=== PATIENT | female | born 1945 | race Caucasian/White ===

== ENCOUNTER 2019-07-31 09:46 | Emergency (ER) | payer MEDICARE ==
[~2019-07-31] VITALS: Ht 160 cm; Wt 65.8 kg
--- OUTSIDE RECORDS SUMMARY | ~2019-07-31 | XMS | Encounter Summary ---
Demographics + + + | Address | [address] | | | [place] [address] | + + + | Home Phone | | + + + | Preferred Language | Unknown | + + + | Marital Status | | + + + | Buddhism Affiliation | Unknown | + + + | Race | Unknown | + + + | Ethnic Group | Unknown | + + + Author + + + | Author | [facility] | | | and [place] | + + + | Organization | [facility] | | | and [place] | + + + | Address | Unknown | + + + | Phone | Unavailable | + + + Support + + + + + | Name | Relationship | Address | Phone | + + + + + | Deniz Shelby | ECON | [address] | | | | | [place] | | | | | [address] | | + + + + + | Haylie Rg | ECON | [address] | | | | | [place] | | + + + + + Care Team Providers + +------+ + | Care Director Product Name | Role | Phone | + +------+ + | Blayne Herrera DO | PCP | | + +------+ + Reason for Visit + + + | Reason | Comments | + + + | Follow-up | | + + + Encounter Details +--------+---------+ + + + | Date | Type | Department | Care Team | Description | +--------+---------+ + + + | 02/18/ | Office | [facility] | Landon Denton, | Dyspnea (Primary | | 2013 | Visit | PULMONARY [address] | MD [address] | Dx); Pulmonary | | | | [place], | [place], [place] | nodules; Sarcoidosis | | | | [place] [address] | [address] | (HCC); Chest | | | | [phone] | | heaviness | +--------+---------+ + + + Social History + +-------+ +--------+------+ | Tobacco Use | Types | Packs/Day | Years | Date | | | | | Used | | + +-------+ +--------+------+ | Never Smoker | | | | | + +-------+ +--------+------+ + +---+---+---+ | Smokeless Tobacco: | | | | | Never Used | | | | + +---+---+---+ + + +---------+ + | Alcohol Use | Drinks/Week | oz/Week | Comments | + + +---------+ + | Not Asked | | | | + + +---------+ + + + + | Sex Assigned at | Date Recorded | | | | + + + | Not on file | | + + + + + + + | Job Start Date | Occupation | Industry | + + + + | Not on file | Not on file | Not on file | + + + + + + + + | Travel History | Travel Start | Travel End | + + + + + + | No recent travel history available. | + + documented as of this encounter Last Filed Vital Signs + + + + + | Vital Sign | Reading | Time Taken | Comments | + + + + + | Blood Pressure | 118/70 | 02/18/2014 11:23 AM | | | | | PDT | | + + + + + | Pulse | 72 | 02/18/2014 11:23 AM | | | | | PDT | | + + + + + | Temperature | - | - | | + + + + + | Respiratory Rate | - | - | | + + + + + | Oxygen Saturation | 97% | 02/18/2014 11:23 AM | | | | | PDT | | + + + + + | Inhaled Oxygen | - | - | | | Concentration | | | | + + + + + | Weight | 73.7 kg (162 lb 6.4 | 02/18/2014 11:23 AM | | | | oz) | PDT | | + + + + + | Height | 152.4 cm (5') | 02/18/2014 11:23 AM | | | | | PDT | | + + + + + | Body Mass Index | 31.72 | 02/18/2014 11:23 AM | | | | | PDT | | + + + + + documented in this encounter Patient Instructions Patient Instructions Landon Denton MD - 02/18/2014 11:51 AM PDTPlease call and let us know Dr. Munoz's plan after you see him today. documented in this encounter Progress Notes Landon Denton MD - 02/18/2014 11:31 AM PDTFormatting of this note might be different f rom the original. Pulmonary Follow Up 02/18/2014 [facility] Elinor Shelby is a 68 y.o. female patient of Blayne Herrera DO here today for follo w up of sarcoidosis. Apparently the patient was seen by Dr. Herrera in August and noted chest heaviness and a chronic cough. The patient believes that she was referred back to Dr. Munoz but the appoint ment was not made for nearly 6 months. I do not have records from Dr. Herrera to substantia te the patient's understanding. Elinor sorto is scheduled to see Dr. Munoz later today. The pat bailey also believes that she's had a cardiology evaluation sometime within the last year. It has been 12 months since our last clinic appointment. At their last visit, we planned r outine follow up for 1 year. Since the last visit she feels like their symptoms are increasi ng steadily. Notes increased cough and SOB over the last 6 months. They have have not had any acute illnesses. Currently they are able to walk 3 miles at their own pace on level ground. They are exercis ing regularly. Walking for up to 45 mins. They are not enrolled in cardiac/pulmonary rehabi litation or other physical therapy. She does cough chronically, and does not produce mucous. They have not had hemoptysis. She does not wheeze chronically, and does have chest tightness with exertion. Such as clim angel up hills. She does not take medication for sarcoidosis. She has not been evaluated for nocturnal oxygen. She does not had symptoms of heartburn or reflux. They have not had symptoms of nasal conge stion, runny nose or post nasal drip. There is no history of new rashes or arthritis like symptoms. No palpitations. Occasional lightheadedness over the last several weeks. Past Medical History Past Medical History Diagnosis Date Lymphedema Shoulder fracture Sarcoid (HCC) Dignosed via mediatinoscopy ~ 2008 Pulmonary nodules No change in follow up imaging last here 2010 Allergies: No Known Allergies Medications: Current outpatient prescriptions:fluticasone (FLONASE) 50 mcg/nasal spray, 1 spray by Nasal route Daily., Disp: , Rfl: ; multivitamin (THERAGRAN) per tablet, 1 tablet by mouth daily, Disp: , Rfl: ; [place]-3 Fatty Acids (OMEGA 3 PO), CPDR; 3 capsules by mouth twice daily, Di sp: , Rfl: Immunizations: Immunization History Administered Date(s) Administered INFLUENZA, PRESERVATIVE FREE IM 05/02/2012, 04/30/2013 Pneumococcal (Adult) 08/22/2008 Review of Systems Constitutional: Denies fever, chills, sweats, fatigue/weakness, and unexpected weight bray ge. Sleep: Denies trouble sleeping, excessive snoring, and daytime sleepiness. Eyes: Denies vision change, and eye irritation. ENT: Denies earache, tinnitus, decreased hearing, nosebleeds, sore throat, and hoarseness. Resp: See HPI. CV: Denies neck/chest/jaw pain with exertion, palpitations, lightheadedness, syncope, dysp lucero on exertion, orthopnea, PND, peripheral edema, and claudication. GI: Denies trouble swallowing, nausea, vomiting, abdominal pain, diarrhea, constipation,m jayro, and hematochezia. Neurologic: Denies frequent headaches, seizures, tremors, numbness or tingling in hands or feet, vertigo, and fall or difficulty walking in past 6 months. Allergy Denies urticaria, allergic rash, hay fever. Objective BP 118/70 | Pulse 72 | Ht 1.524 m (5') | Wt 73.664 kg (162 lb 6.4 oz) | BMI 31.72 kg/m2 | S pO2 97% Appearance: Alert, cooperative, no distress, appears stated age Head: Normocephalic, without obvious abnormality, atraumatic Eyes: PERRL, conjunctiva/corneas clear Nose: Nares normal, septum midline, mucosa normal, no drainage or sinus tenderness Throat: Lips, mucosa, and tongue normal; teeth/dentures normal Neck: Supple, symmetrical, no JVD Lungs: No accessory muscle use, breath sounds are clear to auscultation bilaterally, no w heezes, crackles or rhonchi. No dullness to percussion. Chest Wall: No tenderness or deformity Heart: Regular rate and rhythm, S1, S2 normal, no murmur, rub or gallop Extremities: Extremities normal, atraumatic, no cyanosis, clubbing, or edema. No joint swe lling. Skin: Warm and dry. No rashes. Lymph nodes: Cervical and supraclavicular nodes normal Neurologic: Gait normal Data: Pulmonary function tests were performed on 02/18/14 and were reviewed and interpreted in i jasmyne today. They show a forced vital capacity of 2.81, 110% of predicted with an FEV1/FVC of 71%. The uncorrected DLCO was 11.6, 54% of predicted. Assessment 1. Sarcoid- Elinor sorto is a 68-year-old female with biopsy-proven sarcoidosis. At the time o f the patient's last clinic appointment 12 months ago she was noted to have stable pulmonary symptoms. Likewise assessment of her NELSON level was within normal limits. Over last 6 or so months Elinor sorto has noted worsening of shortness of breath and a nonproduc tive cough. Pulmonary function test today show stable spirometry. Her uncorrected DLCO has fallen 17% over the last 18 or so months. The patient is apparently seeing Dr. Munoz later today potentially for further evaluation o f sarcoid. It is possible though less likely that the patient's worsening symptoms are related to prog ression of sarcoidosis. In the past the patient's sarcoid was thought to be in remission. I wouldn't typically order a CT scan of the chest with contrast at this time. However I do not want to interfere with a potential evaluation pending by Dr. Munoz. We will attempt to coordinate followup. 2. Pulmonary nodules-followed radiographically for several years and thought to be stable. Plan 1. A copy this dictation will be forwarded to Dr. Munoz and Dr. Herrear. 2. Anticipate clarification regarding Dr. Munoz's plans for followup in the near future. 3. A copy of the patient's somewhat recent cardiology will be requested. 4. Anticipate CT scan of the chest with contrast and pulmonary clinic followup within the next several weeks. CC: Blayne Herrera documented in this encounter Plan of Treatment +--------+ + + + + | Date | Type | Specialty | Care Team | Description | +--------+ + + + + | 08/15/ | Appointment | Pulmonology | Landon Denton, | | | 2019 | | | [address] | | | | | | [place] | | | | | | [address] | | | | | | | | +--------+ + + + + | 08/15/ | Office | Pulmonology | Landon Denton, | | | 2019 | Visit | | [address] | | | | | | [place] | | | | | | [address] | | | | | | | | +--------+ + + + + documented as of this encounter Visit Diagnoses + + | Diagnosis | + + | Dyspnea - Primary Other dyspnea and respiratory abnormality | + + | Pulmonary nodules Other nonspecific abnormal finding of lung field | + + | Sarcoidosis | + + | Chest heaviness Other chest pain | + + documented in this encounter"
--- OUTSIDE RECORDS SUMMARY | ~2019-07-31 | XMS | Encounter Summary ---
Demographics + + + | Address | [address] | | | [place] [address] | + + + | Home Phone | | + + + | Preferred Language | Unknown | + + + | Marital Status | | + + + | Adventism Affiliation | Unknown | + + + | Race | Unknown | + + + | Ethnic Group | Unknown | + + + Author + + + | Author | [facility] | | | and [place] | + + + | Organization | [facility] | | | and [place] | [...] [place] | | | | | [address] | | + + + + + | Haylie Rg | ECON | [address] | | | | | [place] | | + + + + + Care Team Providers + +------+ + | Care Carbide Tool Die Maker Name | Role | Phone | + [...] Description | +--------+---------+ + + + | 03/25/ | Office | [facility] | Landon Denton, | Pulmonary nodules | | 2013 | Visit | PULMONARY [address] | MD [address] | (Primary Dx); | | | | [place], | [place], [place] | Sarcoidosis (HCC); | | | | [place] [address] | [address] | Dyspnea | | | | [phone] | | | +--------+---------+ + + + Social History [...] + + + | Blood Pressure | 112/66 | 03/25/2014 9:53 AM | | | | | PDT | | + + + + + | Pulse | 79 | 03/25/2014 9:53 AM | | | | | PDT | | + + + + + | Temperature | - | - | | + + + + + | Respiratory Rate | - | - | | + + + + + | Oxygen Saturation | 95% | 03/25/2014 9:53 AM | | | | | PDT | | + + + + + | Inhaled Oxygen | - | - | | | Concentration | | | | + + + + + | Weight | 75.5 kg (166 lb 6.4 | 03/25/2014 9:53 AM | | | | oz) | PDT | | + + + + + | Height | 152.4 cm (5') | 03/25/2014 9:53 AM | | | | | PDT | | + + + + + | Body Mass Index | 32.5 | 03/25/2014 9:53 AM | | | | | PDT | | + + + + + documented in this encounter Patient Instructions Patient Instructions Landon Denton MD - 03/25/2014 10:18 AM PDTWill discuss with our r adiologist whether they think that the chest CTs have significant worsened. documented in this encounter Progress Notes Landon Denton MD - 03/25/2014 10:02 AM PDTFormatting of this note might be different f rom the original. Pulmonary Follow Up 03/25/2014 HPI Elinor Shelby is a 69 y.o. female patient of Blayne Herrera DO here today for follo w up of sarcoidosis. It has been 1 month since our last clinic appointment. At their last visit, we planned a c hest CT. Since the last visit she feels like their symptoms are stable. They have have not had any acute illnesses. Currently they are able to walk 1-2 miles at their own pace on level ground. They are not e xercising regularly. They are not enrolled in cardiac/pulmonary rehabilitation or other phys ical therapy. She does cough chronically, and does not produce mucous. Cough worse in evening and early m orning. They have not had hemoptysis. She does not wheeze chronically, and does have chest heaviness but no chest tightness. She has not been evaluated for nocturnal oxygen. She does not had symptoms of heartburn or reflux since starting Prilosec. They have not had symptoms of nasal congestion, runny nose or post nasal drip. No new rashes or arthritis like symptoms. No palpitations. No visual changes. Past Medical History Past Medical History Diagnosis [...] by mouth daily, Disp: , Rfl: ; [place]-3 Fatty Acids (OMEGA 3 PO), CPDR; 3 capsules by mouth twice daily, Di sp: , Rfl: ; omeprazole (PRILOSEC) 20 mg capsule, Take 20 mg by mouth every morning (before breakfast)., Disp: , Rfl: Immunizations: Immunization History Administered Date(s) [...] urticaria, allergic rash, hay fever. Objective BP 112/66 | Pulse 79 | Ht 1.524 m (5') | Wt 75.479 kg (166 lb 6.4 oz) | BMI 32.50 kg/m2 | S pO2 95% Appearance: Alert, cooperative, no distress, appears stated [...] supraclavicular nodes normal Neurologic: Gait normal Data: Chest CT scan was done on 06/08/12 and 02/20/14 and was reviewed and interpreted in clinic to day. The images are difficult to compare given that they reside in separate files. However to my eye it appears that the patient has a background of increased interstitial changes, Mixed amongst areas of stable pulmonary parenchyma. Numerous nodular densities are noted. Once again it is difficult to comment on whether these have changed. The patient appears t o have stable mediastinal and hilar lymphadenopathy. Records from Dr. Munoz reference agreement with the need of a CT scan of the chest. In add ition the patient's EGD from 03/10/14 references a hiatal hernia with clinical reflux symptom s. Assessment 1. Worsening dyspnea-in the setting of known sarcoidosis. The patient also has a recent h istory of worsening cough. As noted previously stable spirometry with mild worsening of the diffusion capacity (decreased at 18%) is noted. A CT scan the chest was performed to determine if the patient's worsening symptoms could be secondary to her sarcoidosis. The interpreting radiologist felt that the patient's pulmona ry parenchyma was stable. It is difficult to directly compare the images from 2012 with 201 4 given that they reside in different files. With the above-noted limitations it appears to me that there has been some progression of the patient's pulmonary parenchymal abnormalitie s. We will ask imaging to consolidate all CT scans and one file. Radiology will be asked to r eview the images and render an opinion regarding whether the patient's pulmonary parenchyma has changed. If progression is noted Elinor sorto will be offered prednisone with the potential conversion to a steroid sparing agent like methotrexate. Total duration the patient's clinic appointment was in excess of 30 minutes. Greater than 50% of the time was spent discussing her CT scan and therapy for worsening sarcoid. Plan 1. Imaging/radiology evaluation as described above. 2. Once it is more clear regarding progression of the patient's CT findings a plan will be established as described above. If no progression is noted the patient will havefollowup w ith pulmonary function tests in 6 months time. CC: Blayne Herrera documented in this encounter [...] [place] | | | | | | [address] | | | | | | | | +--------+ + + + + | 08/15/ | Office | Pulmonology | Bertin Landon, | | | 2019 | Visit | | [address] | | | | | | [place] | | | | | | [address] | | | | | | | | +--------+ + + + + documented as of this encounter Visit Diagnoses + + | Diagnosis | + + | Pulmonary nodules - Primary Other nonspecific abnormal finding of lung field | + + | Sarcoidosis | + + | Dyspnea Other dyspnea and respiratory abnormality | + + documented in this encounter"
--- OUTSIDE RECORDS SUMMARY | ~2019-07-31 | XMS | Encounter Summary ---
Demographics + + + | Address | [address] | | | [place] [address] | + + + | Home Phone | | + + + | Preferred Language | Unknown | + + + | Marital Status | | + + + | Confucianist Affiliation | Unknown | + + + | Race | Unknown | + + + | Ethnic Group | Unknown | + + + Author + + + | Author | [facility] | | | and [place] | + + + | Organization | [facility] | | | and [place] | [...] [place] | | | | | [address] | | + + + + + | Haylie Rg | ECON | [address] | | | | | [place] | | + + + + + Care Team Providers + +------+ + | Care Food Safety Scientist Name | Role | Phone | + +------+ + | Ama Moreau | PCP | | | MIYA | | | + +------+ + Encounter Details +--------+ + + + + | Date | Type | Department | Care Team | Description | +--------+ + + + + | 10/19/ | Orders Only | [facility] [place] | Landon Denton, | Dyspnea on exertion | | 2019 | | PULMONARY [address] | MD [address] | (Primary Dx) | | | | [place], | [place], [place] | | | | | [place] [address] | [address] | | | | | [phone] | | | +--------+ + + + + Social History + +-------+ [...] Comments | + + +---------+ + | No | 0 Standard drinks | 0.0 | | | | or equivalent | | | + + +---------+ + [...] + + documented as of this encounter Plan of Treatment +--------+ + + + + | Date | Type | Specialty | Care Team | Description | +--------+ + + + + | 08/15/ | Appointment | Pulmonology | Landon Denton, | | | 2019 | | | MD [address] | | | | | | [place] | | | | | | [address] | | | | | | | | +--------+ + + + + | 08/15/ | Office | Pulmonology | Landon Denton, | | | 2019 | Visit | | MD [address] | | | | | | [place], [place] | | | | | | [address] | | | | | | | | +--------+ + + + + documented as of this encounter Results Creatinine (02/20/2019 9:21 AM PDT) + + + + + + | Component | Value | Ref Range | Performed | Pathologist | | | | | At | Signature | + + + + + + | Creatinine | 0.72 | 0.55 - 1.02 | [facility] | | | | | mg/dL | [facility] | | | | | | [facility] | | | | | | [facility] - | | | | | | LABORATORY | | + + + + + + | eGFR if not | >60Comment: GLOMERULAR | >=60 | [facility] | | | | FILTRATION | mL/min/1.73m2 | [facility] | | | [facility]ZECH | RATE,ESTIMATED | | MEDICAL | | | | mL/min/1.42y3Qujt than | | CENTER - | | | | 60 Chronic kidney | | LABORATORY | | | | disease,if found over a | | | | | | 3-month period.Less than | | | | | | 15 Kidney failureFor | | | | | | | | | | | | Americans,multiply the | | | | | | calculated GFR by 1.21. | | | | | | | | | | + + + + + + + + | Specimen | + + | Blood | + + + + + + + | Performing | Address | City/State/Zipcode | Phone Number | | Organization | | | | + + + + + | [facility] | [address] | [place] | [phone] | | [facility] | | [address] | | | - LABORATORY | | | | + + + + + BUN (02/20/2019 9:21 AM PDT) + +-------+ + + + | Component | Value | Ref Range | Performed | Pathologist | | | | | At | Signature | + +-------+ + + + | BUN | 16 | 9 - 23 mg/dL | [facility] | | | | | | [facility] | | | | | | MEDICAL | | | | | | CENTER - | | | | | | LABORATORY | | + +-------+ + + + + + | Specimen | + + | Blood | + + + + + + + | Performing | Address | City/State/Zipcode | Phone Number | | Organization | | | | + + + + + | [facility] | [address] | [place], [place] | [phone] | | [facility] | | [address] | | | - LABORATORY | | | | + + + + + documented in this encounter Visit Diagnoses + + | Diagnosis | + + | Dyspnea on exertion - Primary Other dyspnea and respiratory abnormality | + + documented in this encounter"
--- OUTSIDE RECORDS SUMMARY | ~2019-07-31 | XMS | Encounter Summary ---
Demographics + + + | Address | [address] | | | [place] [address] | + + + | Home Phone | | + + + | Preferred Language | Unknown | + + + | Marital Status | | + + + | Bahai Affiliation | Unknown | + + + | Race | Unknown | + + + | Ethnic Group | Unknown | + + + Author + + + | Author | [facility] | | | and [place] | + + + | Organization | [facility] | | | and [place] [...] [place] | | | | | [address] | | + + + + + | Haylie Rg | ECON | [address] [facility] | | | | | [place] | | + + + + + Care Team Providers + +------+ + | Care Hi Lo Driver Name | Role | Phone | + [...] Description | +--------+---------+ + + + | 07/30/ | Office | [facility] | Landon Denton, | Adrenal | | 2013 | Visit | PULMONARY [address] | MD [address] | insufficiency due to | | | | [place], | [place], [place] | steroid withdrawal | | | | [place] [address] | [id number] | ([facility]LY [facility]) (Primary Dx); | | | | [phone] | | Sarcoidosis ([facility]) | +--------+---------+ + + + Social History [...] + + + | Blood Pressure | 144/84 | 07/30/2014 1:57 PM | | | | | PST | | + + + + + | Pulse | 92 | 07/30/2014 1:57 PM | | | | | PST | | + + + + + | Temperature | - | - | | + + + + + | Respiratory Rate | - | - | | + + + + + | Oxygen Saturation | 96% | 07/30/2014 1:57 PM | | | | | PST | | + + + + + | Inhaled Oxygen | - | - | | | Concentration | | | | + + + + + | Weight | 77.5 kg (170 lb 14.4 | 07/30/2014 1:57 PM | | | | oz) | PST | | + + + + + | Height | 152.4 cm (5') | 07/30/2014 1:57 PM | | | | | PST | | + + + + + | Body Mass Index | 33.38 | 07/30/2014 1:57 PM | | | | | PST | | + + + + + documented in this encounter Patient Instructions Patient Instructions Landon Denton MD - 07/30/2014 2:20 PM PST Pulmonary Sarcoidosis Sarcoidosis is a disease that causes inflammation of the body tissues. This leads to small lumps called granulomas. The disease can affect any organ in the body. But it often starts i n the lungs and lymph nodes. What Causes Sarcoidosis? It is not known what causes sarcoidosis. It results from a problem with the body s immune system. The main job of the immune system is to help the body fight infection. Persons of a ny age, race, or gender can have it. But it happens most often in people between the ages of 20 and 40. How It Affects the Lungs When you breathe in, you inhale air that is full of oxygen. The oxygen travels from the francisco j gs to the blood. Then it is carried to the rest of the body. With pulmonary sarcoidosis, the lungs become scarred. This is called pulmonary fibrosis. This scarring can make it hard to take a full breath. The damage can also make it hard for oxygen to pass from the lungs into the blood. Symptoms of Pulmonary Sarcoidosis Most people have no symptoms at all. If symptoms do occur, they can include dry cough,tig htness in the chest, and tiredness. Wheezing, shortness of breath, and loss of appetite can also occur. In some cases, pulmonary sarcoidosis stops getting worse. It may even go away. I n other cases, the disease is chronic (long-lasting). Treatment of Pulmonary Sarcoidosis Many people don t need treatment. The disease may not cause symptoms. And it may go away on its own. But treatment can be done to help relieve symptoms. It can reduce inflammation a nd help prevent damage. Medications are used to treat the disease. More than one may be used . They may be taken in pill form. Or, they may be inhaled. Some common ones are listed below . Prednisone. This is an anti-inflammatory steroid (corticosteroid). It helps prevent or r educe inflammation that can harm lungs. Azathioprine. This is an anti-inflammatory medication. It may be used alone or with pred nisone. It helps reduce lung inflammation. Cyclophosphamide. This is a type of anti-inflammatory medication. It may be used with pr ednisone. You may be given it as a single dose if you have problems with prednisone. Note: These medications can have serious side effects. Talk to your doctor about them. Do n ot stop taking a medication unless your doctor says it s okay. And tell your doctor or pha rmacist about all medications you use. This includes sufs-tew-ihexiyn medications. It also i ncludes herbs or supplements. [id number] [employer]. [address] [place] [address], [place] [address]. All righ ts reserved. This information is not intended as a substitute for professional medical care. Always follow your healthcare professional's instructions. documented in this encounter Progress Notes Landon Denton MD - 07/30/2014 2:08 PM PSTFormatting of this note might be different f rom the original. Pulmonary Follow Up 07/30/2014 HPI Elinor Shelby is a 69 y.o. female patient of Blayne Herrera D.O. here today for fol low up of sarcoidosis. It has been 2.5 months since our last clinic appointment. At their last visit, we planned a gradual taper of prednisone. for unclear reasons Elinor Buitrago did not decrease her prednisone to 10 mg every other day start ing in June. She presented to a hospital in seeing you know if you on July 15 with bloody diarrhea . Patient was diagnosed with infectious colitis and treated with ciprofloxacin and Flagyl. Her prednisone was abruptly discontinued. Ever since she was discharged from the hospital on the The patient has noted dizzines s, lower extremity edema, fatigue and some nausea. No recurrent hematochezia is reported. Currently they are able to walk 100 yards at their own pace on level ground. They are not e xercising regularly. They are not enrolled in cardiac/pulmonary rehabilitation or other phys ical therapy. She does cough chronically, and does not produce mucous. Increased cough since stopping pre dnisone. They have not had hemoptysis. She does wheeze chronically, and does not have chest tightness. She has not been evaluated for nocturnal oxygen. She does not had symptoms of heartburn or reflux. They have not had symptoms of nasal conge stion, runny nose or post nasal drip. Past Medical History Past Medical History Diagnosis Date Lymphedema Shoulder fracture Sarcoid (HCC) Dignosed via mediatinoscopy ~ 2008 Pulmonary nodules No change in follow up imaging last here 2010 Allergies: No Known Allergies Medications: Current outpatient prescriptions:omeprazole (PRILOSEC) 20 mg capsule, Take 20 mg by mouth e very morning (before breakfast)., Disp: , Rfl: ; ondansetron (ZOFRAN ODT) 4 mg disintegrati ng tablet, Take 4 mg by mouth every 8 hours as needed., Disp: , Rfl: ; predniSONE (DELTASON E) 10 mg tablet, Take one tablet daily for 2 weeks then one tab every other day for 7 doses (two weeks), then stop prednisone., Disp: 21 tablet, Rfl: 0 saccharomyces boulardii (FLORASTOR) 250 MG capsule, Take 250 mg by mouth 2 times daily., Di sp: , Rfl: Immunizations: Immunization History Administered Date(s) Administered PNEUMOCOCCAL POLYSACCHARIDE 23-VALENT (PPSV23) 08/22/2008 TRIVALENT INFLUENZA, PRESERATIVE FREE (PED/ADOL/ADULT) 05/02/2012, 04/30/2013, 05/03/20 14 Review of Systems Constitutional: Denies fever, chills, [...] urticaria, allergic rash, hay fever. Objective BP 144/84 | Pulse 92 | Ht 1.524 m (5') | Wt 77.52 kg (170 lb 14.4 oz) | BMI 33.38 kg/m2 | S pO2 96% Appearance: Alert, cooperative, no distress, appears stated [...] supraclavicular nodes normal Neurologic: Gait normal Data: Records: A discharge summary from 07/17/14 is available for my review. A presumptive diagn osis was infectious colitis. Severe colitis involving the ascending, transverse and descend ing colon was noted. Clostridium difficile testing was negative. The patient also referenc es a colonoscopy but I do not see any notation in her discharge summary. Assessment 1. Presented adrenal insufficiency-related to discontinuation of prednisone. Symptoms david nd consistent with such a diagnosis. It is also possible however that her symptoms are rela ty to recurrence of a colitis-like process. Ms. Shelby is scheduled to see Dr. Avelina regan next week. 2. Sarcoidosis-recently tolerating a gradual prednisone taper. Related to probable adrena l insufficiency prednisone will be reinitiated hopefully tapered off over the next month. I am hopeful that the patient did not require additional prednisone for treatment of her sa rcoidosis. Plan 1. Prednisone 10 mg a 2 weeks, followed by prednisone 10 mg every other day for 7 doses. Prednisone was subsequently discontinued. 2. Pulmonary clinic followup to determine the status the patient symptoms in 4 weeks' pérez abraham. 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
--- OUTSIDE RECORDS SUMMARY | ~2019-07-31 | XMS | Encounter Summary ---
Demographics + + + | Address | [address] | | | [place] [address] | + + + | Home Phone | | + + + | Preferred Language | Unknown | + + + | Marital Status | | + + + | Anabaptism Affiliation | Unknown | + + + | Race | Unknown | + + + | Ethnic Group | Unknown | + + + Author + + + | Author | [facility] | | | and [place] | + + + | Organization | [facility] | | | and [...] [place] | | | | | [address] | | + + + + + | Haylie Rg | ECON | [address] [facility] | | | | | [place] | | + + + + + Care Team Providers + +------+ + | Care Doweler Name | Role | Phone | + +------+ + | Blayne Herrera PCP | | + +------+ + Reason for Visit + + + | Reason | Comments | + + + | Sarcoidosis | Prednisone therapy follow up | + + + Encounter Details +--------+---------+ + + + | Date | Type | Department | Care Team | Description | +--------+---------+ + + + | 02/15/ | Office | [facility] [place] | Landon Denton, | Sarcoidosis (HCC) | | 2016 | Visit | PULMONARY [address] | MD [address] | (Primary Dx); | | | | [place], | [place], [place] | Pulmonary nodules | | | | [place] [address] | [address] | | | | | [phone] | | | +--------+---------+ + + + [...] | | | + +---+---+---+ + + | Tobacco Cessation: Counseling Given: No | + + + + +---------+ + | Alcohol Use [...] + + + | Blood Pressure | 110/60 | 02/16/2016 9:43 AM | | | | | PDT | | + + + + + | Pulse | 78 | 02/16/2016 9:43 AM | | | | | PDT | | + + + + + | Temperature | - | - | | + + + + + | Respiratory Rate | - | - | | + + + + + | Oxygen Saturation | 95% | 02/16/2016 9:43 AM | | | | | PDT | | + + + + + | Inhaled Oxygen | - | - | | | Concentration | | | | + + + + + | Weight | 77.2 kg (170 lb 1.6 | 02/16/2016 9:43 AM | | | | oz) | PDT | | + + + + + | Height | 157.5 cm (5' 2") | 02/16/2016 9:43 AM | | | | | PDT | | + + + + + | Body Mass Index | 31.11 | 02/16/2016 9:43 AM | | | | | PDT | | + + + + + documented in this encounter Patient Instructions Patient Instructions Landon Denton MD - 02/16/2016 10:11 AM PDT Please get high dose FluVaccine in April The flu (influenza) is caused by a virus that is easily spread. A fluvaccine protects you and othersfrom the flu. It s best to get a flu shot each fall, as soon as the vaccine i s available in your area. You can get it at your health care provider s office or a health clinic. Drugstores, senior centers, and workplaces often offer flu shots, too. If you want to know if your providerhas the flu vaccine available, or if you have other questions, ask your healthcare provider. Flu facts The flu shot will not give you the flu. The flu can be dangerous even life-threatening. Every year, about 36,000 people of complications from the flu. The flu is caused by a virus. It can t be treated with antibiotics. Influenza is not the same as stomach flu, the 24-hour bug that causes vomiting and diarrhea. This is most likely due to a GI (gastrointestinal) infection not the flu. You need to get a flu shot each year. Flu symptoms Flu symptoms tend to come on quickly. Fever, headache, fatigue, cough, sore throat, runny n ose, and muscle aches are symptoms of the flu. Upset stomach and vomiting are not common for adults. Some symptoms, such as fatigue and cough, may last a few weeks. How a flu shot protects you There are many strains (types) of theflu virus. Medical experts predict which strains are most likely to make people sick each year. Flu shots are made from these strains. When you get a flu vaccine, inactivated ( killed ) or very mild flu viruses are injected into you r body or sprayed into your nose. These cannot give you the flu. But they do prompt your bod y to make antibodies to fight these flu strains. If you re exposed to the same strains lat er in the flu season, the antibodies will fight off the germs. Recommendations for the flu vaccine The CDC recommends that infants over the age of 6 months and all children and adults should get flu shots every year. Some people are at an increased risk of developing serious complications from the flu. It i s extremely important that these people get the vaccine. They include those with: Long-term heart and lung conditions Other serious medical conditions Endocrine disorders, like diabetes Kidney or liver disorders Weakened immune systems from disease of medical treatment; for example, those with HIV o r AIDS or taking long-term steroids or medications to treat cancer Blood disorders, such as sickle cell disease It is also very important that others that have an increased risk of being exposed to the f daljit or are around people with increased risk of complications get the vaccine. They are: Health care providers and other staff that provide care in hospitals, nursing homes, [facility], and other facilities Household members, including children, of people in high-risk groups Types of flu vaccines The flu vaccine is available as a shot and as a nasal spray. Your health care provider will determine which vaccine is right for you. The shot is available in a few different forms. There is a high-dose vaccine for those o edgar 65 and a vaccine for those with egg allergies. It is safe for most people. Talk with you r provider if you have had: A severe allergic reaction to a previous flu vaccine Guillain-[place] syndrome (a severe paralyzing condition) The nasal spray is recommended for people from 2 to 49 years old. It should not be given to adults who: Are Have weakened immune systems Have egg allergies Will be in close contact with someone with a weakened immune system Have taken antiviral medication in the past 2 days [id number] [employer]. [address] [place] [address], [place] [address]. All righ ts reserved. This information is not intended as a substitute for professional medical care. Always follow your healthcare professional's instructions. documented in this encounter Progress Notes Landon Denton MD - 02/16/2016 10:02 AM PDTFormatting of this note might be different f rom the original. Pulmonary Follow Up 02/16/2016 HPI Anne Afsaneh is a 70 y.o. female patient of Blayne Herrera here today for follow u p of sarcoidosis. It has been 10 weeks since our last clinic appointment. At their last visit, we 12/08/15. S tommy the last visit she feels like their symptoms are stable. They have have not had any a cute illnesses. They are currently on a regimen of prednisone 5 mg QOD. They do feel like t his medication regimen is working for them. Currently they are able to walk 1+ miles at their own pace on level ground. They are not ex ercising regularly. Does year work. They are not enrolled in cardiac/pulmonary rehabilitati on or other physical therapy. She does not cough chronically, and does not produce mucous. They have not had hemoptysis. She does not wheeze chronically, and does not have chest tightness. She does not note side effects from their sarcoidosis medications. Specifically does not h ave nausea, insomnia or polyuria. She has not been evaluated for nocturnal oxygen. She does not had symptoms of heartburn or reflux. They have not had symptoms of nasal conge stion, runny nose or post nasal drip. The patient was evaluated by Dr. Spear for a nose lesion and is currently receiving treatme nt. Past Medical History Past Medical History Diagnosis Date Lymphedema Shoulder fracture Sarcoid (HCC) Dignosed via mediatinoscopy ~ 2008 Pulmonary nodules No change in follow up imaging last here 2010 [place] August 2014 Lung disease Rash Obesity Acid reflux disease Allergies: No Known Allergies Medications: Current outpatient prescriptions: augmented betamethasone dipropionate (DIPROLENE-AF) 0.05 % ointment, Apply sparingly o nce daily, Disp: , Rfl: 1 Evening Deposit Oil 1000 MG CAPS, Take 1,000 mg by mouth 2 times daily., Disp: , Rfl: omeprazole (PRILOSEC) 20 mg capsule, Take 20 mg by mouth every morning (before )., Disp: , Rfl: predniSONE (DELTASONE) 10 mg tablet, Take 1 tablets by mouth for 2 weeks, then take 0. 5 tablets by mouth for 4 weeks, then take 0.5 tablet for every other day for 4 weeks, Disp: 30 tablet, Rfl: 1 PROAIR HFA 108 (90 BASE) MCG/ACT inhaler, Inhale 2 puffs into the lungs every 4 hours as needed., Disp: , Rfl: Immunizations: Immunization History Administered Date(s) Administered INFLUENZA, TRIVALENT PRESERVATIVE FREE (PED/ADOL/ADULT) 05/02/2012, 04/30/2013, 014, 05/13/2015 PNEUMOCOCCAL POLYSACCHARIDE 23-VALENT (PPSV23) 08/22/2008 Review of Systems Constitutional: Denies fever, [...] urticaria, allergic rash, hay fever. Objective BP 110/60 mmHg | Pulse 78 | Ht 1.575 m (5' 2") | Wt 77.157 kg (170 lb 1.6 oz) | BMI 31.10 k g/m2 | SpO2 95% | ? No Appearance: Alert, cooperative, no distress, appears stated [...] supraclavicular nodes normal Neurologic: Gait normal Data: None. Assessment 1. Sarcoidosis associated with increased cough and shortness of breath earlier this year . The patient was subsequently treated with prednisone over approximately 12 weeks. Over t he last 10 weeks Renetta has weaned her prednisone from 10 mg a day, 5 mg daily and 5 mg ever y other day (each for 4 weeks. Today we briefly discussed the role of an inhaled corticosteroid given some degree of appar ent airway involvement (manifesting as cough). After discussion Renetta is indicated that valentin abraham hopes to be able to completely avoid medications for her sarcoid. 2. Pulmonary nodules radiographic stability noted from 11/15/09 through 02/20/14. Etiolog y of the patient's pulmonary nodules is most likely related to her underlying sarcoidosis. No follow up imaging for this issue needed.. Plan 1. Discontinue prednisone. 2. High dose seasonal influenza vaccination April 2016. 3. Pulmonary clinic follow-up appointment in 3 months time. CC: Blayne Herrera documented in this encounter Plan of Treatment +--------+ + + + + | Date | Type | Specialty | Care Team | Description | +--------+ + + + + | 08/15/ | Appointment | Pulmonology | Landon Denton, | | | 2019 | | | MD [address] | | | | | | [place] | | | | | | [phone] | | | | | | | | +--------+ + + + + | 08/15/ | Office | Pulmonology | Landon Denton, | | | 2019 | Visit | | [address] | | | | | | [place] | | | | | | [address] | | | | | | | | +--------+ + + + + documented as of this encounter Visit Diagnoses + + | Diagnosis | + + | Sarcoidosis - Primary | + + | Pulmonary nodules Other nonspecific abnormal finding of lung field | + + documented in this encounter
--- OUTSIDE RECORDS SUMMARY | ~2019-07-31 | XMS | Encounter Summary ---
Demographics + + + | Address | [address] | | | [place] [address] | + + + | Home Phone | | + + + | Preferred Language | Unknown | + + + | Marital Status | | + + + | Sikh Affiliation | Unknown | + + + | Race | Unknown | + + + | Ethnic Group | Unknown | + + + Author + + + | Author | [facility] | | | and [place] | + + + | Organization | [facility] | | | and [...] [place] | | | | | [address] | | + + + + + | Haylie Rg | ECON | [address] [facility] | | | | | [place] | | + + + + + Care Team Providers + +------+ + | Care Telegraph Office Telephone Clerk Name | Role | Phone | + +------+ + | Blayne Herrera DO | PCP | | + +------+ + Reason for Visit + + + | Reason | Comments | + + + | Sarcoidosis | 1 mo follow up | + + + Encounter Details +--------+---------+ + + + | Date | Type | Department | Care Team | Description | +--------+---------+ + + + | 12/07/ | Office | [facility] | Landon Denton, | Sarcoidosis (HCC) | | 2016 | Visit | PULMONARY [address] | MD [address] | (Primary Dx); High | | | | [place], | [place] | risk medication use | | | | [place] [address] | [address] | | | | | [phone] | | | +--------+---------+ + + + [...] + + + | Blood Pressure | 140/80 | 12/08/2015 10:20 AM | | | | | PDT | | + + + + + | Pulse | 76 | 12/08/2015 10:20 AM | | | | | PDT | | + + + + + | Temperature | - | - | | + + + + + | Respiratory Rate | - | - | | + + + + + | Oxygen Saturation | 99% | 12/08/2015 10:20 AM | | | | | PDT | | + + + + + | Inhaled Oxygen | - | - | | | Concentration | | | | + + + + + | Weight | 74.4 kg (164 lb 1.6 | 12/08/2015 10:20 AM | | | | oz) | PDT | | + + + + + | Height | 154.9 cm (5' 1") | 12/08/2015 10:20 AM | | | | | PDT | | + + + + + | Body Mass Index | 31.01 | 12/08/2015 10:20 AM | | | | | PDT | | + + + + + documented in this encounter Patient Instructions Patient Instructions Landon Denton MD - 12/08/2015 10:58 AM PDT Pulmonary Sarcoidosis What Is Sarcoidosis? Sarcoidosis is a disease that causes inflammation of the body tissues. The disease can affe ct any organ in the body. It affects the lungs most often, which is why it's called pulmonar y sarcoidosis. The inflammation may affect the air sacs, or alveoli, and small airways, or b ronchioles, in the lungs. It may also affect nearby lymph nodes. The changes may cause the l yung tissue to become stiff and make it difficult to breathe. In severe cases, it can cause s carring of the lungs, or pulmonary fibrosis. What Causes Sarcoidosis? The cause ofsarcoidosis is unknown. Itis believed to earl problem with the body s im mune system. What Are the Symptoms of Pulmonary Sarcoidosis? The symptomscan include: Dry cough Shortness of breath Mild chest pain Feeling tired and weak Fever Weight loss How Is Pulmonary Sarcoidosis Diagnosed? Your health care provider will ask you a lot of questions about your medical history and cu rrent symptoms. He or she will examine you. You will have some common diagnostic tests, incl uding a chest X-ray and blood tests. Other tests may include: Pulmonary function tests. These are tests that measure how well your lungs work. A commo n test is spirometry. Biopsy. A biopsy may beneeded to make the diagnosis. A biopsy is a procedure to gather small samples of tissue for testing. It isdone during a procedure called a bronchoscopy. A bronchoscope is a special tool that allows your health care provider to see inside your daljit ngs. You are given medication before the test to help you relax. The bronchoscope is put in the mouth and moved down the throat intoyour windpipe, or trachea, and then into the lungs . A small sample of tissue is taken to be examined under a microscope. How Is Pulmonary Sarcoidosis Treated? Most people don t need treatment. The disease may not cause symptoms. And it may go away on its own.Patients may get treatment to help relieve symptoms caused byinflammation and help prevent damage. If medication is prescribed, it is usually a corticosteroid. Make sure you follow all of your health care provider's instructions. Make sure you go to a ll follow-up appointments. If your symptoms are getting worse, call your health care provide r. If you smoke, think about quitting. This is not only important for you lung condition, but also for your overall health. There are many ways to make quitting easier, including local a [employer] programs, as well as medications. [id number] [employer]. [address] [place] [address], [place] [address]. All righ ts reserved. This information is not intended as a substitute for professional medical care. Always follow your healthcare professional's instructions. documented in this encounter Progress Notes Landon Denton MD - 12/08/2015 10:49 AM PDTFormatting of this note might be different f rom the original. Pulmonary Follow Up 12/08/2015 HPI AnneMinna Shelby is a 70 y.o. female patient of Blayne Herrera here today for follow u p of sarcoidosis. It has been 1 month since our last clinic appointment. At their last visit, we started pre dnisone. Since the last visit she feels like their symptoms are decreasing steadily. Still some symptoms though markedly improved. They have have not had any acute illnesses. They a re currently on a regimen of prednisone dose to 10 mg a. They do feel like this medication regimen is working for them. Currently they are able to walk several miles at their own pace on level ground. They are n ot exercising regularly. They are not enrolled in cardiac/pulmonary rehabilitation or other physical therapy. She does cough chronically, and does not produce mucous. They have not had hemoptysis. She does not wheeze chronically, and does not have chest tightness. She does note side effects from their sarcoidosis medications. Increased appetite. Specif ically does not have nausea, insomnia or polyuria. She has not been evaluated for nocturnal oxygen. She does not had symptoms of heartburn or reflux. Takes Prilosec. The patient saw Dr. Spear for her nasal lesion and was placed on a steroid cream. She is s cheduled to see him in follow-up later this month. Past Medical History Past Medical History Diagnosis Date Lymphedema Shoulder fracture Sarcoid (HCC) Dignosed via mediatinoscopy ~ 2008 Pulmonary nodules No change in follow up imaging last here 2010 Shingles August 2014 Lung disease Rash Obesity Acid reflux disease Allergies: No Known Allergies Medications: Current outpatient prescriptions: augmented betamethasone dipropionate (DIPROLENE-AF) 0.05 % ointment, Apply sparingly o nce daily, Disp: , Rfl: 1 Evening [place] Oil 1000 MG CAPS, Take 1,000 mg by mouth 2 times daily., Disp: , Rfl: omeprazole (PRILOSEC) 20 mg capsule, Take 20 mg by mouth every morning (before break)., Disp: , Rfl: PROAIR HFA 108 (90 BASE) MCG/ACT inhaler, Inhale 2 puffs into the lungs every 4 hours as needed., Disp: , Rfl: saccharomyces boulardii (FLORASTOR) 250 MG capsule, Take 250 mg by mouth 2 times daily ., Disp: , Rfl: Immunizations: Immunization History Administered [...] urticaria, allergic rash, hay fever. Objective BP 140/80 mmHg | Pulse 76 | Ht 1.549 m (5' 1") | Wt 74.435 kg (164 lb 1.6 oz) | BMI 31.02 k g/m2 | SpO2 99% | ? No Appearance: Alert, cooperative, no [...] supraclavicular nodes normal Neurologic: Gait normal Data: NELSON level from 11/10/15 was 42 Assessment 1. Apparent sarcoidosis once again the patient is a 70-year-old female with a history of sarcoidosis established via mediastinoscopy in 2009. Remission subsequent occurred followi ng prednisone. Recurrent symptoms developed in the fall of 2013 requiring prednisone which was tapered off with some adrenal insufficiency like symptoms. Elinor buitrago remained in her norm al state of health until early in 2015 when she began to note increased shortness of breath and a cough. Pulmonary function tests showed that the patient's diffusion capacity has decl ined by 11%. Prednisone for recurrent sarcoidosis symptoms was initiated one month ago. Significant imp rovement of the patient's symptoms subsequently occurred. Today we discussed the possibility of initiating therapy with methotrexate. The patient wo uld like to avoid chronic therapy if at all possible. Thus we will initiate a gradual predn isone taper and monitor for worsening symptoms. Plan 1. Prednisone 10 mg daily for 2 additional weeks, 5 mg daily for 4 weeks and ultimately 5 mg every other day for 4 weeks. 2. Pulmonary clinic follow-up appointment in approximately 10 weeks time. 3. I've encouraged Elinor Buitrago contact our office if worsening pulmonary symptoms were to deve lop. CC: Blayne Herrera documented in this encounter [...] [place] | | | | | | [address] | | | | | | | | +--------+ + + + + | 08/15/ | Office | Pulmonology | Landon Denton, | | | 2019 | Visit | | MD [address] | | | | | | [place] | | | | | | [address] | | | | | | | | +--------+ + + + + documented as of this encounter Visit Diagnoses + + | Diagnosis | + + | Sarcoidosis - Primary | + + | High risk medication use Encounter for long-term (current) use of other medications | + + documented in this encounter
--- OUTSIDE RECORDS SUMMARY | ~2019-07-31 | XMS | Encounter Summary ---
Demographics + + + | Address | [address] | | | [place] [address] | + + + | Home Phone | | + + + | Preferred Language | Unknown | + + + | Marital Status | | + + + | Hindu Affiliation | Unknown | + + + | Race | Unknown | + + + | Ethnic Group | Unknown | + + + Author + + + | Author | [facility] | | | and [place] | + + + | Organization | [facility] | | | and [place] [...] [place] | | | | | [address] | | + + + + + | Haylie Rg | ECON | [address] [facility] | | | | | [place] | | + + + + + Care Team Providers + +------+ + | Care Department Supervisor Name | Role | Phone | + +------+ + | Blayne Herrera PCP | | + +------+ + Reason for Visit + + + | Reason | Comments | + + + | Medication Question | Flovent Inhaler | + + + Encounter Details +--------+ + + + + | Date | Type | Department | Care Team | Description | +--------+ + + + + | 04/05/ | Telephone | [facility] | Landon Denton, | Medication Question | | 2016 | | PULMONARY [address] | MD [address] | (Flovent Inhaler ) | | | | [place], | [place] | | | | | [place] [address] | [address] | | | | | [phone] | | | +--------+ + + + [...] [place] | | | | | | [address] | | | | | | | | +--------+ + + + + | 08/15/ | Office | Pulmonology | Landon Denton, | | | 2019 | Visit | | MD [address] | | | | | | [place] | | | | | | [address] | | | | | | | | +--------+ + + + + documented as of this encounter Visit Diagnoses Not on filedocumented in this encounter"
--- OUTSIDE RECORDS SUMMARY | ~2019-07-31 | XMS | Encounter Summary ---
Demographics + + + | Address | [address] | | | [place] [address] | + + + | Home Phone | | + + + | Preferred Language | Unknown | + + + | Marital Status | | + + + | Worship Affiliation | Unknown | + + + | Race | Unknown | + + + | Ethnic Group | Unknown | + + + Author + + + | Author | [facility] | | | and [place] | + + + | Organization | [facility] | | | and [place] [...] [place] | | | | | [address] | | + + + + + | Haylie Rg | ECON | [address] [facility] | | | | | [place] | | + + + + + Care Team Providers + +------+ + | Care Building Inspection Engineer Name | Role | Phone | + +------+ + | Blayne Herrera DO | PCP | | + +------+ + Encounter Details +--------+ + + + + | Date | Type | Department | Care Team | Description | +--------+ + + + + | 08/01/ | Hospital | [facility] | Conversion | Pain | | 2018 | Encounter | CONVERSION [address] | Transaction, | | | | | [address] | Provider Unknown | | | | | [place] | [phone] | | | | | [address] | | | | | | [phone] | | | +--------+ + + + [...] + + documented as of this encounter Medications at Time of Discharge + + + +---------+ + + | Medication | Sig | Dispensed | Refills | Start | End Date | | | | | | Date | | + + + +---------+ + + | Evening [place] | Take 1,000 mg by | | 0 | | | | Oil 1000 MG CAPS | mouth Daily. | | | | | + + + +---------+ + + | omeprazole | Take 20 mg by mouth | | 0 | | | | (PRILOSEC) 20 mg | every morning | | | | | | capsule | (before breakfast). | | | | | + + + +---------+ + + | pseudoePHEDrine | Take 30 mg by mouth | | 2 | 10/02/19 | | | (SUDAFED) 30 mg | every 6 hours as | | | 17 | | | tablet | needed. | | | | | + + + +---------+ + + | albuterol (PROAIR | Inhale 2 puffs into | 1 | 11 | 05/17/20 | | | HFA) 90 mcg/puff | the lungs every 4 | Inhaler | | 16 | 8 | | inhalerIndications: | hours as needed for | | | | | | Sarcoidosis | Shortness of Breath | | | | | | | (or coughing). | | | | | + + + +---------+ + + | augmented | Apply sparingly once | | 1 | 11/26/19 | | | betamethasone | weekly or as | | | 16 | 8 | | dipropionate | directed | | | | | | (DIPROLENE-AF) 0.05 | | | | | | | % ointment | | | | | | + + + +---------+ + + | fluticasone | Inhale 1 puff into | 60 | 3 | 04/04/20 | | | (FLOVENT DISKUS) 100 | the lungs 2 times | Inhaler | | 17 | 8 | | MCG/BLIST diskus | daily. | | | | | | inhaler | | | | | | + + + +---------+ + + documented as of this encounter [...] [place] | | | | | | [address] | | | | | | | | +--------+ + + + + | 08/15/ | Office | Pulmonology | Landon Denton, | | | 2019 | Visit | | MD [address] | | | | | | [place] | | | | | | [address] | | | | | | | | +--------+ + + + + documented as of this encounter Procedures + +--------+ + + + | Procedure Name | Priori | Date/Time | Associated Diagnosis | Comments | | | ty | | | | + +--------+ + + + | CT CHEST W CONTRAST | Routin | 06/08/2012 | | Results for this | | | e | 10:16 AM | | procedure are in the | | | | PST | | results section. | + +--------+ + + + documented in this encounter Results CT Chest w Contrast (06/08/2012 10:16 AM PST) + + | Specimen | + + | | + + + + + | Narrative | Performed At | + + + | This is a non-reportable procedure without a radiologist report and | | | is used for image storage only | | + + + + + | Procedure Note | + + | Gerald Aguiar - 03/13/2019 1:33 PM PDT This is a non-reportable procedure | | without a radiologist report and isused for image storage only | + + documented in this encounter Visit Diagnoses + + | Diagnosis | + + | Pain Generalized pain | + + documented in this encounter"
--- OUTSIDE RECORDS SUMMARY | ~2019-07-31 | XMS | Encounter Summary ---
Demographics + + + | Address | [address] | | | [place] [address] | + + + | Home Phone | | + + + | Preferred Language | Unknown | + + + | Marital Status | | + + + | Taoist Affiliation | Unknown | + + + | Race | Unknown | + + + | Ethnic Group | Unknown | + + + Author + + + | Author | [facility] | | | and [place] | + + + | Organization | [facility] | | | and [place] [...] [place] | | | | | [address] | | + + + + + | Haylie Rg | ECON | [address] [facility] | | | | | [place] | | + + + + + Care Team Providers + +------+ + | Care Family Resource Management Professor Name | Role | Phone | + +------+ + | Ama Moreau | PCP | | | PAIan | | | + +------+ + Reason for Visit + + + | Reason | Comments | + + + | Medication Refill | | + + + Encounter Details +--------+--------+ + + + | Date | Type | Department | Care Team | Description | +--------+--------+ + + + | 02/22/ | Refill | [facility] | Blayne Herrera | Medication Refill | | 2019 | | [facility] | E, DO [address] | | | | | [facility] [address] | [place], [place] | | | | [address] [place], | [address] | | | | | [place] [address] | [phone] | | | | | [phone] | | | +--------+--------+ + + + Social History + +-------+ [...] [place] | | | | | | [address] | | | | | | | | +--------+ + + + + | 08/15/ | Office | Pulmonology | Landon Denton, | | | 2019 | Visit | | MD [address] | | | | | | [place] | | | | | | [address] | | | | | | | | +--------+ + + + + documented as of this encounter Visit Diagnoses Not on filedocumented in this encounter"
--- OUTSIDE RECORDS SUMMARY | ~2019-07-31 | XMS | Encounter Summary ---
Demographics + + + | Address | [address] | | | [place] [address] | + + + | Home Phone | | + + + | Preferred Language | Unknown | + + + | Marital Status | | + + + | Restoration Affiliation | Unknown | + + + | Race | Unknown | + + + | Ethnic Group | Unknown | + + + Author + + + | Author | [facility] | | | and [place] | + + + | Organization | [facility] [...] [place] | | | | | [address] | | + + + + + | Haylie Rg | ECON | [address] [facility] | | | | | [place] | | + + + + + Care Team Providers + +------+ + | Care Crew Manager Name | Role | Phone | + +------+ + | Ama Moreau | PCP | | | MIYA | | | + +------+ + Encounter Details +--------+ + + + + | Date | Type | Department | Care Team | Description | +--------+ + + + + | 11/23/ | Hospital | [facility] | Landon Denton, | Sarcoidosis (HCC) | | 2019 | Encounter | [facility] PULMONARY | MD [address] | | | | | [address] | [place], [place] | | | | | [place], | [address] | | | | | [place] [address] | | | | | | [phone] | | | +--------+ + + + [...] Inhale 2 puffs into | 1 | 5 | 06/04/ | | | HFA) 90 mcg/puff | the lungs every 4 | Inhaler | | 18 | | | inhalerIndications: | hours as needed for | | | | | | Sarcoidosis | Shortness of Breath | | | | | | | (or coughing). | | | | | + + + +---------+ + + | Evening [place] | Take 1,000 mg by | | 0 | | | | Oil 1000 MG CAPS | mouth Daily. | | | | | + + + +---------+ + + | [place]-3 Fatty | Take 1,000 mg by | | 0 | | | | Acids (OMEGA-3 FISH | mouth Daily. | | | | | | OIL) 1000 MG CAPS | | | | | | + [...] + + + +---------+ + + | FLOVENT DISKUS 100 | inhale 1 puff into | 1 | 2 | 08/28/19 | | | MCG/BLIST diskus | the lungs 2 times | Inhaler | | 19 | 9 | | inhaler | daily. | | | | | + + + +---------+ + + | predniSONE | Take 2.5 tablets by | 68 | 2 | 11/24/19 | | | (DELTASONE) 10 mg | mouth Daily. | tablet | | 19 | 9 | | tabletIndications: | | | | | | | Sarcoidosis | | | | | | + + + +---------+ + + | | Take 1 tablet by | 12 | 2 | 10/25/19 | | | sulfamethoxazole-tri | mouth Three times a | tablet | | 19 | 9 | | methoprim (BACTRIM | week. | | | | | | DS) 800-160 mg per | | | | | | | tabletIndications: | | | | | | | Sarcoidosis | | | | | | + + + +---------+ + + documented as of this encounter Plan of Treatment +--------+ + + + + | Date | Type | Specialty | Care Team | Description | +--------+ + + + + | 08/15/ | Appointment | Pulmonology | Landon Denton, | | | 2019 | | | [address] | | | | | | [place] | | | | | | [address] | | | | | | | | +--------+ + + + + | 08/15/ | Office | Pulmonology | Landon Denton, | | | 2019 | Visit | | MD [address] | | | | | | [place] | | | | | | [address] | | | | | | | | +--------+ + + + + documented as of this encounter Procedures + +--------+ + + + | Procedure Name | Priori | Date/Time | Associated Diagnosis | Comments | | | ty | | | | + +--------+ + + + | PFT PULMONARY | SERENITY | 11/23/2018 | Sarcoidosis (HCC) | | | FUNCTION TESTING | | 8:25 AM | | | | ORDERS | | PDT | | | + +--------+ + + + documented in this encounter Visit Diagnoses + + | Diagnosis | + + | Sarcoidosis (HCC) Sarcoidosis | + + documented in this encounter"
--- OUTSIDE RECORDS SUMMARY | ~2019-07-31 | XMS | Encounter Summary ---
Demographics + + + | Address | [address] | | | [place] [address] | + + + | Home Phone | | + + + | Preferred Language | Unknown | + + + | Marital Status | | + + + | Baptism Affiliation | Unknown | + + + | Race | Unknown | + + + | Ethnic Group | Unknown | + + + Author + + + | Author | [facility] | | | and [place] | + + + | Organization | [facility] | | | and [place] [...] [place] | | | | | [address] | | + + + + + | Haylie Rg | ECON | [address] [facility] | | | | | [place] | | + + + + + Care Team Providers + +------+ + | Care Full Fashioned Garment Knitter Name | Role | Phone | + +------+ + | Blayne Herrera DO | PCP | | + +------+ + Reason for Visit +--------+ + | Reason | Comments | +--------+ + | Other | Prednisone | +--------+ + Encounter Details +--------+ + + + + | Date | Type | Department | Care Team | Description | +--------+ + + + + | 07/18/ | Telephone | [facility] | Landon Denton, | Other (Prednisone) | | 2013 | | PULMONARY [address] | MD [address] | | | | | [place], | [place], [place] | | | | | [place] [address] | [address] | | | | | [phone] | | | +--------+ + + + [...] [place] | | | | | | [address] | | | | | | | [...]
--- OUTSIDE RECORDS SUMMARY | ~2019-07-31 | XMS | Encounter Summary ---
Demographics + + + | Address | [address] | | | [place] [address] | + + + | Home Phone | | + + + | Preferred Language | Unknown | + + + | Marital Status | | + + + | Jew Affiliation | Unknown | + + + | Race | Unknown | + + + | Ethnic Group | Unknown | + + + Author + + + | Author | [facility] | | | and [place] | + + + | Organization | [facility] | | | and [...] [place] | | | | | [address] | | + + + + + | Haylie Rg | ECON | [address] [facility] | | | | | [place] | | + + + + + Care Team Providers + +------+ + | Care Buffing Machine Operator Semiautomatic Name | Role | Phone | + +------+ + | Blayne Herrera DO | PCP | | + +------+ + Reason for Visit +--------+ + | Reason | Comments | +--------+ + | Cough | 3 mo follow up with PFT's | +--------+ + Encounter Details +--------+---------+ + + + | Date | Type | Department | Care Team | Description | +--------+---------+ + + + | 04/04/ | Office | [facility] | Landon Denton, | Sarcoidosis (HCC) | | 2017 | Visit | PULMONARY [address] | MD [address] | (Primary Dx); | | | | [place], | [place] | Chronic cough | | | | [place] [address] | [address] | | | | | [phone] | | | +--------+---------+ + + + [...] + + + | Blood Pressure | 110/74 | 04/04/2017 9:44 AM | | | | | PDT | | + + + + + | Pulse | 72 | 04/04/2017 9:44 AM | | | | | PDT | | + + + + + | Temperature | - | - | | + + + + + | Respiratory Rate | - | - | | + + + + + | Oxygen Saturation | 96% | 04/04/2017 9:44 AM | | | | | PDT | | + + + + + | Inhaled Oxygen | - | - | | | Concentration | | | | + + + + + | Weight | 75.4 kg (166 lb 3.2 | 04/04/2017 9:44 AM | | | | oz) | PDT | | + + + + + | Height | 156.2 cm (5' 1.5") | 04/04/2017 9:44 AM | | | | | PDT | | + + + + + | Body Mass Index | 30.89 | 04/04/2017 9:44 AM | | | | | PDT | | + + + + + documented in this encounter Patient Instructions Patient Instructions Landon Denton MD - 04/04/2017 11:00 AM PDT Please get high dose FluVaccine in April 2017 The flu (influenza) is caused by a virus that is easily spread. A fluvaccine protects you and othersfrom the flu. It s best to get a flu shot every year in late summer or early fall, as soon as the vaccine is available in your area. You can get it at your healthcare pr ovider s office or a health clinic. Pharmacies, senior centers, and workplaces often offer flu shots, too. If you want to know if your providerhas the flu vaccine available, or if you have other questions, ask your healthcare provider. Flu facts The flu shot won t give you the flu. The virus that is in the flu shot has been killed (inactivated). The flu can be dangerous even life-threatening. Every year thousands of people fro m complications from the flu. The flu is caused by a virus. It can t be treated with antibiotics. Influenza is not the same as stomach flu, the 24-hour virus that causes vomiting and chris rrhea. The stomach flu most likely happens because of a GI (gastrointestinal) infection, not the flu. You need to get a flu shot each year. Flu symptoms Flu symptoms tend to come on quickly. They include: Fever Headache Tiredness (fatigue) Cough Sore throat Runny nose Muscle aches Upset stomach and vomiting are not common for adults. Some symptoms such as tiredness and c ough may lastfor manyweeks. How a flu vaccine protects you There are many types (strains) of theflu virus. Medical experts predict which strains are most likely to make people sick each year. Flu shots are made from these strains. When you get a flu vaccine, killed (inactivated)viruses are injected into your body. These can t give you the flu. But they do cause your body to make antibodies to fight these flu strains. If you are exposed to the same strains later in the flu season, the antibodies will fight o ff the germs. Who should get the flu vaccine? The CDC recommends that infants over the age of 6 months and all children and adults should get aflu shot every year. Some people are at an increased risk of developing serious complications from the flu. It i s extremely important that these people get the vaccine. They include those with: Long-term heart and lung conditions Other serious health conditions such as: Endocrine disorders such as diabetes Kidney or liver disorders Weakened immune system from disease or medical treatment. For example, people with HIV o r AIDS, or those taking long-term steroids or medicines to treat cancer. Blood disorders such as sickle cell disease It is also very important that others who have an increased risk of being exposed to the fl u or are around people with increased risk for complications get the vaccine. This includes: Healthcare providers and other staff who provide care in hospitals, nursing homes, home health, and other facilities Household members, including children of people in high-risk groups Types of flu vaccines The flu vaccine is available as a regularand a high-strengthshot. Your healthcare provi rena will recommend the vaccine that is best for you. Flu shot The flu shot is available in a few different forms. Your healthcare provider will determine which vaccine is right for you. There is a high-dose vaccine for those over age 65 and a va ccine for those with egg allergies. It is safe for most people. Talk with your provider if y ou have had: A severe allergic reaction to a previous flu vaccine Guillain-Benítez syndrome. This is a severe paralyzing condition. Nasal spray The nasal spray isnotrecommended for the 5312-4058 flu season. The CDC says this is bec ause the nasal spray did not seem to protect against the flu over the last several flu seaso ns. In the past, it was meant for people ages 2 to 49. Date Last Reviewed: 06/30/201619993872-1309 [employer] [address] [place] [address], [place] [address]. All righ ts reserved. This information is not intended as a substitute for professional medical care. Always follow your healthcare professional's instructions. documented in this encounter Progress Notes Landon Denton MD - 04/04/2017 11:00 AM PDTFormatting of this note might be different f rom the original. Pulmonary Follow Up 04/04/2017 HPI Elinor Shelby is a 72 y.o. female patient of Blayne Herrera here today for follow up of sarcoidosis. It has been 3 months since our last clinic appointment. At their last visit, we reinstitut ed an inhaled corticosteroid. Since the last visit she feels like their symptoms are decreasing steadily. They have hav e not had any recent acute illnesses. Somewhere along the way Advair was substituted for Flovent. They are currently on a regimen of Advair 100/50 for their cough/sarcoid. The patient do f eel like this medication regimen is decreasing their sarcoid related symptoms. Currently they are able to walk 1+ miles at their own pace on level ground. They are not ex ercising regularly. Their exercise consists of using an exercise machine. They are not enr olled in cardiac/pulmonary rehabilitation or other physical therapy. She does not cough chronically, and does not produce mucous. They have not had hemoptysis since our last clinic appointment. Elinor does not wheeze chronically, and does not have chest tightness. She has not been evaluated for nocturnal oxygen. Elinor does not had symptoms of heartburn or reflux. They have not had symptoms of nasal conges tion, runny nose or post nasal drip. The patient is not currently using ProAir. Past Medical History Past Medical History: Diagnosis Date Acid reflux disease Lung disease Lymphedema Obesity Pulmonary nodules No change in follow up imaging last here 2010 Rash Sarcoid (HCC) Dignosed via mediatinoscopy ~ 2008 Shingles August 2014 Shoulder fracture Allergies: No Known Allergies Medications: Current Outpatient Prescriptions: ADVAIR DISKUS 100-50 MCG/DOSE diskus inhaler, Inhale 1 puff into the lungs Twice Daily ., Disp: , Rfl: albuterol (PROAIR HFA) 90 mcg/puff inhaler, Inhale 2 puffs into the lungs every 4 hour s as needed for Shortness of Breath (or coughing)., Disp: 1 Inhaler, Rfl: 11 augmented betamethasone dipropionate (DIPROLENE-AF) 0.05 % ointment, Apply sparingly o nce daily, Disp: , Rfl: 1 Evening Panacea Oil 1000 MG CAPS, Take 1,000 mg by mouth Daily., Disp: , Rfl: fluticasone (FLOVENT DISKUS) 100 MCG/BLIST diskus inhaler, Inhale 1 puff into the lung s 2 times daily. (Patient not taking: Reported on 04/04/2017), Disp: 60 Inhaler, Rfl: 11 omeprazole (PRILOSEC) 20 mg capsule, Take 20 mg by mouth every morning (before breakfa st)., Disp: , Rfl: pseudoePHEDrine (SUDAFED) 30 mg tablet, Take 30 mg by mouth every 6 hours as needed., Disp: , Rfl: 2 Immunizations: Immunization History Administered Date(s) Administered INFLUENZA 65 Y OR >, TRIVALENT HIGH-DOSE 05/03/2016 INFLUENZA PF 18 Y OR >,TRIVALENT RECOMBINANT 05/02/2012, 04/30/2013, 05/03/2014, 2014 PNEUMOCOCCAL CONJUGATE 13-VALENT (PCV13) 12/13/2016 PNEUMOCOCCAL POLYSACCHARIDE 23-VALENT (PPSV23) 08/22/2008 Objective BP 110/74 | Pulse 72 | Ht 1.562 m (5' 1.5") | Wt 75.4 kg (166 lb 3.2 oz) | SpO2 96% | ? No | BMI 30.89 kg/m Appearance: Alert, cooperative, no distress, appears stated [...] gallop Extremities: Extremities normal, atraumatic, no cyanosis, clubbing. none edema. No joint s welling. Skin: Warm and dry. No rashes. Lymph nodes: Cervical and supraclavicular nodes normal Neurologic: Gait normal Data: Pulmonary function tests from 04/04/17 show forced vital capacity of 2.15, 87% of predicted, FEV1/FVC of 81% and an uncorrected DLCO of 10.5, 50% of predicted. Assessment 1. Worsening cough symptomatic improvement with the initiation of an inhaled corticoster oid. Possibilities include endobronchial involvement of the patient's sarcoid. For unclear reasons Advair was substituted for Flovent. Our office will look into why this is occurred. This patient does not appear to need a long-acting beta agonist at this time. 2. Sarcoid based on color function tests from today compared to pulmonary function tests performed in October 2015 no definitive worsening is noted. This is somewhat in contradictio n to comparison chest CTs from 2013 and 2016 which didn't show evidence of progression of fi brotic changes. Given the patient's pulmonary function tests values and the fact that her symptoms have imp roved with an inhaled corticosteroid there is no indication to change therapy at this time. Plan 1. Will clarify Advair for Flovent substitution. 2. High-dose seasonal influenza vaccination April 2017. 3. Pulmonary clinic follow-up appointment in 6 months time. CC: Blayne Herrera [...] [place] | | | | | | [id number] | | | | | | | | +--------+ + + + + | 08/15/ | Office | Pulmonology | D[place]andon, | | | 2019 | Visit | | MD [address] | | | | | | [place] | | | | | | [address] | | | | | | | | +--------+ + + + + documented as of this encounter Visit Diagnoses + + | Diagnosis | + + | Sarcoidosis - Primary | + + | Chronic cough Cough | + + documented in this encounter
--- OUTSIDE RECORDS SUMMARY | ~2019-07-31 | XMS | Encounter Summary ---
Demographics + + + | Address | [address] | | | [place] [address] | + + + | Home Phone | | + + + | Preferred Language | Unknown | + + + | Marital Status | | + + + | Congregation Affiliation | Unknown | + + + | Race | Unknown | + + + | Ethnic Group | Unknown | + + + Author + + + | Author | [facility] | | | and [place] | + + + | Organization | [facility] | | | and [place] [...] [place] | | | | | [address] | | + + + + + | Haylie Rg | ECON | [address] [facility] | | | | | [place] | | + + + + + Care Team Providers + +------+ + | Care Acoustical Tile Patternmaker Name | Role | Phone | + +------+ + | Blayne Herrera DO | PCP | | + +------+ + Encounter Details +--------+ + + + + | Date | Type | Department | Care Team | Description | +--------+ + + + + | 08/01/ | Hospital | [facility] | Conversion | Pain | | 2018 | Encounter | CONVERSION [address] | Transaction, | | | | | [address] | Provider Unknown | | | | | [place] | [phone] | | | | | [address] | | | | | | [phone] | | | +--------+ + + + [...] + + +---------+ + + | Evening Lemhi | Take 1,000 mg by | | [...] [place] | | | | | | [address] | | | | | | | | +--------+ + + + + | 08/15/ | Office | Pulmonology | Landon Denton, | | | 2019 | Visit | | MD [address] | | | | | | [place] | | | | | | [address] | | | | | | | | +--------+ + + + + documented as of this encounter Procedures + +--------+ + + + | Procedure Name | Priori | Date/Time | Associated Diagnosis | Comments | | | ty | | | | + +--------+ + + + | XR CHEST 2 VIEWS | Routin | 10/12/2015 | | Results for this | | | e | 11:33 PM | | procedure are in the | | | | PDT | | results section. | + +--------+ + + + documented in this encounter Results XR Chest 2 Vws (10/12/2015 11:33 PM PDT) + + | Specimen | + + [...]
--- OUTSIDE RECORDS SUMMARY | ~2019-07-31 | XMS | Encounter Summary ---
Demographics + + + | Address | [address] | | | [place] [address] | + + + | Home Phone | | + + + | Preferred Language | Unknown | + + + | Marital Status | | + + + | Tenriism Affiliation | Unknown | + + + | Race | Unknown | + + + | Ethnic Group | Unknown | + + + Author + + + | Author | [facility] | | | and [place] | + + + | Organization | [facility] | | | and [place] [...] [place] | | | | | [address] | | + + + + + | Haylie Rg | ECON | [address] [facility] | | | | | [place] | | + + + + + Care Team Providers + +------+ + | Care Heating And Ventilation Engineer Name | Role | Phone | + +------+ + PCP | Unavailable | + +------+ + Encounter Details +--------+ + + + + | Date | Type | Department | Care Team | Description | +--------+ + + + + | 01/08/ | Hospital | [facility] | Landon Denton, | | | 2009 | Encounter | [facility] | [address] | | | | | [address] [place] | [place], [place] | | | | | [place], [place] | [address] | | | | | [address] | | | | | | [phone] | | | +--------+ + + + + Social History + +-------+ +--------+------+ | Tobacco Use | Types | Packs/Day | Years | Date | | | | | Used | | + +-------+ +--------+------+ | Never Assessed | | | | | + +-------+ +--------+------+ + + + | Sex Assigned at [...] [place] | | | | | | [address] | | | | | | | | +--------+ + + + + | 08/15/ | Office | Pulmonology | Landon Denton, | | | 2019 | Visit | | MD [address] | | | | | | [place] | | | | | | [address] | | | | | | | | +--------+ + + + + documented as of this encounter Visit Diagnoses Not on filedocumented in this encounter"
--- OUTSIDE RECORDS SUMMARY | ~2019-07-31 | XMS | Clinical Summary ---
Demographics + + + | Address | [address] | | | [place] [address] | + + + | Home Phone | | + + + | Preferred Language | Unknown | + + + | Marital Status | | + + + | Yazidism Affiliation | Unknown | + + + | Race | White | + + + | Ethnic Group | Not or | + + + Author + + + | Organization | Unknown | + + + | Address | Unknown | + + + | Phone | Unavailable | + + + Support + + +---------+ + | Name | Relationship | Address | Phone | + + +---------+ + | Deniz Shelby | ECON | Unknown | | + + +---------+ + Care Team Providers + +------+ + | Care Associate Professor Of Sociology Name | Role | Phone | + +------+ + PCP | Unavailable | + +------+ + Source Comments TELMA is fully live on both [facility] and [facility] Allergies Not on File Medications Not on file Active Problems Not on file Social History + +-------+ +--------+------+ | Tobacco [...] recent travel history available. | + + Last Filed Vital Signs Not on file Plan of Treatment + + + + + | Health Maintenance | Due Date | Last Done | Comments | + + + + + | Pneumococcal | | | | | vaccination (1 of 2 | 8 | | | | - PCV13) | | | | + + + + + | Influenza (Flu) | | | | | vaccination (#1) | 9 | | | + + + + + Results Not on filefrom Last 3 Months"
--- OUTSIDE RECORDS SUMMARY | ~2019-07-31 | XMS | Encounter Summary ---
Demographics + + + | Address | [address] | | | [place] [address] | + + + | Home Phone | | + + + | Preferred Language | Unknown | + + + | Marital Status | | + + + | Mu-Ism Affiliation | Unknown | + + + | Race | Unknown | + + + | Ethnic Group | Unknown | + + + Author + + + | Author | [facility] | | | and [place] | + + + | Organization | [facility] | | | and [...] [place] | | | | | [address] | | + + + + + | Haylie Rg | ECON | [address] [facility] | | | | | [place] | | + + + + + Care Team Providers + +------+ + | Care Supervisor Picking Crew Name | Role | Phone | + +------+ + | Ama Moreau | PCP | | | PAIan | | | + +------+ + Reason for Visit + + + | Reason | Comments | + + + | Follow-up | Follow-up for sarcoidosis. | + + + Follow Up (Routine) + +--------+ + + + + | Status | Reason | Specialty | Diagnoses / | Referred By | Referred To | | | | | Procedures | Contact | Contact | + +--------+ + + + + | Authorized | | Pulmonary | Diagnoses | Prieto, | Bertin, | | | | Disease / | | Ama | MD Landon | | | | Pulmonology | Sarcoidosis, | Sharda, | [address] | | | | | unspecified | PA-C [address] | [place] | | | | | Procedures | [place] | [place] [address] | | | | | F/U APPT | Ave | Phone: | | | | | DR GALVAN | [place], | [phone] | | | | | [place] | [place] | Fax: | | | | | 02/20/19 | [address] | [phone] | | | | | | Phone: | | | | | | | [phone] | | | | | | | Fax: | | | | | | | [phone] | | + +--------+ + + + + Encounter Details +--------+---------+ + + + | Date | Type | Department | Care Team | Description | +--------+---------+ + + + | 02/20/ | Office | [facility] | Landon Denton, | Sarcoidosis (HCC) | | 2019 | Visit | PULMONARY [address] | MD [address] | | | | | [place], | [place] | | | | | [place] [address] | [address] | | | | | [phone] | | | +--------+---------+ + + + [...] + + + | Blood Pressure | 122/70 | 02/20/2019 10:26 AM | | | | | PDT | | + + + + + | Pulse | 76 | 02/20/2019 10:26 AM | | | | | PDT | | + + + + + | Temperature | - | - | | + + + + + | Respiratory Rate | - | - | | + + + + + | Oxygen Saturation | 95% | 02/20/2019 10:26 AM | RA | | | | PDT | | + + + + + | Inhaled Oxygen | - | - | | | Concentration | | | | + + + + + | Weight | 78.9 kg (173 lb 15.1 | 02/20/2019 10:26 AM | | | | oz) | PDT | | + + + + + | Height | 157.5 cm (5' 2") | 02/20/2019 10:26 AM | | | | | PDT | | + + + + + | Body Mass Index | 31.81 | 02/20/2019 10:26 AM | | | | | PDT | | + + + + + documented in this encounter Patient Instructions Patient Instructions Landon Denton MD - 02/20/2019 10:30 AM PDT Methotrexate tablets Brand Names: Rheumatrex, Trexall What is this medicine? METHOTREXATE (METH oh TREX ate) is a chemotherapy drug used to treat cancer including breas t cancer, leukemia, and lymphoma. This medicine can also be used to treat psoriasis and cert ain kinds of arthritis. How should I use this medicine? Take this medicine by mouth with a glass of water. Follow the directions on the prescriptio n label. Take your medicine at regular intervals. Do not take it more often than directed. D o not stop taking except on your doctor's advice. Make sure you know why you are taking this medicine and how often you should take it. If th is medicine is used for a condition that is not cancer, like arthritis or psoriasis, it shou ld be taken weekly, NOT daily. Taking this medicine more often than directed can cause tory us side effects, even . Talk to your healthcare provider about safe handling and disposal of this medicine. You may need to take special precautions. Talk to your ice cream truck driver regarding the use of this medicine in children. While this drug m ay be prescribed for selected conditions, precautions do apply. What side effects may I notice from receiving this medicine? Side effects that you should report to your doctor or health child care centre director as soon as p ossible: allergic reactions like skin rash, itching or hives, swelling of the face, lips, or tong ue breathing problems or shortness of breath diarrhea dry, nonproductive cough low blood counts - this medicine may decrease the number of white blood cells, red blood cells and platelets. You may be at increased risk for infections and bleeding. mouth sores redness, blistering, peeling or loosening of the skin, including inside the mouth signs of infection - fever or chills, cough, sore throat, pain or trouble passing urine signs and symptoms of bleeding such as bloody or black, tarry stools; red or dark-brown urine; spitting up blood or brown material that looks like coffee grounds; red spots on the skin; unusual bruising or bleeding from the eye, gums, or nose signs and symptoms of kidney injury like trouble passing urine or change in the amount o f urine signs and symptoms of liver injury like dark yellow or brown urine; general ill feeling or flu-like symptoms; light-colored stools; loss of appetite; nausea; right upper belly pain ; unusually weak or tired; yellowing of the eyes or skin Side effects that usually do not require medical attention (report to your doctor or health child care centre director if they continue or are bothersome): dizziness hair loss tiredness upset stomach vomiting What may interact with this medicine? This medicine may interact with the following medication: acitretin aspirin and aspirin-like medicines including salicylates azathioprine certain antibiotics like penicillins, tetracycline, and chloramphenicol cyclosporine gold hydroxychloroquine live virus vaccines NSAIDs, medicines for pain and inflammation, like ibuprofen or naproxen other cytotoxic agents penicillamine phenylbutazone phenytoin probenecid retinoids such as isotretinoin and tretinoin steroid medicines like prednisone or cortisone sulfonamides like sulfasalazine and trimethoprim/sulfamethoxazole theophylline What if I miss a dose? If you miss a dose, talk with your doctor or health child care centre director. Do not take double o r extra doses. Where should I keep my medicine? Keep out of the reach of children. Store at room temperature between 20 and 25 degrees C (68 and 77 degrees F). Protect from l ight. Throw away any unused medicine after the expiration date. What should I tell my health care provider before I take this medicine? They need to know if you have any of these conditions: fluid in the stomach area or lungs if you often drink alcohol infection or immune system problems kidney disease or on hemodialysis liver disease low blood counts, like low white cell, platelet, or red cell counts lung disease radiation therapy stomach ulcers ulcerative colitis an unusual or allergic reaction to methotrexate, other medicines, foods, dyes, or preser vatives or trying to get breast-feeding What should I watch for while using this medicine? Avoid alcoholic drinks. This medicine can make you more sensitive to the sun. Keep out of the sun. If you cannot av oid being in the sun, wear protective clothing and use sunscreen. Do not use sun lamps or ta nning beds/booths. You may need blood work done while you are taking this medicine. Call your doctor or health child care centre director for advice if you get a fever, chills or sore throat, or other symptoms of a cold or flu. Do not treat yourself. This drug decreases your body's ability to fight infections. Try to avoid being around people who are sick. This medicine may increase your risk to bruise or bleed. Call your doctor or health care pr ofessional if you notice any unusual bleeding. Check with your doctor or health child care centre director if you get an attack of severe diarrhea, nausea and vomiting, or if you sweat a lot. The loss of too much body fluid can make it celestina gerous for you to take this medicine. Talk to your doctor about your risk of cancer. You may be more at risk for certain types of cancers if you take this medicine. Both men and women must use effective control with this medicine. Do not become pregn ant while taking this medicine or until at least 1 normal menstrual cycle has occurred after stopping it. Women should inform their doctor if they wish to become or think they might be . Men should not father a child while taking this medicine and for 3 month s after stopping it. There is a potential for serious side effects to an unborn child. Talk to your health child care centre director or pharmacist for more information. Do not breast-feed an i nfant while taking this medicine. NOTE:This sheet is a summary. It may not cover all possible information. If you have questi ons about this medicine, talk to your doctor, pharmacist, or health care provider. Copyright 2019 [employer] documented in this encounter Progress Notes Landon Denton MD - 02/20/2019 10:30 AM PDTFormatting of this note might be different f rom the original. Pulmonary Follow Up 02/20/2019 HPI Elinor Shelby is a 73 y.o. female patient of Ama Moreau PA-C here today for follow up of sarcoidosis. It has been 1 month since our last clinic appointment. At their last visit, we continued m ethotrexate at 7.5 mg a week and decreased prednisone from 20 to 10 mg a day. Several weeks after lowering the patient's prednisone/initiating methotrexate Elinor sorto noted a slight increase in coughing with exertion. Recently Elinor sorto returned from visiting her daughter in law/granddaughter and developed a similar illness to one experience by her daughter in law. No fever or chills. Since the last visit she feels like their symptoms are mildly worse as noted above. They have have had any recent acute illnesses as noted above. They are currently on a regimen of methotrexate dosed at 7.5 mg a week and prednisone dose to 10 mg a day for their sarcoid. The patient is also using folic acid daily. She continue s on double strength Bactrim 3 times a week. Currently they are able to walk several blocks at their own pace on level ground. They are exercising regularly. Their exercise consists of pool exercises and walking. They are not enrolled in cardiac/pulmonary rehabilitation or other physical therapy. She does cough chronically, and does not produce mucous. As noted above the patient has de veloped mild URI-like symptoms. Elinor does not wheeze chronically, and does not have chest tightness. The patient does not note side effects from their sarcoidosis medications. Specifically do es not have nausea, insomnia or polyuria. Elinor does not had symptoms of heartburn or reflux. They have not had symptoms of nasal conges tion, runny nose or post nasal drip. The patient's weight has decreased 28 pounds and 15 ou nces since her last clinic appointment. Past Medical History Past Medical History: Diagnosis Date Acid reflux disease Lung disease Lymphedema Obesity Pulmonary nodules No change in follow up imaging last here 2010 Rash Sarcoid Dignosed via mediatinoscopy ~ 2008 Shingles August 2014 Shoulder fracture Allergies: No Known Allergies Medications: Current Outpatient Medications: albuterol (PROAIR HFA) 90 mcg/puff inhaler, Inhale 2 puffs into the lungs every 4 hour s as needed for Shortness of Breath (or coughing)., Disp: 1 Inhaler, Rfl: 5 Evening [place] Oil 1000 MG CAPS, Take 1,000 mg by mouth Daily., Disp: , Rfl: folic acid 1 mg tablet, Take 1 tablet by mouth Daily., Disp: 30 tablet, Rfl: 5 methotrexate 2.5 mg tablet, Take 3 tablets by mouth Once a week. Indications: Other No n-Oncology, Sarcoid, Disp: 90 tablet, Rfl: 1 Multiple Vitamin TABS, Take 2 tablets by mouth Daily., Disp: , Rfl: [place]-3 Fatty Acids (OMEGA-3 FISH OIL) 1000 MG CAPS, Take 1,000 mg by mouth Daily., Di sp: , Rfl: omeprazole (PRILOSEC) 20 mg capsule, Take 20 mg by mouth every morning (before break)., Disp: , Rfl: predniSONE (DELTASONE) 10 mg tablet, Take 1 tablet by mouth Daily., Disp: 30 tablet, R fl: 2 pseudoePHEDrine (SUDAFED) 30 mg tablet, Take 30 mg by mouth every 6 hours as needed., Disp: , Rfl: 2 sulfamethoxazole-trimethoprim (BACTRIM DS) 800-160 mg per tablet, Take 1 tablet by tay th Three times a week. (Patient not taking: Reported on 02/20/2019), Disp: 12 tablet, Rfl: 3 Immunizations: Immunization History Administered Date(s) Administered INFLUENZA 65 Y OR >, TRIVALENT HIGH-DOSE 05/03/2016, 05/22/2017, 05/14/2018 INFLUENZA PF 18 Y OR >,TRIVALENT RECOMBINANT 05/02/2012, 04/30/2013, 05/03/2014, 2014 INFLUENZA PF TRIVALENT(PED/ADOL/ADULT), PSKT 04/30/2013, 05/03/2014 PNEUMOCOCCAL CONJUGATE 13-VALENT (PCV13) 12/13/2016, 10/03/2017 PNEUMOCOCCAL POLYSACCHARIDE 23-VALENT (PPSV23) 08/22/2008 Objective BP 122/70 | Pulse 76 | Ht 1.575 m (5' 2") | Wt 78.9 kg (173 lb 15.1 oz) | SpO2 95% Comm ent: RA | BMI 31.81 kg/m Appearance: Alert, cooperative, no distress, appears [...] supraclavicular nodes normal Neurologic: Gait normal Data: Lab Results Component Value Date WBC 10.4 02/20/2019 RBC 4.22 02/20/2019 HGB 13.5 02/20/2019 HCT 40.9 02/20/2019 MCV 96.9 02/20/2019 PLT 240 02/20/2019 Lab Results Component Value Date AST 37 (H) 02/20/2019 Lab Results Component Value Date ALT 36 02/20/2019 Assessment 1. Sarcoidosis currently treated with methotrexate dosed at 7.5 mg a week (initiated ) and prednisone dose to 10 mg a day. Mild increase in cough with exertion has developed since the patient's prednisone dose was lowered from 20 to 10 mg a day 4 weeks ago. No evidence of significant toxicity to methotrexate as noted on lab values from today. Today we discussed increasing the patient's methotrexate to 10 mg a week. She will continu e to use folic acid daily. No change in the patient's dose of prednisone. Given the patient's dose of prednisone it is reasonable to discontinue Bactrim. 2. URI likely viral given the circumstances described above. However Elinor sorto is at [facility] for developing a bacterial secondary infection related to her prednisone/methotrexate and history of bronchiectasis. Close monitoring of the patient's symptoms is recommended. Total duration of the patient's clinic appointment was in excess of 30 minutes. Greater th an 50% of time was spent in counseling related to management of sarcoid. Plan 1. Discontinue Bactrim DS. 2. Increase methotrexate to 10 mg weekly. 3. Continue with prednisone dosed at 10 mg a day. 4. Patient to notify our office if additional pulmonary infectious symptoms develop. CC: Ama Moreau PA-C documented in this encounter Plan of Treatment +--------+ + + + + | Date | Type | Specialty | Care Team | Description | +--------+ + + + + | 08/15/ | Appointment | Pulmonology | Landon Denton, | | | 2019 | | | [address] | | | | | | [place] | | | | | | [address] | | | | | | | | +--------+ + + + + | 08/15/ | Office | Pulmonology | Landon Denton, | | | 2019 | Visit | | [address] | | | | | | [place] | | | | | | [address] | | | | | | | | +--------+ + + + + documented as of this encounter Visit Diagnoses + + | Diagnosis | + + | Sarcoidosis (HCC) Sarcoidosis | + + documented in this encounter
--- OUTSIDE RECORDS SUMMARY | ~2019-07-31 | XMS | Encounter Summary ---
Demographics + + + | Address | [address] | | | [place] [address] | + + + | Home Phone | | + + + | Preferred Language | Unknown | + + + | Marital Status | | + + + | Synagogue Affiliation | Unknown | + + + | Race | Unknown | + + + | Ethnic Group | Unknown | + + + Author + + + | Author | [facility] | | | and [place] | + + + | Organization | [facility] | | | and [...] [place] | | | | | [address] | | + + + + + | Haylie Rg | ECON | [address] [facility] | | | | | [place] | | + + + + + Care Team Providers + +------+ + | Care Hadoop Application Developer Name | Role | Phone | + [...] + + | 03/25/ | Office | [facility] | Landon Denton, | Pulmonary nodules | | 2013 | Visit | PULMONARY [address] | MD [address] | (Primary Dx); | | | | [place], | [place], [place] | Sarcoidosis (HCC); | | | | [place] [address] | [address] | Dyspnea | | | | [phone] | | | +--------+---------+ + + + [...] by mouth daily, Disp: , Rfl: ; [place]-3 Fatty Acids (OMEGA 3 PO), CPDR; 3 [...] [place] | | | | | | [address] | | | | | | | | +--------+ + + + + | 08/15/ | Office | Pulmonology | Bertin Landon, | | | 2019 | Visit | | [address] | | | | | | [place] | | | | | | [address] | | | | | | | [...]
--- OUTSIDE RECORDS SUMMARY | ~2019-07-31 | XMS | Encounter Summary ---
Demographics + + + | Address | [address] | | | [place] [address] | + + + | Home Phone | | + + + | Preferred Language | Unknown | + + + | Marital Status | | + + + | Gnosticism Affiliation | Unknown | + + + | Race | Unknown | + + + | Ethnic Group | Unknown | + + + Author + + + | Author | [facility] | | | and [place] | + + + | Organization | [facility] | | | and [...] [place] | | | | | [address] | | + + + + + | Haylie Rg | ECON | [address] [facility] | | | | | [place] | | + + + + + Care Team Providers + +------+ + | Care Software Analyst Name | Role | Phone | + +------+ + | Ama Moreau | PCP | | | MIYA | | | + +------+ + Encounter Details +--------+ + + + + | Date | Type | Department | Care Team | Description | +--------+ + + + + | 10/17/ | Hospital | [facility] | Landon Denton, | Shortness of breath | | 2019 | Encounter | MED CTR XRAY [address] | MD [address] | | | | | [place] | [place] | | | | | [place] [address] | [address] | | | | | [phone] | | | +--------+ + + + [...] puffs into | 1 | 5 | 06/04/20 | | | HFA) 90 mcg/puff | the lungs every 4 | Inhaler | | 18 | | | inhalerIndications: | hours as needed for | | | | | | Sarcoidosis | Shortness of Breath | | | | | | | (or coughing). | | | | | + + + +---------+ + + | Evening Amasa | Take 1,000 mg by | | [...] + + + +---------+ + + | levoFLOXacin | Take 1 tablet by | 7 | 0 | 10/18/19 | | | (LEVAQUIN) 750 MG | mouth Daily for 7 | tablet | | 19 | 9 | | tabletIndications: | days. | | | | | | Bronchiectasis with | | | | | | | acute exacerbation | | | | | | | (HCC) | | | | | | + [...] [place] | | | | | | [address] | | | | | | | | +--------+ + + + + | 08/15/ | Office | Pulmonology | Lanodn Denton, | | | 2019 | Visit | | MD [address] | | | | | | [place] | | | | | | [address] | | | | | | | | +--------+ + + + + documented as of this encounter Procedures + +--------+ + + + | Procedure Name | Priori | Date/Time | Associated Diagnosis | Comments | | | ty | | | | + +--------+ + + + | XR CHEST PA AND | Routin | 10/17/2018 | Shortness of | Results for this | | LATERAL | e | 8:01 AM | breath | procedure are in the | | | | PDT | | results section. | + +--------+ + + + documented in this encounter Results XR Chest PA and Lateral (10/17/2018 8:01 AM PDT) + + | Specimen | + + | | + + + + + | Narrative | Performed At | + + + | PA AND LATERAL CHEST 10/17/2018 8:01 AM CLINICAL HISTORY: | [facility] | | increased shortness of breath and previously reported history of | | | sarcoidosis COMPARISON: CT December 2016 and more remote imaging | | | FINDINGS: The cardiomediastinal silhouette is unremarkable. Patchy | | | reticular opacity throughout both lungs but with an upper lobe | | | predominance has increased in extent and confluence compared with | | | imaging of 2017. No pneumothorax or pleural effusion is evident. | | | Cholecystectomy clips are again visible. Bones and soft tissues | | | are otherwise unremarkable. IMPRESSION - 1. PROGRESSIVE | | | UPPER LOBE PREDOMINANT LUNG DISEASE CONSISTENT WITH SARCOIDOSIS. | | | Dictated and Signed by: Sean Becerra MD Electronically signed: | | | 10/17/2018 8:39 AM | | + + + + + | Procedure Note | + + | Cosme, Rad Results In - 10/17/2018 8:42 AM PDT PA AND LATERAL CHEST 10/17/2018 8:01 AM | | | | CLINICAL HISTORY: increased shortness of breath and previously reported history | | of sarcoidosis | | | | COMPARISON: CT December 2016 and more remote imaging | | | | FINDINGS: The cardiomediastinal silhouette is unremarkable. Patchy reticular | | opacity throughout both lungs but with an upper lobe predominance has increased | | in extent and confluence compared with imaging of 2017. No pneumothorax or | | pleural effusion is evident. Cholecystectomy clips are again visible. Bones | | and soft tissues are otherwise unremarkable. | | | | IMPRESSION - | | | | 1. PROGRESSIVE UPPER LOBE PREDOMINANT LUNG DISEASE CONSISTENT WITH SARCOIDOSIS. | | | | Dictated and Signed by: Sean Becerra MD | | Electronically signed: 10/17/2018 8:39 AM | + + + +---------+ + + | Performing | Address | City/State/Zipcode | Phone Number | | Organization | | | | + +---------+ + + | [facility] | | | | + +---------+ + + documented in this encounter Visit Diagnoses + + | Diagnosis | + + | Shortness of breath | + + documented in this encounter"
--- OUTSIDE RECORDS SUMMARY | ~2019-07-31 | XMS | Encounter Summary ---
Demographics + + + | Address | [address] | | | [place] [address] | + + + | Home Phone | | + + + | Preferred Language | Unknown | + + + | Marital Status | | + + + | Buddhist Affiliation | Unknown | + + + | Race | Unknown | + + + | Ethnic Group | Unknown | + + + Author + + + | Author | [facility] | | | and [place] | + + + | Organization | [facility] | | | and [place] [...] [place] | | | | | [address] | | + + + + + | Haylie Rg | ECON | [address] [facility] | | | | | [place] | | + + + + + Care Team Providers + +------+ + | Care Internal Grinder Name | Role | Phone | + +------+ + | Ama Moreau | PCP | | | MIYA | | | + +------+ + Encounter Details +--------+ + + + + | Date | Type | Department | Care Team | Description | +--------+ + + + + | 06/04/ | Orders Only | [facility] [place] | Denton, Landon, | Sarcoidosis | | 2018 | | PULMONARY [address] | MD [address] | | | | | [place], | [place], [place] | | | | | [place] [address] | [address] | | | | | [phone] | | | +--------+ + + + [...] 2019 | | | MD [address] | | | | | | [place] | | | | | | [address] | | | | | | | | +--------+ + + + + | 08/15/ | Office | Pulmonology | Landon Denton, | | | 2019 | Visit | | MD [address] | | | | | | [place] | | | | | | [address] | | | | | | | | +--------+ + + + + documented as of this encounter Visit Diagnoses + + | Diagnosis | + + | Sarcoidosis | + + documented in this encounter"
--- OUTSIDE RECORDS SUMMARY | ~2019-07-31 | XMS | Encounter Summary ---
Demographics + + + | Address | [address] | | | [place] [address] | + + + | Home Phone | | + + + | Preferred Language | Unknown | + + + | Marital Status | | + + + | Taoism Affiliation | Unknown | + + + | Race | Unknown | + + + | Ethnic Group | Unknown | + + + Author + + + | Author | [facility] | | | and [place] | + + + | Organization | [facility] | | | and [...] [place] | | | | | [address] | | + + + + + | Haylie Rg | ECON | [address] [facility] | | | | | [place] | | + + + + + Care Team Providers + +------+ + | Care General Repair Mechanic Name | Role | Phone | + [...] Description | +--------+--------+ + + + | 08/28/ | Refill | [facility] [place] | Landon Denton, | Medication Refill | | 2018 | | PULMONARY [address] | MD [address] | | | | | [place], | [place] | | | | | [place] [address] | [address] | | | | | [phone] | | | +--------+--------+ + + + [...] [place] | | | | | | [address] | | | | | | | | +--------+ + + + + | 08/15/ | Office | Pulmonology | Landon Denton, | | | 2019 | Visit | | MD [address] | | | | | | [place] | | | | | | [address] | | | | | | | | +--------+ + + + + documented as of this encounter Visit Diagnoses Not on filedocumented in this encounter"
--- OUTSIDE RECORDS SUMMARY | ~2019-07-31 | XMS | Encounter Summary ---
Demographics + + + | Address | [address] | | | [place] [address] | + + + | Home Phone | | + + + | Preferred Language | Unknown | + + + | Marital Status | | + + + | Restoration Affiliation | Unknown | + + + | Race | Unknown | + + + | Ethnic Group | Unknown | + + + Author + + + | Author | [facility] | | | and [place] | + + + | Organization | [facility] | | | and [place] [...] [place] | | | | | [address] | | + + + + + | Haylie Rg | ECON | [address] [facility] | | | | | [place] | | + + + + + Care Team Providers + +------+ + | Care Learning And Development Associate Name | Role | Phone | + +------+ + | Blayne Herrera PCP | | + +------+ + Encounter Details +--------+ + + + + | Date | Type | Department | Care Team | Description | +--------+ + + + + | 08/22/ | Hospital | [facility] | [place], Landon, | Sarcoidosis (HCC) | | 2012 - | Encounter | [facility] CTR LAB[facility] | [address] | | | | | [address] | [place] | | | 08/24/ | | [place] | [address] | | | 2012 | | [address] | | | | | | [phone] | | | +--------+ + + + [...] + + + +---------+ + + | multivitamin | 1 tablet by mouth | | 0 | 04/13/20 | | | (THERAGRAN) per | daily | | | 12 | 4 | | tablet | | | | | | + + + +---------+ + + | Putney-3 Fatty | CPDR; 3 capsules by | | 0 | 04/13/20 | | | Acids (OMEGA 3 PO) | mouth twice daily | | | 12 | 4 | + + + +---------+ + + [...] [place] | | | | | | [address] | | | | | | | | +--------+ + + + + | 08/15/ Office | Pulmonology | Landon Denton, | | | 2019 | Visit | | [address] | | | | | | [place] | | | | | | [address] | | | | | | | | +--------+ + + + + documented as of this encounter Procedures + +--------+ + + + | Procedure Name | Priori | Date/Time | Associated Diagnosis | Comments | | | ty | | | | + +--------+ + + + | ANGIOTENSIN I | Routin | 08/22/2012 | Sarcoidosis (HCC) | Results for this | | CONVERTING ENZYME | e | 1:52 PM | | procedure are in the | | | | PST | | results section. | + +--------+ + + + documented in this encounter Results Angiotensin I Converting Enzyme (08/22/2012 1:52 PM PST) + + + + + + | Component | Value | Ref Range | Performed | Pathologist | | | | | At | Signature | + + + + + + | Angiotensin | 25Comment: Testing | 4 - 60 U/L | [facility] | | | Converting | Performed: [place] | | [facility] | | | Enzyme | [facility] | | MEDICAL | | | | [place] [address], | | [place] | | | | [place] [address] | | LABORATORY | | | | CLIA: [id number] | | | | + + + + + + + + | Specimen | + + | Blood specimen | | (specimen) | + + + + + | Narrative | Performed At | + + + | | [facility] | | | [facility] | | [facility] | | | - LABORATORY | + + + + + + + + | Performing | Address | City/State/Zipcode | Phone Number | | Organization | | | | + + + + + | [facility] | [address] | [place], [place] | [phone] | | [facility] | | [address] | | | - LABORATORY | | | | + + + + + | [facility] | [address] | [place], [place] | | | [facility] | | [address] | | | - LABORATORY | | | | + + + + + documented in this encounter Visit Diagnoses + + | Diagnosis | + + | Sarcoidosis | + + documented in this encounter"
--- OUTSIDE RECORDS SUMMARY | ~2019-07-31 | XMS | Encounter Summary ---
Demographics + + + | Address | [address] | | | [place] [address] | + + + | Home Phone | | + + + | Preferred Language | Unknown | + + + | Marital Status | | + + + | Presybeterian Affiliation | Unknown | + + + | Race | Unknown | + + + | Ethnic Group | Unknown | + + + Author + + + | Author | [facility] | | | and [place] | + + + | Organization | [facility] | | | and [...] [place] | | | | | [address] | | + + + + + | Haylie Rg | ECON | [address] [facility] | | | | | [place] | | + + + + + Care Team Providers + +------+ + | Care Carton Forming Machine Adjuster Name | Role | Phone | + +------+ + PCP | Unavailable | + +------+ + Encounter Details +--------+ + + + + | Date | Type | Department | Care Team | Description | +--------+ + + + + | 07/09/ | Hospital | [facility] | Landon Denton, | | | 2009 | Encounter | MED CTR XRAY [address] | MD [address] | | | | | [place] | [place], [place] | | | | | [place] [address] | [address] | | | | | [phone] | | | +--------+ + + + [...] [place] | | | | | | [address] | | | | | | | | +--------+ + + + + | 08/15/ | Office | Pulmonology | Landon Denton, | | | 2019 | Visit | | MD [address] | | | | | | [place] | | | | | | [address] | | | | | | | | +--------+ + + + + documented as of this encounter Visit Diagnoses Not on filedocumented in this encounter"
--- OUTSIDE RECORDS SUMMARY | ~2019-07-31 | XMS | Encounter Summary ---
Demographics + + + | Address | [address] | | | [place] [address] | + + + | Home Phone | | + + + | Preferred Language | Unknown | + + + | Marital Status | | + + + | Zoroastrianism Affiliation | Unknown | + + + | Race | Unknown | + + + | Ethnic Group | Unknown | + + + Author + + + | Author | [facility] | | | and [place] | + + + | Organization | [facility] | | | and [place] | [...] [place] | | | | | [address] | | + + + + + | Haylie Rg | ECON | [address] [facility] | | | | | [place] | | + + + + + Care Team Providers + +------+ + | Care Electric Relay Tester Name | Role | Phone | + +------+ + | Blayne Herrera DO | PCP | | + +------+ + Encounter Details +--------+ + + + + | Date | Type | Department | Care Team | Description | +--------+ + + + + | 08/01/ | Hospital | [facility] | Conversion | Pain | | 2018 | Encounter | CONVERSION [address] | Transaction, | | | | | [address] | Provider Unknown | | | | | [place] | [phone] | | | | | [address] | | | | | | [phone] | | | +--------+ + + + [...] + + +---------+ + + | Evening [place] | Take 1,000 mg by | | [...] [place] | | | | | | [address] | | | | | | | | +--------+ + + + + | 08/15/ | Office | Pulmonology | Landon Denton, | | | 2019 | Visit | | MD [address] | | | | | | [place] | | | | | | [address] | | | | | | | | +--------+ + + + + documented as of this encounter Procedures + +--------+ + + + | Procedure Name | Priori | Date/Time | Associated Diagnosis | Comments | | | ty | | | | + +--------+ + + + | XR CHEST 2 VIEWS | Routin | 11/15/2016 | | Results for this | | | e | 11:34 PM | | procedure are in the | | | | PDT | | results section. | + +--------+ + + + documented in this encounter Results XR Chest 2 Vws (11/15/2016 11:34 PM PDT) + + | Specimen | [...]
--- OUTSIDE RECORDS SUMMARY | ~2019-07-31 | XMS | Encounter Summary ---
Demographics + + + | Address | [address] | | | [place] [address] | + + + | Home Phone | | + + + | Preferred Language | Unknown | + + + | Marital Status | | + + + | Moravian Affiliation | Unknown | + + + | Race | Unknown | + + + | Ethnic Group | Unknown | + + + Author + + + | Author | [facility] | | | and [place] | + + + | Organization | [facility] | | | and [...] [place] | | | | | [address] | | + + + + + | Haylie Rg | ECON | [address] [facility] | | | | | [place] | | + + + + + Care Team Providers + +------+ + | Care Manager Of Selection And Assessment Name | Role | Phone | + +------+ + | Ama Moreau | PCP | | | MIYA | | | + +------+ + Encounter Details +--------+ + + + + | Date | Type | Department | Care Team | Description | +--------+ + + + + | 02/11/ | Orders Only | [facility] [place] | Landon Denton, | Sarcoidosis (Primary | | 2019 | | PULMONARY [address] | MD [address] | Dx) | | | | [place], | [place], [place] | | | | | [place] [address] | [address] | | | | | [phone] | | | +--------+ + + + [...] | 2019 | | | MD [address] | | | | | | [place] | | | | | | [address] | | | | | | | | +--------+ + + + + | 08/15/ | Office | Pulmonology | Landon Denton, | | | 2019 | Visit | | [address] | | | | | | [place] | | | | | | [address] | | | | | | | | +--------+ + + + + documented as of this encounter Results CBC with Differential (02/20/2019 9:21 AM PDT) + + + + + + | Component | Value | Ref Range | Performed | Pathologist | | | | | At | Signature | + + + + + + | WBC | 10.4 | 4.0 - 11.0 K/uL | [facility] | | | | | | [facility] | | | | | | MEDICAL | | | | | | CENTER - | | | | | | LABORATORY | | + + + + + + | RBC | 4.22 | 3.70 - 5.20 | [facility] | | | | | M/uL | [facility] | | | | | | MEDICAL | | | | | | CENTER - | | | | | | LABORATORY | | + + + + + + | Hemoglobin | 13.5 | 11.5 - 16.0 | [facility] | | | | | g/dL | [facility] | | | | | | MEDICAL | | | | | | CENTER - | | | | | | LABORATORY | | + + + + + + | Hematocrit | 40.9 | 34.0 - 47.0 % | [facility] | | | | | | [facility] | | | | | | MEDICAL | | | | | | CENTER - | | | | | | LABORATORY | | + + + + + + | MCV | 96.9 | 83.0 - 101.0 fL | [facility] | | | | | | [facility] | | | | | | MEDICAL | | | | | | CENTER - | | | | | | LABORATORY | | + + + + + + | MCH | 32.0 | 28.0 - 35.0 pg | [facility] | | | | | | [facility] | | | | | | MEDICAL | | | | | | CENTER - | | | | | | LABORATORY | | + + + + + + | MCHC | 33.0 | 32.0 - 36.0 | [facility] | | | | | g/dL | [facility] | | | | | | MEDICAL | | | | | | CENTER - | | | | | | LABORATORY | | + + + + + + | RDW-CV | 14.4 | <15.0 % | [facility] | | | | | | [facility] | | | | | | MEDICAL | | | | | | CENTER - | | | | | | LABORATORY | | + + + + + + | RDW-SD | 51.5 (H) | 35.1 - 46.3 fL | [facility] | | | | | | [facility] | | | | | | MEDICAL | | | | | | CENTER - | | | | | | LABORATORY | | + + + + + + | Platelet | 240 | 140 - 440 K/uL | [facility] | | | Count | | | [facility] | | | | | | MEDICAL | | | | | | CENTER - | | | | | | LABORATORY | | + + + + + + | MPV | 9.4 | 6.5 - 12.4 fL | [facility] | | | | | | [facility] | | | | | | MEDICAL | | | | | | CENTER - | | | | | | LABORATORY | | + + + + + + | % | 74.4 | 45.0 - 82.0 % | [facility] | | | Neutrophils | | | [facility] | | | | | | MEDICAL | | | | | | CENTER - | | | | | | LABORATORY | | + + + + + + | % | 10.4 (L) | 20.0 - 45.0 % | [facility] | | | Lymphocytes | | | [facility] | | | | | | MEDICAL | | | | | | CENTER - | | | | | | LABORATORY | | + + + + + + | % Monocytes | 11.3 | 4.0 - 12.0 % | [facility] | | | | | | [facility] | | | | | | MEDICAL | | | | | | CENTER - | | | | | | LABORATORY | | + + + + + + | % | 2.5 | 0.0 - 5.0 % | [facility] | | | Eosinophils | | | [facility] | | | | | | MEDICAL | | | | | | CENTER - | | | | | | LABORATORY | | + + + + + + | % Basophils | 0.9 | 0.0 - 1.0 % | [facility] | | | | | | [facility] | | | | | | MEDICAL | | | | | | CENTER - | | | | | | LABORATORY | | + + + + + + | % Immature | 0.5 (H)Comment: | 0.0 - 0.4 % | [facility] | | | Granulocyte | Preliminary studies have | | [facility] | | | s | indicated the IG% | | MEDICAL | | | | and/or IG# show promise | | CENTER - | | | | as an early indicator | | LABORATORY | | | | for infection. | | | | + + + + + + | Absolute | 7.75 | 1.80 - 8.50 | [facility] | | | Neutrophils | | K/uL | [facility] | | | | | | MEDICAL | | | | | | CENTER - | | | | | | LABORATORY | | + + + + + + | Absolute | 1.08 | 0.60 - 3.20 | [facility] | | | Lymphocytes | | K/uL | [facility] | | | | | | MEDICAL | | | | | | CENTER - | | | | | | LABORATORY | | + + + + + + | Absolute | 1.18 (H) | 0.00 - 1.00 | [facility] | | | Monocytes | | K/uL | [facility] | | | | | | MEDICAL | | | | | | CENTER - | | | | | | LABORATORY | | + + + + + + | Absolute | 0.26 | 0.00 - 0.40 | [facility] | | | Eosinophils | | K/uL | [facility] | | | | | | MEDICAL | | | | | | CENTER - | | | | | | LABORATORY | | + + + + + + | Absolute | 0.09 | 0.00 - 0.10 | [facility] | | | Basophils | | K/uL | [facility] | | | | | | MEDICAL | | | | | | CENTER - | | | | | | LABORATORY | | + + + + + + | Absolute | 0.05 (H) | 0.00 - 0.03 | [facility] | | | Immature | | K/uL | [facility] | | | Granulocyte | | | MEDICAL | | | s | | | CENTER - | | | | | | LABORATORY | | + + + + + + | % nRBC | 0 | 0 - 2 per 100 | [facility] | | | | | WBCs | [facility] | | | | | | MEDICAL | | | | | | CENTER - | | | | | | LABORATORY | | + + + + + + | Absolute | 0.00 | 0.00 - 0.01 | [facility] | | | nRBC | | K/uL | [facility] | | | | | | MEDICAL [...] | + + + + + | [facility] | [address] | [place] | [phone] | | [facility] | | [address] | | | - LABORATORY | | | | + + + + + Hepatic Function Panel (02/20/2019 9:21 AM PDT) + +--------+ + + + | Component | Value | Ref Range | Performed | Pathologist | | | | | At | Signature | + +--------+ + + + | Bilirubin | 0.5 | 0.3 - 1.2 mg/dL | [facility] | | | Total | | | [facility] | | | | | | MEDICAL | | | | | | CENTER - | | | | | | LABORATORY | | + +--------+ + + + | Total | 6.9 | 5.7 - 8.2 g/dL | [facility] | | | Protein | | | [facility] | | | | | | MEDICAL | | | | | | CENTER - | | | | | | LABORATORY | | + +--------+ + + + | Albumin | 4.1 | 3.2 - 4.8 g/dL | [facility] | | | | | | [facility] | | | | | | MEDICAL | | | | | | CENTER - | | | | | | LABORATORY | | + +--------+ + + + | AST | 37 (H) | 0 - 34 U/L | [facility] | | | | | | [facility] | | | | | | MEDICAL | | | | | | CENTER - | | | | | | LABORATORY | | + +--------+ + + + | ALT | 36 | 10 - 49 U/L | [facility] | | | | | | [facility] | | | | | | MEDICAL | | | | | | CENTER - | | | | | | LABORATORY | | + +--------+ + + + | Alkaline | 63 | 46 - 116 U/L | [facility] | | | Phosphatase | | | [facility] | | | | | | MEDICAL | | | | | | CENTER - | | | | | | LABORATORY | | + +--------+ + + + | Globulin | 2.8 | 2.1 - 3.8 g/dL | [facility] | | | | | | [facility] | | | | | | MEDICAL | | | | | | CENTER - | | | | | | LABORATORY | | + +--------+ + + + | Albumin/Helen | 1.5 | 0.8 - 1.9 | [facility] | | | bulin Ratio | | | [facility] | | | | | | MEDICAL | | | | | | CENTER - | | | | | | LABORATORY | | + +--------+ + + + | Bilirubin, | 0.10 | 0.00 - 0.30 | [facility] | | | Direct | | mg/dl | [facility] | | | | | | MEDICAL | | | | | | CENTER - | | | | | | LABORATORY | | + +--------+ + + + + + | Specimen | + + | Blood | + + + + + + + | Performing | Address | City/State/Zipcode | Phone Number | | Organization | | | | + + + + + | [facility] | [address] | [place] | [phone] | | [facility] | | [address] | | | - LABORATORY | | | | + + + + + documented in this encounter Visit Diagnoses + + | Diagnosis | + + | Sarcoidosis - Primary | + + documented in this encounter"
--- OUTSIDE RECORDS SUMMARY | ~2019-07-31 | XMS | Encounter Summary ---
Demographics + + + | Address | [address] | | | [place] [address] | + + + | Home Phone | | + + + | Preferred Language | Unknown | + + + | Marital Status | | + + + | Mormon Affiliation | Unknown | + + + | Race | Unknown | + + + | Ethnic Group | Unknown | + + + Author + + + | Author | [facility] | | | and [place] | + + + | Organization | [facility] | | | and [...] [place] | | | | | [address] | | + + + + + | Haylie Rg | ECON | [address] [facility] | | | | | [place] | | + + + + + Care Team Providers + +------+ + | Care Insulation Worker Name | Role | Phone | + +------+ + | Blayne Herrera DO | PCP | | + +------+ + Encounter Details +--------+ + + + + | Date | Type | Department | Care Team | Description | +--------+ + + + + | 08/01/ | Hospital | [facility] | Conversion | Pain | | 2018 | Encounter | CONVERSION [address] | Transaction, | | | | | [address] | Provider Unknown | | | | | [place] | [phone] | | | | | [address] | | | | | | [phone] | | | +--------+ + + + [...] + + +---------+ + + | Evening [place] | Take 1,000 mg by | | [...] [place] | | | | | | [address] | | | | | | | | +--------+ + + + + | 08/15/ | Office | Pulmonology | Landon Denton, | | | 2019 | Visit | | MD [address] | | | | | | [place] | | | | | | [address] | | | | | | | | +--------+ + + + + documented as of this encounter Procedures + +--------+ + + + | Procedure Name | Priori | Date/Time | Associated Diagnosis | Comments | | | ty | | | | + +--------+ + + + | CT CHEST W CONTRAST | Routin | 02/20/2014 | | Results for this | | | e | 10:16 AM | | procedure are in the | | | | PDT | | results section. | + +--------+ + + + documented in this encounter Results CT Chest w Contrast (02/20/2014 10:16 AM PDT) + + | Specimen | [...]
--- OUTSIDE RECORDS SUMMARY | ~2019-07-31 | XMS | Encounter Summary ---
Demographics + + + | Address | [address] | | | [place] [address] | + + + | Home Phone | | + + + | Preferred Language | Unknown | + + + | Marital Status | | + + + | Lutheran Affiliation | Unknown | + + + | Race | Unknown | + + + | Ethnic Group | Unknown | + + + Author + + + | Author | [facility] | | | and [place] | + + + | Organization | [facility] | | | and [place] [...] [place] | | | | | [address] | | + + + + + | Haylie Rg | ECON | [address] [facility] | | | | | [place] | | + + + + + Care Team Providers + +------+ + | Care Reservations And Ticketing Agent Name | Role | Phone | + +------+ + | Blayne Herrera PCP | | + +------+ + Encounter Details +--------+ + + + + | Date | Type | Department | Care Team | Description | +--------+ + + + + | 11/09/ | Orders Only | [facility] | Edie Saravia | Sarcoidosis (HCC) | | 2016 | | MED CTR LAB[facility]ATORY | I, [employer] [employer] | | | | | [address] | | | | | | [place] | | | | | | [address] | | | | | | [phone] | | | +--------+ + + + [...] + +---------+ + | Not Asked | 0 Standard drinks | 0.0 | [...] [place] | | | | | | [address] | | | | | | | | +--------+ + + + + | 08/15/ | Office | Pulmonology | Landon Denton, | | | 2019 | Visit | | [address] | | | | | | [place] | | | | | | [address] | | | | | | | | +--------+ + + + + documented as of this encounter Procedures + +--------+ + + + | Procedure Name | Priori | Date/Time | Associated Diagnosis | Comments | | | ty | | | | + +--------+ + + + | ANGIOTENSIN I | Routin | 11/10/2015 | Sarcoidosis (HCC) | Results for this | | CONVERTING ENZYME | e | 11:15 AM | | procedure are in the | | | | PDT | | results section. | + +--------+ + + + documented in this encounter Results Angiotensin I Converting Enzyme (11/10/2015 11:15 AM PDT) + + + + + + | Component | Value | Ref Range | Performed | Pathologist | | | | | At | Signature | + + + + + + | Angiotensin | 42Comment: Testing | 4 - 60 U/L | [facility] | | | Converting | Performed: [place] | | [facility] | | | Enzyme | [facility] | | | | | | [place], [facility] [address], | | | | | | [place] [address] | | | | + + + + + + + + | Specimen | + + | Blood specimen | | (specimen) | + + + + + + + | Performing | Address | City/State/Zipcode | Phone Number | | Organization | | | | + + + + + | [facility] | [address] | [place] [address] | [phone] | + + + + + documented in this encounter Visit Diagnoses + + | Diagnosis | + + | Sarcoidosis | + + documented in this encounter"
--- OUTSIDE RECORDS SUMMARY | ~2019-07-31 | XMS | Encounter Summary ---
Demographics + + + | Address | [address] | | | [place] [address] | + + + | Home Phone | | + + + | Preferred Language | Unknown | + + + | Marital Status | | + + + | Congregation Affiliation | Unknown | + + + | Race | Unknown | + + + | Ethnic Group | Unknown | + + + Author + + + | Author | [facility] | | | and [place] | + + + | Organization | [facility] | | | and [place] [...] [place] | | | | | [id number] | | + + + + + | Haylie Rg | ECON | [address] | | | | | [place] | | + + + + + Care Team Providers + +------+ + | Care Wholesale Account Manager Name | Role | Phone | + +------+ + | Ama Moreau | PCP | | | PAIan | | | + +------+ + Reason for Visit + + + | Reason | Comments | + + + | Follow-up | 6 week follow up | + + + Follow Up (Routine) [...] | | | | unspecified | PA-C [id number], | | | | | Procedures | [place] | [place] [address] | | | | | F/U APPT | Ave | Phone: | | | | | DR [address]ALVAN | [place], | [phone] | | | | | [place] | [place] | Fax: | | | | | 02/20/19 | [address] | [phone] | | | | | | Phone: | | | | | | | [phone] | | | | | | | Fax: | | | | | | | [phone] | | + +--------+ + + + + Encounter Details +--------+---------+ + + + | Date | Type | Department | Care Team | Description | +--------+---------+ + + + | 07/04/ | Office | [facility] [place] | Landon Denton, | Sarcoidosis (HCC) | | 2019 | Visit | PULMONARY [address] | MD [address] | (Primary Dx); | | | | [place], | [place], [place] | Bronchiectasis | | | | [place] [address] | [id number] | without complication | | | | [phone] | | (HCC) | +--------+---------+ + + + Social History [...] + + + | Blood Pressure | 140/70 | 07/04/2019 10:42 AM | | | | | PST | | + + + + + | Pulse | 87 | 07/04/2019 10:42 AM | | | | | PST | | + + + + + | Temperature | 36.8 C (98.2 F) | 07/04/2019 10:42 AM | | | | | PST | | + + + + + | Respiratory Rate | - | - | | + + + + + | Oxygen Saturation | 95% | 07/04/2019 10:42 AM | RA | | | | PST | | + + + + + | Inhaled Oxygen | - | - | | | Concentration | | | | + + + + + | Weight | 79.7 kg (175 lb 11.3 | 07/04/2019 10:42 AM | | | | oz) | PST | | + + + + + | Height | 157.5 cm (5' 2") | 07/04/2019 10:42 AM | | | | | PST | | + + + + + | Body Mass Index | 32.14 | 07/04/2019 10:42 AM | | | | | PST | | + + + + + documented in this encounter Patient Instructions Patient Instructions Landon Denton MD - 07/04/2019 11:00 AM PST Prednisone tablets Brand Names: Deltasone, Predone, Sterapred, Sterapred DS What is this medicine? PREDNISONE (PRED ni sone) is a corticosteroid. It is commonly used to treat inflammation of the skin, joints, lungs, and other organs. Common conditions treated include asthma, allerg ies, and arthritis. It is also used for other conditions, such as blood disorders and diseas es of the adrenal glands. How should I use this medicine? Take this medicine by mouth with a glass of water. Follow the directions on the prescriptio n label. Take this medicine with food. If you are taking this medicine once a day, take it i n the morning. Do not take more medicine than you are told to take. Do not suddenly stop emily ing your medicine because you may develop a severe reaction. Your doctor will tell you how m uch medicine to take. If your doctor wants you to stop the medicine, the dose may be slowly lowered over time to avoid any side effects. Talk to your forestry technical officer regarding the use of this medicine in children. Special care may be needed. What side effects may I notice from receiving this medicine? Side effects that you should report to your doctor or health intensive care specialist as soon as p ossible: allergic reactions like skin rash, itching or hives, swelling of the face, lips, or tong ue changes in emotions or moods changes in vision depressed mood eye pain fever or chills, cough, sore throat, pain or difficulty passing urine increased thirst swelling of ankles, feet Side effects that usually do not require medical attention (report to your doctor or health intensive care specialist if they continue or are bothersome): confusion, excitement, restlessness headache nausea, vomiting skin problems, acne, thin and shiny skin trouble sleeping weight gain What may interact with this medicine? Do not take this medicine with any of the following medications: metyrapone mifepristone This medicine may also interact with the following medications: aminoglutethimide amphotericin B aspirin and aspirin-like medicines barbiturates certain medicines for diabetes, like glipizide or glyburide cholestyramine cholinesterase inhibitors cyclosporine digoxin diuretics ephedrine female hormones, like estrogens and control pills isoniazid ketoconazole NSAIDS, medicines for pain and inflammation, like ibuprofen or naproxen phenytoin rifampin toxoids vaccines warfarin What if I miss a dose? If you miss a dose, take it as soon as you can. If it is almost time for your next dose, ta lk to your doctor or health intensive care specialist. You may need to miss a dose or take an extra dose. Do not take double or extra doses without advice. Where should I keep my medicine? Keep out of the reach of children. Store at room temperature between 15 and 30 degrees C (59 and 86 degrees F). Protect from l ight. Keep container tightly closed. Throw away any unused medicine after the expiration francisco e. What should I tell my health care provider before I take this medicine? They need to know if you have any of these conditions: [place]'s syndrome diabetes glaucoma heart disease high blood pressure infection (especially a virus infection such as chickenpox, cold sores, or herpes) kidney disease liver disease mental illness myasthenia gravis osteoporosis seizures stomach or intestine problems thyroid disease an unusual or allergic reaction to lactose, prednisone, other medicines, foods, dyes, or preservatives or trying to get breast-feeding What should I watch for while using this medicine? Visit your doctor or health intensive care specialist for regular checks on your progress. If you a re taking this medicine over a prolonged period, carry an identification card with your name and address, the type and dose of your medicine, and your doctor's name and address. This medicine may increase your risk of getting an infection. Tell your doctor or health ca re professional if you are around anyone with measles or chickenpox, or if you develop sores or blisters that do not heal properly. If you are going to have surgery, tell your doctor or health intensive care specialist that you hav e taken this medicine within the last twelve months. Ask your doctor or health intensive care specialist about your diet. You may need to lower the amou nt of salt you eat. This medicine may affect blood sugar levels. If you have diabetes, check with your doctor o r health intensive care specialist before you change your diet or the dose of your diabetic medicine . NOTE:This sheet is a summary. It may not cover all possible information. If you have questi ons about this medicine, talk to your doctor, pharmacist, or health care provider. Copyright 2019 [employer] documented in this encounter Progress Notes Landon Denton MD - 07/04/2019 11:00 AM PSTFormatting of this note might be different f rom the original. Pulmonary Follow Up 07/04/2019 HPI Elinor Shelby is a 74 y.o. female patient of Ama Moreau PA-C here today for follow up of sarcoidosis and bronchiectasis. It has been 6 weeks since our last clinic appointment. At their last visit, we continue pr ednisone at 20 mg a day and initiated 3 times a week Bactrim. Since the last visit she feels like their symptoms are stable. They have have not had any recent acute illnesses. They are currently on a regimen of Prednisone at 20 mg per day for their sarcoid. The cierra ent do feel like this medication regimen is decreasing their sarcoid related symptoms. Renee continues to experience intermittent issues with loose stools. No abdominal pain.. Currently they are able to walk still 3-4 blocks at their own pace on level ground. They ar e exercising regularly. Their exercise consists of pool exercises. They are not enrolled i n cardiac/pulmonary rehabilitation or other physical therapy. She does not cough chronically, and does not produce mucous. They have not had hemoptysis s tommy our last clinic appointment. Elinor does not wheeze chronically, and does not have chest tightness. The patient does note side effects from their sarcoidosis medications. Specifically insomn ia in the middle of the night. She has not been evaluated for nocturnal oxygen. Saturation 93-95%. Elinor does not had symptoms of heartburn or reflux in takes Prilosec. They have not had sympto ms of nasal congestion, runny nose or post nasal drip. The patient's weight has increased 1 pound and 5 ounces since her last clinic appointment. Recent evaluation regarding asymmetry of the patient's lower extremities did not reveal a s pecific cause. Renee states that ultrasound of her lower extremities was negative for DVT. Past Medical History Past Medical History: Diagnosis [...] coughing)., Disp: 1 Inhaler, Rfl: 5 Evening [place] Oil 1000 MG CAPS, Take 1,000 mg by mouth Daily., Disp: , Rfl: Multiple Vitamin TABS, Take 2 tablets by mouth Daily., Disp: , Rfl: [place]-3 Fatty Acids (OMEGA-3 FISH OIL) 1000 MG CAPS, Take 1,000 mg by mouth Daily., Di sp: , Rfl: omeprazole (PRILOSEC) 20 mg capsule, Take 20 mg by mouth every morning (before break)., Disp: , Rfl: PEG 0294-EPu-WxPen-NaCl-NaSulf (PEG 3350/ELECTROLYTES) 240 g SOLR, , Disp: , Rfl: predniSONE (DELTASONE) 10 mg tablet, Take 2 tablets by mouth Daily., Disp: 60 tablet, Rfl: 2 pseudoePHEDrine (SUDAFED) 30 mg tablet, Take 30 mg by mouth every 6 hours as needed., Disp: , Rfl: 2 sulfamethoxazole-trimethoprim (BACTRIM DS) 800-160 mg per tablet, Take 1 tablet by tay Three times a week., Disp: 12 tablet, Rfl: 1 Immunizations: Immunization History Administered Date(s) Administered INFLUENZA 65 Y OR >, TRIVALENT HIGH-DOSE 05/03/2016, 05/22/2017, 05/14/2018, 05/14/2019 INFLUENZA PF 18 Y OR >,TRIVALENT RECOMBINANT 05/02/2012, 04/30/2013, 05/03/2014, 2014 INFLUENZA PF TRIVALENT(PED/ADOL/ADULT), PSKT 04/30/2013, 05/03/2014 PNEUMOCOCCAL CONJUGATE 13-VALENT (PCV13) 12/13/2016, 10/03/2017 PNEUMOCOCCAL POLYSACCHARIDE 23-VALENT (PPSV23) 08/22/2008 Objective BP 140/70 | Pulse 87 | Temp 36.8 C (98.2 F) (Temporal) | Ht 1.575 m (5' 2") | Wt 79 .7 kg (175 lb 11.3 oz) | SpO2 95% Comment: RA | BMI 32.14 kg/m Appearance: Alert, cooperative, no distress, appears [...] Extremities: Extremities normal, atraumatic, no cyanosis, clubbing. Trace edema to the midc yuliana bilaterally. The circumference of the right lower extremity is greater than the left lo wer extremity.. No joint swelling. Skin: Warm and dry. No rashes. Lymph nodes: Cervical and supraclavicular nodes normal Neurologic: Gait normal Data: None Assessment 1. Sarcoidosis the patient's most recent worsening symptoms developed in early September. O n 10/23/2018 prednisone was reinitiated. The patient's symptoms improved. However when we a ttempted to wean her steroids her symptoms again worsened. On 12/19/2018 methotrexate was in itiated as a steroid sparing agent. Renee initially tolerated methotrexate. However over the 3 months that she used the medication concern centered around loose stools and abdominal pain. Methotrexate was discontinued on 03/20/2019. The patient's abdominal pain resolved b ut she continues to have intermittent loose stools. In early April the patient's prednisone was increased to 20 mg a day and Bactrim DS was r einitiated on May 24. Over the last 6 weeks stable/mild improvement of the patient's symptoms is noted. Current side effects primarily include insomnia and mild weight gain. We will once again attempt to initiate a gradual taper of prednisone. If symptoms again wo rsen we will consider the use of mycophenolate or leflunomide. 2. Bronchiectasis no recent infectious symptoms. The patient is up-to-date with respec t to her seasonal influenza vaccination, Prevnar Pneumovax. Total duration of the patient's clinic appointment was in excess of 30 minutes. Greater th an 50% of time was spent in counseling related to management of her sarcoidosis. Plan 1. Discontinue Bactrim. 2. Decrease prednisone to 15 mg p.o. daily. 3. Pulmonary clinic follow-up appointment with spirometry, diffusion capacity and walking oximetry in approximately 6 weeks. CC: Ama Moreau PA-C documented in this [...] | Pulmonology | Landon Denton, | | 2019 | Visit | | MD Ludwin BAILEY | | | | | | [place] | | | | | | [phone] | | | | | | | | +--------+ + + + + + +------+--------+ + + | Name | Type | Priori | Associated Diagnoses | Order Schedule | | | | ty | | | + +------+--------+ + + | PFT [facility] | PFT | SERENITY | Sarcoidosis (HCC) | 1 Occurrences | | | | | | starting 07/04/2019 | | | | | | until 07/04/2020 | + +------+--------+ + + documented as of this encounter Visit Diagnoses + + | Diagnosis | + + | Sarcoidosis (HCC) - Primary Sarcoidosis | + + | Bronchiectasis without complication (HCC) Bronchiectasis without acute exacerbation | + + documented in this encounter
--- OUTSIDE RECORDS SUMMARY | ~2019-07-31 | XMS | Encounter Summary ---
Demographics + + + | Address | [address] | | | [place] [address] | + + + | Home Phone | | + + + | Preferred Language | Unknown | + + + | Marital Status | | + + + | Quaker Affiliation | Unknown | + + + | Race | Unknown | + + + | Ethnic Group | Unknown | + + + Author + + + | Author | [facility] | | | and [place] | + + + | Organization | [facility] | | | and [...] [place] | | | | | [address] | | + + + + + | Haylie Rg | ECON | [address] | | | | | [place] | | + + + + + Care Team Providers + +------+ + | Care Press Tender Smoke Signal Name | Role | Phone | + +------+ + | Ama Moreau | PCP | | | PAIan | | | + +------+ + Reason for Visit + + + | Reason | Comments | + + + | Follow-up | 3 week follow up | + + + [...] | | | | unspecified | PA-C [id number] | [address], | | | | | Procedures | [place] | [place] [address] | | | | | F/U APPT | Ave | Phone: | | | | | DR GALVAN | [place], | [phone] | | | | | [place] | [place] | Fax: | | | | | 02/20/19 | [address] | [phone] | | | | | | Phone: | | | | | | | [phone] | | | | | | | Fax: | | | | | | | [phone] | | + +--------+ + + + + Encounter Details +--------+---------+ + + + | Date | Type | Department | Care Team | Description | +--------+---------+ + + + | 05/24/ | Office | [facility] | Landon Denton, | Sarcoidosis (HCC) | | 2019 | Visit | PULMONARY [address] | MD [address] | (Primary Dx); | | | | [place], | [place], [place] | Hypoxemia; Pulmonary | | | | [place] [address] | [address] | nodules; | | | | [phone] | | Bronchiectasis | | | | | | without complication | | | | | | (HCC) | +--------+---------+ + + [...] + + + | Blood Pressure | 130/90 | 05/24/2019 2:20 PM | | | | | PDT | | + + + + + | Pulse | 94 | 05/24/2019 2:20 PM | | | | | PDT | | + + + + + | Temperature | 36.9 C (98.5 F) | 05/24/2019 2:20 PM | | | | | PDT | | + + + + + | Respiratory Rate | - | - | | + + + + + | Oxygen Saturation | 95% | 05/24/2019 2:20 PM | RA | | | | PDT | | + + + + + | Inhaled Oxygen | - | - | | | Concentration | | | | + + + + + | Weight | 79.1 kg (174 lb 6.1 | 05/24/2019 2:20 PM | | | | oz) | PDT | | + + + + + | Height | 157.5 cm (5' 2") | 05/24/2019 2:20 PM | | | | | PDT | | + + + + + | Body Mass Index | 31.9 | 05/24/2019 2:20 PM | | | | | PDT | | + + + + + documented in this encounter Patient Instructions Patient Instructions Landon Denton MD - 05/24/2019 2:30 PM PDT Mycophenolate capsules Brand Name: CellCept What is this medicine? MYCOPHENOLATE MOFETIL (vanie anselmo FEN oh late DELICIA) is used to decrease the immune syste m's response to a transplanted organ. How should I use this medicine? Take this medicine by mouth with a full glass of water. Follow the directions on the prescr iption label. Take this medicine on an empty stomach, at least 1 hour before or 2 hours afte r food. Do not take with food unless your doctor approves. Swallow the medicine whole. Do no t cut, crush, or chew the medicine. If the medicine is broken or is not intact, do not get t he powder on your skin or eyes. If contact occurs, rinse thoroughly with water. Take your me dicine at regular intervals. Do not take your medicine more often than directed. Do not stop taking except on your doctor's advice. A special MedGuide will be given to you by the pharmacist with each prescription and refill . Be sure to read this information carefully each time. Talk to your duck operator regarding the use of this medicine in children. Special care may be needed. What side effects may I notice from receiving this medicine? Side effects that you should report to your doctor or health healthcare translator as soon as p ossible: allergic reactions like skin rash, itching or hives, swelling of the face, lips, or tong ue bloody, dark, or tarry stools changes in vision dizziness fever, chills or any other sign of infection unusual bleeding or bruising unusually weak or tired Side effects that usually do not require medical attention (report to your doctor or health healthcare translator if they continue or are bothersome): constipation diarrhea difficulty sleeping loss of appetite nausea, vomiting What may interact with this medicine? acyclovir or valacyclovir antacids azathioprine control pills certain antibiotics like ciprofloxacin and amoxicillin; clavulanic acid ganciclovir or valganciclovir lanthanum carbonate medicines for cholesterol like cholestyramine and colestipol metronidazole norfloxacin other mycophenolate medicines probenecid rifampin sevelamer vaccines What if I miss a dose? If you miss a dose, take it as soon as you can. If it is almost time for your next dose, ta ke only that dose. Do not take double or extra doses. Where should I keep my medicine? Keep out of the reach of children. Store at room temperature between 15 and 30 degrees C (59 and 86 degrees F). Throw away any unused medicine after the expiration date. What should I tell my health care provider before I take this medicine? They need to know if you have any of these conditions: anemia or other blood disorder diarrhea immune system problems infection kidney disease phenylketonuria stomach problems an unusual or allergic reaction to mycophenolate mofetil, other medicines, foods, dyes, or preservatives or trying to get breast-feeding What should I watch for while using this medicine? Visit your doctor or health healthcare translator for regular checks on your progress. You will need frequent blood checks during the first few months you are receiving the medicine. This medicine can make you more sensitive to the sun. Keep out of the sun. If you cannot av oid being in the sun, wear protective clothing and use sunscreen. Do not use sun lamps or ta nning beds/booths. This medicine can cause defects. Do not get while taking this drug. Females will need to have a negative test before starting this medicine. If sexually activ e, use 2 reliable forms of control together for 4 weeks before starting this medicine, while you are taking this medicine, and for 6 weeks after you stop taking this medicine. Bi rth control pills alone may not work properly while you are taking this medicine. If you thi nk that you might be talk to your doctor right away. If you get a cold or other infection while receiving this medicine, call your doctor or [facility] healthcare translator. Do not treat yourself. The medicine may decrease your body's ability to fight infections. NOTE:This sheet is a summary. It may not cover all possible information. If you have questi ons about this medicine, talk to your doctor, pharmacist, or health care provider. Copyright 2019 Elsevier Leflunomide tablets Brand Name: Arava What is this medicine? LEFLUNOMIDE (le FLOO na mide) is for rheumatoid arthritis. How should I use this medicine? Take this medicine by mouth with a full glass of water. Follow the directions on the prescr iption label. Take your medicine at regular intervals. Do not take your medicine more often than directed. Do not stop taking except on your doctor's advice. Talk to your duck operator regarding the use of this medicine in children. Special care may be needed. What side effects may I notice from receiving this medicine? Side effects that you should report to your doctor or health healthcare translator as soon as p ossible: allergic reactions like skin rash, itching or hives, swelling of the face, lips, or tong ue breathing problems cough increased blood pressure low blood counts - this medicine may decrease the number of white blood cells and platel ets. You may be at increased risk for infections and bleeding. pain, tingling, numbness in the hands or feet redness, blistering, peeing or loosening of the skin, including inside the mouth signs of decreased platelets or bleeding - bruising, pinpoint red spots on the skin, johan ck, tarry stools, blood in urine signs of infection - fever or chills, cough, sore throat, pain or trouble passing urine signs and symptoms of liver injury like dark yellow or brown urine; general ill feeling or flu-like symptoms; light-colored stools; loss of appetite; nausea; right upper belly pain ; unusually weak or tired; yellowing of the eyes or skin trouble passing urine or change in the amount of urine vomiting Side effects that usually do not require medical attention (report to your doctor or health healthcare translator if they continue or are bothersome): diarrhea hair thinning or loss headache nausea tiredness What may interact with this medicine? Do not take this medicine with any of the following medications: teriflunomide This medicine may also interact with the following medications: alosetron control pills caffeine cefaclor certain medicines for diabetes like nateglinide, repaglinide, rosiglitazone, pioglitazon e certain medicines for high cholesterol like atorvastatin, pravastatin, rosuvastatin, sim vastatin charcoal cholestyramine ciprofloxacin duloxetine furosemide ketoprofen live virus vaccines medicines that increase your risk for infection methotrexate mitoxantrone paclitaxel penicillin theophylline tizanidine warfarin What if I miss a dose? If you miss a dose, take it as soon as you can. If it is almost time for your next dose, ta ke only that dose. Do not take double or extra doses. Where should I keep my medicine? Keep out of the reach of children. Store at room temperature between 15 and 30 degrees C (59 and 86 degrees F). Protect from m oisture and light. Throw away any unused medicine after the expiration date. What should I tell my health care provider before I take this medicine? They need to know if you have any of these conditions: diabetes have a fever or infection high blood pressure immune system problems kidney disease liver disease low blood cell counts, like low white cell, platelet, or red cell counts lung or breathing disease, like asthma recently received or scheduled to receive a vaccine receiving treatment for cancer skin conditions or sensitivity tingling of the fingers or toes, or other nerve disorder tuberculosis an unusual or allergic reaction to leflunomide, teriflunomide, other medicines, food, dy es, or preservatives or trying to get breast-feeding What should I watch for while using this medicine? Visit your healthcare professional for regular checks on your progress. Tell your doctor or healthcare professional if your symptoms do not start to get better or if they get worse. Y ou may need blood work done while you are taking this medicine. This medicine may stay in your body for up to 2 years after your last dose. Tell your docto r about any unusual side effects or symptoms. A medicine can be given to help lower your blo od levels of this medicine more quickly. Women must use effective control with this medicine. There is a potential for serious side effects to an unborn child. Do not become while taking this medicine. Inform your doctor if you wish to become . This medicine remains in your blood after you st op taking it. You must continue using effective control until the blood levels have be en checked and they are low enough. A medicine can be given to help lower your blood levels of this medicine more quickly. Immediately talk to your doctor if you think you may be pregn ant. You may need a test. Talk to your health healthcare translator or pharmacist for more information. You should not receive certain vaccines during your treatment and for a certain time after your treatment with this medication ends. Talk to your health healthcare translator for more inf ormation. NOTE:This sheet is a summary. It may not cover all possible information. If you have questi ons about this medicine, talk to your doctor, pharmacist, or health care provider. Copyright 2019 Elsevier documented in this encounter Progress Notes Landon Denton MD - 05/24/2019 2:30 PM PDTFormatting of this note might be different f rom the original. Pulmonary Follow Up 05/24/2019 HPI Elinor Shelby is a 74 y.o. female patient of Ama Moreau PA-C here today for follow up of sarcoidosis. Other pulmonary problems include recently noted hypoxemia, pulmon scotty nodules and bronchiectasis. It has been 3 weeks since our last clinic appointment. At their last visit, we increased p rednisone to 20 mg/day. Since the last visit she feels like their symptoms are stable. They have have not had any recent acute illnesses. They are currently on a regimen of Prednisone 20/days for their sarcoid. The patient do no t feel like this medication regimen is decreasing their sarcoid related symptoms. Exercisi ng more over the last 3 weeks. Currently they are able to walk 3-4 blocks at their own pace on level ground. They are exer cising regularly. Their exercise consists of exercises in pool. They are not enrolled in c ardiac/pulmonary rehabilitation or other physical therapy. She does not cough chronically, and does not produce mucous. They have not had hemoptysis since our last clinic appointment. Elinor does not wheeze chronically, and does not have chest tightness. The patient does note side effects from their sarcoidosis medications. Feels "puffy". Spe cifically does not have nausea, insomnia or polyuria. Elinor does not had symptoms of heartburn or reflux. They have not had symptoms of nasal conges tion, runny nose or post nasal drip. Since her last clinic appointment the patient's loose stools have improved. She has receiv ed a seasonal influenza vaccination. Past Medical History Past Medical History: Diagnosis [...] coughing)., Disp: 1 Inhaler, Rfl: 5 Evening Hurley Oil 1000 MG CAPS, Take 1,000 mg by mouth Daily., Disp: , Rfl: Multiple Vitamin TABS, Take 2 tablets by mouth Daily., Disp: , Rfl: Florence-3 Fatty Acids (OMEGA-3 FISH OIL) 1000 MG CAPS, Take 1,000 mg by mouth Daily., Di sp: , Rfl: omeprazole (PRILOSEC) 20 mg capsule, Take 20 mg by mouth every morning (before break st)., Disp: , Rfl: ondansetron (ZOFRAN) 4 mg tablet, , Disp: , Rfl: PEG 8532-XBu-PzZul-NaCl-NaSulf (PEG 3350/ELECTROLYTES) 240 g SOLR, , Disp: [...] PNEUMOCOCCAL POLYSACCHARIDE 23-VALENT (PPSV23) 08/22/2008 Objective BP 130/90 | Pulse 94 | Temp 36.9 C (98.5 F) (Temporal) | Ht 1.575 m (5' 2") | Wt 79 .1 kg (174 lb 6.1 oz) | SpO2 95% Comment: RA | BMI 31.90 kg/m Appearance: Alert, cooperative, no distress, appears [...] Date ALT 36 02/20/2019 Assessment 1. Sarcoidosis as noted on prior notes recent worsening symptoms initially treated with prednisone with symptomatic improvement and subsequently with methotrexate from 12/19. Ultimately methotrexate was discontinued secondary to concerns that it was causing a bdominal pain and diarrhea. The abdominal pain ceased with stopping methotrexate but the lo ose stools continued. At the time of the patient's last clinic appointment we increased her dose of prednisone. The patient is uncertain whether this is helped decrease her symptoms. However she is exerc ising more and her resting O2 saturation is higher. Side effects from prednisone include increased appetite. It is possible that the timeframe is too short to clearly assess improvement with prednison e. With this in mind I have suggested to Elinor Buitrago that she continue on prednisone dose to 20 mg a day for the next 6 or so weeks. If we conclude that the patient's symptoms have improved that it would be reasonable to ini tiate mycophenolate or leflunomide. Information regarding these medications has been shared with the patient. The patient is in need of pneumocystis prophylaxis. 2. Bronchiectasis no evidence of exacerbation symptoms. The patient is up-to-date with respect to her seasonal influenza vaccination, Prevnar Pneumovax. 3. Hypoxemia mild improvement of resting O2 saturation. Repeat assessment at the time of follow-up. Plan 1. Bactrim DS 3 times a week. 2. Continue prednisone 20 mg a day. 3. Pulmonary clinic follow-up appointment with walking oximetry after Elinor Buitrago returns from visiting family in [facility] in early June 2019. CC: Ama Moreau PA-C documented in this [...] [place] | | | | | | [phone] | | | | | | | | +--------+ + + + + documented as of this encounter Visit Diagnoses + + | Diagnosis | + + | Sarcoidosis (HCC) - Primary Sarcoidosis | + + | Hypoxemia | + + | Pulmonary nodules Other nonspecific abnormal finding of lung field | + + | Bronchiectasis without complication (HCC) Bronchiectasis without acute exacerbation | + + documented in this encounter
--- OUTSIDE RECORDS SUMMARY | ~2019-07-31 | XMS | Encounter Summary ---
Demographics + + + | Address | [address] | | | [place] [address] | + + + | Home Phone | | + + + | Preferred Language | Unknown | + + + | Marital Status | | + + + | Shinto Affiliation | Unknown | + + + | Race | Unknown | + + + | Ethnic Group | Unknown | + + + Author + + + | Author | [facility] | | | and [place] | + + + | Organization | [facility] | | | and [place] [...] [place] | | | | | [address] | | + + + + + | Haylie Rg | ECON | [address] | | | | | [place] | | + + + + + Care Team Providers + +------+ + | Care Gas Maker Name | Role | Phone | + +------+ + PCP | Unavailable | + +------+ + Encounter Details +--------+ + + + + | Date | Type | Department | Care Team | Description | +--------+ + + + + | 04/12/ | Abstract | [place] [facility] | [facility] | | | 2012 | | Conversion Location | [facility] | | | | | [phone] | | | +--------+ + + + [...] + + + | Blood Pressure | 136/86 | 08/05/2011 12:00 AM | | | | | PST | | + + + + + | Pulse | - | - | | + + + + + | Temperature | - | - | | + + + + + | Respiratory Rate | - | - | | + + + + + | Oxygen Saturation | - | - | | + + + + + | Inhaled Oxygen | - | - | | | Concentration | | | | + + + + + | Weight | 75.3 kg (166 lb) | 08/05/2011 12:00 AM | | | | | PST | | + + + + + | Height | 154.9 cm (5' 1") | 01/08/2010 12:00 AM | | | | | PDT | | + + + + + | Body Mass Index | 31.37 | 01/08/2010 12:00 AM | | | | | PDT | | + + + + + documented in this encounter Plan of Treatment +--------+ + + + + | Date | Type | Specialty | Care Team | Description | +--------+ + + + + | 08/15/ | Appointment | Pulmonology | Landon Denton, | | | 2019 | | | MD [address] | | | | | | [place] | | | | | | [address] | | | | | | | | +--------+ + + + + | 08/15/ | Office | Pulmonology | Landon Denton, | | | 2019 | Visit | | MD [address] | | | | | | [place] | | | | | | [address] | | | | | | | | +--------+ + + + + documented as of this encounter Visit Diagnoses Not on filedocumented in this encounter
--- OUTSIDE RECORDS SUMMARY | ~2019-07-31 | XMS | Encounter Summary ---
Demographics + + + | Address | [address] | | | [place] [address] | + + + | Home Phone | | + + + | Preferred Language | Unknown | + + + | Marital Status | | + + + | Jewish Affiliation | Unknown | + + + | Race | Unknown | + + + | Ethnic Group | Unknown | + + + Author + + + | Author | [facility] | | | and [place] | + + + | Organization | [facility] | | | and [place] [...] [place] | | | | | [address] | | + + + + + | Haylie Rg | ECON | [address] [facility] [address] | | | | | [place] | | + + + + + Care Team Providers + +------+ + | Care Director Of Campus Recreation Name | Role | Phone | + [...] | | | | unspecified | PA-C [address] | [address] | | | | | Procedures | [place] | [place] [address] | | | | | F/U APPT | Ave | Phone: | | | | | DR GALVAN | [place], | [phone] | | | | | [place] | [place] | Fax: | | | | | 02/20/19 | [address] | [phone] | | | | | | Phone: | | | | | | | [phone] | | | | | | | Fax: | | | | | | | [phone] | | + +--------+ + + + + Encounter Details +--------+---------+ + + + | Date | Type | Department | Care Team | Description | +--------+---------+ + + + | 03/20/ | Office | [facility] | Landon Denton, | Sarcoidosis (HCC) | | 2019 | Visit | PULMONARY [address] | MD [address] | (Primary Dx); | | | | [place], | [place], [place] | Bronchiectasis | | | | [place] [address] | [address] | without complication | | | | [phone] | | (HCC) | +--------+---------+ + + [...] + + + | Blood Pressure | 110/68 | 03/20/2019 10:50 AM | | | | | PDT | | + + + + + | Pulse | 72 | 03/20/2019 10:50 AM | | | | | PDT | | + + + + + | Temperature | - | - | | + + + + + | Respiratory Rate | - | - | | + + + + + | Oxygen Saturation | 94% | 03/20/2019 10:50 AM | RA | | | | PDT | | + + + + + | Inhaled Oxygen | - | - | | | Concentration | | | | + + + + + | Weight | 78.6 kg (173 lb 4.5 | 03/20/2019 10:50 AM | | | | oz) | PDT | | + + + + + | Height | 157.5 cm (5' 2") | 03/20/2019 10:50 AM | | | | | PDT | | + + + + + | Body Mass Index | 31.69 | 03/20/2019 10:50 AM | | | | | PDT | | + + + + + documented in this encounter Patient Instructions Patient Instructions Landon Denton MD - 03/20/2019 11:00 AM PDT Methotrexate tablets Brand Names: Rheumatrex, [...] to take special precautions. Talk to your printed circuit boards laminator regarding the use of this medicine in children. While this drug m ay be prescribed for selected conditions, precautions do apply. What side effects may I notice from receiving this medicine? Side effects that you should report to your doctor or health career services officer as soon as p ossible: allergic reactions [...] attention (report to your doctor or health career services officer if they continue or are bothersome): dizziness [...] dose, talk with your doctor or health career services officer. Do not take double o r extra [...] this medicine. Call your doctor or health career services officer for advice if you get a fever, [...] bleeding. Check with your doctor or health career services officer if you get an attack of severe [...] an unborn child. Talk to your health career services officer or pharmacist for more information. Do not breast-feed an i nfant while taking this medicine. NOTE:This sheet is a summary. It may not cover all possible information. If you have questi ons about this medicine, talk to your doctor, pharmacist, or health care provider. Copyright 2019 [employer] documented in this encounter Progress Notes Landon Denton MD - 03/20/2019 11:00 AM PDTFormatting of this note might be different f rom the original. Pulmonary Follow Up 03/20/2019 HPI Elinor Shelby is a 74 y.o. female patient of Ama Moreau PA-C here today for follow up of sarcoidosis. It has been 1 month since our last clinic appointment. At their last visit, we discontinue d Bactrim, increase methotrexate to 10 mg a week and continue prednisone dose to 10 mg a day . Since the last visit she feels like their pulmonary symptoms are stable. They have have had any recent acute illnesses. Specifically Renetta developed a low-grade f ever and increased cough on approximately 02/28/2019. She was evaluated by an associate of Ms Brigida Moreau who prescribed azithromycin. Mild increase of shortness of breath was noted. Over the last week Elinor Buitrago's symptoms have been improving. Over the last month or so the patient is noted frequent stools. She describes these as occ urring 2-3 times a day. There is no associated abdominal pain. Urgency is noted. Cough re lated defecation has occurred. They are currently on a regimen of methotrexate dose to 10 mg a week and prednisone 10 mg a day for their sarcoid. The patient do feel like this medication regimen is decreasing thei r sarcoid related symptoms. Currently they are able to walk one block at their own pace on level ground. Somewhat impro ving over the last week. They are not exercising regularly. They are not enrolled in cardi ac/pulmonary rehabilitation or other physical therapy. She does cough chronically, and does produce mucous. The mucous is clear in color. They hav e not had hemoptysis since our last clinic appointment. Elinor does not wheeze chronically, and does not have chest tightness. Specifically does not have nausea, insomnia or polyuria. She has not been evaluated for nocturnal oxygen. Elinor does not had symptoms of heartburn or reflux. They have not had symptoms of nasal conges tion, runny nose or post nasal drip. Past Medical History Past Medical History: Diagnosis [...] coughing)., Disp: 1 Inhaler, Rfl: 5 Evening Umbarger Oil 1000 MG CAPS, Take 1,000 mg by mouth Daily., Disp: , Rfl: folic acid 1 mg tablet, Take 1 tablet by mouth Daily., Disp: 30 tablet, Rfl: 5 methotrexate 2.5 mg tablet, Take 4 tablets by mouth Once a week. Indications: Other No n-Oncology, Sarcoid, Disp: 16 tablet, Rfl: 2 Multiple Vitamin TABS, Take 2 tablets by mouth Daily., Disp: , Rfl: [place]-3 Fatty Acids (OMEGA-3 FISH OIL) 1000 MG [...] PNEUMOCOCCAL POLYSACCHARIDE 23-VALENT (PPSV23) 08/22/2008 Objective BP 110/68 | Pulse 72 | Ht 1.575 m (5' 2") | Wt 78.6 kg (173 lb 4.5 oz) | SpO2 94% Comme nt: RA | BMI 31.69 kg/m Appearance: Alert, cooperative, no distress, appears [...] Date ALT 36 02/20/2019 Assessment 1. Sarcoidosis recent worsening treated with a prednisone and methotrexate since 019. 1 month ago the patient's methotrexate was increased from 7.5 mg a week to 10 mg a wee k. Bactrim was discontinued 1 month ago. She remains on prednisone dose to 10 mg a day. At approximately the same time Elinor Buitrago began to note loose stools. There is no associated abdominal pain. The patient does believe that she is intermittently bleeding from known hem orrhoids. No evidence of hepatic or bone marrow toxicity are noted via blood test performed 03/18/2019 (white blood cell count 6.7, SGOT 25 and SGPT 26). Diarrhea is a commonly associated side effect associated with methotrexate. It seems less likely that the patient's loose stools r elate to an infectious etiology. Likewise a lower GI bleed seems less likely. We will discontinue methotrexate and assess for change in the patient's symptoms. 2. Bronchiectasis associated with pulmonary nodules. Recent apparent exacerbation noted earlier this month treated with azithromycin. Total duration of the patient's clinic appointment was in excess of 30 minutes. Greater th an 50% of time was spent in counseling related to the patient's sarcoid, treatment and recen t diarrhea. Plan 1. Discontinue methotrexate. 2. Continue prednisone dose to 10 mg a day. 3. Pulmonary clinic follow-up appointment in 2 weeks time to assess the status of the cierra ent's symptoms. CC: Ama Moreau PA-C documented in this [...] [place] | | | | | | [address] | | | | | | | | +--------+ + + + + | 08/15/ | Office | Pulmonology | Landon Denton, | | | 2019 | Visit | | [address] | | | | | | [place] | | | | | | [address] | | | | | | | | +--------+ + + + + documented as of this encounter Visit Diagnoses + + | Diagnosis | + + | Sarcoidosis (HCC) - Primary Sarcoidosis | + + | Bronchiectasis without complication (HCC) Bronchiectasis without acute exacerbation | + + documented in this encounter
--- OUTSIDE RECORDS SUMMARY | ~2019-07-31 | XMS | Encounter Summary ---
Demographics + + + | Address | [address] | | | [place] [address] | + + + | Home Phone | | + + + | Preferred Language | Unknown | + + + | Marital Status | | + + + | Temple Affiliation | Unknown | + + + | Race | Unknown | + + + | Ethnic Group | Unknown | + + + Author + + + | Author | [facility] | | | and [place] | + + + | Organization | [facility] | | | and [...] [place] | | | | | [address] | | + + + + + | Haylie Rg | ECON | [address] [facility] | | | | | [place] | | + + + + + Care Team Providers + +------+ + | Care Billiard Player Name | Role | Phone | + +------+ + | Blayne Hererra DO | PCP | | + +------+ + Reason for Visit + + + | Reason | Comments | + + + | Follow-up | | + + + Encounter Details +--------+---------+ + + + | Date | Type | Department | Care Team | Description | +--------+---------+ + + + | 05/22/ | Office | [facility] | Landon Denton, | Sarcoidosis (HCC) | | 2013 | Visit | PULMONARY [address] | MD [address] | (Primary Dx); | | | | [place], | [place], [place] | Dyspnea | | | | [place] [address] | [address] | | | | | [phone] | | | +--------+---------+ + + + [...] + + + | Blood Pressure | 124/76 | 05/22/2014 9:22 AM | | | | | PDT | | + + + + + | Pulse | 72 | 05/22/2014 9:22 AM | | | | | PDT | | + + + + + | Temperature | - | - | | + + + + + | Respiratory Rate | - | - | | + + + + + | Oxygen Saturation | 95% | 05/22/2014 9:22 AM | | | | | PDT | | + + + + + | Inhaled Oxygen | - | - | | | Concentration | | | | + + + + + | Weight | 77.8 kg (171 lb 8 | 05/22/2014 9:22 AM | | | | oz) | PDT | | + + + + + | Height | 152.4 cm (5') | 05/22/2014 9:22 AM | | | | | PDT | | + + + + + | Body Mass Index | 33.49 | 05/22/2014 9:22 AM | | | | | PDT | | + + + + + documented in this encounter Patient Instructions Patient Instructions Landon Denton MD - 05/22/2014 9:42 AM PDTAfter one month please decrease the Prednisone to 10 mg every other day (Jun.30). Pulmonary Sarcoidosis Sarcoidosis is a disease that [...] about all medications you use. This includes rrdp-fic-gaxcxnk medications. It also i ncludes herbs or supplements. [id number] Issac Rothman, [address] [place] [address], [place] [address]. All rights reserve d. This information is not intended as a substitute for professional medical care. Always fo llow your healthcare professional's instructions. documented in this encounter Progress Notes Landon Denton MD - 05/22/2014 9:33 AM PDTFormatting of this note might be different f rom the original. Pulmonary Follow Up 05/22/2014 HPI Elinor Shelby is a 69 y.o. female patient of Blayne Herrera DO here today for follo w up of sarcoidosis. It has been 1 month since our last clinic appointment. At their last visit, we started pre dnisone. Since the last visit she feels like their symptoms are decreasing steadily. Declan samaniego there appears to be in some confusion regarding the patient's ongoing use of prednisone. Maribel discontinued prednisone approximately one week ago. She noted worsening cough and harsh rtness of breath after discontinuing prednisone. They have have not had any acute illnesses. Currently they are able to walk 1-2 miles at their own pace on level ground. They are exerc ising regularly though not as offen. They are not enrolled in cardiac/pulmonary rehabilitati on or other physical therapy. She does cough chronically, and does not produce mucous. They have not had hemoptysis. She does not wheeze chronically, and does not have chest tightness. She did note side effects from their sarcoidosis medications. Specifically noted increased appetite and weight gain. She has not been evaluated for nocturnal oxygen. She does not had symptoms of heartburn or reflux. They have not had symptoms of nasal conge stion, runny nose or post nasal drip. The patient reports a one-year history of very mild right anterior pleuritic chest pain. T here is no history of fevers or chills. Past Medical History Past Medical History Diagnosis Date Lymphedema Shoulder fracture Sarcoid (HCC) Dignosed via mediatinoscopy ~ 2008 Pulmonary nodules No change in follow up imaging last here 2010 Allergies: No Known Allergies Medications: Current outpatient prescriptions:Calcium Carbonate-Vitamin D (CALCIUM-VITAMIN D) 600-200 MG -UNIT CAPS, Take 1 tablet by mouth Daily., Disp: , Rfl: ; Evening [place] OIL, Take 1,000 capsules by mouth Daily., Disp: , Rfl: ; fluticasone (FLONASE) 50 mcg/nasal spray, 1 spray by Nasal route Daily., Disp: , Rfl: ; multivitamin (THERAGRAN) per tablet, 1 tablet by mout h daily, Disp: , Rfl: [place]-3 Fatty Acids (OMEGA 3 PO), CPDR; 3 capsules by mouth twice daily, Disp: , Rfl: ; om eprazole (PRILOSEC) 20 mg capsule, Take 20 mg by mouth every morning (before breakfast)., Di sp: , Rfl: ; predniSONE (DELTASONE) 10 mg tablet, Take 1 tablet by mouth Daily., Disp: 30 t ablet, Rfl: 4 Immunizations: Immunization History Administered Date(s) Administered PNEUMOCOCCAL [...] urticaria, allergic rash, hay fever. Objective BP 124/76 | Pulse 72 | Ht 1.524 m (5') | Wt 77.792 kg (171 lb 8 oz) | BMI 33.49 kg/m2 | SpO 2 95% Appearance: Alert, cooperative, no distress, appears [...] and supraclavicular nodes normal Neurologic: Gait normal Assessment 1. Sarcoidosis-Elinor Buitrago is a 69-year-old female with known sarcoidosis. At the time her [facility] clinic appointment in mid March the patient was placed on 20 mg of prednisone a day. Her symptoms significantly improved. Ongoing symptomatic improvement was noted when she lo wered her dose of prednisone to 10 mg daily. After one month's time Elinor Buitrago discontinue pre dnisone altogether despite prior conversation otherwise. She subsequently has noted increas ed cough and shortness of breath. The patient has very mild right anterior pleuritic chest pain. At this point in time it would appear that the patient's symptoms were related to worsening of her sarcoid and responded to therapy with prednisone. She did develop weight gain (6 po unds and 2 ounces). It would appear that the patient should go back on low-dose prednisone. We discussed a spring n to decrease her prednisone in approximately one month's time if her symptoms remain improv ed. Counseling regarding strategies to avoid weight gain occurred. If the patient is unable to lower her prednisone to 10 mg every other day by the time of fo llowup we will consider initiation of a steroid sparing agent like methotrexate. Plan 1. Reinitiate prednisone dose to 10 mg a day. 2. After one month's time the patient will decrease her prednisone to 10 mg every other da y. 3. Pulmonary clinic followup appointment to assess the status of the patient symptoms in June 2014. CC: Blayne Herrera documented in this encounter [...] [place] | | | | | | [address] | | | | | | | | +--------+ + + + + | 08/15/ | Office | Pulmonology | Landon Denton, | | | 2019 | Visit | | MD [address] | | | | | | [place] | | | | | | [address] | | | | | | | | +--------+ + + + + documented as of this encounter Visit Diagnoses + + | Diagnosis | + + | Sarcoidosis - Primary | + + | Dyspnea Other dyspnea and respiratory abnormality | + + documented in this encounter"
--- OUTSIDE RECORDS SUMMARY | ~2019-07-31 | XMS | Encounter Summary ---
Demographics + + + | Address | [address] | | | [place] [address] | + + + | Home Phone | | + + + | Preferred Language | Unknown | + + + | Marital Status | | + + + | Scientology Affiliation | Unknown | + + + | Race | Unknown | + + + | Ethnic Group | Unknown | + + + Author + + + | Author | [facility] | | | and [place] | + + + | Organization | [facility] | | | and [...] [place] | | | | | [address] | | + + + + + | Haylie Rg | ECON | [address] [facility] | | | | | [place] | | + + + + + Care Team Providers + +------+ + | Care Floorworker Name | Role | Phone | + +------+ + | Blayne Herrera DO | PCP | | + +------+ + Encounter Details +--------+ + + + + | Date | Type | Department | Care Team | Description | +--------+ + + + + | 08/01/ | Hospital | [facility] | Conversion | Pain | | 2018 | Encounter | CONVERSION [address] | Transaction, | | | | | [address] | Provider Unknown | | | | | [place] | [phone] | | | | | [address] | | | | | | [phone] | | | +--------+ + + + [...] + + +---------+ + + | Evening [place] | Take 1,000 mg by | | [...] [place] | | | | | | [address] | | | | | | | | +--------+ + + + + | 08/15/ | Office | Pulmonology | Landon Denton, | | | 2019 | Visit | | MD [address] | | | | | | [place] | | | | | | [address] | | | | | | | | +--------+ + + + + documented as of this encounter Procedures + +--------+ + + + | Procedure Name | Priori | Date/Time | Associated Diagnosis | Comments | | | ty | | | | + +--------+ + + + | CT CHEST WO CONTRAST | Routin | 01/03/2017 | | Results for this | | | e | 10:16 AM | | procedure are in the | | | | PDT | | results section. | + +--------+ + + + documented in this encounter Results CT Chest wo Contrast (01/03/2017 10:16 AM PDT) + + | Specimen [...]
--- OUTSIDE RECORDS SUMMARY | ~2019-07-31 | XMS | Encounter Summary ---
Demographics + + + | Address | [address] | | | [place] [address] | + + + | Home Phone | | + + + | Preferred Language | Unknown | + + + | Marital Status | | + + + | Yazidi Affiliation | Unknown | + + + | Race | Unknown | + + + | Ethnic Group | Unknown | + + + Author + + + | Author | [facility] | | | and [place] | + + + | Organization | [facility] | | | and [place] [...] [place] | | | | | [address] | | + + + + + | Haylie Rg | ECON | [address] [facility] | | | | | [place] | | + + + + + Care Team Providers + +------+ + | Care Certified Hyperbaric Technician Name | Role | Phone | + [...] + + | 07/30/ | Office | [facility] | Landon Denton, | Adrenal | | 2013 | Visit | PULMONARY [address] | MD [address] | insufficiency due to | | | | [place], | [place] | steroid withdrawal | | | | [place] [address] | [id number] | ([facility]) (Primary Dx); | | | | [phone] | | Sarcoidosis ([facility]) | +--------+---------+ + + + Social [...] about all medications you use. This includes qkmr-kzb-lezrmek medications. It also i ncludes herbs or supplements. [id number] [employer]. [address] [place] [address], [place] [address]. All righ ts reserved. 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
--- OUTSIDE RECORDS SUMMARY | ~2019-07-31 | XMS | Encounter Summary ---
Demographics + + + | Address | [address] | | | [place] [address] | + + + | Home Phone | | + + + | Preferred Language | Unknown | + + + | Marital Status | | + + + | Religion Affiliation | Unknown | + + + | Race | Unknown | + + + | Ethnic Group | Unknown | + + + Author + + + | Author | [facility] | | | and [place] | + + + | Organization | [facility] | | | and [...] [place] | | | | | [address] | | + + + + + | Haylie Rg | ECON | [address] [facility] | | | | | [place] | | + + + + + Care Team Providers + +------+ + | Care Shipping Specialist Name | Role | Phone | + +------+ + | Blayne Herrera DO | PCP | | + +------+ + Encounter Details +--------+ + + + + | Date | Type | Department | Care Team | Description | +--------+ + + + + | 08/01/ | Hospital | [facility] | Conversion | Pain | | 2018 | Encounter | CONVERSION [address] | Transaction, | | | | | [address] | Provider Unknown | | | | | [place] | [phone] | | | | | [address] | | | | | | [phone] | | | +--------+ + + + [...] + + +---------+ + + | Evening [place] | Take 1,000 mg by | | [...] [place] | | | | | | [address] | | | | | | | | +--------+ + + + + | 08/15/ | Office | Pulmonology | Landon Denton, | | | 2019 | Visit | | MD [address] | | | | | | [place] | | | | | | [address] | | | | | | | [...]
--- OUTSIDE RECORDS SUMMARY | ~2019-07-31 | XMS | Encounter Summary ---
Demographics + + + | Address | [address] | | | [place] [address] | + + + | Home Phone | | + + + | Preferred Language | Unknown | + + + | Marital Status | | + + + | Faith Affiliation | Unknown | + + + | Race | Unknown | + + + | Ethnic Group | Unknown | + + + Author + + + | Author | [facility] | | | and [place] | + + + | Organization | [facility] | | | and [...] [place] | | | | | [address] | | + + + + + | Haylie Rg | ECON | [address] [facility] | | | | | [place] | | + + + + + Care Team Providers + +------+ + | Care Respite Coordinator Name | Role | Phone | + +------+ + | Blayne Herrera DO | PCP | | + +------+ + Encounter Details +--------+ + + + + | Date | Type | Department | Care Team | Description | +--------+ + + + + | 08/01/ | Hospital | [facility] | Conversion | Pain | | 2018 | Encounter | CONVERSION [address] | Transaction, | | | | | [address] | Provider Unknown | | | | | [place] | [phone] | | | | | [address] | | | | | | [phone] | | | +--------+ + + + [...] + + +---------+ + + | Evening [place] | Take 1,000 mg by | | [...] [place] | | | | | | [address] | | | | | | | | +--------+ + + + + | 08/15/ | Office | Pulmonology | Landon Denton, | | | 2019 | Visit | | MD [address] | | | | | | [place] | | | | | | [address] | | | | | | | | +--------+ + + + + documented as of this encounter Procedures + +--------+ + + + | Procedure Name | Priori | Date/Time | Associated Diagnosis | Comments | | | ty | | | | + +--------+ + + + | CT CHEST WO CONTRAST | Routin | 07/09/2010 | | Results for this | | | e | 10:15 AM | | procedure are in the | | | | PST | | results section. | + +--------+ + + + documented in this encounter Results CT Chest wo Contrast (07/09/2010 10:15 AM PST) + + | Specimen | [...]
--- OUTSIDE RECORDS SUMMARY | ~2019-07-31 | XMS | Encounter Summary ---
Demographics + + + | Address | [address] | | | [place] [address] | + + + | Home Phone | | + + + | Preferred Language | Unknown | + + + | Marital Status | | + + + | Latter Day Affiliation | Unknown | + + + | Race | Unknown | + + + | Ethnic Group | Unknown | + + + Author + + + | Author | [facility] | | | and [place] | + + + | Organization | [facility] | | | and [place] [...] [place] | | | | | [address] | | + + + + + | Haylie Rg | ECON | [address] [facility] | | | | | [place] | | + + + + + Care Team Providers + +------+ + | Care Snow Maker Name | Role | Phone | + +------+ + | Blayne Herrera DO | PCP | | + +------+ + Reason for Visit + + + | Reason | Comments | + + + | Appointment | | + + + Encounter Details +--------+ + + + + | Date | Type | Department | Care Team | Description | +--------+ + + + + | 04/01/ | Telephone | [facility] | Landon Denton, | Appointment | | 2013 | | PULMONARY [address] | MD [address] | | | | | [place], | [place] | | | | | [place] [address] | [address] | | | | | [phone] | | | +--------+ + + + [...] | 2019 | | | [address] | | | | | | [place] | | | | | | [id number] | | | | | | | [...]
--- OUTSIDE RECORDS SUMMARY | ~2019-07-31 | XMS | Encounter Summary ---
Demographics + + + | Address | [address] | | | [place] [address] | + + + | Home Phone | | + + + | Preferred Language | Unknown | + + + | Marital Status | | + + + | Yarsanism Affiliation | Unknown | + + + | Race | Unknown | + + + | Ethnic Group | Unknown | + + + Author + + + | Author | [facility] | | | and [place] | + + + | Organization | [facility] | | | and [...] [place] | | | | | [address] | | + + + + + | Haylie Rg | ECON | [address] [facility] | | | | | [place] | | + + + + + Care Team Providers + +------+ + | Care Crime Prevention Worker Name | Role | Phone | + +------+ + | Ama oMreau | PCP | | | MIYA | | | + +------+ + Encounter Details +--------+ + + + + | Date | Type | Department | Care Team | Description | +--------+ + + + + | 10/17/ | Hospital | [facility] | Landon Denton, | Sarcoidosis (HCC) | | 2019 | Encounter | MED CTR PULMONARY | MD [address] | | | | | FUNCTION [address] | [place], [place] | | | | | [place], | [address] | | | | | [place] [address] | | | | | | [phone] | | | +--------+ + + + [...] + + +---------+ + + | Evening Glade | Take 1,000 mg by | | [...] [place] | | | | | | [address] | | | | | | | | +--------+ + + + + | 08/15/ | Office | Pulmonology | Landon Denton, | | | 2019 | Visit | | MD [address] | | | | | | [place] | | | | | | [address] | | | | | | | | +--------+ + + + + documented as of this encounter Procedures + +--------+ + + + | Procedure Name | Priori | Date/Time | Associated Diagnosis | Comments | | | ty | | | | + +--------+ + + + | PFT PULMONARY | SERENITY | 10/17/2018 | Sarcoidosis (HCC) | Results for this | | FUNCTION TESTING | | 4:41 PM | | procedure are in the | | ORDERS | | PDT | | results section. | + +--------+ + + + | PFT PULMONARY | SERENITY | 10/17/2018 | Sarcoidosis (HCC) | Results for this | | FUNCTION TESTING | | 4:41 PM | | procedure are in the | | ORDERS | | PDT | | results section. | + +--------+ + + + documented in this encounter Results Pulmonary function test spirometry w/diffusion; home oxygen evaluation (10/17/2018 4:41 PM PDT) + + + | Narrative | Performed At | + + + | [facility] | | | MD Bertin 10/17/2018 16:42 PULMONARY FUNCTION TESTING | | | SPIROMETRY: The FVC was 1.70 L or 69 % of predicted. The FEV1 was 1.41 | | | L or 76 % of predicted. FEV1/FVC ratio was 83 %. DIFFUSION CAPACITY: | | | The diffusion capacity measurement was not possible given that the | | | patient was unable to complete the test ATS standards due to coughing. | | | IMPRESSION: Spirometry is consistent with mild restrictive | | | physiology. The forced vital capacity has declined 21% compared to | | | values from 04/03/18. Test performed: 10/17/18Electronically signed by: | | | Landon Denton MD 10/17/2018 16:41[facility] | | | | | |IMPRESSION: Spirometry is consistent with mild restrictive | | |physiology. The forced vital capacity has declined 21% compared | | |to values from 04/03/18. | | | | | |Test performed: 10/17/18 | | |Electronically signed by: Landon Denton MD 10/17/2018 16:41 | | |[facility] | | + + + documented in this encounter Visit Diagnoses + + | Diagnosis | + + | Sarcoidosis (HCC) Sarcoidosis | + + documented in this encounter"
--- OUTSIDE RECORDS SUMMARY | ~2019-07-31 | XMS | Encounter Summary ---
Demographics + + + | Address | [address] | | | [place] [address] | + + + | Home Phone | | + + + | Preferred Language | Unknown | + + + | Marital Status | | + + + | Sikh Affiliation | Unknown | + + + | Race | Unknown | + + + | Ethnic Group | Unknown | + + + Author + + + | Author | [facility] | | | and [place] | + + + | Organization | [facility] | | | and [...] [place] | | | | | [address] | | + + + + + | Haylie Rg | ECON | [address] [facility] [facility] | | | | | [place] | | + + + + + Care Team Providers + +------+ + | Care Tissue Recovery Technician Name | Role | Phone | + +------+ + | Ama Moreau | PCP | | | PA-C | | | + +------+ + Reason for Visit + + + | Reason | Comments | + + + | Follow-up | | + + + Follow Up (Routine) [...] | | | | | unspecified | [address] | | | | | [place] | [place] | [place] [address] | | | | | F/U APPT | Ave | Phone: | | | | | DR GALVAN | [place] | [phone] | | | | | [place] | [place] | Fax: | | | | | 02/20/19 | [address] | [phone] | | | | | | Phone: | | | | | | | [phone] | | | | | | | Fax: | | | | | | | [phone] | | + +--------+ + + + + Encounter Details +--------+---------+ + + + | Date | Type | Department | Care Team | Description | +--------+---------+ + + + | 05/03/ | Office | [facility] | Landon Denton, | Sarcoidosis (HCC) | | 2019 | Visit | PULMONARY [address] | MD [address] | (Primary Dx); | | | | [place], | [place], [place] | Hypoxemia | | | | [place] [address] | [address] | | | | | [phone] | | | +--------+---------+ + + + [...] + + + | Blood Pressure | 122/62 | 05/03/2019 11:32 AM | | | | | PDT | | + + + + + | Pulse | 84 | 05/03/2019 11:32 AM | | | | | PDT | | + + + + + | Temperature | - | - | | + + + + + | Respiratory Rate | - | - | | + + + + + | Oxygen Saturation | 93% | 05/03/2019 11:32 AM | RA | | | | PDT | | + + + + + | Inhaled Oxygen | - | - | | | Concentration | | | | + + + + + | Weight | 79.6 kg (175 lb 7.8 | 05/03/2019 11:32 AM | | | | oz) | PDT | | + + + + + | Height | 157.5 cm (5' 2") | 05/03/2019 11:32 AM | | | | | PDT | | + + + + + | Body Mass Index | 32.1 | 05/03/2019 11:32 AM | | | | | PDT | | + + + + + documented in this encounter Patient Instructions Patient Instructions Landon Denton MD - 05/03/2019 11:30 AM PDT Prednisone tablets Brand Names: Deltasone, Predone, Sterapred, [...] avoid any side effects. Talk to your billing and accounting staff assistant regarding the use of this medicine in children. Special care may be needed. What side effects may I notice from receiving this medicine? Side effects that you should report to your doctor or health client care consultant as soon as p ossible: allergic reactions [...] attention (report to your doctor or health client care consultant if they continue or are bothersome): confusion, [...] ta lk to your doctor or health client care consultant. You may need to miss a dose [...] if you have any of these conditions: Sixto's syndrome diabetes glaucoma heart disease high blood [...] this medicine? Visit your doctor or health client care consultant for regular checks on your progress. If [...] have surgery, tell your doctor or health client care consultant that you hav e taken this medicine within the last twelve months. Ask your doctor or health client care consultant about your diet. You may need to lower the amou nt of salt you eat. This medicine may affect blood sugar levels. If you have diabetes, check with your doctor o r health client care consultant before you change your diet or the dose of your diabetic medicine . NOTE:This sheet is a summary. It may not cover all possible information. If you have questi ons about this medicine, talk to your doctor, pharmacist, or health care provider. Copyright 2019 [employer] documented in this encounter Progress Notes Landon Denton MD - 05/03/2019 11:30 AM PDTFormatting of this note might be different f rom the original. Pulmonary Follow Up 05/03/2019 HPI Anne Afsaneh is a 74 y.o. female patient of Ama Moreau PA-C here today for follow up of sarcoidosis. It has been 1 month since our last clinic appointment. At their last visit, we planned to keep prednisone at 10 mg/day. Still off Mtx. Since her last clinic appointment the patient notes that her abdominal pain has ceased but she continues to have loose stools. She is scheduled to have a colonoscopy by Dr. Jose on O ctober 7. Since the last visit she feels like their symptoms are stable. They have have not had any recent acute illnesses. They are currently on a regimen of prednisone dose to 10 mg a day for their sarcoid. The p atient do not feel like this medication regimen is decreasing their sarcoid related symptoms . Currently they are able to walk about 2 blocks at their own pace on level ground. They are exercising regularly. Their exercise consists of swimming and walking about 5 times per wee k. They are not enrolled in cardiac/pulmonary rehabilitation or other physical therapy. She does cough chronically, and does not produce mucous. They have not had hemoptysis sinc e our last clinic appointment. Elinor does not [...] coughing)., Disp: 1 Inhaler, Rfl: 5 Evening [place] Oil 1000 MG CAPS, Take 1,000 mg by mouth Daily., Disp: , Rfl: Multiple Vitamin TABS, Take 2 tablets by mouth Daily., Disp: , Rfl: [place]-3 Fatty Acids (OMEGA-3 FISH OIL) 1000 MG CAPS, Take 1,000 mg by mouth Daily., Di sp: , Rfl: omeprazole (PRILOSEC) 20 mg capsule, Take 20 mg by mouth every morning (before break st)., Disp: , Rfl: ondansetron (ZOFRAN) 4 mg tablet, , Disp: , Rfl: PEG 0966-BHk-UyBpn-NaCl-NaSulf (PEG 3350/ELECTROLYTES) 240 g SOLR, , Disp: [...] PNEUMOCOCCAL POLYSACCHARIDE 23-VALENT (PPSV23) 08/22/2008 Objective BP 122/62 | Pulse 84 | Ht 1.575 m (5' 2") | Wt 79.6 kg (175 lb 7.8 oz) | SpO2 93% Comme nt: RA | BMI 32.10 kg/m Appearance: Alert, cooperative, no distress, appears [...] Results Component Value Date ALT 36 02/20/2019 Walking oximetry dated 05/03/2019. Patient walked 1312 feet over 8.5 minutes. Oxygen satur ation began it 96% and nadired to 87%. Supplemental oxygen at 2 L/min was needed to maintai n O2 saturation in the low to mid 90s. Pulmonary function tests were performed on 05/03/2019 and were reviewed and interpreted in [facility] today. They show forced vital capacity of 1.86, 77% of predicted with an uncorrected DLCO of 9.8, 48% of predicted. Ama Moreau PA-C's notes were reviewed in clinic today. Assessment 1. Sarcoidosis recent worsening of symptoms initially treated with prednisone and subse quently with methotrexate (from 12/1903/20/2019). Abdominal pain and frequent stools were noted and concern was expressed regarding a potenti al side effect related to methotrexate. The patient discontinued the medication in late Feb ust. Her loose stools have continued though her abdominal pain has ceased. Prednisone remains dose to 10 mg a day. Exercise tolerance has changed a little. The patient has developed recurrent exertional hypoxemia on lower doses of prednisone/metho trexate. Pulmonary function test today showed mild restrictive changes on spirometry and a moderate/ severe diffusion abnormality. I am concerned about the extent of the patient's symptoms and recurrence of hypoxemia with exertion. Today we discussed increasing her prednisone. Assuming objective response to higher doses of prednisone would consider initiation of another prednisone sparing agent versus re-challe nging with methotrexate. Total duration of the patient's clinic appointment was in excess of 40 minutes. Greater th an 50% of time was spent discussing her apparent sarcoidosis and treatment. 2. Bronchiectasis associated with pulmonary nodules not addressed during this clinic appointment. Plan 1. Increase prednisone to 20 mg a day. 2. Will not institute 3 times a week Bactrim given hopes of decreasing the patient's predn isone in the near future. 3. Obtain seasonal influenza vaccination by 05/30/2019. 4. Pulmonary clinic follow-up appointment in 3 weeks time. CC: Ama Moreau PA-C documented in this [...] [place] | | | | | | [address] | | | | | | | | +--------+ + + + + documented as of this encounter Visit Diagnoses + + | Diagnosis | + + | Sarcoidosis (HCC) - Primary Sarcoidosis | + + | Hypoxemia | + + documented in this encounter
--- OUTSIDE RECORDS SUMMARY | ~2019-07-31 | XMS | Encounter Summary ---
Demographics + + + | Address | [address] | | | [place] [address] | + + + | Home Phone | | + + + | Preferred Language | Unknown | + + + | Marital Status | | + + + | Yazdanism Affiliation | Unknown | + + + | Race | Unknown | + + + | Ethnic Group | Unknown | + + + Author + + + | Author | [facility] | | | and [place] | + + + | Organization | [facility] | | | and [...] [place] | | | | | [address] | | + + + + + | Haylie Rg | ECON | [address] [facility] | | | | | [place] | | + + + + + Care Team Providers + +------+ + | Care Cellars Supervisor Name | Role | Phone | + +------+ + | Blayne Herrera DO | PCP | | + +------+ + Reason for Visit +--------+ + | Reason | Comments | +--------+ + | Other | | +--------+ + Encounter Details +--------+ + + + + | Date | Type | Department | Care Team | Description | +--------+ + + + + | 08/24/ | Telephone | [facility] | Christine Cline, | Other | | 2012 | | PULMONARY [address] | RN | | | | | [place], | | | | | | [place] [address] | | | | | | [phone] | | | +--------+ + + + [...] [place] | | | | | | [address] | | | | | | | [...]
--- OUTSIDE RECORDS SUMMARY | ~2019-07-31 | XMS | Encounter Summary ---
Demographics + + + | Address | [address] | | | [place] [address] | + + + | Home Phone | | + + + | Preferred Language | Unknown | + + + | Marital Status | | + + + | Hinduism Affiliation | Unknown | + + + | Race | Unknown | + + + | Ethnic Group | Unknown | + + + Author + + + | Author | [facility] | | | and [place] | + + + | Organization | [facility] | | | and [place] [...] [place] | | | | | [address] | | + + + + + | Haylie Rg | ECON | [address] [facility] | | | | | [place] | | + + + + + Care Team Providers + +------+ + | Care Toggle Press Operator Name | Role | Phone | + +------+ + | Blayne Herrera PCP | | + +------+ + Encounter Details +--------+ + + + + | Date | Type | Department | Care Team | Description | +--------+ + + + + | 04/04/ | Hospital | [facility] | Landon Denton, | Sarcoidosis (HCC) | | 2017 | Encounter | MED CTR PULMONARY | MD [address] | | | | | FUNCTION [address] | [place], [place] | | | | | [place], | [address] | | | | | [place] [address] | | | | | | [phone] | | | +--------+ + + + [...] + + +---------+ + + | Evening [place] | Take 1,000 mg by | | [...] [place] | | | | | | [address] | | | | | | | | +--------+ + + + + | 08/15/ | Office | Pulmonology | Landon Denton, | | | 2019 | Visit | | MD [address] | | | | | | [place] | | | | | | [address] | | | | | | | | +--------+ + + + + documented as of this encounter Procedures + +--------+ + + + | Procedure Name | Priori | Date/Time | Associated Diagnosis | Comments | | | ty | | | | + +--------+ + + + | PFT PULMONARY | SERENITY | 04/04/2017 | Sarcoidosis (HCC) | Results for this | | FUNCTION TESTING | | 11:35 AM | | procedure are in the | | ORDERS | | PDT | | results section. | + +--------+ + + + | PFT PULMONARY | SERENITY | 04/04/2017 | Sarcoidosis (HCC) | Results for this | | FUNCTION TESTING | | 11:35 AM | | procedure are in the | | ORDERS | | PDT | | results section. | + +--------+ + + + | PFT PULMONARY | SERENITY | 04/04/2017 | Sarcoidosis (HCC) | Results for this | | FUNCTION TESTING | | 11:35 AM | | procedure are in the | | ORDERS | | PDT | | results section. | + +--------+ + + + documented in this encounter Results Pulmonary function test (04/04/2017 11:35 AM PDT) + + + | Narrative | Performed At | + + + | [facility] | | | MD Bertin 04/04/2017 11:35 PULMONARY FUNCTION TESTING | | | SPIROMETRY: The FVC was 2.15 L or 87 % of predicted. The FEV1 was 1.75 | | | L or 93 % of predicted. FEV1/FVC ratio was 81 %. DIFFUSION | | | CAPACITY: The diffusion capacity was 10.5 mL/mmHg per minute or 50 % | | | of predicted. IMPRESSION: Spirometry is consistent with normal | | | physiology. Diffusion capacity is moderately reduced and is not | | | corrected for measured hemoglobin. Compared to pulmonary function | | | tests performed 11/10/15 the patient's FEV1 has increased 11% and the | | | uncorrected DLCO is stable. Test performed: 04/04/17Electronically | | | signed by: Landon Denton MD 04/04/2017 11:33M [facility] | | | [facility] | | |Diffusion capacity is moderately reduced and is not corrected for | | |measured hemoglobin. | | | | | |Compared to pulmonary function tests performed 11/10/15 the | | |patient's FEV1 has increased 11% and the uncorrected DLCO is | | |stable. | | | | | |Test performed: 04/04/17 | | |Electronically signed by: Landon Denton MD 04/04/2017 11:33 | | |[facility] | | + + + documented in this encounter Visit Diagnoses + + | Diagnosis | + + | Sarcoidosis | + + documented in this encounter"
--- OUTSIDE RECORDS SUMMARY | ~2019-07-31 | XMS | Encounter Summary ---
Demographics + + + | Address | [address] | | | [place] [address] | + + + | Home Phone | | + + + | Preferred Language | Unknown | + + + | Marital Status | | + + + | Presybeterian Affiliation | Unknown | + + + | Race | Unknown | + + + | Ethnic Group | Unknown | + + + Author + + + | Author | [facility] | | | and [place] | + + + | Organization | [facility] | | | and [place] | + + + | Address | Unknown | + + + | Phone | Unavailable | + + + Support + + + + + | Name | Relationship | Address | Phone | + + + + + | Deniz Stack | ECON | [address] | | | | | [place] | | | | | [address] | | + + + + + | Haylie Rg | ECON | [address] [facility] | | | | | [place] | | + + + + + Care Team Providers + +------+ + | Care Pocketbook Maker Name | Role | Phone | + +------+ + | Blayne Rubi PCP | | + +------+ + Reason for Visit + + + | Reason | Comments | + + + | Follow-up | 3-4 weeks nose,doing better | + + + Evaluate & Treat (Routine) +--------+--------+ + + + + | Status | Reason | Specialty | Diagnoses / | Referred By | Referred To | | | | | Procedures | Contact | Contact | +--------+--------+ + + + + | Closed | | Otolaryngolog | Diagnoses | Syed, | Darien Galvan | | | | y | Neoplasm of | [place] | MD Nasreen [address] | | | | | uncertain | [address] | | | | | behavior of | [facility] | [address] | | | | | other | [address] | [place], | | | | | respiratory | [place], | [place] [address] | | | | | organs | [place] [address] | Phone: | | | | | Procedures | Phone: | [phone] | | | | | Office Visit | [phone] | Fax: | | | | | | Fax: | [phone] | | | | | | [phone] | | +--------+--------+ + + + + Encounter Details +--------+---------+ + + + | Date | Type | Department | Care Team | Description | +--------+---------+ + + + | 12/22/ | Office | [facility] | Darien Galvan MD | Nasal vestibulitis | | 2016 | Visit | OTOLARYNGOLOGY [address] | [address] [place] | (Primary Dx) | | | | [address] | [address] | | | | | [place] | [place] [address] | | | | | [address] | [phone] | | | | | [phone] | | | +--------+---------+ + + + [...] + + + | Blood Pressure | - | - | | + + + + + | Pulse | 89 | 12/23/2015 2:02 PM | | | | | PDT | | + + + + + | Temperature | - | - | | + + + + + | Respiratory Rate | 16 | 12/23/2015 2:02 PM | | | | | PDT | | + + + + + | Oxygen Saturation | 95% | 12/23/2015 2:02 PM | | | | | PDT | | + + + + + | Inhaled Oxygen | - | - | | | Concentration | | | | + + + + + | Weight | 74.4 kg (164 lb) | 12/23/2015 2:02 PM | | | | | PDT | | + + + + + | Height | 154.9 cm (5' 1") | 12/23/2015 2:02 PM | | | | | PDT | | + + + + + | Body Mass Index | 30.99 | 12/23/2015 2:02 PM | | | | | PDT | | + + + + + documented in this encounter Progress Notes Darien Galvan MD - 12/23/2015 2:13 PM PDT [facility] OTOLARYNGOLOGY [address] [facility] [address] OFFICE NOTE DARIEN GALVAN MD Patient: ELINOR STACK Admitting: MR #: [id number] LOC: PT TYPE: Adm Date: 12/23/2015 : 1945 OFFICE VISIT DATE OF VISIT: 12/23/2015 The patient has a nonhealing scabbed area on the left side of her nose that she was seen a nd treated about 3-4 weeks ago. Since then, she has been putting Diprolene ointment on it in the morning and A and D ointment at night. She has noticed about the last 10-14 days it is much improved. There is no large scab that comes out any more. It does not bleed, an d she has noticed a significant improvement. The examination shows the right nasal passage is open and clear. Left nasal passage still has a bit of scabbed area, although it has sh runk tremendously. There is no elevated edges. It is very doubtful that this would be Weg ener's disease. The patient still has some healing to occur in the middle part, but it is responding well to the treatment. IMPRESSION: Left nasal vestibulitis. PLAN: Continue with the ointment treatment twice a day until it heals. If there are furth er problems, she will recheck with ENT. DARIEN GALVAN MD Dictated by DARIEN GALVAN MD 12/23/2015 14:13:49 Transcribed on 12/24/2015 04:32:22 by job# [id number] Confirmation #: [id number] cc: IVAN RUBI [facility] - 12/23/2015 2:11 PM PDTSee dictation #[id number] signed by Darien Galvan MD at 12/23/2015 2:14 PM PDTdocumented in this encounter Plan of Treatment +--------+ + + + + | Date | Type | Specialty | Care Team | Description | +--------+ + + + + | 08/15/ | Appointment | Pulmonology | Landon Denton, | | | 2019 | | | MD [address] | | | | | | [place] | | | | | | [address] | | | | | | | | +--------+ + + + + | 08/15/ | Office | Pulmonology | Landon Denton, | | | 2019 | Visit | | MD [address] | | | | | | [place] | | | | | | [address] | | | | | | | | +--------+ + + + + documented as of this encounter Visit Diagnoses + + | Diagnosis | + + | Nasal vestibulitis - Primary Other diseases of nasal cavity and sinuses | + + documented in this encounter
--- OUTSIDE RECORDS SUMMARY | ~2019-07-31 | XMS | Encounter Summary ---
Demographics + + + | Address | [address] | | | [place] [address] | + + + | Home Phone | | + + + | Preferred Language | Unknown | + + + | Marital Status | | + + + | Mandaen Affiliation | Unknown | + + + | Race | Unknown | + + + | Ethnic Group | Unknown | + + + Author + + + | Author | [facility] | | | and [place] | + + + | Organization | [facility] | | | and [...] [place] | | | | | [address] | | + + + + + | Haylie Rg | ECON | [address] [facility] [address] | | | | | [place] | | + + + + + Care Team Providers + +------+ + | Care Supervisor Belt And Link Assembly Name | Role | Phone | + +------+ + | Ama Moreau | PCP | | | PAIan | | | + +------+ + Reason for Visit + + + | Reason | Comments | + + + | Pulmonary Disease | 1 wk follow up/CT | | Appointment | | + + + Encounter Details +--------+---------+ + + + | Date | Type | Department | Care Team | Description | +--------+---------+ + + + | 10/23/ | Office | [facility] | Landon Denton, | Sarcoidosis ([facility]) | | 2019 | Visit | PULMONARY [address] | MD [address] | (Primary Dx); | | | | [place], | [place], [place] | Bronchiectasis | | | | [place] [address] | [id number] | without complication | | | | [phone] | | ([facility]); Pulmonary | | | | | | nodules | +--------+---------+ + + + Social History [...] + | Blood Pressure | 118/70 | 10/23/2018 1:54 PM | | | | | PDT | | + + + + + | Pulse | 94 | 10/23/2018 1:54 PM | | | | | PDT | | + + + + + | Temperature | - | - | | + + + + + | Respiratory Rate | - | - | | + + + + + | Oxygen Saturation | 92% | 10/23/2018 1:54 PM | RA | | | | PDT | | + + + + + | Inhaled Oxygen | - | - | | | Concentration | | | | + + + + + | Weight | 72.3 kg (159 lb 6.3 | 10/23/2018 1:54 PM | | | | oz) | PDT | | + + + + + | Height | 157.5 cm (5' 2") | 10/23/2018 1:54 PM | | | | | PDT | | + + + + + | Body Mass Index | 29.15 | 10/23/2018 1:54 PM | | | | | PDT | | + + + + + documented in this encounter Patient Instructions Patient Instructions Landon Denton MD - 10/23/2018 2:00 PM PDT Prednisone tablets Brand Names: Deltasone, Predone, [...] avoid any side effects. Talk to your technical training coordinator regarding the use of this medicine in children. Special care may be needed. What side effects may I notice from receiving this medicine? Side effects that you should report to your doctor or health eye care professional as soon as p ossible: allergic reactions [...] attention (report to your doctor or health eye care professional if they continue or are bothersome): confusion, [...] ta lk to your doctor or health eye care professional. You may need to miss a dose [...] this medicine? Visit your doctor or health eye care professional for regular checks on your progress. If [...] have surgery, tell your doctor or health eye care professional that you hav e taken this medicine within the last twelve months. Ask your doctor or health eye care professional about your diet. You may need to lower the amou nt of salt you eat. This medicine may affect blood sugar levels. If you have diabetes, check with your doctor o r health eye care professional before you change your diet or the dose of your diabetic medicine . NOTE:This sheet is a summary. It may not cover all possible information. If you have questi ons about this medicine, talk to your doctor, pharmacist, or health care provider. Copyright 2019 [employer] documented in this encounter Progress Notes Landon Denton MD - 10/23/2018 2:00 PM PDTFormatting of this note might be different f rom the original. Pulmonary Follow Up 10/23/2018 HPI Elinor Shelby is a 73 y.o. female patient of Ama Moreau PA-C here today for follow up of bronchiectasis, worsening shortness of breath in the setting of known sarcoidos is. It has been 1 week since our last clinic appointment. At their last visit, we planned to i nitiate treatment for bronchiectasis exacerbation with Levaquin and to perform further asses sment to better understand the cause of the patient's shortness of breath. Since the last v isit she feels like their symptoms are stable. They have have not had any significant acu te illnesses. She reports 0 bronchiectasis exacerbations requiring antibiotics. With Levaquin Ms. Shelby has noted a decreased appetite, decreased p.o. intake and dark yellow urine. No tendon pain. No diarrhea. Currently they are able to walk 100 feet at their own pace on level ground before becoming symptomatic. The patient is not exercising regularly. They are not enrolled in cardiac/pulmo nary rehabilitation or other physical therapy. The patient are not practicing bronchial hygiene behaviors. Lightheaded and dizziness over last week. Elinor does cough chronically, and does produce mucous. The mucous is clear in color. They have not had hemoptysis since our last appointment. Mild nausea with Levaquin. Better with food. Elinor does use a bronchodilator. Specifically the bronchodilator is ProAir and it is used 1-2 times a day. +/- effect. She does not had symptoms of heartburn or acid reflux. They have not had recent or symptoms of nasal congestion, runny nose or post nasal drip. The patient have received this year's influenza vaccination. They are up to date with thei r Pneumovax and Prevnar 13. Past Medical History Past Medical History: Diagnosis Date Acid reflux disease Lung disease Lymphedema Obesity Pulmonary nodules No change in follow up imaging last here 2010 Rash Sarcoid Dignosed via mediatinoscopy ~ 2008 Shingles August 2014 Shoulder fracture Allergies: No Known Allergies Medications: Current Outpatient Prescriptions: albuterol (PROAIR HFA) 90 mcg/puff inhaler, Inhale 2 puffs into the lungs every 4 hour s as needed for Shortness of Breath (or coughing)., Disp: 1 Inhaler, Rfl: 5 Evening Stonewall Oil 1000 MG CAPS, Take 1,000 mg by mouth Daily., Disp: , Rfl: FLOVENT DISKUS 100 MCG/BLIST diskus inhaler, inhale 1 puff into the lungs 2 times davie y., Disp: 1 Inhaler, Rfl: 2 levoFLOXacin (LEVAQUIN) 750 MG tablet, Take 1 tablet by mouth Daily for 7 days., Disp: 7 tablet, Rfl: 0 omeprazole (PRILOSEC) 20 mg capsule, Take 20 mg by mouth every morning (before )., Disp: , Rfl: pseudoePHEDrine (SUDAFED) 30 mg tablet, Take 30 mg by mouth every 6 hours as needed., Disp: , Rfl: 2 No current facility-administered medications for this visit. Immunizations: Immunization History Administered Date(s) Administered INFLUENZA 65 Y OR >, TRIVALENT HIGH-DOSE 05/03/2016, 05/22/2017 INFLUENZA PF 18 Y OR >,TRIVALENT RECOMBINANT 05/02/2012, 04/30/2013, 05/03/2014, 2014 INFLUENZA PF TRIVALENT(PED/ADOL/ADULT), PSKT 04/30/2013, 05/03/2014 PNEUMOCOCCAL CONJUGATE 13-VALENT (PCV13) 12/13/2016, 10/03/2017 PNEUMOCOCCAL POLYSACCHARIDE 23-VALENT (PPSV23) 08/22/2008 Objective BP 118/70 | Pulse 94 | Ht 1.575 m (5' 2") | Wt 72.3 kg (159 lb 6.3 oz) | SpO2 92% Comme nt: RA | BMI 29.15 kg/m Appearance: Alert, cooperative, no distress, appears [...] Extremities normal, atraumatic, no cyanosis, clubbing. none edema Skin: Warm and dry Lymph nodes: Cervical and supraclavicular nodes normal Neurologic: Gait normal Data: Blood work from 10/17/18 showed a white blood cell count of 6.8, BNP of 51, troponin less th an 0.001, pro calcitonin less than 0.05 with a d-dimer of 0.98. Chest CT scan was done on 10/23/18 and was reviewed and interpreted in clinic today. It show s no evidence of pulmonary thromboemboli. The patient has apparent progression of interstit ial/fibrotic changes. To involve the upper lung zones bilaterally, lingula and left lower l obe. Some of the patient's pulmonary nodules are stable and others are slightly larger in s ize. Persistent mediastinal and hilar lymphadenopathy is noted. Assessment 1. Worsening dyspnea in the setting of known pulmonary sarcoidosis. Laboratory workup a s noted above. The patient CT scan is unfortunately consistent with progression of her unde rlying sarcoidosis. I have suggested the initiation of systemic corticosteroids. Once the patient's symptoms i mprove we will need to consider a steroid sparing agent. Given that her dose of prednisone is above 15-20 mg a day Ms. Shelby will need PCP prophylaxis with Bactrim. 2. Bronchiectasis currently receiving Levaquin for an apparent bronchiectasis exacerbati on. The patient sputum is now clear in color. Her cough has decreased somewhat. Renetta appears to be experiencing some mild intolerance of Levaquin consisting of decreased appetite, decreased p.o. intake and symptoms consistent with dehydration. 3. Hypoxemia repeat assessment of the patient's exertional oximetry will occur once she is feeling better on systemic corticosteroids. Total duration of the patient's clinic appointment was in excess of 30 minutes. The risk b enefits and alternatives to prednisone were discussed. Plan 1. Initiate prednisone dose to 30 mg a day. 2. Bactrim DS 1 tablet p.o. 3 times a week. 3. The patient will initiate Bactrim DS 1 week after stopping Levaquin. 4. Pulmonary clinic follow-up appointment to assess the status of Ms. Shelby's symptom s in 2 weeks time. CC: VIC Teixeira-C 2 :40 PM PDTdocumented in this encounter Plan of [...] [place] | | | | | | [phone] | | | | | | | | +--------+ + + + + documented as of this encounter Procedures + +--------+ + + + | Procedure Name | Priori | Date/Time | Associated Diagnosis | Comments | | | ty | | | | + +--------+ + + + | LABS - EXTERNAL SCAN | | 10/22/2018 | | Results for this | | | | 12:00 AM | | procedure are in the | | | | PDT | | results section. | + +--------+ + + + documented in this encounter Results LABS - EXTERNAL SCAN (10/22/2018 12:00 AM PDT) + + + | Narrative | Performed At | + + + | Ordered by an | | | unspecified provider. | | + + + documented in this encounter Visit Diagnoses + + | Diagnosis | + + | Sarcoidosis (HCC) - Primary Sarcoidosis | + + | Bronchiectasis without complication (HCC) Bronchiectasis without acute exacerbation | + + | Pulmonary nodules Other nonspecific abnormal finding of lung field | + + documented in this encounter
--- OUTSIDE RECORDS SUMMARY | ~2019-07-31 | XMS | Encounter Summary ---
Demographics + + + | Address | [address] | | | [place] [address] | + + + | Home Phone | | + + + | Preferred Language | Unknown | + + + | Marital Status | | + + + | Restorationist Affiliation | Unknown | + + + | Race | Unknown | + + + | Ethnic Group | Unknown | + + + Author + + + | Author | [facility] | | | and [place] | + + + | Organization | [facility] | | | and [place] [...] [place] | | | | | [address] | | + + + + + | Haylie Rg | ECON | [address] [facility] | | | | | [place] | | + + + + + Care Team Providers + +------+ + | Care Tree Feller Name | Role | Phone | + +------+ + | Ama Moreau | PCP | | | PAIan | | | + +------+ + Reason for Visit + + + | Reason | Comments | + + + | Follow-up | 2 week follow up | + + + [...] | | | | unspecified | PA-C [address] [place], | | | | | Procedures | [place] | [place] [address] | | | | | F/U APPT | Ave | Phone: | | | | | DR [address] | [place], | [phone] | | | | | [place] | [place] | Fax: | | | | | 02/20/19 | [address] | [phone] | | | | | | Phone: | | | | | | | [phone] | | | | | | | Fax: | | | | | | | [phone] | | + +--------+ + + + + Encounter Details +--------+---------+ + + + | Date | Type | Department | Care Team | Description | +--------+---------+ + + + | 04/03/ | Office | [facility] [place] | Landon Denton, | Sarcoidosis (HCC) | | 2019 | Visit | PULMONARY [address] | MD [address] | (Primary Dx); | | | | [place], | [place], [place] | Bronchiectasis | | | | [place] [address] | [address] | without complication | | | | [phone] | | (HCC) | +--------+---------+ + + [...] + + + | Blood Pressure | 120/68 | 04/03/2019 12:46 PM | | | | | PDT | | + + + + + | Pulse | 85 | 04/03/2019 12:46 PM | | | | | PDT | | + + + + + | Temperature | 36.6 C (97.9 F) | 04/03/2019 12:46 PM | | | | | PDT | | + + + + + | Respiratory Rate | - | - | | + + + + + | Oxygen Saturation | 94% | 04/03/2019 12:46 PM | RA | | | | PDT | | + + + + + | Inhaled Oxygen | - | - | | | Concentration | | | | + + + + + | Weight | 78.5 kg (173 lb 1 | 04/03/2019 12:46 PM | | | | oz) | PDT | | + + + + + | Height | 157.5 cm (5' 2") | 04/03/2019 12:46 PM | | | | | PDT | | + + + + + | Body Mass Index | 31.65 | 04/03/2019 12:46 PM | | | | | PDT | | + + + + + documented in this encounter Patient Instructions Patient Instructions Landon Denton MD - 04/03/2019 1:00 PM PDT Influenza (Adult) Please get high dose flu shot by 05/30. Influenza is also called the flu. It is a viral illness that affects the air passages of yo ur lungs. It is different from the common cold. The flu can easily be passed from one to per son to another. It may be spread through the air by coughing and sneezing. Or it can be spre ad by touching the sick person and then touching your own eyes, nose, or mouth. The flu starts 1 to 3 days after you are exposed to the flu virus. It may lastfor 1 to 2 weeks but many people feel tired or fatigued for many weeks afterward. You usually don t n eed to take antibiotics unless you have a complication. This might be an ear or sinus infect ion or pneumonia. Symptoms of the flu may be mild or severe. They can include extreme tiredness (wanting to s tacho in bed all day), chills, fevers, muscle aches, soreness with eye movement, headache, and a dry, hacking cough. Home care Follow these guidelines when caring for yourself at home: Avoid being around cigarette smoke, whether yours or other people s. Acetaminophen or ibuprofen will help ease your fever, muscle aches, and headache. Don t give aspirin to anyone younger than 18 who has the flu. Aspirin can harm the liver. Nausea and loss of appetite are common with the flu. Eat light meals. Drink 6 to 8 glass es of liquids every day. Good choices are water, sport drinks, soft drinks without caffeine, juices, tea, and soup. Extra fluids will also help loosen secretions in your nose and lungs . Srwf-xqx-ugwhamy cold medicines will not make the flu go away faster. But the medicines may help with coughing, sore throat, and congestion in your nose and sinuses. Don t use a decongestant if you have high blood pressure. Stay home until your fever has been gone for at least 24 hours without using medicine to reduce fever. Follow-up care Follow up with your healthcare provider, or as advised, if you are not getting better over the next week. If you are age 65 or older, talk with your provider about getting a pneumococcal vaccine ev royal 5 years. You should also get this vaccine if you have chronic asthma or COPD. All adults should get a flu vaccine every fall. Ask your provider about this. When to seek medical advice Call your healthcare provider right away if any of these occur: Cough with lots of colored mucus (sputum) or blood in your mucus Chest pain, shortness of breath, wheezing, or trouble breathing Severe headache, or face, neck, or ear pain New rashwith fever Fever of 100.4F (38C)or higher, or asdirected by your healthcare provider Confusion, behavior change, or seizure Severe weakness or dizziness You get a newfever or cough after getting better for a few days Date Last Reviewed: 07/31/201619995075-5943 [employer]. [address] [place] [address]. All righ ts reserved. This information is not intended as a substitute for professional medical care. Always follow your healthcare professional's instructions. documented in this encounter Progress Notes Landon Denton MD - 04/03/2019 1:00 PM PDTFormatting of this note might be different f rom the original. Pulmonary Follow Up 04/03/2019 HPI Elinor Shelby is a 74 y.o. female patient of Ama Moreau PA-C here today for follow up of sarcoidosis. It has been 2 weeks since our last clinic appointment. At their last visit, we we disconti nued methotrexate secondary to concerns that it was potentially contributing to abdominal pa in and diarrhea. Elinor Buitrago subsequently noted that her abdominal pain stopped. The frequency of stools has de creased though she continues to have loose stools. No additional symptoms are noted. Since the last visit she feels like their symptoms are stable. They have have not had any recent acute illnesses. They are currently on a regimen of Prednisone 10 mg per day for their sarcoid. The patient do not feel like this medication regimen is decreasing their sarcoid related symptoms. Currently they are able to walk 2 blocks at their own pace on level ground. They are exerci sing regularly. Their exercise consists of swimming and walking. They are not enrolled in cardiac/pulmonary rehabilitation or other physical therapy. She does cough chronically, and does not produce mucous. Cough worse over the last 2 weeks. Exercise causes coughing. Fatigue too. Elinor does not wheeze chronically, and does not have chest tightness. The patient does not note side effects from their sarcoidosis medications. Specifically do es not have nausea, insomnia or polyuria. She has not been evaluated for nocturnal oxygen. Elinor does not had symptoms of heartburn or reflux. They have not had symptoms of nasal conges tion, runny nose or post nasal drip. The patient plans to receive a seasonal influenza vaccination in late April. Past Medical History Past Medical History: Diagnosis [...] coughing)., Disp: 1 Inhaler, Rfl: 5 Evening [place]ennial Oil 1000 MG CAPS, Take 1,000 mg by mouth Daily., Disp: , Rfl: folic acid 1 mg tablet, Take 1 tablet by mouth Daily., Disp: 30 tablet, Rfl: 5 Multiple Vitamin TABS, Take 2 tablets by mouth Daily., Disp: , Rfl: Lincoln-3 Fatty Acids (OMEGA-3 FISH OIL) 1000 MG CAPS, Take 1,000 mg by mouth Daily., Di sp: , Rfl: omeprazole (PRILOSEC) 20 mg capsule, Take 20 mg by mouth every morning (before break st)., Disp: , Rfl: predniSONE (DELTASONE) 10 mg [...] PNEUMOCOCCAL POLYSACCHARIDE 23-VALENT (PPSV23) 08/22/2008 Objective BP 120/68 | Pulse 85 | Temp 36.6 C (97.9 F) (Temporal) | Ht 1.575 m (5' 2") | Wt 78 .5 kg (173 lb 1 oz) | SpO2 94% Comment: RA | BMI 31.65 kg/m Appearance: Alert, cooperative, no distress, appears [...] Value Date ALT 36 02/20/2019 Assessment 1. Sarcoid apparent recent worsening initially treated with prednisone and subsequently with methotrexate (12/1903/20/2019). Prednisone is currently dose to 10 mg a day. Abdominal pain and stool frequency have both declined. The patient continues however to gibson ve loose stools. It is not immediately evident that Elinor Buitrago's most recent symptoms are indeed related to met hotrexate. With this in mind I have asked the patient to follow-up with Ms. Moreau regarding further evaluation for her GI symptoms. I have suggested to Elinor Buitrago but she continue to use prednisone dose to 10 mg a day. At thi s point in time we will not adjust the patient's prednisone. There remains a possibility of re-challenging the patient with methotrexate or using another steroid sparing agent. Repeat pulmonary function testing and exertional oximetry will occur with follow-up. 2. Bronchiectasis associated with pulmonary nodules. No recent exacerbation-like sympt oms. Plan 1. Maintain prednisone dose at 10 mg a day. 2. Elinor Buitrago will follow-up with Ms. Moreau regarding her persistent GI symptoms. 3. Pulmonary clinic follow-up with spirometry, diffusion capacity and walking oximetry in 4 weeks time. 4. High-dose seasonal influenza vaccination is recommended by the end of April 2019. CC: Ama Moreau PA-C documented in this encounter Plan of Treatment +--------+ + + + + | Date | Type | Specialty | Care Team | Description | +--------+ + + + + | 08/15/ | Appointment | Pulmonology | Landon Denton, | | 2019 | | | MD [address] | | | | | | [place] | | | | | | [id number] | | | | | | | | +--------+ + + + + | 08/15/ | Office | Pulmonology | Landon Denton, | | | 2020 | Visit | | MD [address] | | | | | | [place] | | | | | | [address] | | | | | | | | +--------+ + + + + documented as of this encounter Results Pulmonary function test spirometry w/diffusion; home oxygen evaluation (05/03/2019 2:46 PM PDT) + + + | Narrative | Performed At | + + + | Landon | | | MD Bertin 05/03/2019 14:49 PULMONARY FUNCTION TESTING | | | SPIROMETRY: The FVC was 1.86 L or 77 % of predicted. The FEV1 was 1.42 | | | L or 78 % of predicted. FEV1/FVC ratio was 76 %. DIFFUSION CAPACITY: | | | The diffusion capacity was 9.8 mL/mmHg per minute or 48 % of | | | predicted. IMPRESSION: Spirometry is consistent with mild restrictive | | | physiology. Diffusion capacity is moderately reduced and is not | | | corrected for measured hemoglobin. Compared to pulmonary function | | | test performed 10/17/2018 the patient's forced vital capacity has | | | increased 9%. Compared to pulmonary function test performed 04/04/2017 | | | the uncorrected DLCO has decreased 7%. Test performed: | | | 05/03/2019Electronically signed by: Landon Denton MD, | | | 05/03/2019 14:46[facility] | | |corrected for measured hemoglobin. | | | | | |Compared to pulmonary function test performed 10/17/2018 the | | |patient's forced vital capacity has increased 9%. Compared to | | |pulmonary function test performed 04/04/2017 the uncorrected DLCO | | |has decreased 7%. | | | | | |Test performed: 05/03/2019 | | |Electronically signed by: Landon Denton MD, MD 05/03/2019 | | |14:46 | | |[facility] | | + + + documented in this encounter Visit Diagnoses + + | Diagnosis | + + | Sarcoidosis (HCC) - Primary Sarcoidosis | + + | Bronchiectasis without complication (HCC) Bronchiectasis without acute exacerbation | + + documented in this encounter
--- OUTSIDE RECORDS SUMMARY | ~2019-07-31 | XMS | Encounter Summary ---
Demographics + + + | Address | [address] | | | [place] [address] | + + + | Home Phone | | + + + | Preferred Language | Unknown | + + + | Marital Status | | + + + | Yazdanism Affiliation | Unknown | + + + | Race | Unknown | + + + | Ethnic Group | Unknown | + + + Author + + + | Author | [facility] | | | and [place] | + + + | Organization | [facility] | | | and [...] [place] | | | | | [address] | | + + + + + | Haylie Rg | ECON | [address] [facility] | | | | | [place] | | + + + + + Care Team Providers + +------+ + | Care Weaver [employer] Name | Role | Phone | + [...] Description | +--------+--------+ + + + | 01/18/ | Refill | [facility] [place] | Landon Denton, | Medication Refill | | 2019 | | PULMONARY [address] | MD [address] | | | | | [place], | [place] | | | | | [place] [address] | [address] | | | | | [phone] | | | +--------+--------+ + + + [...] [place] | | | | | | [address] | | | | | | | | +--------+ + + + + | 08/15/ | Office | Pulmonology | Landon Denton, | | | 2019 | Visit | | MD [address] | | | | | | [place] | | | | | | [address] | | | | | | | | +--------+ + + + + documented as of this encounter Visit Diagnoses Not on filedocumented in this encounter"
--- OUTSIDE RECORDS SUMMARY | ~2019-07-31 | XMS | Encounter Summary ---
Demographics + + + | Address | [address] | | | [place] [address] | + + + | Home Phone | | + + + | Preferred Language | Unknown | + + + | Marital Status | | + + + | Latter Day Affiliation | Unknown | + + + | Race | Unknown | + + + | Ethnic Group | Unknown | + + + Author + + + | Author | and [facility] | | | and [place] | + + + | Organization | and [facility] | | | and [place] [...] [place] | | | | | [address] | | + + + + + | Haylie Rg | ECON | [address] [facility] | | | | | [place] | | + + + + + Care Team Providers + +------+ + | Care Paper Machine Operator Name | Role | Phone | + +------+ + | Blayne Herrera PCP | | + +------+ + Encounter Details +--------+ + + + + | Date | Type | Department | Care Team | Description | +--------+ + + + + | 11/15/ | Hospital | [facility] | Bertin Landon, | Pulmonary nodules | | 2017 | Encounter | MED CTR XRAY [address] | MD [address] | | | | | [place] | [place] | | | | | [place] [address] | [id number] | | | | | [phone] | | | +--------+ + + + [...] + + +---------+ + + | Evening Glenn | Take 1,000 mg by | | [...] + + + +---------+ + + | mometasone | Inhale 1 puff into | 1 | 0 | 11/16/19 | | | (ASMANEX HFA) 200 | the lungs 2 times | Inhaler | | 17 | 7 | | mcg/puff inhaler | daily. | | | | [...] [place] | | | | | | [address] | | | | | | | | +--------+ + + + + | 08/15/ | Office | Pulmonology | Landon Denton, | | | 2019 | Visit | | [address] | | | | | | [place] | | | | | | [address] | | | | | | | | +--------+ + + + + documented as of this encounter Procedures + +--------+ + + + | Procedure Name | Priori | Date/Time | Associated Diagnosis | Comments | | | ty | | | | + +--------+ + + + | XR CHEST PA AND | Routin | 11/15/2016 | Pulmonary nodules | Results for this | | LATERAL | e | 8:10 AM | | procedure are in the | | | | PDT | | results section. | + +--------+ + + + documented in this encounter Results XR Chest PA and Lateral (11/15/2016 8:10 AM PDT) + + | Specimen | + + | | + + + + + | Narrative | Performed At | + + + | PA AND LATERAL CHEST 11/15/2016 7:55 AM CLINICAL HISTORY: Follow | JENNE | | up of sarcoid and pulmonary nodules COMPARISON: Chest radiographs | [facility] | | September 2015, chest CT January 2014 FINDINGS: There is thoracic aortic | [facility] | | calcification. A tiny hiatus hernia is again suggested. The | - IMAGING | | cardiomediastinal silhouette is otherwise unremarkable. There is | | | similar coarse reticular opacity throughout both lungs, most confluent | | | in the left perihilar region and with an upper lung predominance on | | | the lateral view. No pneumothorax or pleural effusion is evident. | | | There is multilevel spondylosis. Cholecystectomy clips are | | | suggested. Bones and soft tissues are otherwise unremarkable. | | | IMPRESSION - 1. SIMILAR DISTRIBUTION OF UPPER LUNG PREDOMINANT | | | COARSE PULMONARY RETICULAR OPACITY, CORRESPONDING WITH FINDINGS | | | CONSISTENT WITH SARCOIDOSIS ON PREVIOUS CT. Dictated and Signed | | | by: Sean Becerra MD Electronically signed: 11/15/2016 9:27 AM | | + + + + + | Procedure Note | + + | Cosme, Rad Results In - 11/15/2016 9:30 AM PDT PA AND LATERAL CHEST 11/15/2016 7:55 AM | | | | CLINICAL HISTORY: Follow up of sarcoid and pulmonary nodules | | | | COMPARISON: Chest radiographs September 2015, chest CT January 2014 | | | | FINDINGS: There is thoracic aortic calcification. A tiny hiatus hernia is again | | suggested. The cardiomediastinal silhouette is otherwise unremarkable. There | | is similar coarse reticular opacity throughout both lungs, most confluent in the | | left perihilar region and with an upper lung predominance on the lateral view. | | No pneumothorax or pleural effusion is evident. There is multilevel | | spondylosis. Cholecystectomy clips are suggested. Bones and soft tissues are | | otherwise unremarkable. | | | | IMPRESSION - | | | | 1. SIMILAR DISTRIBUTION OF UPPER LUNG PREDOMINANT COARSE PULMONARY RETICULAR | | OPACITY, CORRESPONDING WITH FINDINGS CONSISTENT WITH SARCOIDOSIS ON PREVIOUS CT. | | | | Dictated and Signed by: Sean Becerra MD | | Electronically signed: 11/15/2016 9:27 AM | + + + + + + + | Performing | Address | City/State/Zipcode | Phone Number | | Organization | | | | + + + + + | [facility] | [address] | [place] | [phone] | | [facility] | | [address] | | | - IMAGING | | | | + + + + + documented in this encounter Visit Diagnoses + + | Diagnosis | + + | Pulmonary nodules Other nonspecific abnormal finding of lung field | + + documented in this encounter"
--- OUTSIDE RECORDS SUMMARY | ~2019-07-31 | XMS | Encounter Summary ---
Demographics + + + | Address | [address] | | | [place] [address] | + + + | Home Phone | | + + + | Preferred Language | Unknown | + + + | Marital Status | | + + + | Latter-Day Affiliation | Unknown | + + + | Race | Unknown | + + + | Ethnic Group | Unknown | + + + Author + + + | Author | [facility] | | | and [place] | + + + | Organization | [facility] | | | and [place] [...] [place] | | | | | [address] | | + + + + + | Haylie Rg | ECON | [address] [facility] | | | | | [place] | | + + + + + Care Team Providers + +------+ + | Care Ledger Clerk Name | Role | Phone | + +------+ + | Blayne Herrera PCP | | + +------+ + Reason for Visit + + + | Reason | Comments | + + + | Pulmonary Disease | 6 month follow up - sarcoidosis | | Appointment | | + + + Encounter Details +--------+---------+ + + + | Date | Type | Department | Care Team | Description | +--------+---------+ + + + | 11/09/ | Office | [facility] | Landon Denton, | Sarcoidosis (HCC) | | 2016 | Visit | PULMONARY [address] | MD [address] | (Primary Dx); | | | | [place], | [place] | Pulmonary nodules; | | | | [place] [address] | [address] | Internal nasal | | | | [phone] | | lesion | +--------+---------+ + + + Social History [...] + + + | Blood Pressure | 120/76 | 11/10/2015 10:35 AM | | | | | PDT | | + + + + + | Pulse | 74 | 11/10/2015 10:35 AM | | | | | PDT | | + + + + + | Temperature | - | - | | + + + + + | Respiratory Rate | - | - | | + + + + + | Oxygen Saturation | 97% | 11/10/2015 10:35 AM | | | | | PDT | | + + + + + | Inhaled Oxygen | - | - | | | Concentration | | | | + + + + + | Weight | 72.8 kg (160 lb 9.6 | 11/10/2015 10:35 AM | | | | oz) | PDT | | + + + + + | Height | 156.2 cm (5' 1.5") | 11/10/2015 10:35 AM | | | | | PDT | | + + + + + | Body Mass Index | 29.85 | 11/10/2015 10:35 AM | | | | | PDT | | + + + + + documented in this encounter Patient Instructions Patient Instructions Landon Denton MD - 11/10/2015 10:56 AM PDT Prednisone Oral tablet What is this medicine? PREDNISONE (PRED ni sone) is a corticosteroid. It is commonly used to treat inflammation of the skin, joints, lungs, and other organs. Common conditions treated include asthma, allerg ies, and arthritis. It is also used for other conditions, such as blood disorders and diseas es of the adrenal glands. This medicine may be used for other purposes; ask your health care provider or pharmacist i f you have questions. What should I tell my health care provider before I take this medicine? They need to know if you have any of these conditions: Mcpherson's syndrome diabetes glaucoma heart disease high blood pressure infection (especially a virus infection such as chickenpox, cold sores, or herpes) kidney disease liver disease mental illness myasthenia gravis osteoporosis seizures stomach or intestine problems thyroid disease an unusual or allergic reaction to lactose, prednisone, other medicines, foods, dyes, or preservatives or trying to get breast-feeding How should I use this medicine? Take [...] avoid any side effects. Talk to your chief engineering division regarding the use of this medicine in children. Special care may be needed. Overdosage: If you think you have taken too much of this medicine contact a poison control center or emergency room at once. NOTE: This medicine is only for you. Do not share this medicine with others. What if I miss a dose? If you miss a dose, take it as soon as you can. If it is almost time for your next dose, ta lk to your doctor or health director of managed care. You may need to miss a dose or take an extra dose. Do not take double or extra doses without advice. What may interact with this medicine? Do [...] or naproxen phenytoin rifampin toxoids vaccines warfarin This list may not describe all possible interactions. Give your health care provider a list of all the medicines, herbs, non-prescription drugs, or dietary supplements you use. Also t ell them if you smoke, drink alcohol, or use illegal drugs. Some items may interact with you r medicine. What should I watch for while using this medicine? Visit your doctor or health director of managed care for regular checks on your progress. If [...] have surgery, tell your doctor or health director of managed care that you hav e taken this medicine within the last twelve months. Ask your doctor or health director of managed care about your diet. You may need to lower the amou nt of salt you eat. This medicine may affect blood sugar levels. If you have diabetes, check with your doctor o r health director of managed care before you change your diet or the dose of your diabetic medicine . What side effects may I notice from receiving this medicine? Side effects that you should report to your doctor or health director of managed care as soon as p ossible: allergic reactions [...] attention (report to your doctor or health director of managed care if they continue or are bothersome): confusion, excitement, restlessness headache nausea, vomiting skin problems, acne, thin and shiny skin trouble sleeping weight gain This list may not describe all possible side effects. Call your doctor for medical advice a bout side effects. You may report side effects to FDA at 0-151-MKM-6634. Where should I keep my medicine? Keep out of the reach of children. Store at room temperature between 15 and 30 degrees C (59 and 86 degrees F). Protect from l ight. Keep container tightly closed. Throw away any unused medicine after the expiration francisco e. NOTE:This sheet is a summary. It may not cover all possible information. If you have questi ons about this medicine, talk to your doctor, pharmacist, or health care provider. Copyright 2016 Gold Standard Pulmonary Sarcoidosis What Is Sarcoidosis? Sarcoidosis is [...] ways to make quitting easier, including local [employer] programs, as well as medications. 3411-0147 [employer]. [address] [place] [address]. All righ ts reserved. This information is not intended as a substitute for professional medical care. Always follow your healthcare professional's instructions. documented in this encounter Progress Notes Landon Denton MD - 11/10/2015 10:43 AM PDTFormatting of this note might be different f rom the original. Pulmonary Follow Up 11/10/2015 [facility] AnneMinna Shelby is a 70 y.o. female patient of Blayne Herrera here today for follow u p of sarcoidosis. It has been 12 months since our last clinic appointment. At their last visit, we planned f or follow-up and 6 months. For unclear reasons the patient did not keep her follow-up appoi ntment. Since the last visit she feels like their symptoms have progressed. Specifically over the last several months Maribel notes increased cough and shortness of breath.. They have have had any acute illnesses. Treated with cough medications at night. Still has PND symptoms. Currently they are able to walk 1-2 miles at their own pace on level ground. They are not e xercising regularly. They are not enrolled in cardiac/pulmonary rehabilitation or other phys ical therapy- She does cough chronically fr the last 6 weeks, and does not produce mucous. They have not had hemoptysis. She does not wheeze chronically, and does not have chest tightness. She has not been evaluated for nocturnal oxygen. She does not had symptoms of heartburn or reflux. They have had symptoms of runny nose and post nasal drip but no nasal congestion. When questioned regarding a nasal lesion on the left side the patient states that "I've had a sore in my nose for years". The patient is apparently applied antibiotic ointment in the past without a change in the abnormality. Past Medical History Past Medical History Diagnosis Date Lymphedema Shoulder fracture Sarcoid (HCC) Dignosed via mediatinoscopy ~ 2008 Pulmonary nodules No change in follow up imaging last here 2010 Shingles August 2014 Lung disease Allergies: No Known Allergies Medications: Current outpatient prescriptions: Evening Goodell Oil 500 MG CAPS, Take by mouth 2 times daily., Disp: , Rfl: omeprazole (PRILOSEC) 20 mg capsule, Take 20 mg by mouth every morning (before )., Disp: , Rfl: PROAIR HFA 108 (90 [...] urticaria, allergic rash, hay fever. Objective BP 120/76 mmHg | Pulse 74 | Ht 1.562 m (5' 1.5") | Wt 72.848 kg (160 lb 9.6 oz) | BMI 29.86 kg/m2 | SpO2 97% | ? No Appearance: Alert, cooperative, no [...] supraclavicular nodes normal Neurologic: Gait normal Data: Labs: The patient had an NELSON level on 08/22/12 which was normal at 25. Chest x-ray was done on 10/12/15 and 11/15/09 and was reviewed and interpreted in clinic anahi rajan. It shows progression of upper lung zone fibrotic changes is noted [facility]. Pulmonary function tests were performed on 11/10/15 and were reviewed and interpreted in cli jasmyne today. They show forced vital capacity of 1.89, 75% of predicted with an FEV1/FVC of 84 % and an uncorrected DLCO of 10.3, 49% of predicted. Assessment 1. Sarcoidosis Elinor buitrago is a 70-year-old female with a prior history of sarcoidosis esta blished via mediastinoscopy in December 2009. Recurrent symptoms developed in the fall of 2013. Prednisone was reinitiated at that time. With tapering of prednisone the patient develope d mild adrenal insufficiency requiring a more gradual prednisone taper. Elinor buitrago was seen back in the office in late September 2014 having been off prednisone for appro ximately 2 months. She reported stable symptoms at that time. Follow up at 6 months was re commended. The patient returns after approximately 12 months. Over the last several months she has noted increased shortness of breath and a cough. A re cent chest x-ray shows progression of upper lung zone fibrosis consistent with progression o f her underlying sarcoidosis. Over the last 21 months her forced vital capacity has fallen 33% and the uncorrected DLCO h as declined 11%. I am concerned that the patient's recent symptoms are secondary to worseni ng sarcoidosis. I have suggested that we reinitiate prednisone. Depending on the patient's response to prednisone I would consider conversion to a steroid sparing agent such as methotrexate. 2. Left nasal lesion etiology unclear. A chronic infectious process versus malignancy v ersus another process discussed. I have suggested to Elinor Buitrago that she seek care back with [facility] Reyna regarding this abnormality. Potentially a nasal biopsy is in order. Total duration the patient's clinic appointment was in excess of 30 minutes. 50% of the ti me was spent in counseling related to sarcoidosis progression and therapy. Plan 1. NELSON level today. 2. Prednisone starting at 20 mg a day in the morning with food. The patient will decrease her prednisone by 5 mg every 7 days until down to a dose of 10 mg a day. 3. She will maintain that dose until follow-up in 4 weeks' time. CC: Blayne Herrera documented in this [...] [place] | | | | | | [address] | | | | | | | | +--------+ + + + + | 08/15/ | Office | Pulmonology | Landon Denton, | | | 2019 | Visit | | MD [address] | | | | | | [place] | | | | | | [address] | | | | | | | | +--------+ + + + + documented as of this encounter Procedures + +--------+ + + + | Procedure Name | Priori | Date/Time | Associated Diagnosis | Comments | | | ty | | | | + +--------+ + + + | IMAGING REPORT - | | 10/12/2015 | | Results for this | | EXTERNAL SCAN | | 12:00 AM | | procedure [...] REFERENCE | | | Converting | Performed: [facility] | | LAB [facility] | | | Enzyme | [facility] | | | | | | [place], [address], | | | | | | [place] [address] | | | | + + + + + + + + | Specimen | + + | Blood specimen | | (specimen) | + + + + + + + | Performing | Address | City/State/Zipcode | Phone Number | | Organization | | | | + + + + + | REFERENCE LAB P[facility] | [address] | [place] [address] | [phone] | + + + + + IMAGING REPORT - EXTERNAL SCAN (10/12/2015 12:00 AM PDT) + + + | Narrative | Performed At | + + + | Ordered by an | | | unspecified provider. | | + + + documented in this encounter Visit Diagnoses + + | Diagnosis | + + | Sarcoidosis - Primary | + + | Pulmonary nodules Other nonspecific abnormal finding of lung field | + + | Internal nasal lesion Other diseases of nasal cavity and sinuses | + + documented in this encounter
--- OUTSIDE RECORDS SUMMARY | ~2019-07-31 | XMS | Encounter Summary ---
Demographics + + + | Address | [address] | | | [place] [address] | + + + | Home Phone | | + + + | Preferred Language | Unknown | + + + | Marital Status | | + + + | Anabaptist Affiliation | Unknown | + + + | Race | Unknown | + + + | Ethnic Group | Unknown | + + + Author + + + | Author | [facility] | | | and [place] | + + + | Organization | [facility] | | | and [...] [place] | | | | | [address] | | + + + + + | Haylie Rg | ECON | [address] [facility] | | | | | [place] | | + + + + + Care Team Providers + +------+ + | Care Manager Strategy Name | Role | Phone | + [...] | | MED CTR LABORATORY | I, [facility] | | | | | [address] | | | | | | [place] | | | | | | [address] | | | | | | [phone] | | | +--------+ + + + [...] [place] | | | | | | [address] | | | | | | | | +--------+ + + + + | 08/15/ | Office | Pulmonology | Landon Denton, | | | 2019 | Visit | | [address] | | | | | | [place] | | | | | | [address] | | | | | | | [...] REFERENCE | | | Converting | Performed: [place] | | LAB [facility] | | | Enzyme | [facility] | | | | | | [place], [facility] [address], | | | | | | [place] [address] | | | | + + + [...] [address] | [place] [address] | [phone] | + + + + + documented in this encounter Visit Diagnoses + + | Diagnosis | + + | Sarcoidosis | + + documented in this encounter"
--- OUTSIDE RECORDS SUMMARY | ~2019-07-31 | XMS | Encounter Summary ---
Demographics + + + | Address | [address] | | | [place] [address] | + + + | Home Phone | | + + + | Preferred Language | Unknown | + + + | Marital Status | | + + + | Mandaeism Affiliation | Unknown | + + + | Race | Unknown | + + + | Ethnic Group | Unknown | + + + Author + + + | Author | [facility] | | | and [place] | + + + | Organization | [facility] | | | and [...] [place] | | | | | [address] | | + + + + + | Haylie Rg | ECON | [address] [facility] | | | | | [place] | | + + + + + Care Team Providers + +------+ + | Care Regional Administrative Assistant Name | Role | Phone | + [...] + + | 12/07/ | Office | [facility] | Landon Denton, | Sarcoidosis (HCC) | | 2016 | Visit | PULMONARY [address] | MD [address] | (Primary Dx); High | | | | [place], | [place] | risk medication use | | | | [place] [address] | [address] | | | | | [phone] | | | +--------+---------+ + + + [...] to make quitting easier, including local a [employer] programs, as well as medications. [id number] [employer]. [address] [place] [address], [place] [address]. All righ ts reserved. This information is [...] nce daily, Disp: , Rfl: 1 Evening Fortuna Oil 1000 MG CAPS, Take 1,000 mg [...] [place] | | | | | | [address] | | | | | | | | +--------+ + + + + documented as of this encounter Visit Diagnoses + + | Diagnosis | + + | Sarcoidosis - Primary | + + | High risk medication use Encounter for long-term (current) use of other medications | + + documented in this encounter
--- OUTSIDE RECORDS SUMMARY | ~2019-07-31 | XMS | Encounter Summary ---
Demographics + + + | Address | [address] | | | [place] [address] | + + + | Home Phone | | + + + | Preferred Language | Unknown | + + + | Marital Status | | + + + | Anglican Affiliation | Unknown | + + + | Race | Unknown | + + + | Ethnic Group | Unknown | + + + Author + + + | Author | [facility] | | | and [place] | + + + | Organization | [facility] | | | and [place] [...] [place] | | | | | [address] | | + + + + + | Haylie Rg | ECON | [address] [facility] | | | | | [place] | | + + + + + Care Team Providers + +------+ + | Care Compensation Supervisor Name | Role | Phone | + +------+ + | Ama Moreau | PCP | | | PAIan | | | + +------+ + Reason for Visit + + + | Reason | Comments | + + + | Medication Refill | | + + + | Medication Refill | | + + + Encounter Details +--------+--------+ + + + | Date | Type | Department | Care Team | Description | +--------+--------+ + + + | 11/27/ | Refill | [facility] | Landon Denton, | Medication Refill; | | 2018 | | PULMONARY [address] | MD [address] | Medication Refill | | | | [place], | [place] | | | | | [place] [address] | [address] | | | | | [phone] | | | +--------+--------+ + + + [...] [place] | | | | | | [id number] | | | | | | | | +--------+ + + + + | 08/15/ | Office | Pulmonology | Landon Denton, | | | 2019 | Visit | | MD [address] | | | | | | [place] | | | | | | [address] | | | | | | | | +--------+ + + + + documented as of this encounter Visit Diagnoses Not on filedocumented in this encounter"
--- OUTSIDE RECORDS SUMMARY | ~2019-07-31 | XMS | Encounter Summary ---
Demographics + + + | Address | [address] | | | [place] [address] | + + + | Home Phone | | + + + | Preferred Language | Unknown | + + + | Marital Status | | + + + | Voodoo Affiliation | Unknown | + + + | Race | Unknown | + + + | Ethnic Group | Unknown | + + + Author + + + | Author | [facility] | | | and [place] | + + + | Organization | [facility] | | | and [...] [place] | | | | | [address] | | + + + + + | Haylie Rg | ECON | [address] [facility] | | | | | [place] | | + + + + + Care Team Providers + +------+ + | Care Computer Networker Name | Role | Phone | + +------+ + | Blayne Herrera DO | PCP | | + +------+ + Encounter Details +--------+ + + + + | Date | Type | Department | Care Team | Description | +--------+ + + + + | 08/01/ | Hospital | [facility] | Conversion | Pain | | 2018 | Encounter | CONVERSION [address] | Transaction, | | | | | [address] | Provider Unknown | | | | | [place] | [phone] | | | | | [address] | | | | | | [phone] | | | +--------+ + + + [...] + + +---------+ + + | Evening Sanborn | Take 1,000 mg by | | [...] [place] | | | | | | [address] | | | | | | | | +--------+ + + + + | 08/15/ | Office | Pulmonology | Landon Denton, | | | 2019 | Visit | | MD [address] | | | | | | [place] | | | | | | [address] | | | | | | | [...]
--- OUTSIDE RECORDS SUMMARY | ~2019-07-31 | XMS | Encounter Summary ---
Demographics + + + | Address | [address] | | | [place] [address] | + + + | Home Phone | | + + + | Preferred Language | Unknown | + + + | Marital Status | | + + + | Pentecostalism Affiliation | Unknown | + + + | Race | Unknown | + + + | Ethnic Group | Unknown | + + + Author + + + | Author | [facility] | | | and [place] | + + + | Organization | [facility] | | | and [place] [...] [place] | | | | | [address] | | + + + + + | Haylie Rg | ECON | [address] [facility] | | | | | [place] | | + + + + + Care Team Providers + +------+ + | Care Adult Education Professional Name | Role | Phone | + +------+ + | Blayne Herrera PCP | | + +------+ + Reason for Visit +--------+ + | Reason | Comments | +--------+ + | Cough | 3 wk follow up with CT scan | +--------+ + Encounter Details +--------+---------+ + + + | Date | Type | Department | Care Team | Description | +--------+---------+ + + + | 01/03/ | Office | [facility] | Landon Denton, | Chronic cough | | 2017 | Visit | PULMONARY [address] | MD [address] | (Primary Dx); | | | | [place], | [place], [place] | Sarcoidosis (HCC); | | | | [place] [address] | [id number] | Pulmonary nodules | | | | [phone] | | | +--------+---------+ + + + [...] + + + | Blood Pressure | 120/84 | 01/03/2017 10:32 AM | | | | | PDT | | + + + + + | Pulse | 84 | 01/03/2017 10:32 AM | | | | | PDT | | + + + + + | Temperature | - | - | | + + + + + | Respiratory Rate | - | - | | + + + + + | Oxygen Saturation | 95% | 01/03/2017 10:32 AM | | | | | PDT | | + + + + + | Inhaled Oxygen | - | - | | | Concentration | | | | + + + + + | Weight | 75 kg (165 lb 4.8 | 01/03/2017 10:32 AM | | | | oz) | PDT | | + + + + + | Height | 157.5 cm (5' 2") | 01/03/2017 10:32 AM | | | | | PDT | | + + + + + | Body Mass Index | 30.23 | 01/03/2017 10:32 AM | | | | | PDT | | + + + + + documented in this encounter Patient Instructions Patient Instructions Landon Denton MD - 01/03/2017 11:00 AM PDT Flovent (Fluticasone inhalation powder) Rinse mouth after use. What is this medicine? FLUTICASONE (floo TIK a sone) inhalation powder is a corticosteroid. It helps decrease infl ammation in your lungs. This medicine is used to treat the symptoms of asthma. Never use thi s medicine for an acute asthma attack. How should I use this medicine? This medicine is for inhalation through the mouth. Rinse your mouth with water after use. M hanane sure not to swallow the water. Follow the directions on your prescription label. Do not use with a spacer device. Do not use more often than directed. Make sure that you are using your inhaler correctly. Ask you doctor or health care provider if you have any questions. Talk to your comb tender regarding the use of this medicine in children. While this drug m ay be prescribed for children for selected conditions, precautions do apply. What side effects may I notice from receiving this medicine? Side effects that you should report to your doctor or health director career services as soon as p ossible: allergic reactions like skin rash, itching or hives, swelling of the face, lips, or tong ue breathing problems changes in vision flu-like symptoms unusual swelling white patches or sores in the mouth or throat Side effects that usually do not require medical attention (report to your doctor or health director career services if they continue or are bothersome): coughing, hoarseness, or throat irritation dry mouth headache flushing loss of taste, or unpleasant taste What may interact with this medicine? clarithromycin conivaptan dalfopristin; quinupristin indinavir ketoconazole lopinavir; ritonavir nefazodone posaconazole ritonavir telithromycin tipranavir troleandomycin voriconazole What if I miss a dose? If you miss a dose, use it as soon as you remember. If it is almost time for your next dose , use only that dose and continue with your regular schedule, spacing doses evenly. Do not u se double or extra doses. Where should I keep my medicine? Keep out of the reach of children. Store at room temperature between 15 and 30 degrees C (59 and 86 degrees F). Keep dry. Prot ect from heat and direct sunlight. Discard 6 weeks after removal from the foil pouch or afte r all of the blisters have been used (when the dose indicator reads 0), whichever comes firs t. What should I tell my health care provider before I take this medicine? They need to know if you have any of the following conditions: bone problems immune system problems infection, like chickenpox, tuberculosis, herpes, or fungal infection recent surgery or injury of mouth or throat taking corticosteroids by mouth an unusual or allergic reaction to fluticasone, lactose, other medicines, foods, dyes, o r preservatives or trying to get breast-feeding What should I watch for while using this medicine? Visit your doctor or health director career services for regular checks on your progress. Check wi th your health director career services if your symptoms do not improve. If your symptoms get worse or if you need your short-acting inhalers more often, call your doctor right away. Do not s top taking your medicine unless your doctor tells you to. Do not come in contact with people who have the chickenpox or the measles while you are emily ing this medicine. If you do, call your doctor right away. Your inhaler has a dose counter and will tell you when only a few doses are left. Date Last Reviewed: NOTE:This sheet is a summary. It may not cover all possible information. If you have questi ons about this medicine, talk to your doctor, pharmacist, or health care provider. Copyright 2016 [employer] Standard documented in this encounter Progress Notes Landon Denton MD - 01/03/2017 11:00 AM PDTFormatting of this note might be different f rom the original. Pulmonary Follow Up 01/03/2017 [facility] AnneMinna Shelyb is a 71 y.o. female patient of Blayne Herrera here today for follow up of sarcoidosis. It has been 3 weeks since our last clinic appointment. At their last visit, we discontinue d Asmanex secondary to lack of clinical effect and ordered a CT scan of the chest.. Since the last visit she feels like their symptoms are increasing steadily. Primary issue is increased cough. They have have not had any recent acute illnesses. They are currently on no regimen for their sarcoid. Currently they are able to walk 1+ miles at their own pace on level ground. They are exerci sing regularly. Their exercise consists of walking 1 mile and exercise machine. They are n ot enrolled in cardiac/pulmonary rehabilitation or other physical therapy. She does cough chronically, and does not typically produce mucous. They have not had hemopt ysis since our last clinic appointment. She does not wheeze chronically, and does not have chest tightness. She has not been evaluated for nocturnal oxygen. She does not had symptoms of heartburn or reflux. They have not had symptoms of nasal conge stion, runny nose or post nasal drip. No headache or visual changes. No new rashes. No palpitations. Past Medical History Past Medical History: Diagnosis [...] nce daily, Disp: , Rfl: 1 Evening [place] Oil 1000 MG CAPS, Take 1,000 mg by mouth Daily., Disp: , Rfl: omeprazole (PRILOSEC) 20 mg capsule, Take 20 mg by mouth every morning (before break)., Disp: , Rfl: pseudoePHEDrine (SUDAFED) 30 mg tablet, Take 30 mg by mouth every 6 hours as needed., Disp: , Rfl: 2 Immunizations: Immunization History Administered Date(s) Administered INFLUENZA 65 Y OR >, TRIVALENT HIGH-DOSE 05/03/2016 INFLUENZA PF 16 Y OR >,TRIVALENT RECOMBINANT 05/02/2012, 04/30/2013, 05/03/2014, 2014 PNEUMOCOCCAL CONJUGATE 13-VALENT (PCV13) 12/13/2016 PNEUMOCOCCAL POLYSACCHARIDE 23-VALENT (PPSV23) 08/22/2008 Review of [...] urticaria, allergic rash, hay fever. Objective BP 120/84 | Pulse 84 | Ht 1.575 m (5' 2") | Wt 75 kg (165 lb 4.8 oz) | SpO2 95% | [place] stfeeding? No | BMI 30.23 kg/m Appearance: Alert, cooperative, no distress, appears [...] Data: Chest CT scan was done on 02/20/14 and 01/03/17 and was reviewed and interpreted in clinic [facility]. It shows apparent worsening fibrotic changes with an upper lung zone predominance. Ther e is also multiple pulmonary nodules which appear stable in size. Focal areas of pleural th ickening. Assessment 1. Worsening cough etiology remains unclear. Looking back Elinor Buitrago believes that her cou gh worsened after discontinuing Asmanex. The patient is interested in reinitiating this med ication. Asmanex is not preferred by the patient's insurance. Rather we will substitute Flovent. 2. Sarcoidosis as previously noted the diagnosis was established via mediastinoscopy. T he patient has been intermittently treated with prednisone over the years. The last treatme nt with prednisone occurred in early 2015. Today's CT scan shows what appears to be worsening fibrotic changes over the last 3 years. Official interpretation is pending. I have suggested to Renetta that we perform pulmonary function testing to further determine if progression of restrictive abnormalities is occurring. The patient's symptoms (exercise tolerance) appears stable. Today Renetta was counseled that treatment for sarcoidosis does not necessarily alter the na tural history of the disease. Thus given that the patient's dyspnea on exertion and is rela tively stable and that her main problem is coughing it is reasonable to initiate therapy wit h an inhaled steroid and only consider systemic steroids if her symptoms do not improve. Ms. Shelby is up-to-date with respect to her seasonal influenza vaccination, Prevnar an d Pneumovax. Plan 1. Initiate Flovent discus 100 g per puff, 1 puff twice daily. 2. Spirometry and diffusion capacity with follow-up. 3. Pulmonic clinic follow-up appointment to assess the patient's response to therapy appro ximately 3 months time. CC: Blayne Herrera documented [...] [place] | | | | | | [address] | | | | | | | | +--------+ + + + + | 08/15/ | Office | Pulmonology | Landon Denton, | | | 2019 | Visit | | [address] | | | | | | [place] | | | | | | [address] | | | | | | | | +--------+ + + + + documented as of this encounter Results Pulmonary function test (04/04/2017 [...] by: Landon Denton MD 04/04/2017 11:33M [facility] | [facility] | | |Diffusion capacity is moderately reduced [...] Landon Denton MD 04/04/2017 11:33 | | |[facility] | | + + + documented in this encounter Visit Diagnoses + + | Diagnosis | + + | Chronic cough - Primary Cough | + + | Sarcoidosis | + + | Pulmonary nodules Other nonspecific abnormal finding of lung field | + + documented in this encounter
--- OUTSIDE RECORDS SUMMARY | ~2019-07-31 | XMS | Encounter Summary ---
Demographics + + + | Address | [address] | | | [place] [address] | + + + | Home Phone [...] Author | [facility] | | | and [place] | + + + | Organization | [facility] | | | and [...] [place] | | | | | [address] | | + + + + + | Haylie Rg | ECON | [address] | | | | | [place] | | + + + + + Care Team Providers + +------+ + | Care Dermatology Specialist Name | Role | Phone | [address] | | | | | [place], | [place] | | | | | [place] [address] | [address] | | | | | [phone] | | | +--------+--------+ + + + [...] [place] | | | | | | [address] | | | | | | | | +--------+ + + + + | 08/15/ | Office | Pulmonology | Landon Denton, | | | 2019 | Visit | | [address] | | | | | | [place] | | | | | | [address] | | | | | | | | +--------+ + + + + documented as of this encounter Visit Diagnoses Not on filedocumented in this encounter"
--- OUTSIDE RECORDS SUMMARY | ~2019-07-31 | XMS | Encounter Summary ---
Demographics + + + | Address | [address] | | | [place] [address] | + + + | Home Phone | | + + + | Preferred Language | Unknown | + + + | Marital Status | | + + + | Adventist Affiliation | Unknown | + + + | Race | Unknown | + + + | Ethnic Group | Unknown | + + + Author + + + | Author | [facility] | | | and [place] | + + + | Organization | [facility] [...] [place] | | | | | [address] | | + + + + + | Haylie Rg | ECON | [address] [address] | | | | | [place] | | + + + + + Care Team Providers + +------+ + | Care Head Of Global Strategic Partnerships Name | Role | Phone | + +------+ + | Blayne Herrera DO | PCP | | + +------+ + Encounter Details +--------+ + + + + | Date | Type | Department | Care Team | Description | +--------+ + + + + | 08/01/ | Hospital | [facility] [place] [facility] | Conversion | Pain | | 2018 | Encounter | CONVERSION DEP [address] | Transaction, | | | | | [address] | Provider Unknown | | | | | [address] | [phone] | | | | | [address] | | | | | | [phone] | | | +--------+ + + + [...] + + +---------+ + + | Evening [place] | Take 1,000 mg by | | [...] [place] | | | | | | [address] | | | | | | | | +--------+ + + + + | 08/15/ | Office | Pulmonology | Landon Denton, | | | 2019 | Visit | | MD [address] | | | | | | [place] | | | | | | [address] | | | | | | | | +--------+ + + + + documented as of this encounter Procedures + +--------+ + + + | Procedure Name | Priori | Date/Time | Associated Diagnosis | Comments | | | ty | | | | + +--------+ + + + | XR CHEST 1 VIEW | Routin | 11/18/2009 | | Results for this | | | e | 11:32 PM | | procedure are in the | | | | PDT | | results section. | + +--------+ + + + documented in this encounter Results XR Chest 1 Vw (11/18/2009 11:32 PM PDT) + + | Specimen | [...]
--- OUTSIDE RECORDS SUMMARY | ~2019-07-31 | XMS | Encounter Summary ---
Demographics + + + | Address | [address] | | | [place] [address] | + + + | Home Phone | | + + + | Preferred Language | Unknown | + + + | Marital Status | | + + + | Nondenominational Affiliation | Unknown | + + + | Race | Unknown | + + + | Ethnic Group | Unknown | + + + Author + + + | Author | [facility] | | | and [place] | + + + | Organization | [facility] | | | and [...] [place] | | | | | [address] | | + + + + + | Haylie Rg | ECON | [address] [facility] | | | | | [place] | | + + + + + Care Team Providers + +------+ + | Care Airport Engineer Name | Role | Phone | + +------+ + | Blayne Herrera PCP | | + +------+ + Encounter Details +--------+ + + + + | Date | Type | Department | Care Team | Description | +--------+ + + + + | 02/18/ | Hospital | [facility] | Landon Denton, | Sarcoidosis (HCC) | | 2014 | Encounter | MED CTR PULMONARY | MD [address] | | | | | [address] | [place], [place] | | | | | [place], | [address] | | | | | [place] [address] | | | | | | [phone] | | | +--------+ + + + [...] + +---------+ + + | fluticasone | 1 spray by Nasal | | 0 | | | | (FLONASE) 50 | route Daily. | | | | 4 | | mcg/nasal spray | | | | | | + + + +---------+ + + | multivitamin | 1 tablet by mouth | | 0 | 04/13/20 | | | (THERAGRAN) per | daily | | | 12 | 4 | | tablet | | | | | | + + + +---------+ + + | [place]-3 Fatty | CPDR; 3 capsules by | [...] | 08/15/ | Appointment | Pulmonology | DentoniMchaelLandon, | | | 2019 | | | MD [address] | | | | | | [place] | | | | | | [address] | | | | | | | | +--------+ + + + + | 08/15/ | Office | Pulmonology | BertinLandon, | | | 2019 | Visit | | MD [address] | | | | | | [place] | | | | | | [address] | | | | | | | | +--------+ + + + + documented as of this encounter Procedures + +--------+ + + + | Procedure Name | Priori | Date/Time | Associated Diagnosis | Comments | | | ty | | | | + +--------+ + + + | PFT PULMONARY | SERENITY | 02/20/2014 | Sarcoidosis (HCC) | Results for this | | FUNCTION TESTING | | 3:19 PM | | procedure are in the | | ORDERS | | PDT | | results section. | + +--------+ + + + | PFT PULMONARY | SERENITY | 02/20/2014 | Sarcoidosis (HCC) | Results for this | | FUNCTION TESTING | | 3:19 PM | | procedure are in the | | ORDERS | | PDT | | results section. | + +--------+ + + + | PFT PULMONARY | SERENITY | 02/20/2014 | Sarcoidosis (HCC) | Results for this | | FUNCTION TESTING | | 3:19 PM | | procedure are in the | | ORDERS | | PDT | | results section. | + +--------+ + + + | DIAGNOSTIC REPORT - | | 02/18/2014 | | | | EXTERNAL SCAN | | 12:00 AM | | | | | | PDT | | | + +--------+ + + + documented in this encounter Results PFT PULMONARY FUNCTION TESTING ORDERS Spirometry?: Yes; Diffusion (DLCO)?: Yes (02/20/2014 3:19 PM PDT) + + + | Narrative | Performed At | + + + | Landon Denton MD 02/20/2014 15:19 PULMONARY FUNCTION | | | TESTING SPIROMETRY: The FVC was 2.81 L or 110 % of predicted. | | | The FEV1 was 1.98 L or 100 % of predicted. FEV1/FVC ratio was 71 %. | | | DIFFUSION CAPACITY: The diffusion capacity was 11.6 mL/mmHg per | | | minute or 54 % of predicted. IMPRESSION: Spirometry is | | | consistent with normal physiology. Diffusion capacity is moderately | | | reduced and is not corrected for measured hemoglobin. Compared | | | to pulmonary function tests from July 2012 the patient's | | | spirometry is essentially unchanged. The diffusion capacity has | | | fallen 16%. Test performed: 02/18/14 Electronically signed by: | | | Landon Denton MD 02/20/2014 15:16 [facility] | | | [facility] | | + + + + + | Procedure Note | + + | Landon Denton MD - 02/20/2014 3:16 PM PDT PULMONARY FUNCTION TESTING | | SPIROMETRY: The FVC was 2.81 L or 110 % of predicted. The FEV1 was 1.98 L or 100 % of | | predicted. FEV1/FVC ratio was 71 %. DIFFUSION CAPACITY: The diffusion capacity was 11.6 | | mL/mmHg per minute or 54 % of predicted. IMPRESSION: Spirometry is consistent with | | normal physiology. Diffusion capacity is moderately reduced and is not corrected for | | measured hemoglobin.Compared to pulmonary function tests from July 2012 the patient's | | spirometry is essentially unchanged. The diffusion capacity has fallen 16%.Test | | performed: 02/18/14Electronically signed by: Landon Denton MD 02/20/2014 15:16[facility] | | [facility] | | | |Compared to pulmonary function tests from July 2012 the patient's spirometry is essentia lly unchanged. The diffusion capacity has fallen 16%. | | | |Test performed: 02/18/14 | |Electronically signed by: Landon Denton MD 02/20/2014 15:16 | |[facility] | + + documented in this encounter Visit Diagnoses + + | Diagnosis | + + | Sarcoidosis | + + documented in this encounter"
--- OUTSIDE RECORDS SUMMARY | ~2019-07-31 | XMS | Encounter Summary ---
Demographics + + + | Address | [address] | | | [place] [address] | + + + | Home Phone | | + + + | Preferred Language | Unknown | + + + | Marital Status | | + + + | Congregational Affiliation | Unknown | + + + | Race | Unknown | + + + | Ethnic Group | Unknown | + + + Author + + + | Author | [facility] | | | and [place] | + + + | Organization | [facility] | | | and [place] | [...] [place] | | | | | [address] | | + + + + + | Haylie Rg | ECON | [address] [facility] | | | | | [place] | | + + + + + Care Team Providers + +------+ + | Care Rx Specialist Name | Role | Phone | + +------+ + | Ama Moreau | PCP | | | PAIan | | | + +------+ + Reason for Visit + + + | Reason | Comments | + + + | Pulmonary Disease | 2 wk follow up | | Appointment | | + + + Encounter Details +--------+---------+ + + + | Date | Type | Department | Care Team | Description | +--------+---------+ + + + | 11/07/ | Office | [facility] | Landon Denton, | Sarcoidosis ([facility]) | | 2019 | Visit | PULMONARY [address] | MD [address] | (Primary Dx); | | | | [place], | [place], [place] | Bronchiectasis | | | | [place] [address] | [address] | without complication | | | | [phone] | | ([facility]); Pulmonary | | | | | | [...] + + + | Blood Pressure | 126/82 | 11/07/2018 9:57 AM | | | | | PDT | | + + + + + | Pulse | 75 | 11/07/2018 9:57 AM | | | | | PDT | | + + + + + | Temperature | - | - | | + + + + + | Respiratory Rate | - | - | | + + + + + | Oxygen Saturation | 95% | 11/07/2018 9:57 AM | RA | | | | PDT | | + + + + + | Inhaled Oxygen | - | - | | | Concentration | | | | + + + + + | Weight | 73.6 kg (162 lb 4.1 | 11/07/2018 9:57 AM | | | | oz) | PDT | | + + + + + | Height | 157.5 cm (5' 2") | 11/07/2018 9:57 AM | | | | | PDT | | + + + + + | Body Mass Index | 29.68 | 11/07/2018 9:57 AM | | | | | PDT | | + + + + + documented in this encounter Patient Instructions Patient Instructions Landon Denton MD - 11/07/2018 10:00 AM PDT Prednisone tablets Brand Names: Deltasone, [...] avoid any side effects. Talk to your tree loader meat regarding the use of this medicine in children. Special care may be needed. What side effects may I notice from receiving this medicine? Side effects that you should report to your doctor or health child care center assistant director as soon as p ossible: allergic reactions like skin rash, itching or hives, swelling of the face, lips, or tong ue changes in emotions or moods changes in vision depressed mood eye pain fever or chills, cough, sore throat, pain or difficulty passing urine increased thirst, call PCP if persists. May need treatment for diabetes. swelling of ankles, feet Side effects that usually do not require medical attention (report to your doctor or health child care center assistant director if they continue or are bothersome): confusion, [...] ta lk to your doctor or health child care center assistant director. You may need to miss a dose [...] this medicine? Visit your doctor or health child care center assistant director for regular checks on your progress. If [...] have surgery, tell your doctor or health child care center assistant director that you hav e taken this medicine within the last twelve months. Ask your doctor or health child care center assistant director about your diet. You may need to lower the amou nt of salt you eat. This medicine may affect blood sugar levels. If you have diabetes, check with your doctor o r health child care center assistant director before you change your diet or the dose of your diabetic medicine . NOTE:This sheet is a summary. It may not cover all possible information. If you have questi ons about this medicine, talk to your doctor, pharmacist, or health care provider. Copyright 2019 [employer] documented in this encounter Progress Notes Landon Denton MD - 11/07/2018 10:00 AM PDTFormatting of this note might be different f rom the original. Pulmonary Follow Up 11/07/2018 HPI Elinor Shelby is a 73 y.o. female patient of Ama Moreau PA-C here today for follow up of sarcoidosis. The patient is also known to have nodular bronchiectasis. It has been 2 weeks since our last clinic appointment. At their last visit, we instituted prednisone dose to 30 mg a day and Bactrim DS 3 times a week.. Since the last visit she feels like their symptoms are decreasing steadily. They have hav e not had any recent acute illnesses. They are currently on a regimen of Prednisone at 30 mg daily for their sarcoid. The patien t do not feel like this medication regimen is decreasing their sarcoid related symptoms. Using Bactrim 3 times per week. Currently they are able to walk 200 feet at their own pace on level ground. They are exerci sing regularly. Their exercise consists of pool walking and weights 4 times per week for 40 minutes. They are not enrolled in cardiac/pulmonary rehabilitation or other physical thera py. She does cough chronically, and does not produce mucous. They have not had hemoptysis since our last clinic appointment. Elinor does not wheeze chronically, and does not have chest tightness. The patient does not note side effects from their sarcoidosis medications. Specifically do es not have nausea, insomnia or polyuria. Increased appetite. Fuzzy in head NOS. She has not been evaluated for nocturnal oxygen. Elinor does not had symptoms of heartburn or reflux. Uses Prilosec. They have not had symptoms of nasal congestion, runny nose or post nasal drip. Today Elinor buitrago noted that she is drinking increased liquids in an attempt to control her yoni d intake. As a result the patient is noting polyuria. Specifically urinating every 90-120 minutes. I have asked her to consume a normal amount of liquid and if her polyuria continues to foll ow-up with Ms. Moreau for evaluation of possible steroid-induced diabetes. Past Medical History Past Medical History: Diagnosis [...] coughing)., Disp: 1 Inhaler, Rfl: 5 Evening [place] Oil 1000 MG CAPS, Take 1,000 mg by mouth Daily., Disp: , Rfl: FLOVENT DISKUS 100 MCG/BLIST diskus inhaler, inhale 1 puff into the lungs 2 times davie y., Disp: 1 Inhaler, Rfl: 2 [place]-3 Fatty Acids (OMEGA-3 FISH OIL) 1000 MG CAPS, Take 1,000 mg by mouth 2 times da donnell., Disp: , Rfl: omeprazole (PRILOSEC) 20 mg capsule, Take 20 mg by mouth every morning (before )., Disp: , Rfl: predniSONE (DELTASONE) 10 mg tablet, Take 3 tablets by mouth Daily., Disp: 90 tablet, Rfl: 2 pseudoePHEDrine (SUDAFED) 30 mg tablet, Take 30 mg by mouth every 6 hours as needed., Disp: , Rfl: 2 sulfamethoxazole-trimethoprim (BACTRIM DS) 800-160 mg per tablet, Take 1 tablet by Three times a week., Disp: 12 tablet, Rfl: 2 Immunizations: Immunization History Administered Date(s) Administered INFLUENZA 63 Y OR >, TRIVALENT HIGH-DOSE 05/03/2016, 05/22/2017, 05/14/2018 INFLUENZA PF 16 Y OR >,TRIVALENT RECOMBINANT 05/02/2012, 04/30/2013, 05/03/2014, 2014 INFLUENZA PF TRIVALENT(PED/ADOL/ADULT), PSKT 04/30/2013, 05/03/2014 PNEUMOCOCCAL CONJUGATE 13-VALENT (PCV13) 12/13/2016, 10/03/2017 PNEUMOCOCCAL POLYSACCHARIDE 23-VALENT (PPSV23) 08/22/2008 Objective BP 126/82 | Pulse 75 | Ht 1.575 m (5' 2") | Wt 73.6 kg (162 lb 4.1 oz) | SpO2 95% Comme nt: RA | BMI 29.68 kg/m Appearance: Alert, cooperative, no distress, appears [...] Gait normal Data: None Assessment 1. Sarcoidosis radiographic evidence of progressive pulmonary fibrosis thought to be se condary to sarcoidosis. 2 weeks ago we initiated prednisone in hopes that the patient's sym ptoms would improve. Over the last 2 weeks Elinor Buitrago has noted increased energy, decreased co ugh and mild improvement of her shortness of breath. Side effects from prednisone include increased appetite and potentially polyuria (see above ). We will maintain the patient's current dose of prednisone. If symptoms continue to improve will initiate a gradual prednisone taper in 2 weeks time. Anticipated duration of therapy 3-6 months. If it appears that the patient's symptoms worsen on lower doses of prednisone o r that she needs chronic prednisone I would consider the initiation of an agent such as meth otrexate. The patient is using 3 times a week Bactrim as part of the pneumocystis prophylaxis. 2. Hypoxemia mild oxygen desaturation was noted at the time of our last clinic appointme nt. I am hopeful that this is improved with prednisone. Repeat exertional oximetry with follow-up. 3. Nodular bronchiectasis not addressed during this clinic appointment. Total duration of the patient's clinic appointment was in excess of 30 minutes. Greater th an 50% of the time was spent discussing therapy of sarcoid/side effects of prednisone. Plan 1. Continue prednisone dose to 30 mg a day. 2. Exertional oximetry on room air. 3. Pulmonary clinic follow-up appointment in 2 weeks time. 4. A copy of this documentation will be forwarded to Ama HO to help facilitat e further evaluation of possible steroid-induced diabetes if polyuria persists. CC: Ama Moreau PA-C documented in this [...] [place] | | | | | | [id number] | | | | | | | | +--------+ + + + + | 08/15/ | Office | Pulmonology | Landon Denton, | | 2019 | Visit | | MD [address] | | | | | | [place] | | | | | | [id number] | | | | | | | [...]
--- OUTSIDE RECORDS SUMMARY | ~2019-07-31 | XMS | Clinical Summary ---
Demographics + + + | Address | [address] | | | [place] [address] | + + + | Home Phone | | + + + | Preferred Language | Unknown | + + + | Marital Status | | + + + | Tenriism Affiliation | Unknown | + + + | Race | Unknown | + + + | Ethnic Group | Unknown | + + + Author + + + | Author | [facility] | | | and [place] | + + + | Organization | [facility] [...] [place] | | | | | [address] | | + + + + + | Haylie Rg | ECON | [address] [facility] | | | | | [place] | | + + + + + Care Team Providers + +------+ + | Care Infection Prevention Practitioner Name | Role | Phone | + +------+ + | Ama Moreau | PCP | | | PAIan | | | + +------+ + Allergies No Known Allergies Medications + + + +---------+------+------+-------+ | Medication | Sig | Dispensed | Refills | Star | End | Statu | | | | | | t | Date | s | | | | | | Date | | | + + + +---------+------+------+-------+ | omeprazole | Take 20 mg by mouth | | 0 | | | Activ | | (PRILOSEC) 20 mg | every morning | | | | | e | | capsule | (before breakfast). | | | | | | + + + +---------+------+------+-------+ | Evening [place] | Take 1,000 mg by | | 0 | | | Activ | | Oil 1000 MG CAPS | mouth Daily. | | | | | e | + + + +---------+------+------+-------+ | pseudoePHEDrine | Take 30 mg by mouth | | 2 | 03/0 | | Activ | | (SUDAFED) 30 mg | every 6 hours as | | | 4/20 | | e | | tablet | needed. | | | 17 | | | + + + +---------+------+------+-------+ | albuterol (PROAIR | Inhale 2 puffs into | 1 | 5 | 11/0 | | Activ | | HFA) 90 mcg/puff | the lungs every 4 | Inhaler | | 5/20 | | e | | inhalerIndications: | hours as needed for | | | 18 | | | | Sarcoidosis | Shortness of Breath | | | | | | | | (or coughing). | | | | | | + + + +---------+------+------+-------+ | [place]-3 Fatty | Take 1,000 mg by | | 0 | | | Activ | | Acids (OMEGA-3 FISH | mouth Daily. | | | | | e | | OIL) 1000 MG CAPS | | | | | | | + + + +---------+------+------+-------+ | Multiple Vitamin | Take 2 tablets by | | 0 | | | Activ | | TABS | mouth Daily. | | | | | e | + + + +---------+------+------+-------+ | PEG | | | 0 | 09/2 | | Activ | | [id number]-NaCl- | | | | 5/20 | | e | | NaSulf (PEG | | | | 19 | | | | 3350/ELECTROLYTES) | | | | | | | | 240 g SOLR | | | | | | | + + + +---------+------+------+-------+ | predniSONE | Take 1.5 tablets by | 45 | 2 | 12/0 | | Activ | | (DELTASONE) 10 mg | mouth Daily. | tablet | | 5/20 | | e | | tabletIndications: | | | | 19 | | | | Sarcoidosis | | | | | | | + + + +---------+------+------+-------+ | ondansetron | | | 0 | 09/2 | 12/0 | Disco | | (ZOFRAN) 4 mg tablet | | | | 5/20 | 5/20 | ntinu | | | | | | 19 | 19 | ed | | | | | | | | (Mary | | | | | | | | ent | | | | | | | | Not | | | | | | | | Takin | | | | | | | | g) | + + + +---------+------+------+-------+ | predniSONE | Take 2 tablets by | 60 | 2 | 10/0 | 12/0 | Disco | | (DELTASONE) 10 mg | mouth Daily. | tablet | | 4/20 | 5/20 | ntinu | | tabletIndications: | | | | 19 | 19 | ed | | Sarcoidosis | | | | | | | + + + +---------+------+------+-------+ | | Take 1 tablet by | 12 | 1 | 10/2 | 12/0 | Disco | | sulfamethoxazole-tri | mouth Three times a | tablet | | 5/20 | 5/20 | ntinu | | methoprim (BACTRIM | week. | | | 19 | 19 | ed | | DS) 800-160 mg per | | | | | | | | tabletIndications: | | | | | | | | Sarcoidosis | | | | | | | + + + +---------+------+------+-------+ Active Problems + + + | Problem | Noted Date | + + + | Hypoxemia | 11/23/2018 | + + + | Bronchiectasis without complication | 10/03/2017 | + + + | Internal nasal lesion | 11/10/2015 | + + + + + | Overview: Left sided | + + + + + | Abnormal echocardiography | 11/01/2012 | + + + | Sarcoidosis | 01/06/2010 | + + + | Pulmonary nodules | | + + + + + | Overview: No change in follow up imaging last here 2010 | + + Resolved Problems + + + + | Problem | Noted | Resolved | | | Date | Date | + + + + | High risk medication use | 01/19/20 | | | | 19 | 9 | + + + + | Chronic cough | 11/16/19 | | | | 17 | 9 | + + + + | 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 | 07/30/20 | | | | 14 | 5 | + + + + | Chest heaviness | 02/19/20 | | | | 14 | 5 | + + + + | Dyspnea | 02/19/20 | | | | 14 | 5 | + + + + | Other nonspecific abnormal finding of lung field | | | | | | 3 | + + + + | Lymphadenopathy | | | | | | 3 | + + + + | CHEST XRAY, ABNORMAL | | | | | | 3 | + + + + | Sarcoid | | | | | | 3 | + + + + Encounters +--------+ + + + + | Date | Type | Specialty | Care Team | Description | +--------+ + + + + | 07/04/ | Office | Pulmonology | Landon Denton, | Sarcoidosis (HCC) | | 2018 | Visit | | MD | (Primary Dx); | | | | | | Bronchiectasis | | | | | | without complication | | | | | | (HCC) | +--------+ + + + + | 05/24/ | Office | Pulmonology | Landon Denton, | Sarcoidosis (HCC) | 2018 | Visit | | MD | (Primary Dx); | | | | | | Hypoxemia; Pulmonary | | | | | | nodules; | | | | | | Bronchiectasis | | | | | | without complication | | | | | | ([facility]) | +--------+ + + + + | 05/03/ | Office | Pulmonology | Landon Denton, | Sarcoidosis ([facility]) | | 2019 | Visit | | MD | (Primary Dx); | | | | | | Hypoxemia | +--------+ + + + + | 05/03/ | Hospital | Pulmonology | Landon Denton, | Sarcoidosis ([facility]); | | 2018 | Encounter | | MD | Bronchiectasis | | | | | | without complication | | | | | | ([facility]) | +--------+ + + + + from Last 3 Months Immunizations + + + + | Name | Administration Dates | Next Due | + + + + | INFLUENZA 63 Y OR >, | 05/14/2019, 05/14/2018, 05/22/2017, | | | TRIVALENT HIGH-DOSE | 05/03/2016 | | + + + + | INFLUENZA PF 16 Y OR | 05/13/2015, 05/03/2014, 04/30/2013, | | | >,TRIVALENT | 05/02/2012 | | | RECOMBINANT | | | + + + + | INFLUENZA PF | 05/03/2014, 04/30/2013 | | | TRIVALENT(PED/ADOL/A | | | | DULAileen)VERONICAKT | | | + + + + | PNEUMOCOCCAL | 10/03/2017, 12/13/2016 | | | CONJUGATE 13-VALENT | | | | (PCV13) | | | + + + + | PNEUMOCOCCAL | 08/22/2008 | | | POLYSACCHARIDE | | | | 23-VALENT (PPSV23) | | | + + + + Family History + + +------+ + | Medical History | Relation | Name | Comments | + + +------+ + | Alzheimer's disease | Brother | | | + + +------+ + | Cancer | Father | | prostate | + + +------+ + | Other (see comment) | Mother | | "arteries in the brain breaking" | + + +------+ + | Alzheimer's disease | Sister | | | + + +------+ + | Ovarian cancer | Sister | | | + + +------+ + | Heart surgery | Sister | | | + + +------+ + + +------+ + + | Relation | Name | Status | Comments | + +------+ + + | Brother | | Alive | | + +------+ + + | Father | | | | + +------+ + + | Mother | | | | + +------+ + + | Sister | | Alive | | + +------+ + + | Sister | | Alive | | + +------+ + + | Sister | | Alive | | + +------+ + + | Sister | | | | + +------+ + + | Sister | | | lung disease | + +------+ + + Social History + +-------+ +--------+------+ [...] | + + Last Filed Vital Signs + + + [...] + + + | Respiratory Rate | 20 | 10/17/2018 9:17 AM | | | | | PDT [...] | | + + + + + Plan of Treatment +--------+ + + + + | Date | Type | Specialty | Care Team | Description | +--------+ + + + + | 08/15/ | Appointment | Pulmonology | Landon Denton, | | | 2019 | | | MD [address] | | | | | | [place] | | | | | | [phone] | | | | | | | | +--------+ + + + + | 08/15/ | Office | Pulmonology | Landon Denton, | | | 2019 | Visit | | MD [address] | | | | | | [place] | | | | | | [phone] | | | | | | | | +--------+ + + + + + + + + + | Health Maintenance | Due Date | Last Done | Comments | + + + + + | Vaccine: | | | | | Dtap/Tdap/Td (1 - | 4 | | | | Tdap) | | | | + + + + + | Vaccine: Zoster (1 | | | | | of 2) | 3 | | | + + + + + | Breast Cancer | | | | | Screening | 8 | | | + + + + + | Adult Annual | | | | | Wellness Visit | 5 | | | + + + + + | Vaccine: | Completed | 10/03/2017, 12/13/2016, | | | Pneumococcal 65+ | | 08/22/2008 | | + + + + + | Vaccine: Influenza | Completed | 05/14/2019, 05/14/2018, | | | | | 05/22/2017, Additional history | | | | | exists | | + + + + + Procedures + +--------+ + + + | Procedure Name | Priori | Date/Time | Associated Diagnosis | Comments | | | ty | | | | + +--------+ + + + | PFT PULMONARY | SERENITY | 05/03/2019 | Sarcoidosis (HCC) | Results for this | | FUNCTION TESTING | | 2:46 PM | Bronchiectasis | procedure are in the | | ORDERS | | PDT | without complication | results section. | | | | | (HCC) | | + +--------+ + + + | PFT PULMONARY | SERENITY | 05/03/2019 | Sarcoidosis (HCC) | Results for this | | FUNCTION TESTING | | 2:46 PM | Bronchiectasis | procedure are in the | | ORDERS | | PDT | without complication | results section. | | | | | (HCC) | | + +--------+ + + + | PFT PULMONARY | SERENITY | 05/03/2019 | Sarcoidosis (HCC) | Results for this | | FUNCTION TESTING | | 2:46 PM | Bronchiectasis | procedure are in the | | ORDERS | | PDT | without complication | results section. | | | | | (HCC) | | + +--------+ + + + from Last 3 Months Results Pulmonary function test spirometry w/diffusion; home [...] Landon Denton MD, | | | 05/03/2019 14:46[facility] | | |corrected for measured hemoglobin. | | | | | |Compared to pulmonary function test performed 10/17/2018 the | | |patient's forced vital capacity has increased 9%. Compared to | | |pulmonary function test performed 04/04/2017 the uncorrected DLCO | | |has decreased 7%. | | | | | |Test performed: 05/03/2019 | | |Electronically signed by: Landon Detnon MD, 05/03/2019 | | |14:46 | | |[facility] | | + + + from Last 3 Months Insurance + +--------+ +--------+-------+---------+--------+ | Payer | Benefi | Subscriber | Effect | Phone | Address | Type | | | t Plan | ID | sanjuana | | | | | | / | | Dates | | | | | | Group | | | | | | + +--------+ +--------+-------+---------+--------+ | [facility] | [facility] | [id number] | 07/31/19 | | | Medica | | MEDICARE PPO | HEALTH | | 19-Pre | | | re | | | CARE | | sent | | | | | | MDCR | | | | | | | | PPO | | | | | | + +--------+ +--------+-------+---------+--------+ + +--------+ +--------+ + + | Guarantor Name | Accoun | Relation to | Date | Phone | Billing Address | | | t Type | Patient | of | | | | | | | | | | + +--------+ +--------+ + + | Elinor Shelby | Person | Self [birth year] | [address] | | | al/Fam | | 1945 | [phone] | [place] [address] | | | [place] | | | 8 (Home) | | + +--------+ +--------+ + + Advance Directives + + + + + | Type | Date Recorded | Patient | Explanation | | | | User Experience Manager | | + + + + + | Power of | | | | | Drum Tester | | | | + + + + + | Advance | 02/18/2014 10:16 | | | | Directive | AM | | | + + + + +
--- OUTSIDE RECORDS SUMMARY | ~2019-07-31 | XMS | Encounter Summary ---
Demographics + + + | Address | [address] | | | [place] [address] | + + + | Home Phone | | + + + | Preferred Language | Unknown | + + + | Marital Status | | + + + | Cheondoism Affiliation | Unknown | + + + | Race | Unknown | + + + | Ethnic Group | Unknown | + + + Author + + + | Author | [facility] | | | and [place] | + + + | Organization | [facility] | | | and [place] [...] [place] | | | | | [address] | | + + + + + | Haylie Rg | ECON | [address] [facility] [address] | | | | | [place] | | + + + + + Care Team Providers + +------+ + | Care Sql Ssrs Developer Name | Role | Phone | [...] + + | 07/18/ | Telephone | [facility] | Landon Denton, | Other (Prednisone) | | 2013 | | PULMONARY [address] | MD [address] | | | | | [place], | [place], [place] | | | | | [place] [address] | [address] | | | | | [phone] | | | +--------+ + + + [...] [place] | | | | | | [address] | | | | | | | [...]
--- OUTSIDE RECORDS SUMMARY | ~2019-07-31 | XMS | Encounter Summary ---
Demographics + + + | Address | [address] | | | [place] [address] | + + + | Home Phone [...] Author | [facility] | | | and [place] | + + + | Organization | [facility] | | | and [...] [place] | | | | | [address] | | + + + + + | Haylie Rg | ECON | [address] [facility] | | | | | [place] | | + + + + + Care Team Providers + +------+ + | Care Securities Broker Name | Role | Phone | + +------+ + | Ama Moreau | PCP | | | MIYA | | | + +------+ + Encounter Details +--------+ + + + + | Date | Type | Department | Care Team | Description | +--------+ + + + + | 01/18/ | Hospital | [facility] | Landon Denton, | Sarcoidosis (HCC) | | 2019 | Encounter | [facility] CTR PULMON[facility] | MD [address] | | | | | FUNCTION [address] | [place], [place] | | | | | [place], | [address] | | | | | [place] [address] | | | | | | [phone] | | | +--------+ + + + [...] + + +---------+ + + | Evening [place] | Take 1,000 mg by | | 0 | | | | Oil 1000 MG CAPS | mouth Daily. | | | | | + + + +---------+ + + | Multiple Vitamin | Take 2 tablets by | | 0 | | | | TABS | mouth Daily. | | | | | + + + +---------+ + + | [place]-3 Fatty | Take 1,000 mg by | [...] + + + +---------+ + + | folic acid 1 mg | Take 1 tablet by | 30 | 5 | 12/20/19 | | | tablet | mouth Daily. | tablet | | 19 | 9 | + + + +---------+ + + | methotrexate 2.5 | Take 3 tablets by | 90 | 1 | 12/20/19 | | | mg | mouth Once a week. | tablet | | 19 | 9 | | tabletIndications: | Indications: Other | | | | | | OTHER NON-ONCOLOGY, | Non-Oncology, | | | | | | Sarcoid | Sarcoid | | | | | + + + +---------+ + + | predniSONE | Take 1 tablet by | 30 | 2 | 01/19/20 | | | (DELTASONE) 10 mg | mouth Daily. | tablet | | 19 | 9 | | tabletIndications: | | | | | | | Sarcoidosis | | | | | | + + + +---------+ + + | | Take 1 tablet by | 12 | 3 | 01/22/20 | | | sulfamethoxazole-tri | mouth Three times a | tablet | | 19 | 9 | | methoprim (BACTRIM | week. | | | | | | DS) 800-160 mg per | | | | | | | tablet | | | | | | + + + +---------+ + + | | Take 1 tablet by | | 0 | | | | sulfamethoxazole-tri | mouth Three times a | | | | 9 | | methoprim (BACTRIM | week. | | | | | | DS) 800-160 mg per | | | | | | | tablet | | | | [...] [place] | | | | | | [address] | | | | | | | | +--------+ + + + + | 08/15/ | Office | Pulmonology | Landon Denton, | | | 2019 | Visit | | MD [address] | | | | | | [place] | | | | | | [address] | | | | | | | | +--------+ + + + + documented as of this encounter Procedures + +--------+ + + + | Procedure Name | Priori | Date/Time | Associated Diagnosis | Comments | | | ty | | | | + +--------+ + + + | CBC WITH | Routin | 01/18/2019 | Sarcoidosis (HCC) | Results for this | | DIFFERENTIAL | e | 12:47 PM | | procedure are in the | | | | PDT | | results section. | + +--------+ + + + | HEPATIC FUNCTION | Routin | 01/18/2019 | Sarcoidosis (HCC) | Results for this | | PANEL | e | 12:47 PM | | procedure are in the | | | | PDT | | results section. | + +--------+ + + + | PFT PULMONARY | SERENITY | 01/18/2019 | Sarcoidosis (HCC) | | | FUNCTION TESTING | | 12:00 PM | | | | ORDERS | | PDT | | | + +--------+ + + + documented in this encounter Results Hepatic Function Panel (01/18/2019 12:47 PM PDT) + +-------+ + + + | Component | Value | Ref Range | Performed | Pathologist | | | | | At | Signature | + +-------+ + + + | Bilirubin | 0.4 | 0.3 - 1.2 mg/dL | [facility] | | | Total | | | [facility] | | [facility] | | [facility] | | | | [facility] - | | | | | | LAB[facility]ATORY | | + +-------+ + + + | Total | 7.4 | 5.7 - 8.2 g/dL | [facility] | | | Protein | | | [facility] | | | | | | [facility] | | | | | | [facility] - | | | | | | LABORATORY | | + +-------+ + + + | Albumin | 4.5 | 3.2 - 4.8 g/dL | [facility] | | | | | | [facility] | | | | | | [facility] | | | | | | [facility] - | | | | | | LABORATORY | | + +-------+ + + + | AST | 28 | 0 - 34 U/L | [facility] | | | | | | [facility] | | | | | | [facility] | | | | | | [facility] - | | | | | | LABORATORY | | + +-------+ + + + | ALT | 38 | 10 - 49 U/L | [facility] | | | | | | [facility] | | [facility] | | [facility] | | | | | | [facility] - | | | | | | LABORATORY | | + +-------+ + + + | Alkaline | 57 | 46 - 116 U/L | [facility] | | | Phosphatase | | | [facility] | | | | | | [facility] | | | | | | [facility] - | | | | | | LABORATORY | | + +-------+ + + + | Globulin | 2.9 | 2.1 - 3.8 g/dL | [facility] | | | | | | [facility] | | | | | | [facility] | | | | | | [facility] - | | | | | | LABORATORY | | + +-------+ + + + | Albumin/Helen | 1.6 | 0.8 - 1.9 | [facility] | | | bulin Ratio | | | [facility] | | | | | | [facility] | | | | | | [facility] - | | | | | | LABORATORY | | + +-------+ + + + | Bilirubin, | 0.10 [...] | + + + + + | [facility] | [address] | [place] | [phone] | | [facility] | | [address] | | | - LABORATORY | | | | + + + + + CBC with Differential (01/18/2019 12:47 PM PDT) + + + + + + | Component | Value | Ref Range | Performed | Pathologist | | | | | At | Signature | + + + + + + | WBC | 11.3 (H) | 4.0 - 11.0 K/uL | [facility] | | | | | | [facility] | | | | | | [facility] | | | | | | [facility] - | | | | | | LABORATORY | | + + + + + + | RBC | 4.90 | 3.70 - 5.20 | [facility] | | | | | M/uL | [facility] | | | | | | [facility] | | | | | | C[facility] - | | | | | | LABORATORY | | + + + + + + | Hemoglobin | 15.2 | 11.5 - 16.0 | [facility] | | | | | g/dL | [facility] | | | | | | [facility] | | | | | | CENTER - | | | | | | LABORATORY | | + + + + + + | Hematocrit | 46.6 | 34.0 - 47.0 % | [facility] | | | | | | [facility] | | | | | | [facility] | | | | | | [facility] - | | | | | | LABORATORY | | + + + + + + | MCV | 95.1 | 83.0 - 101.0 fL | [facility] | | | | | | [facility] | | | | | | [facility] | | | | | | [facility] - | | | | | | LABORATORY | | + + + + + + | MCH | 31.0 | 28.0 - 35.0 pg | [facility] | | | | | | [facility] | | | | | | [facility] | | | | | | C[facility] - | | | | | | LABORATORY | | + + + + + + | MCHC | 32.6 | 32.0 - 36.0 | [facility] | | | | | g/dL | [facility] | | | | | | [facility] | | | | | | C[facility] - | | | | | | LABORATORY | | + + + + + + | RDW-CV | 15.3 (H) | <15.0 % | [facility] | | | | | | [facility] | | | | | | [facility] | | | | | | [facility] - | | | | | | LABORATORY | | + + + + + + | RDW-SD | 53.5 (H) | 35.1 - 46.3 fL | [facility] | | | | | | [facility] | | | | | | [facility] | | | | | | [facility] - | | | | | | LABORATORY | | + + + + + + | Platelet | 267 | 140 - 440 K/uL | [facility] | | | Count | | | [facility] | | | | | | [facility] | | | | | | [facility] - | | | | | | LABORATORY | | + + + + + + | MPV | 9.0 | 6.5 - 12.4 fL | [facility] | | | | | | [facility] | | | | | | [facility] | | | | | | [facility] - | | | | | | LABORATORY | | + + + + + + | % | 88.8 (H) | 45.0 - 82.0 % | [facility] | | | Neutrophils | | | [facility] | | | | | | [facility] | | | | | | CENTER - | | | | | | LABORATORY | | + + + + + + | % | 8.5 (L) | 20.0 - 45.0 % | [facility] | | | Lymphocytes | | | [facility] | | | | | | [facility] | | | | | | CENTER - | | | | | | LABORATORY | | + + + + + + | % Monocytes | 1.7 (L) | 4.0 - 12.0 % | [facility] | | | | | | [facility] | | | | | | [facility] | | | | | | CENTER - | | | | | | LABORATORY | | + + + + + + | % | 0.1 | 0.0 - 5.0 % | [facility] | | | Eosinophils | | | [facility] | | | | | | [facility] | | | | | | CENTER - | | | | | | LABORATORY | | + + + + + + | % Basophils | 0.4 | 0.0 - 1.0 % | [facility] [...] + + + + | Absolute | 10.06 (H) | 1.80 - 8.50 | [facility] | | | Neutrophils | | K/uL | [facility] | | | | | | [facility] | | | | | | CENTER - | | | | | | LABORATORY | | + + + + + + | Absolute | 0.96 | 0.60 - 3.20 | [facility] | | | Lymphocytes | | K/uL | [facility] | | | | | | [facility] | | | | | | CENTER - | | | | | | LABORATORY | | + + + + + + | Absolute | 0.19 | 0.00 - 1.00 | [facility] | | | Monocytes | | K/uL | [facility] | | | | | | [facility] | | | | | | CENTER - | | | | | | LABORATORY | | + + + + + + | Absolute | 0.01 | 0.00 - 0.40 | [facility] | | | Eosinophils | | K/uL | [facility] | | | | | | [facility] | | | | | | CENTER - | | | | | | LABORATORY | | + + + + + + | Absolute | 0.04 | 0.00 - 0.10 | [facility] | | | Basophils | | K/uL | [facility] | | | | | | MEDICAL | | | | | | CENTER - | | | | | | LABORATORY | | + + + + + + | Absolute | 0.06 (H) | 0.00 - 0.03 | [facility] | | | Immature | | K/uL | [facility] | | | Granulocyte | | | MEDICAL | | | s | | | CENTER - | | | | | | LABORATORY | | + + + + + + | % nRBC | 0 | 0 - 2 per 100 | [facility] | | | | | WBCs | [facility] | | | | | | MEDICAL | | | | | | CENTER - | | | | | | LABORATORY | | + + + + + + | Absolute | 0.00 | 0.00 - 0.01 | [facility] | | | nRBC | | K/uL | [facility] | | | | [...] | + + + + + | [facility] | [address] | [place] | [phone] | | [facility] | | [address] | | | - LABORATORY | | | | + + + + + documented in this encounter Visit Diagnoses + + | Diagnosis | + + | Sarcoidosis (HCC) Sarcoidosis | + + documented in this encounter"
--- OUTSIDE RECORDS SUMMARY | ~2019-07-31 | XMS | Encounter Summary ---
Demographics + + + | Address | [address] | | | [place] [address] | + + + | Home Phone [...] + | Author | [facility] | | | and [place] | + + + | Organization | [facility] | | | and [...] [place] | | | | | [address] | | + + + + + | Haylie Rg | ECON | [address] [facility] | | | | | [place] | | + + + + + Care Team Providers + +------+ + | Care Cardiopulmonary Supervisor Name | Role | Phone | + +------+ + | Blayne Herrera DO | PCP | | + +------+ + Encounter Details +--------+ + + + + | Date | Type | Department | Care Team | Description | +--------+ + + + + | 08/01/ | Hospital | [facility] | Conversion | Pain | | 2018 | Encounter | CONVERSION [address] | Transaction, | | | | | [address] | Provider Unknown | | | | | [place] | [phone] | | | | | [address] | | | | | | [phone] | | | +--------+ + + + [...] + + +---------+ + + | Evening [place] | Take 1,000 mg by | | [...] [place] | | | | | | [address] | | | | | | | | +--------+ + + + + | 08/15/ | Office | Pulmonology | Landon Denton, | | | 2019 | Visit | | MD [address] | | | | | | [place] | | | | | | [address] | | | | | | | | +--------+ + + + + documented as of this encounter Procedures + +--------+ + + + | Procedure Name | Priori | Date/Time | Associated Diagnosis | Comments | | | ty | | | | + +--------+ + + + | CT ANGIOGRAM | Routin | 11/15/2009 | | Results for this | | PULMONARY | e | 10:15 AM | | procedure are in the | | | | PDT | | results section. | + +--------+ + + + documented in this encounter Results CT Angiogram Pulmonary w Contrast (11/15/2009 10:15 AM PDT) + + | Specimen | [...]
--- OUTSIDE RECORDS SUMMARY | ~2019-07-31 | XMS | Encounter Summary ---
Demographics + + + | Address | [address] | | | [place] [address] | + + + | Home Phone | | + + + | Preferred Language | Unknown | + + + | Marital Status | | + + + | Mu-Ism Affiliation | Unknown | + + + | Race | Unknown | + + + | Ethnic Group | Unknown | + + + Author + + + | Author | [facility] | | | and [place] | + + + | Organization | [facility] | | | and [...] [place] | | | | | [address] | | + + + + + | Haylie Rg | ECON | [address] [facility] | | | | | [place] | | + + + + + Care Team Providers + +------+ + | Care Cushion Spring Assembler Name | Role | Phone | + +------+ + | Blayne Rubi DO | PCP | | + +------+ + Reason for Visit + + + | Reason | Comments | + + + | New Patient | sore inside the nose | + + + Evaluate & Treat [...] | | | | behavior of | ARELIGATE | [address] | | | | | other | [address] | [place], | | | | | respiratory | [place], | [place] [address] | | | | | organs | [place] [address] | Phone: | | | | | Procedures | Phone: | [phone] | | | | | Office Visit | [phone] | Fax: | | | | | | Fax: | [phone] | | | | | | [phone] | | +--------+--------+ + + + + Encounter Details +--------+---------+ + + + | Date | Type | Department | Care Team | Description | +--------+---------+ + + + | 11/24/ | Office | [facility] | Darien Galvan MD | Nasal vestibulitis | | 2015 | Visit | OTOLARYNGOLOGY [address] | [address] [place] | (Primary Dx) | | | | [address] | [address] [place], | | | | | [place] | [place] [address] | | | | | [address] | [phone] | | | | | [phone] | | | +--------+---------+ + + + [...] + + + + | Pulse | 82 | 11/25/2015 3:12 PM | | | | | PDT | | + + + + + | Temperature | - | - | | + + + + + | Respiratory Rate | - | - | | + + + + + | Oxygen Saturation | 97% | 11/25/2015 3:12 PM | | | | | PDT | | + + + + + | Inhaled Oxygen | - | - | | | Concentration | | | | + + + + + | Weight | 72.6 kg (160 lb) | 11/25/2015 3:12 PM | | | | | PDT | | + + + + + | Height | 154.9 cm (5' 1") | 11/25/2015 3:12 PM | | | | | PDT | | + + + + + | Body Mass Index | 30.23 | 11/25/2015 3:12 PM | | | | | PDT | | + + + + + documented in this encounter Progress Notes Darien Galvan MD - 11/25/2015 3:35 PM PDT [facility] OTOLARYNGOLOGY [address] [facility] [address] OFFICE NOTE DARIEN GALVAN MD Patient: ELINOR STACK Admitting: MR #: [id number] LOC: PT TYPE: Adm Date: 11/25/2015 : 1945 NEW PATIENT VISIT DATE OF VISIT: 11/25/2015 The patient has a sore on the left side of her nose that does not seem to heal up. It has been there for quite some time. 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 She often gets a crust out of the left side of the nose and very often with this, there is some bleeding. Not having any other problems. The examination shows an alert 70-year-old female patient. She is communicating well. He r voice quality is good. Skin of the face, nose, and ears all appears to be healthy. Her parotid, submandibular gland areas are smooth. Facial movement is symmetric, without any w eakness noted. Ear canals are open, they are clean. Drums are clear. No middle ear effu fly or abnormality noted. Floor of the mouth, buccal mucosa, hard palate, teeth, lips, an d gums are healthy. No mass seen in the oropharynx and posterior pharyngeal wall is smooth . Tongue and soft palate are smooth and move symmetrically. Neck: There are no masses or lymphadenopathy. Thyroid gland is smooth. Trachea is midline. Good range of motion of the neck without any pain or discomfort noted. Right nasal passage: There is no crusting, no mass or lesion noted. There is a small whitish, dimpled area, or a question if she may have a tiny perforation through the septum in this area. On the lefthand side, there is a fairly good-sized crust. It is quite reddened and irritated on the backside of the crust . It is firmly attached to the septum in the vestibule area. No other mass or lesions or abnormalities are noted. There are no elevated edges. 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 PLAN: The patient is given a prescription of Diprolene ointment, to put the ointment on i n the morning on a daily basis, and then put vitamin A and D ointment on it in the evening and see if this will finally soften everything up and hopefully make it heal. She will be seen again back in 3-4 weeks' time. DARIEN GALVAN MD Dictated by DARIEN GALVAN MD 11/25/2015 15:35:48 Transcribed on 11/26/2015 08:29:29 by dori job# [id number] Confirmation #: [id number] cc: IVAN RUBI DO [facility], Darien Downey MD - 11/25/2015 3:32 PM PDTSee dictation # [id number] signed by Darien Galvan MD at 11/25/2015 3:37 PM PDTdocumented in thi s encounter Plan of Treatment +--------+ + + + + | Date | Type | Specialty | Care Team | Description | +--------+ + + + + | 08/15/ | Appointment | Pulmonology | Landon Denton, | | | 2019 | | | MD [address] | | | | | | [place] | | | | | | [address] | | | | | | | | +--------+ + + + + | 08/15/ | Office | Pulmonology | Landon Denton, | | 2019 | Visit | | MD [address] | | | | | | [place] | | | | | | [address] | | | | | | | | +--------+ + + + + documented as of this encounter Visit Diagnoses + + | Diagnosis | + + | Nasal vestibulitis - Primary Other diseases of nasal cavity and sinuses | + + documented in this encounter
--- OUTSIDE RECORDS SUMMARY | ~2019-07-31 | XMS | Encounter Summary ---
Demographics + + + | Address | [address] | | | [place] [address] | + + + | Home Phone [...] + | Author | [facility] | | | and [place] | + + + | Organization | [facility] | | | and [place] [...] [place] | | | | | [address] | | + + + + + | Haylie Rg | ECON | [address] [facility] | | | | | [place] | | + + + + + Care Team Providers + +------+ + | Care Cardiac Cath Technologist Name | Role | Phone | + +------+ + | Ama Moreau | PCP | | | PAIan | | | + +------+ + Reason for Visit + + + | Reason | Comments | + + + | Bronchiectasis | 1 mo follow up | + + + Encounter Details +--------+---------+ + + + | Date | Type | Department | Care Team | Description | +--------+---------+ + + + | 12/19/ | Office | [facility] | Landon Denton, | Sarcoidosis (HCC) | | 2019 | Visit | PULMONARY [address] | MD [address] | (Primary Dx) | | | | [place], | [place] | | | | | [place] [address] | [phone] | | | | | [phone] | | | +--------+---------+ + + + [...] + + + | Blood Pressure | 136/82 | 12/19/2018 9:54 AM | | | | | PDT | | + + + + + | Pulse | 76 | 12/19/2018 9:54 AM | | | | | PDT | | + + + + + | Temperature | - | - | | + + + + + | Respiratory Rate | - | - | | + + + + + | Oxygen Saturation | 94% | 12/19/2018 9:54 AM | RA | | | | PDT | | + + + + + | Inhaled Oxygen | - | - | | | Concentration | | | | + + + + + | Weight | 77.2 kg (170 lb 3.1 | 12/19/2018 9:54 AM | | | | oz) | PDT | | + + + + + | Height | 157.5 cm (5' 2") | 12/19/2018 9:54 AM | | | | | PDT | | + + + + + | Body Mass Index | 31.13 | 12/19/2018 9:54 AM | | | | | PDT | | + + + + + documented in this encounter Patient Instructions Patient Instructions Landon D[place] MD - 12/19/2018 10:00 AM PDT Methotrexate tablets Brand Names: Rheumatrex, [...] to take special precautions. Talk to your building carpenter helper regarding the use of this medicine in children. While this drug m ay be prescribed for selected conditions, precautions do apply. What side effects may I notice from receiving this medicine? Side effects that you should report to your doctor or health morning caregiver as soon as p ossible: allergic reactions [...] attention (report to your doctor or health morning caregiver if they continue or are bothersome): dizziness [...] dose, talk with your doctor or health morning caregiver. Do not take double o r extra [...] this medicine. Call your doctor or health morning caregiver for advice if you get a fever, [...] bleeding. Check with your doctor or health morning caregiver if you get an attack of severe [...] an unborn child. Talk to your health morning caregiver or pharmacist for more information. Do not breast-feed an i nfant while taking this medicine. NOTE:This sheet is a summary. It may not cover all possible information. If you have questi ons about this medicine, talk to your doctor, pharmacist, or health care provider. Copyright 2019 [employer] documented in this encounter Progress Notes Landon Denton MD - 12/19/2018 10:00 AM PDTFormatting of this note might be different f rom the original. Pulmonary Follow Up 12/19/2018 [facility] Elinor Shelby is a 73 y.o. female patient of Ama Moreau PA-C here today for follow up of sarcoidosis. It has been 1 month since our last clinic appointment. At their last visit, we decreased t he patient's prednisone to 25 mg a day. Since the last visit she feels like their symptoms are stable. They have have not had any recent acute illnesses. They are currently on a regimen of Prednisone 25mg for their sarcoid. The patient do feel like this medication regimen is decreasing their sarcoid related symptoms. Currently they are able to walk an unknown at their own pace on level ground. They are not exercising regularly. Pool issues. Their exercise consists of walking. They are not enrol led in cardiac/pulmonary rehabilitation or other physical therapy. She does cough chronically in the morning and does not produce mucous. They have not had he moptysis since our last clinic appointment. Elinor does not wheeze chronically, and does not have chest tightness. The patient does note side effects from their sarcoidosis medications. Increased appetite. Specifically does have some insomnia but not polyuria. She has not been evaluated for nocturnal oxygen. Elinor does not had symptoms of heartburn or reflux. They have not had symptoms of nasal conges tion, runny nose or post nasal drip. No new side effects to prednisone. Past Medical History Past Medical History: Diagnosis [...] coughing)., Disp: 1 Inhaler, Rfl: 5 Evening [place] Oil 1000 MG CAPS, Take 1,000 mg by mouth Daily., Disp: , Rfl: FLOVENT DISKUS 100 MCG/BLIST diskus inhaler, INHALE ONE PUFF BY MOUTH TWICE DAILY , Di sp: 1 Inhaler, Rfl: 3 Multiple Vitamin TABS, Take 2 tablets by mouth Daily., Disp: , Rfl: [place]-3 Fatty Acids (OMEGA-3 FISH OIL) 1000 MG CAPS, Take 1,000 mg by mouth 2 times da donnell., Disp: , Rfl: omeprazole (PRILOSEC) 20 mg capsule, Take 20 mg by mouth every morning (before st)., Disp: , Rfl: predniSONE (DELTASONE) 10 mg tablet, Take 2.5 tablets by mouth Daily., Disp: 68 tablet , Rfl: 2 pseudoePHEDrine (SUDAFED) 30 mg tablet, [...] PNEUMOCOCCAL POLYSACCHARIDE 23-VALENT (PPSV23) 08/22/2008 Objective BP 136/82 | Pulse 76 | Ht 1.575 m (5' 2") | Wt 77.2 kg (170 lb 3.1 oz) | SpO2 94% Comme nt: RA | BMI 31.13 kg/m Appearance: Alert, cooperative, no distress, appears stated age Head: Normocephalic, without obvious abnormality, atraumatic Eyes: PERRL, conjunctiva/corneas clear Nose: Nares normal, septum midline, mucosa normal, no drainage or sinus tenderness Throat: Lips, mucosa, and tongue normal; teeth/dentures normal Neck: Supple, symmetrical, no JVD Lungs: No accessory muscle use, breath sounds reveal inspiratory crackles in the bases bi laterally, no wheezes, crackles or rhonchi. No dullness to percussion. Chest Wall: No tenderness or deformity Heart: Regular rate and rhythm, S1, S2 normal, no murmur, rub or gallop Extremities: Extremities normal, atraumatic, no cyanosis, clubbing. none edema. No joint s welling. Skin: Warm and dry. No rashes. Lymph nodes: Cervical and supraclavicular nodes normal Neurologic: Gait normal Data: Lab Results Component Value Date WBC 6.8 10/17/2018 RBC 4.54 10/17/2018 HGB 13.9 10/17/2018 HCT 41.5 10/17/2018 MCV 91.4 10/17/2018 PLT 196 10/17/2018 No results found for: ASTEX, AST No results found for: ALTEX, ALT Assessment 1. Sarcoidosis stable symptoms with gradual decrease in prednisone. Patient's prednison e dose is currently 25 mg a day. Ms. Shelby is using 3 times a week Bactrim as part of PCP prophylaxis. Today we discussed initiation of methotrexate. The patient understands the risk benefits a nd alternatives to methotrexate. She is interested in proceeding. Folic acid will be used to decrease the risk of toxicity associated with methotrexate. The patient is in need of assessment of liver function test today. She will need a CBC and rajeev er function tests and follow-up in 4 weeks. Further lowering of the patient's prednisone dose seems reasonable. Total duration the patient's clinic appointment was in excess of 30 minutes. Greater than 50% of time was spent in counseling related to steroid sparing agents for sarcoidosis. Plan 1. Initiate methotrexate 2.5 mg tablets, 3 tablets once weekly. 2. Folic acid 1 mg p.o. daily. 3. Decrease prednisone to 20 mg a day. 4. Continue with 3 times a week Bactrim. 5. Liver function test today. 6. Pulmonary clinic follow-up appointment in 4 weeks time. 7. Walking oximetry with follow-up. So walking oximetry on Mrs. Shelby when she comes back CC: Ama Moreau PA-C documented in this encounter Plan of Treatment +--------+ + + + + | Date | Type | Specialty | Care Team | Description | +--------+ + + + + | 08/15/ | Appointment | Pulmonology | Landon Denton, | | | 2019 | | | MD [address] | | | | | | [place] | | | | | | [id number] | | | | | | | | +--------+ + + + + | 08/15/ | Office | Pulmonology | Landon Denton, | | | 2019 | Visit | | [address] | | | | | | [place] | | | | | | [address] | | | | | | | | +--------+ + + + + documented as of this encounter Procedures + +--------+ + + + | Procedure Name | Priori | Date/Time | Associated Diagnosis | Comments | | | ty | | | | + +--------+ + + + | HEPATIC FUNCTION | Routin | 12/19/2018 | Sarcoidosis (HCC) | Results for this | | PANEL | e | 10:33 AM | | procedure are in the | | | | PDT | | results section. | + +--------+ + + + documented in this encounter Results Hepatic Function Panel (12/19/2018 10:33 AM PDT) + +-------+ + + + [...] +-------+ + + + | Total | 7.1 | 5.7 - 8.2 g/dL | [facility] | | | Protein | | | [facility] | | | | | | [facility] | | | | | [facility] - | | | | | | LABORATORY | | + +-------+ + + + | Albumin | 4.3 | 3.2 - 4.8 g/dL | [facility] | | | | | | [facility] | | | | | | [facility] | | | | | | C[facility] - | | | | | | LABORATORY | | + +-------+ + + + | AST | 24 | 0 - 34 U/L | [facility] | | | | | | [facility] | | | | | | [facility] | | | | | | CENTER - | | | | | | LABORATORY | | + +-------+ + + + | ALT | 29 | 10 - 49 U/L | [facility] [...] +-------+ + + + | Globulin | 2.8 | 2.1 - 3.8 g/dL | [facility] | | | | | | [facility] | | | | | | [facility] | | | | | | [facility] - | | | | | | LABORATORY | | + +-------+ + + + | Albumin/Helen | 1.5 | 0.8 - 1.9 | [facility] | | | bulin Ratio | | | [facility] | | | | | | MEDICAL | | | | | | CENTER - | | | | | | LABORATORY | | + +-------+ + + + | Bilirubin, | <0.10 | 0.00 - 0.30 | [facility] | [...] + + | [facility] | [address] | [place] | [phone] | | [facility] | | [address] | | | - LABORATORY | | | | + + + + + documented in this encounter Visit Diagnoses + + | Diagnosis | + + | Sarcoidosis (HCC) - Primary Sarcoidosis | + + documented in this encounter
--- OUTSIDE RECORDS SUMMARY | ~2019-07-31 | XMS | Encounter Summary ---
Demographics + + + | Address | [address] | | | [place] [address] | + + + | Home Phone | | + + + | Preferred Language | Unknown | + + + | Marital Status | | + + + | Baptist Affiliation | Unknown | + + + | Race | Unknown | + + + | Ethnic Group | Unknown | + + + Author + + + | Author | [facility] | | | and [place] | + + + | Organization | [facility] | | | and [place] [...] [place] | | | | | [address] | | + + + + + | Haylie Rg | ECON | [address] [facility] | | | | | [place] | | + + + + + Care Team Providers + +------+ + | Care Ceo And President Name | Role | Phone | + [...] Description | +--------+---------+ + + + | 08/27/ | Office | [facility] | Landon Denton, | Sarcoidosis (HCC) | | 2015 | Visit | PULMONARY [address] | MD [address] | (Primary Dx) | | | | [place], | [place], [place] | | | | | [place] [address] | [id number] | | | | | [phone] | | | +--------+---------+ + + + [...] + | Blood Pressure | 124/76 | 08/27/2014 1:24 PM | | | | | PST | | + + + + + | Pulse | 92 | 08/27/2014 1:24 PM | | | | | PST | | + + + + + | Temperature | - | - | | + + + + + | Respiratory Rate | - | - | | + + + + + | Oxygen Saturation | 97% | 08/27/2014 1:24 PM | | | | | PST | | + + + + + | Inhaled Oxygen | - | - | | | Concentration | | | | + + + + + | Weight | 74.4 kg (164 lb) | 08/27/2014 1:24 PM | | | | | PST | | + + + + + | Height | 152.4 cm (5') | 08/27/2014 1:24 PM | | | | | PST | | + + + + + | Body Mass Index | 32.03 | 08/27/2014 1:24 PM | | | | | PST | | + + + + + documented in this encounter Patient Instructions Patient Instructions Landon Denton MD - 08/27/2014 1:44 PM PSTPlease call if symptoms worsen. Pulmonary Sarcoidosis What Is Sarcoidosis? Sarcoidosis is [...] to make quitting easier, including local a [employer] programs, as well as medications. [id number] [employer] [place] [address], [place] [address]. All righ ts reserved. This information is not intended as a substitute for professional medical care. Always follow your healthcare professional's instructions. documented in this encounter Progress Notes Landon Denton MD - 08/27/2014 1:33 PM PSTFormatting of this note might be different f rom the original. Pulmonary Follow Up 08/27/2014 HPI Elinor Shelby is a 69 y.o. female patient of Blayne Herrera here today for follow u p of sarcoidosis. It has been 1 month since our last clinic appointment. At their last visit, we placed the patient back on prednisone secondary to concerns regarding adrenal insufficiency. She subse quently noted improvement of her dizziness, lower extremity edema and fatigue. The patient weaned off of prednisone over approximately 4 weeks. She has been off prednisone completely since August 26. Since the last visit she feels like their symptoms are decreasing steadily. The patient a pparently saw her primary care provider earlier this week and was prescribed Sudafed for an apparent upper respiratory tract infection. Currently they are able to walk 40 stairs at their own pace before developing shortness of breath. She does cough chronically, and does not produce mucous. They have not had hemoptysis. She does not wheeze chronically, and does not have chest tightness. No additional issues identified. She has not been evaluated for nocturnal [...] hours as needed., Disp: , Rfl: ; pseudoePHEDrine (IVETH AFED) 30 mg tablet, Take 30 mg by mouth every 4 hours as needed., Disp: , [...] hay fever. Objective BP 124/76 | Pulse 92 | Ht 1.524 m (5') | Wt 74.39 kg (164 lb) | BMI 32.03 kg/m2 | SpO2 97% Appearance: Alert, cooperative, no distress, appears [...] nodes normal Neurologic: Gait normal Assessment 1. 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 Time will tell. No significant abnormalities on physical exam. 2. Adrenal insufficiency hopefully a gradual prednisone taper as allowed for resolution of normal adrenal function. No current symptoms of adrenal insufficiency. Plan 1. I have asked Ms. Shelby to contact our office if worsening pulmonary were adrenal i nsufficiency symptoms were to develop. 2. Routine pulmonary clinic follow-up appointment in 2 months time. CC: Blayne Herrera documented in [...] [place] | | | | | | [address] | | | | | | | | +--------+ + + + + | 08/15/ | Office | Pulmonology | Landon Denton, | | | 2019 | Visit | | MD [address] | | | | | | [place] | | | | | | [address] | | | | | | | | +--------+ + + + + documented as of this encounter Visit Diagnoses + + | Diagnosis | + + | Sarcoidosis - Primary | + + documented in this encounter"
--- OUTSIDE RECORDS SUMMARY | ~2019-07-31 | XMS | Encounter Summary ---
Demographics + + + | Address | [address] | | | [place] [address] | + + + | Home Phone | | + + + | Preferred Language | Unknown | + + + | Marital Status | | + + + | Taoist Affiliation | Unknown | + + + | Race | Unknown | + + + | Ethnic Group | Unknown | + + + Author + + + | Author | [facility] | | | and [place] | + + + | Organization | [facility] | [...] [place] | | | | | [address] | | + + + + + | Haylie Rg | ECON | [address] [facility] | | | | | [place] | | + + + + + Care Team Providers + +------+ + | Care Apparel Fashion Designer Name | Role | Phone | + [...] [address] | | | | | [place], | [place], [place] | | | | | [place] [address] | [address] | | | | | [phone] | | | +--------+ + + + [...] [place] | | | | | | [address] | | | | | | | | +--------+ + + + + | 08/15/ | Office | Pulmonology | Landon Denton, | | | 2019 | Visit | | MD [address] | | | | | | [place] | | | | | | [address] | | | | | | | | +--------+ + + + + documented as of this encounter Visit Diagnoses + + | Diagnosis | + + | Sarcoidosis | + + documented in this encounter"
--- OUTSIDE RECORDS SUMMARY | ~2019-07-31 | XMS | Encounter Summary ---
Demographics + + + | Address | [address] | | | [place] [address] | + + + | Home Phone | | + + + | Preferred Language | Unknown | + + + | Marital Status | | + + + | Bahai Affiliation | Unknown | + + + | Race | Unknown | + + + | Ethnic Group | Unknown | + + + Author + + + | Author | [facility] | | | and [place] | + + + | Organization | [facility] | | [...] [place] | | | | | [address] | | + + + + + | Haylie Rg | ECON | [address] [facility] | | | | | [place] | | + + + + + Care Team Providers + +------+ + | Care Account Manager Employee Benefits Name | Role | Phone | + +------+ + | Blayne Herrera PCP | | + +------+ + Encounter Details +--------+ + + + + | Date | Type | Department | Care Team | Description | +--------+ + + + + | 08/22/ | Hospital | [facility] | Denton, Landon, | Sarcoidosis (HCC) | | 2012 - | Encounter | [facility] | [address] | | | | | [address] | [place] | | | 08/24/ | | [place] | [address] | | | 2012 | | [address] | | | | | | [phone] | | | +--------+ + + + [...] + + + +---------+ + + | [place]-3 Fatty | CPDR; 3 capsules by | [...] [place] | | | | | | [address] | | | | | | | | +--------+ + + + + | 08/15/ Office | Pulmonology | Landon Denton, | | | 2019 | Visit | | [address] | | | | | | [place] [address] | | | | | | [address] | | | | | | | [...] [facility] | | | Converting | Performed: [place] | | [facility] | | | [facility] | [facility] | | MEDICAL | | | | [place] [address], | | [place] - | | | | [place] [address] | | LABORATORY | | | | CLIA: [id number] | | | | + + + [...] + | [facility] | [address] | [place], [place] | [phone] | | [facility] | | [address] | | | - LABORATORY | | | | + + + + + | [facility] | [address] | [place], [place] | | | [facility] | | [address] | | | - LABORATORY | | | | + + + + + documented in this encounter Visit Diagnoses + + | Diagnosis | + + | Sarcoidosis | + + documented in this encounter"
--- OUTSIDE RECORDS SUMMARY | ~2019-07-31 | XMS | Encounter Summary ---
Demographics + + + | Address | [address] | | | [place] [address] | + + + | Home Phone [...] + | Author | [facility] | | | and [place] | + + + | Organization | [facility] | [...] [place] | | | | | [address] | | + + + + + | Haylie Rg | ECON | [address] [facility] | | | | | [place] | | + + + + + Care Team Providers + +------+ + | Care Assembler Gold Frame Name | Role | Phone | + [...] | RN | | | | | [place], | | | | | | [place] [address] | | | | | | [phone] | | | +--------+ + + + [...] [place] | | | | | | [address] | | | | | | | [...]
--- OUTSIDE RECORDS SUMMARY | ~2019-07-31 | XMS | Encounter Summary ---
Demographics + + + | Address | [address] | | | [place] [address] | + + + | Home Phone | | + + + | Preferred Language | Unknown | + + + | Marital Status | | + + + | Oriental Orthodox Affiliation | Unknown | + + + | Race | Unknown | + + + | Ethnic Group | Unknown | + + + Author + + + | Author | [facility] | | | and [place] | + + + | Organization | [facility] | | | and [place] | [...] [place] | | | | | [address] | | + + + + + | Haylie Rg | ECON | [address] [facility] | | | | | [place] | | + + + + + Care Team Providers + +------+ + | Care Technical Data Analyst Name | Role | Phone | + +------+ + | Ama Moreau | PCP | | | PAIan | | | + +------+ + Reason for Referral Diagnostic/Screening (Routine) +--------+--------+ + + + + | Status | Reason | Specialty | Diagnoses / | Referred By | Referred To | | | | | Procedures | Contact | Contact | +--------+--------+ + + + + | Closed | | Radiology | Diagnoses | [place], | [address] | | | | | Dyspnea on | MD Landon | [address] | | | | | exertion | [address] | [place], | | | | | Procedures | [place] | [place] [address] | | | | | CT Angiogram | [place], | Phone: | | | | | Pulmonary | [place] [address] | [phone] | | | | | CT Angiogram | Phone: | Fax: | | | | | Chest W | [phone] | [phone] | | | | | Contrast | Fax: | | | | | | | [phone] | | +--------+--------+ + + + + Encounter Details +--------+ + + + + | Date | Type | Department | Care Team | Description | +--------+ + + + + | 10/19/ | Orders Only | [facility] | Landon [place], | Dyspnea on exertion | | 2019 | | PULMONARY [address] | MD [address] | (Primary Dx) | | | | [place], | [place], [place] | | | | | [place] [address] | [address] | | | | | [phone] | | | +--------+ + + + [...] [place] | | | | | | [address] | | | | | | | | +--------+ + + + + | 08/15/ | Office | Pulmonology | Landon [place], | | | 2019 | Visit | | MD [address] | | | | | | [place] | | | | | | [address] | | | | | | | | +--------+ + + + + documented as of this encounter Results CT Angiogram Pulmonary (10/23/2018 12:16 PM PDT) + + | Specimen | + + | | + + + + -----+ | Narrative | Performed At | + + -----+ | CT ANGIOGRAM | [facility] | | PULMONARY 10/23/2018 12:04 PM HISTORY: Rule out PE. COMPARISON: | | | Multiple priors. PROTOCOL: Thin section axial images of the chest were | | | obtained after uneventfuladministration of 55 mL Omnipaque 350. | | | Coronal and sagittal reformations wereacquired. FINDINGS:Neck base is | | | normal. Heart size is at the upper limits of normal. There is minimal | | | atherosclerosis ofthe aorta extending into the branches. The pulmonary | | | arteries are unremarkable.SVC is normal. Multiple enlarged lymph | | | nodes are noted of the paratracheal regions, AP window,subcarinal | | | regions, and hayley that are grossly stable compared to 01/03/2017. | | | Thelargest lymph node is in the subcarinal region measuring 2.9 x 3.2 | | | cm. Tracheaand esophagus demonstrate no acute findings. There is a | | | moderate-sized hiatalhernia. Extensive fibrotic changes persist | | | throughout the bilateral lungs. Scatteredareas of traction | | | bronchiectasis and peribronchial wall thickening arereidentified | | | involving both lungs that are stable compared to 01/03/2017. | | | Multiplepulmonary nodules and areas of nodular pleural and | | | interlobular septalthickening are once again identified scattered | | | throughout both lungs as follows:8 mm in the right upper lobe (image | | | 83), 14 mm in the right middle lobe (image67), 9 mm in the right lower | | | lobe (image 53), and 9 mm in the left lower lobe(image 56). There are | | | scattered calcified granulomas of the bilateral lungs. There are | | | cholecystectomy clips. Chest wall structures are normal. There is | | | moderate spondylosis. IMPRESSION -No evidence for pulmonary embolism. | | | Findings consistent with chronic sarcoidosis with significantly | | | enlargedmediastinal and hilar lymph nodes showing calcium as well as | | | extensive fibroticchanges of the bilateral lungs with traction | | | bronchiectasis. Multiple nodulesare noted of the bilateral lungs that | | | remain stable. Stable moderate hiatal hernia. Dictated and Signed by: | | | Daniel Jameson MD Electronically signed: 10/23/2018 1:33 PM | | |(image 56). There are scattered calcified granulomas of the bilateral lungs. | | | | | |There are cholecystectomy clips. | | | | | |Chest wall structures are normal. There is moderate spondylosis. | | | | | |IMPRESSION - | | |No evidence for pulmonary embolism. | | | | | |Findings consistent with chronic sarcoidosis with significantly enlarged | | |mediastinal and hilar lymph nodes showing calcium as well as extensive fibrotic | | |changes of the bilateral lungs with traction bronchiectasis. Multiple nodules | | |are noted of the bilateral lungs that remain stable. | | | | | |Stable moderate hiatal hernia. | | | | | | | | |Dictated and Signed by: Daniel Jameson MD | | | Electronically signed: 10/23/2018 1:33 PM | | | | | + + -----+ + + | Procedure Note | + + | Cosme, Rad Results In - 10/23/2018 1:[address] ANGIOGRAM PULMONARY 10/23/2018 12:04 | | PMHISTORY: Rule out PE.COMPARISON: Multiple priors.PROTOCOL: Thin section axial images | | of the chest were obtained after uneventfuladministration of 55 mL Omnipaque 350. | | Coronal and sagittal reformations wereacquired.FINDINGS:Neck base is normal.Heart size | | is at the upper limits of normal. There is minimal atherosclerosis ofthe aorta extending | | into the branches. The pulmonary arteries are unremarkable.SVC is normal.Multiple | | enlarged lymph nodes are noted of the paratracheal regions, AP window,subcarinal | | regions, and hayley that are grossly stable compared to 01/03/2017. Thelargest lymph node is | | in the subcarinal region measuring 2.9 x 3.2 cm. Tracheaand esophagus demonstrate no | | acute findings. There is a moderate-sized hiatalhernia.Extensive fibrotic changes | | persist throughout the bilateral lungs. Scatteredareas of traction bronchiectasis and | | peribronchial wall thickening arereidentified involving both lungs that are stable | | compared to 01/03/2017. Multiplepulmonary nodules and areas of nodular pleural and | | interlobular septalthickening are once again identified scattered throughout both lungs | | as follows:8 mm in the right upper lobe (image 83), 14 mm in the right middle lobe | | (image67), 9 mm in the right lower lobe (image 53), and 9 mm in the left lower | | lobe(image 56). There are scattered calcified granulomas of the bilateral lungs.There | | are cholecystectomy clips.Chest wall structures are normal. There is moderate | | spondylosis.IMPRESSION -No evidence for pulmonary embolism.Findings consistent with | | chronic sarcoidosis with significantly enlargedmediastinal and hilar lymph nodes showing | | calcium as well as extensive fibroticchanges of the bilateral lungs with traction | | bronchiectasis. Multiple nodulesare noted of the bilateral lungs that remain | | stable.Stable moderate hiatal hernia.Dictated and Signed by: Daniel Jameson MD | | Electronically signed: 10/23/2018 1:33 PM | |areas of traction bronchiectasis and peribronchial wall thickening are | |reidentified involving both lungs that are stable compared to 01/03/2017. Multiple | |pulmonary nodules and areas of nodular pleural and interlobular septal | |thickening are once again identified scattered throughout both lungs as follows: | |8 mm in the right upper lobe (image 83), 14 mm in the right middle lobe (image | |67), 9 mm in the right lower lobe (image 53), and 9 mm in the left lower lobe | |(image 56). There are scattered calcified granulomas of the bilateral lungs. | | | |There are cholecystectomy clips. | | | |Chest wall structures are normal. There is moderate spondylosis. | | | |IMPRESSION - | |No evidence for pulmonary embolism. | | | |Findings consistent with chronic sarcoidosis with significantly enlarged | |mediastinal and hilar lymph nodes showing calcium as well as extensive fibrotic | |changes of the bilateral lungs with traction bronchiectasis. Multiple nodules | |are noted of the bilateral lungs that remain stable. | | | |Stable moderate hiatal hernia. | | | | | |Dictated and Signed by: Daniel Jameson MD | | Electronically signed: 10/23/2018 1:33 PM | + + + +---------+ + + [...]
--- OUTSIDE RECORDS SUMMARY | ~2019-07-31 | XMS | Encounter Summary ---
Demographics + + + | Address | [address] | | | [place] [address] | + + + | Home Phone [...] | Author | [facility] | | | and [place] | + + + | Organization | [facility] | | | and [...] [place] | | | | | [address] | | + + + + + | Haylie Rg | ECON | [address] | | | | | [place] | | + + + + + Care Team Providers + +------+ + | Care Clinical Advisor Name | Role | Phone | + +------+ + PCP | Unavailable | + +------+ + Encounter Details +--------+ + + + + | Date | Type | Department | Care Team | Description | +--------+ + + + + | 07/09/ | Hospital | [facility] | Landon [place], | | | 2009 | Encounter | MED CTR XRAY [address] | MD [address] | | | | | [place] | [place], [place] | | | | | [place] [address] | [address] | | | | | [phone] | | | +--------+ + + + [...] [place] | | | | | | [address] | | | | | | | | +--------+ + + + + | 08/15/ | Office | Pulmonology | Landon [place], | | | 2019 | Visit | | MD [address] | | | | | | [place] | | | | | | [address] | | | | | | | | +--------+ + + + + documented as of this encounter Visit Diagnoses Not on filedocumented in this encounter"
--- OUTSIDE RECORDS SUMMARY | ~2019-07-31 | XMS | Encounter Summary ---
Demographics + + + | Address | [address] | | | [place] [address] | + + + | Home Phone | | + + + | Preferred Language | Unknown | + + + | Marital Status | | + + + | Judaism Affiliation | Unknown | + + + | Race | Unknown | + + + | Ethnic Group | Unknown | + + + Author + + + | Author | [facility] | | | and [place] | + + + | Organization | [facility] | | | and [place] [...] [place] | | | | | [address] | | + + + + + | Haylie Rg | ECON | [address] [facility] | | | | | [place] | | + + + + + Care Team Providers + +------+ + | Care Oakes Machine Operator Name | Role | Phone | + +------+ + | Blayne Herrera DO | PCP | | + +------+ + Encounter Details +--------+ + + + + | Date | Type | Department | Care Team | Description | +--------+ + + + + | 08/01/ | Hospital | [facility] | Conversion | Pain | | 2018 | Encounter | CONVERSION DEP [address] | Transaction, | | | | | [address] | Provider Unknown | | | | | [address] | [phone] | | | | | [address] | | | | | | [phone] | | | +--------+ + + + [...] + + +---------+ + + | Evening [place] | Take 1,000 mg by | | [...] [place] | | | | | | [address] | | | | | | | | +--------+ + + + + | 08/15/ | Office | Pulmonology | Landon [place], | | | 2019 | Visit | | MD [address] | | | | | | [place] | | | | | | [address] | | | | | | | | +--------+ + + + + documented as of this encounter Procedures + +--------+ + + + | Procedure Name | Priori | Date/Time | Associated Diagnosis | Comments | | | ty | | | | + +--------+ + + + | XR CHEST 1 VIEW | Routin | 10/31/2009 | | Results for this | | | e | 11:24 PM | | procedure are in the | | | | PDT | | results section. | + +--------+ + + + documented in this encounter Results XR Chest 1 Vw (10/31/2009 11:24 PM PDT) + + | Specimen | [...]
--- OUTSIDE RECORDS SUMMARY | ~2019-07-31 | XMS | Encounter Summary ---
Demographics + + + | Address | [address] | | | [place] [address] | + + + | Home Phone | | + + + | Preferred Language | Unknown | + + + | Marital Status | | + + + | Yarsani Affiliation | Unknown | + + + | Race | Unknown | + + + | Ethnic Group | Unknown | + + + Author + + + | Author | [facility] | | | and [place] | + + + | Organization | [facility] | [...] [place] | | | | | [address] | | + + + + + | Haylie Rg | ECON | [address] [facility] | | | | | [place] | | + + + + + Care Team Providers + +------+ + | Care Steam And Gas Turbines Assembler Name | Role | Phone | + +------+ + | Blayne Herrera PCP | | + +------+ + Encounter Details +--------+ + + + + | Date | Type | Department | Care Team | Description | +--------+ + + + + | 04/04/ | Hospital | [facility] | Landon [place], | Sarcoidosis (HCC) | | 2017 | Encounter | MED CTR PULMONARY | MD [address] | | | | | FUNCTION [address] | [place], [place] | | | | | [place], | [address] | | | | | [place] [address] | | | | | | [phone] | | | +--------+ + + + [...] + + +---------+ + + | Evening [place] | Take 1,000 mg by | | [...] [place] | | | | | | [address] | | | | | | | | +--------+ + + + + | 08/15/ | Office | Pulmonology | Landon [place], | | | 2019 | Visit | | MD [address] | | | | | | [place] | | | | | | [address] | | | | | | | [...] signed by: Landon [place] MD 04/04/2017 11:33M [facility] | | | [facility] | | |Diffusion capacity is moderately [...] Landon [place] MD 04/04/2017 11:33 | | |[facility] | | + + + documented in this encounter Visit Diagnoses + + | Diagnosis | + + | Sarcoidosis | + + documented in this encounter"
--- OUTSIDE RECORDS SUMMARY | ~2019-07-31 | XMS | Encounter Summary ---
Demographics + + + | Address | [address] | | | [place] [address] | + + + | Home Phone [...] Author | [facility] | | | and [place] | + + + | Organization | [facility] | | | and [place] [...] [place] | | | | | [address] | | + + + + + | Haylie Rg | ECON | [address] [facility] | | | | | [place] | | + + + + + Care Team Providers + +------+ + | Care Human Resources Partner Name | Role | Phone | + [...] Dyspnea on | MD Landon | [address] | | | | | exertion | [address] | [place], | | | | | Procedures | [place] | [place] [address] | | | | | CT Angiogram | [place], | Phone: | | | | | Pulmonary | [place] [address] | [phone] | | | | | CT Angiogram | Phone: | Fax: | | | | | Chest W | [phone] | [phone] | | | | | Contrast | Fax: | | | | | | | [phone] | | +--------+--------+ + + + + Reason for Visit Auth/Cert +--------+--------+ + + + + | Status | Reason | Specialty | Diagnoses / | Referred By | Referred To | | | | | Procedures | Contact | Contact | +--------+--------+ + + + + | | | | | | | +--------+--------+ + + + + Encounter Details +--------+ + + + + | Date | Type | Department | Care Team | Description | +--------+ + + + + | 10/23/ | Hospital | [facility] | Landon [place], | Dyspnea on exertion | | 2019 | Encounter | MED CTR CT [address] | MD [address] | | | | | [place], | [place], [place] | | | | | [place] [address] | [address] | | | | | [phone] | | | +--------+ + + + [...] + + +---------+ + + | Evening [place] | Take 1,000 mg by | | [...] +---------+ + + | predniSONE | Take 3 tablets by | 90 | 2 | 10/24/19 | | | (DELTASONE) 10 mg | [...] [place] | | | | | | [address] | | | | | | | | +--------+ + + + + | 08/15/ | Office | Pulmonology | Landon [place], | | | 2019 | Visit | | MD [address] | | | | | | [place] | | | | | | [address] | | | | | | | | +--------+ + + + + documented as of this encounter Procedures + +--------+ + + + | Procedure Name | Priori | Date/Time | Associated Diagnosis | Comments | | | ty | | | | + +--------+ + + + | CT ANGIOGRAM | Routin | 10/23/2018 | Dyspnea on | Results for this | | PULMONARY | e | 12:16 PM | exertion | procedure are in the | | | | PDT | | results section. | + +--------+ + + + documented in this encounter Results CT Angiogram Pulmonary (10/23/2018 [...] | + + | Dyspnea on exertion Other dyspnea and respiratory abnormality | + + documented in this encounter Administered Medications + +--------+ +--------+------+------+ | Medication Order | MAR | Action | Dose | Rate | Site | | | Action | Date | | | | + +--------+ +--------+------+------+ | iohexol (OMNIPAQUE 350) 350 | Given | 03/26/20 | 55 mLs | | | | mg/mL injection 55 mL 55 mL, | | 19 12:21 | | | | | Intravenous, ONCE PRN, Other, for | | PM PDT | | | | | CT contrast study, Starting Tue | | | | | | | 10/23/18 at 1219, For 1 dose, | | | | | | | Radiology | | | | | | + +--------+ +--------+------+------+ +---+---+ | | | +---+---+ + +------+ +--------+-------+---+ | sodium chloride 0.9% (NS) bolus | Push | 10/24/19 | 40 mLs | 2400 | | | 40 mL 40 mL, Intravenous, | | 19 12:21 | | mL/hr | | | Administer over 1 Minutes, ONCE | | PM PDT | | | | | PRN, for CT contrast study, | | | | | | | Starting 10/23/18 at 1219, For | | | | | | | 1 dose, Radiology | | | | | | + +------+ +--------+-------+---+ +---+---+ | | | +---+---+ documented in this encounter"
--- OUTSIDE RECORDS SUMMARY | ~2019-07-31 | XMS | Encounter Summary ---
Demographics + + + | Address | [address] | | | [place] [address] | + + + | Home Phone | | + + + | Preferred Language | Unknown | + + + | Marital Status | | + + + | Roman Catholic Affiliation | Unknown | + + + | Race | White | + + + | Ethnic Group | Not or | + + + Author + + + | Author | [facility] | + + + | Organization | [facility] | + + + | Address | Unknown | + + + | Phone | Unavailable | + + + Support + + +---------+ + | Name | Relationship | Address | Phone | + + +---------+ + | Deniz Shelby | ECON | Unknown | | + + +---------+ + Care Team Providers + +------+ + | Care Electrical Journeyman Name | Role | Phone | + +------+ + PCP | Unavailable | + +------+ + Encounter Details +--------+ + + + + | Date | Type | Department | Care Team | Description | +--------+ + + + + | 05/03/ | Office | [facility] | Note, Outpatient | Progress Note | | 2000 | Visit-Trans | MEDICINE | Clinic | | | | cribed | | | | +--------+ + + [...] + + documented as of this encounter Progress Notes Interface, Wire Coater In - 05/07/2006 1:11 AM PDTCLINIC DATE: 05/03/2001 SURGICAL ONCOLOGY CLINIC SUBJECTIVE: The patient had an excisional lump in the left axilla which was not malignant. This was followed by the development progressive lymphedema of the left upper extremity. Since last seen here, she has been on a 4-day course of dicloxacillin followed by a 4-day course of erythromycin with excellent resolution but not complete resolution of the swelling under the left arm. She has not had her sleep, for quite a long, for the last 24 hours, and she does have a trace to 1+ edema in the dorsum of the hand. However, her upper arm is approximately equal to the right side, and the forearm is a lot bigger. It is very acceptable. She seems to be pleased with the result. PHYSICAL EXAMINATION: NECK: Otherwise her exam is normal. She has no cervical, supraclavicular, or axillary adenopathy. Her thyroid is not enlarged. Her trachea is midline. BREASTS: Symmetrical without evidence of malignancy. ABDOMEN: Her liver is not enlarged. There are no other palpable organs, masses, tenderness, or hernias in the abdomen. PELVIC AND RECTAL: Not done. LOWER EXTREMITIES: Normal. The specific area of left axillary incision is clean and healing well, and there are no underlying masses in the axilla. ASSESSMENT AND PLAN: Approximately 20 minutes was spent counseling the patient regarding the observation for swelling and studying the dicloxacillin followed by erythromycin should she begin to develop significant swelling in the arm. She was given prescriptions for both drugs at 500 mg q.i.d. for 5 days each. Cullen Browning M.D. KIERRA / KARTHIK [id number] / [id number] / [id number] / [id number] signed by Interface, Wire Coater In at 05/07/2006 1:11 AM PDTInterf nu, Wire Coater In - 05/07/2006 1:11 AM PDTCLINIC DATE: 05/03/2001 SUBJECTIVE: Ms. Shelby is a 56-year-old female presenting for a checkup for her lymphedema that started in December 2000 following the removal of a benign lump in her left axilla. The lymphedema stretches from her shoulders to her fingers and has decreased in the levels of swolleness since the last visit. The patient sees a PT once a week for 1-hour massage as well as self-massages to her left arm each morning. She also wears gloves and sleep throughout the day. The patient is on Premarin and the Vaniqa cream for removal of facial hair and has recently discontinued the 2 weeks of antibiotics. The antibiotics are erythromycin 500 mg 4 times a day for 5 days and dicloxacillin 500 mg b.i.d. for 5 days. OBJECTIVE: VITAL SIGNS: Temperature is 36.9, BP 112/72, and weight 150. GENERAL: The patient is in no apparent distress. AXILLAE: Evaluation of the left arm comparison to the right, left is more swollen. There is no pitting edema. Capillary refill is 1 to 2 seconds. Left arm is more pale than the right arm with less skin wrinkling. There is no axillary lymphadenopathy or supraclavicular lymphadenopathy. On palpation of the left and right axilla, the incision on the left axilla remains clean. LUNGS: Clear to auscultation bilaterally. Nonlabored breathing. CARDIOVASCULAR: Regular rate and rhythm without murmurs, rubs, and gallops. EXTREMITIES: Legs are warm and well perfused. No edema. ASSESSMENT: Ms. Shelby is a 56-year-old with left arm lymphedema following the removal of a benign lump in December 2000 with some relief after the 5-day treatment with antibiotics. PLAN 1. The patient will continue the massage therapy once a week as well as the self-massage and wearing the gloves when sleeps. 2. The patient will contact Dr. Browning if problem persists and worsens even though self-therapy is implemented. Judd Zuniga III M.D. dictating for: Janel Culp / KARTHIK [id number] / [id number] / [id number] / [id number] signed by Interface, Wire Coater In at 05/07/2006 1:11 AM PDTdocume nted in this encounter Plan of Treatment Not on filedocumented as of this encounter Visit Diagnoses Not on filedocumented in this encounter"
--- OUTSIDE RECORDS SUMMARY | ~2019-07-31 | XMS | Encounter Summary ---
Demographics + + + | Address | [address] | | | [place] [address] | + + + | Home Phone | | + + + | Preferred Language | Unknown | + + + | Marital Status | | + + + | Holiness Affiliation | Unknown | + + + | Race | Unknown | + + + | Ethnic Group | Unknown | + + + Author + + + | Author | [facility] | | | and [place] | + + + | Organization | [facility] | | | and [place] | [...] [place] | | | | | [address] | | + + + + + | Haylie Rg | ECON | [address] [address] | | | | | [place] | | + + + + + Care Team Providers + +------+ + | Care Senior Piping Designer Name | Role | Phone | + +------+ + | Ama Moreau | PCP | | | MIYA | | | + +------+ + Encounter Details +--------+ + + + + | Date | Type | Department | Care Team | Description | +--------+ + + + + | 04/03/ | Hospital | [facility] | Denton Landon, | Sarcoidosis | | 2018 | Encounter | MED CTR PULMONARY | MD [address] | | | | | FUNCTION [address] | [place], [place] | | | | | [place], | [address] | | | | | [place] [address] | | | | | | [phone] | | | +--------+ + + + [...] + + +---------+ + + | Evening Comstock | Take 1,000 mg by | | [...] fluticasone | Inhale 1 puff into | 1 | 3 | 11/02/19 | | | (FLOVENT DISKUS) 100 | the lungs 2 times | Inhaler | | 18 | 8 | | MCG/BLIST diskus | [...] [place] | | | | | | [address] | | | | | | | | +--------+ + + + + | 08/15/ | Office | Pulmonology | Landon Denton, | | | 2019 | Visit | | [address] | | | | | | [place] | | | | | | [address] | | | | | | | | +--------+ + + + + documented as of this encounter Procedures + +--------+ + + + | Procedure Name | Priori | Date/Time | Associated Diagnosis | Comments | | | ty | | | | + +--------+ + + + | PFT PULMONARY | SERENITY | 04/03/2018 | Sarcoidosis | Results for this | | FUNCTION TESTING | | 11:01 AM | | procedure are in the | | ORDERS | | PDT | | results section. | + +--------+ + + + | PFT PULMONARY | SERENITY | 04/03/2018 | Sarcoidosis | Results for this | | FUNCTION TESTING | | 11:01 AM | | procedure are in the | | ORDERS | | PDT | | results section. | + +--------+ + + + | PFT PULMONARY | SERENITY | 04/03/2018 | Sarcoidosis | Results for this | | FUNCTION TESTING | | 11:01 AM | | procedure are in the | | ORDERS | | PDT | | results section. | + +--------+ + + + documented in this encounter Results Pulmonary function test spirometry w/diffusion; home oxygen evaluation (04/03/2018 11:01 AM PDT) + + + | Narrative | Performed At | + + + | [facility]andon | | | MD Bertin 04/03/2018 11:03 PULMONARY FUNCTION TESTING | | | SPIROMETRY: The FVC was 2.15 L or 88 % of predicted. The FEV1 was 1.63 | | | L or 88 % of predicted. FEV1/FVC ratio was 76 %. DIFFUSION CAPACITY: | | | The diffusion capacity was 9.1 mL/mmHg per minute or 44 % of | | | predicted. IMPRESSION: Spirometry is consistent with normal | | | physiology. Diffusion capacity is severely reduced and is not | | | corrected for measured hemoglobin. Compared to pulmonary function test | | | performed 04/04/17 the patient's spirometry appears stable and the | | | uncorrected DLCO has fallen 13%. Test performed: | | | 04/03/18Electronically signed by: Landon Denton MD 04/03/2018 | | | 11:02[facility] | | |Diffusion capacity is severely reduced and is not corrected for | | |measured hemoglobin. | | | | | |Compared to pulmonary function test performed 04/04/17 the | | |patient's spirometry appears stable and the uncorrected DLCO has | | |fallen 13%. | | | | | |Test performed: 04/03/18 | | |Electronically signed by: Landon Denton MD 04/03/2018 11:02 | | |[facility] | | + + + documented in this encounter Visit Diagnoses + + | Diagnosis | + + | Sarcoidosis | + + documented in this encounter"
--- OUTSIDE RECORDS SUMMARY | ~2019-07-31 | XMS | Encounter Summary ---
Demographics + + + | Address | [address] | | | [place] [address] | + + + | Home Phone | | + + + | Preferred Language | Unknown | + + + | Marital Status | | + + + | Hoahaoism Affiliation | Unknown | + + + | Race | Unknown | + + + | Ethnic Group | Unknown | + + + Author + + + | Author | [facility] | | | and [place] | + + + | Organization | [facility] | | | and [...] [place] | | | | | [address] | | + + + + + | Haylie Rg | ECON | [address] [facility] | | | | | [place] | | + + + + + Care Team Providers + +------+ + | Care Family Program Specialist Name | Role | Phone | [...] Description | +--------+--------+ + + + | 11/01/ | Refill | [facility] [place] | Landon Denton, | Medication Refill | | 2017 | | PULMONARY [address] | MD [address] | | | | | [place], | [place], [place] | | | | | [place] [address] | [address] | | | | | [phone] | | | +--------+--------+ + + + [...] [place] | | | | | | [address] | | | | | | | | +--------+ + + + + | 08/15/ | Office | Pulmonology | Landon Denton, | | | 2019 | Visit | | MD [address] | | | | | | [place] | | | | | | [address] | | | | | | | | +--------+ + + + + documented as of this encounter Visit Diagnoses Not on filedocumented in this encounter"
--- OUTSIDE RECORDS SUMMARY | ~2019-07-31 | XMS | Encounter Summary ---
Demographics + + + | Address | [address] | | | [place] [address] | + + + | Home Phone [...] | Author | [facility] | | | and [place] | + + + | Organization | [facility] | | | and [...] [place] | | | | | [address] | | + + + + + | Haylie Rg | ECON | [address] [facility] | | | | | [place] | | + + + + + Care Team Providers + +------+ + | Care Fence Laborer Name | Role | Phone | + +------+ + PCP | Unavailable | + +------+ + Encounter Details +--------+ + + + + | Date | Type | Department | Care Team | Description | +--------+ + + + + | 01/08/ | Hospital [facility] | Landon Denton, | | | 2009 | Encounter | MED CTR LABORATORY | [address] | | | | | [address] [place] | [place], [place] | | | | | [place], [place] | [address] | | | | | [address] | | | | | | [phone] | | | +--------+ + + + [...] [place] | | | | | | [address] | | | | | | | | +--------+ + + + + | 08/15/ | Office | Pulmonology | Landon Denton, | | | 2019 | Visit | | MD [address] | | | | | | [place] | | | | | | [address] | | | | | | | | +--------+ + + + + documented as of this encounter Visit Diagnoses Not on filedocumented in this encounter"
--- OUTSIDE RECORDS SUMMARY | ~2019-07-31 | XMS | Encounter Summary ---
Demographics + + + | Address | [address] | | | [place] [address] | + + + | Home Phone | | + + + | Preferred Language | Unknown | + + + | Marital Status | | + + + | Religion Affiliation | Unknown | + + + | Race | Unknown | + + + | Ethnic Group | Unknown | + + + Author + + + | Author | [facility] | | | and [place] | + + + | Organization | [facility] | | | and [place] [...] [place] | | | | | [address] | | + + + + + | Haylie Rg | ECON | [address] [facility] | | | | | [place] | | + + + + + Care Team Providers + +------+ + | Care Executive Compensation Analyst Name | Role | Phone | + +------+ + | Blayne Herrera DO | PCP | | + +------+ + Reason for Visit +--------+ + | Reason | Comments | +--------+ + | Other | follow up tomorrow | +--------+ + Encounter Details +--------+ + + + + | Date | Type | Department | Care Team | Description | +--------+ + + + + | 03/24/ | Telephone | [facility] | Landon Denton, | Other (follow up | | 2013 | | PULMONARY [address] | MD [address] | tomorrow) | | | | [place], | [place] | | | | | [place] [address] | [address] | | | | | [phone] | | | +--------+ + + + [...] [place] | | | | | | [address] | | | | | | | | +--------+ + + + + | 08/15/ | Office | Pulmonology | Landon Denton, | | 2019 | Visit | | MD [address] | | | | | | [place] | | | | | | [address] | | | | | | | | +--------+ + + + + documented as of this encounter Visit Diagnoses Not on filedocumented in this encounter"
--- OUTSIDE RECORDS SUMMARY | ~2019-07-31 | XMS | Encounter Summary ---
Demographics + + + | Address | [address] | | | [place] [address] | + + + | Home Phone | | + + + | Preferred Language | Unknown | + + + | Marital Status | | + + + | Orthodoxy Affiliation | Unknown | + + + | Race | Unknown | + + + | Ethnic Group | Unknown | + + + Author + + + | Author | [facility] | | | and [place] | + + + | Organization | [facility] | | | and [...] [place] | | | | | [address] | | + + + + + | Haylie Rg | ECON | [address] [facility] | | | | | [place] | | + + + + + Care Team Providers + +------+ + | Care Business Reporter Name | Role | Phone | + +------+ + | Blayne Herrera DO | PCP | | + +------+ + Reason for Visit + + + | Reason | Comments | + + + | Sarcoidosis | 6 mo follow up w/ CXR | + + + Encounter Details +--------+---------+ + + + | Date | Type | Department | Care Team | Description | +--------+---------+ + + + | 11/15/ | Office | [facility] | Landon Denton, | Chronic cough | | 2017 | Visit | PULMONARY [address] | [address] | (Primary Dx); | | | | [place], | [place], [place] | Sarcoidosis (HCC); | | | | [place] [address] | [id number] | Pulmonary nodules | | | | [phone] | | | +--------+---------+ + + + [...] + + + | Blood Pressure | 124/80 | 11/15/2016 10:05 AM | | | | | PDT | | + + + + + | Pulse | 80 | 11/15/2016 10:05 AM | | | | | PDT | | + + + + + | Temperature | - | - | | + + + + + | Respiratory Rate | - | - | | + + + + + | Oxygen Saturation | 96% | 11/15/2016 10:05 AM | | | | | PDT | | + + + + + | Inhaled Oxygen | - | - | | | Concentration | | | | + + + + + | Weight | 75.6 kg (166 lb 9.6 | 11/15/2016 10:05 AM | | | | oz) | PDT | | + + + + + | Height | 157.5 cm (5' 2") | 11/15/2016 10:05 AM | | | | | PDT | | + + + + + | Body Mass Index | 30.47 | 11/15/2016 10:05 AM | | | | | PDT | | + + + + + documented in this encounter Patient Instructions Patient Instructions Landon Denton MD - 11/15/2016 10:48 AM PDT Asmanex (Mometasone) What is this medicine? MOMETASONE (jeanette MET a sone) is a corticosteroid. It helps decrease inflammation in your francisco j gs. This medicine is used to treat the symptoms of asthma. Never use this medicine for an ac amish asthma attack. How should I use this medicine? This medicine is for inhalation through the mouth. Follow the directions on your prescripti on label. Make sure that you are using your inhaler correctly. Ask you doctor or health care provider if you have any questions. Rinse your mouth after each use. Take your medicine at regular intervals. Do not use it more often than directed. Do not stop taking except on your doctor's advice. Talk to your material control associate regarding the use of this medicine in children. While this drug m ay be prescribed for children as young as 4 years of age for selected conditions, precaution s do apply. What side effects may I notice from receiving this medicine? Side effects that you should report to your doctor or health transitional care manager as soon as p ossible: allergic reactions like skin rash, itching or hives, swelling of the face, lips, or tong ue breathing problems bone pain changes in vision feeling faint or lightheaded, falls infection nausea, vomiting unusually weak or tired white patches or sores in the mouth or throat Side effects that usually do not require medical attention (report to your doctor or health transitional care manager if they continue or are bothersome): coughing, hoarseness or throat irritation dry mouth headache loss of taste, or unpleasant taste muscle pain painful menstrual periods stomach upset What may interact with this medicine? ketoconazole What if I miss a dose? If you miss a dose, use it as soon as you remember. If it is almost time for your next dose , use only that dose and continue with your regular schedule. Do not use double or extra dos es. Where should I keep my medicine? Keep out of the reach of children Store in a dry place at room temperature between 15 and 30 degrees C (59 and 86 degrees F). Protect from light. Once the inhaler is removed from the foil package, it is good for 45 da ys. Throw away any unused medicine 45 days after opening the foil or after the expiration da te, whichever comes first. The inhaler is empty when the dose counter reads 00. What should I tell my health care provider before I take this medicine? They need to know if you have any of these conditions: bone problems glaucoma immune system problems infection, like chickenpox, tuberculosis, herpes, or fungal infection recent surgery or injury of the mouth or throat taking corticosteroids by mouth an unusual or allergic reaction to mometasone, steroids, other medicines, milk or milk p roteins, foods, dyes, or preservatives or trying to get breast-feeding What should I watch for while using this medicine? Visit your doctor or health transitional care manager for regular checks on your progress. Check wi th your health transitional care manager if your symptoms do not improve. If your symptoms get worse or if you need your short acting inhalers more often, call your doctor right away. This medicine may increase your risk of getting an infection. Tell your doctor or health ca re professional if you are around anyone with measles or chickenpox, or if you develop sores or blisters that do not heal properly. Using this medicine for a long time may increase your risk of low bone mass. Talk to your d octor about bone health. Date Last Reviewed: NOTE:This sheet is a summary. It may not cover all possible information. If you have questi ons about this medicine, talk to your doctor, pharmacist, or health care provider. Copyright 2016 [employer] Standard documented in this encounter Progress Notes Landon Denton MD - 11/15/2016 10:29 AM PDTFormatting of this note might be different f rom the original. Pulmonary Follow Up 11/15/2016 HPI AnneMinna Shelby is a 71 y.o. female patient of Blayne Herrera here today for follow up of sarcoidosis. It has been 6 months since our last clinic appointment. At their last visit, we planned fo r a follow-up appointment in 6 months. Since the last visit she feels like their symptoms are fluctuating a bit. The patient allan arently developed increased cough is congestion and pressure. She was evaluated by her [facility] care provider and diagnosed with bronchitis/sinusitis and treated with amoxicillin. The patient was also asked to use her albuterol inhaler 4 times a day along with Sudafed. Her symptoms have somewhat improved. They are currently on no specific medication regimen for their sarcoid. Patient was last t reated with prednisone for sarcoid in early 2015. Currently they are able to walk <1 miles at their own pace on level ground. They are not ex ercising regularly. Their exercise consists of "machines at the [employer] and walking". They are not enrolled in cardiac/pulmonary rehabilitation or other physical therapy. She does cough chronically, and does not produce mucous. Acute symptoms over the last 2-3 weeks. Clear scant sputum now. They have not had hemoptysis since our last clinic appointm ent. She does not wheeze chronically, and does [...] No Known Allergies Medications: Current outpatient prescriptions: albuterol (PROAIR HFA) 90 mcg/puff inhaler, Inhale 2 puffs into the lungs every 4 hour s as needed for Shortness of Breath (or coughing)., Disp: 1 Inhaler, Rfl: 11 augmented betamethasone dipropionate (DIPROLENE-AF) 0.05 % ointment, Apply sparingly o nce daily, Disp: , Rfl: 1 Evening [place] Oil 1000 MG CAPS, Take 1,000 mg by mouth 2 times daily., Disp: , Rfl: omeprazole (PRILOSEC) 20 mg capsule, Take 20 mg by mouth every morning (before break st)., Disp: , Rfl: pseudoePHEDrine (SUDAFED) 30 mg tablet, Take 30 mg by mouth every 6 hours as needed., Disp: , Rfl: 2 Immunizations: Immunization History Administered Date(s) Administered INFLUENZA 65 Y OR >, TRIVALENT HIGH-DOSE 05/03/2016 INFLUENZA PF 18 Y OR >,TRIVALENT RECOMBINANT 05/02/2012, 04/30/2013, 05/03/2014, 2014 PNEUMOCOCCAL POLYSACCHARIDE 23-VALENT (PPSV23) 08/22/2008 Review of [...] urticaria, allergic rash, hay fever. Objective BP 124/80 mmHg | Pulse 80 | Ht 1.575 m (5' 2") | Wt 75.569 kg (166 lb 9.6 oz) | BMI 30.46 k g/m2 | SpO2 96% | ? No Appearance: Alert, cooperative, no [...] nodes normal Neurologic: Gait normal Data: Chest x-ray was done on 11/15/16 and was compared to a study from 10/12/15 and was reviewed a nd interpreted in clinic today. It shows stable appearing fibrotic changes in the background of pulmonary nodular densities. Assessment 1. Increased cough etiology unclear. The patient's symptoms appeared to predate her mos t recent development of sinusitis/bronchitis. Possible and increased bronchial inflammation related to the patient sarcoid is causing her symptoms. Today we discussed a trial of an inhaled corticosteroid. We also discussed the use of syst emic corticosteroids but opted for therapy visit could be associated with less side effects. 2. Sarcoidosis previously diagnosed via mediastinoscopy. Increased cough and shortness of breath in early 2015 was treated with approximately 12 weeks of prednisone and subsequent improvement of the patient's symptoms was noted. Ms. Shelby was subsequently weaned fro m steroids. 3. Pulmonary nodules stable. Chest x-ray. Given the patient's nonsmoking status the et iology of her pulmonary nodules is most likely related to her underlying sarcoidosis. Plan 1. Asmanex 200 g per puff, 1 inhalation twice daily. 2. Pulmonary clinic follow-up appointment to determine the status of the patient's symptom s on Asmanex in approximately 4 weeks' time. CC: Blayne Herrera documented [...] [place] | | | | | | [address] | | | | | | | | +--------+ + + + + | 08/15/ | Office | Pulmonology | Landon Denton, | | | 2019 | Visit | | MD [address] | | | | | | [place] | | | | | | [address] | | | | | | | [...]
--- OUTSIDE RECORDS SUMMARY | ~2019-07-31 | XMS | Encounter Summary ---
Demographics + + + | Address | [address] | | | [place] [address] | + + + | Home Phone [...] + | Author | [facility] | | | and [place] | + + + | Organization | [facility] | | | and [place] [...] [place] | | | | | [address] | | + + + + + | Haylie Rg | ECON | [address] [facility] | | | | | [place] | | + + + + + Care Team Providers + +------+ + | Care Molder Foam Rubber Name | Role | Phone | + [...] Description | +--------+---------+ + + + | 08/02/ | Office | [facility] [place] | Landon Denton, | Dyspnea (Primary | | 2012 | Visit | PULMONARY [address] | MD [address] | Dx); Pulmonary | | | | [place], | [place], [place] | nodules; Sarcoid | | | | [place] [address] | [address] | (HCC) | | | | [phone] | | | +--------+---------+ + + + [...] + + + | Blood Pressure | 110/70 | 08/02/2012 1:57 PM | | | | | PST | | + + + + + | Pulse | 82 | 08/02/2012 1:57 PM | | | | | PST | | + + + + + | Temperature | - | - | | + + + + + | Respiratory Rate | - | - | | + + + + + | Oxygen Saturation | 100% | 08/02/2012 1:57 PM | | | | | PST | | + + + + + | Inhaled Oxygen | - | - | | | Concentration | | | | + + + + + | Weight | 77.1 kg (170 lb) | 08/02/2012 1:57 PM | | | | | PST | | + + + + + | Height | 154.9 cm (5' 1") | 08/02/2012 1:57 PM | | | | | PST | | + + + + + | Body Mass Index | 32.12 | 08/02/2012 1:57 PM | | | | | PST | | + + + + + documented in this encounter Patient Instructions Patient Instructions Landon Denton MD - 08/02/2012 2:22 PM PSTPlease continue with ex ercise program. documented in this encounter Progress Notes Landon Denton MD - 08/02/2012 2:09 PM PSTFormatting of this note might be different f rom the original. Pulmonary Follow Up HPI Elinor Shelby is a 67 y.o. female patient of Blayne Herrera here today for follow u p of sarcoid. It has been 12 months since our last clinic appointment. At their last visit, we planned f ollow up for 12 months. Since the last visit she feels like their symptoms are increasing st eadily with SOB. Other symptoms lightheadness an heartburn. Stress test negative per repo rt.They have have not had any acute illnesses. Had a flu shot. They are currently on a no tr eatment. Currently they are able to walk 2 miles at their own pace on level ground. Inclines cause S OB over the last 12 months. They are exercising regularly walking in pool for last year. La st 3-[address] scan and stress test. She does cough chronically mornings or nights, and does not produce mucous. They have not had hemoptysis. She has not been evaluated for nocturnal oxygen and does not use it. She does had symptoms of heartburn or reflux last 3-4 months with rest and exertion. They h ave not had symptoms of nasal congestion, runny nose or post nasal drip. Past Medical History Past Medical History Diagnosis Date Lymphedema Shoulder fracture Sarcoid Pulmonary nodules No change in follow up imaging last here 2010 Allergies: No Known Allergies Medications: Current outpatient prescriptions:multivitamin (THERAGRAN) per tablet, 1 tablet by mouth logan ly, Disp: , Rfl: ; [place]-3 Fatty Acids (OMEGA 3 PO), CPDR; 3 capsules by mouth twice daily, Disp: , Rfl: Review of Systems Constitutional: Denies fever, chills, [...] urticaria, allergic rash, hay fever. Objective BP 110/70 | Pulse 82 | Ht 1.549 m (5' 1") | Wt 77.111 kg (170 lb) | BMI 32.12 kg/m2 | SpO2 100% Appearance: Alert, cooperative, no distress, appears stated [...] Extremities normal, atraumatic, no cyanosis, clubbing, or edema Skin: Warm and dry Lymph nodes: Cervical and supraclavicular nodes normal Neurologic: Gait normal Data: Pulmonary function tests were performed on 08/02/12 and were reviewed and interpreted in clin ic today. They show patient's FVC is 2.98, 116% of predicted the FEV1 is 2.06, 103% of pred icted and the FEV1/FVC is 69%. Assessment 1. Worsening dyspnea -Maribel Shelby is a 67-year-old female with probable sarcoidosis a nd pulmonary nodules. The patient's last clinic appointment was approximately 12 months ago . At that time her pulmonary symptoms and CT scan were all stable. Over last 3-4 months Maribel is noted worsening shortness of breath. Maribel does have a repea t CT scan of the chest which apparently did not show new abnormalities. The patient also gibson d a stress test which is likewise reportedly normal. Today pulmonary function tests show stable normal spirometry and a stable mild diffusion ca pacity. The etiology of this patient's worsening shortness of breath is not immediately evident. I suggested to Maribel that I review her recent chest CT. I've also encouraged the patient to continue with regular schedule exercise. 2. 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 Pulmonary fu nction tests have historically show normal spirometry and a mild diffusion abnormality. No change in the patient's pulmonary function over last 12 months. 3. Pulmonary nodules-previously thought to be related to nodular sarcoid. Plan 1. Request chest CT be sent electronically to [facility]. 2. Continue with regular schedule exercise. 3. Pulmonary clinic followup appointment to review the patient's CT scan and to discuss he r symptoms in approximately 3 weeks' time. CC: Blayne Herrera documented in [...] of lung field | + + | Sarcoid Sarcoidosis | + + documented in this encounter
--- OUTSIDE RECORDS SUMMARY | ~2019-07-31 | XMS | Encounter Summary ---
Demographics + + + | Address | [address] | | | [place] [address] | + + + | Home Phone | | + + + | Preferred Language | Unknown | + + + | Marital Status | | + + + | Confucianism Affiliation | Unknown | + + + | Race | Unknown | + + + | Ethnic Group | Unknown | + + + Author + + + | Author | Located Within [facility] | | | and [place] | + + + | Organization | Located Within [facility] | | | and [...] [place] | | | | | [address] | | + + + + + | Haylie Rg | ECON | [address] [facility] [address] | | | | | [place] | | + + + + + Care Team Providers + +------+ + | Care Ramp Boss Name | Role | Phone | + [...] + + | 02/15/ | Office | [facility] [place] | Landon Denton, | Sarcoidosis (HCC) | | 2016 | Visit | PULMONARY [address] | MD [address] | (Primary Dx); | | | | [place], | [place], [place] | Pulmonary nodules | | | | [place] [address] | [address] | | | | | [phone] | | | +--------+---------+ + + + [...] that provide care in hospitals, nursing homes, [facility], and other facilities Household members, including children, [...] allergic reaction to a previous flu vaccine Guillain-[place] syndrome (a severe paralyzing condition) The nasal spray is recommended for people from 2 to 49 years old. It should not be given to adults who: Are Have weakened immune systems Have egg allergies Will be in close contact with someone with a weakened immune system Have taken antiviral medication in the past 2 days 6533-2219 [facility] [place] [address], [place] [address]. All righ ts reserved. This information is [...] nce daily, Disp: , Rfl: 1 Evening [place] Oil 1000 MG CAPS, Take 1,000 mg [...] [place] | | | | | | [id number] | | | | | | | | +--------+ + + + + | 08/15/ | Office | Pulmonology | Landon Denton, | | | 2019 | Visit | | [address] | | | | | | [place] | | | | | | [address] | | | | | | | | +--------+ + + + + documented as of this encounter Visit Diagnoses + + | Diagnosis | + + | Sarcoidosis - Primary | + + | Pulmonary nodules Other nonspecific abnormal finding of lung field | + + documented in this encounter
--- OUTSIDE RECORDS SUMMARY | ~2019-07-31 | XMS | Encounter Summary ---
Demographics + + + | Address | [address] | | | [place] [address] | + + + | Home Phone | | + + + | Preferred Language | Unknown | + + + | Marital Status | | + + + | Druze Affiliation | Unknown | + + + | Race | Unknown | + + + | Ethnic Group | Unknown | + + + Author + + + | Author | [facility] | | | and [place] | + + + | Organization | [facility] | | | and [place] | [...] [place] | | | | | [address] | | + + + + + | Haylie Rg | ECON | [address] [facility] | | | | | [place] | | + + + + + Care Team Providers + +------+ + | Care Brewery Pumper Name | Role | Phone | + [...] Closed | | Radiology | Diagnoses | [place], | [address] | | | | | Sarcoidosis | MD Landon | [address] | | | | | Chronic | [address] | [place], | | | | | cough | [address] | [place] [address] | | | | | Procedures | [place], | Phone: | | | | | CT Chest wo | [place] [address] | [phone] | | | | | Contrast | Phone: | Fax: | | | | | | [phone] | [phone] | | | | | | Fax: | | | | | | | [phone] | | +--------+--------+ + + + + Reason for Visit Diagnostic/Screening (Routine) +--------+--------+ + + + + | Status | Reason | Specialty | Diagnoses / | Referred By | Referred To | | | | | Procedures | Contact | Contact | +--------+--------+ + + + + | Closed | | Radiology | Diagnoses | [place], | [address] | | | | | Sarcoidosis | MD Landon | [address] | | | | | Chronic | [address] | [place], | | | | | cough | [address] | [place] [address] | | | | | Procedures | [place], | Phone: | | | | | CT Chest wo | [place] [address] | [phone] | | | | | Contrast | Phone: | Fax: | | | | | | [phone] | [phone] | | | | | | Fax: | | | | | | | [phone] | | +--------+--------+ + + + + Encounter Details +--------+ + + + + | Date | Type | Department | Care Team | Description | +--------+ + + + + | 01/03/ | Hospital | [facility] | Landon Denton, | Sarcoidosis (HCC); | | 2017 | Encounter | [facility] [address] | [address] | Chronic cough | | | | [place], | [place], [place] | | | | | [place] [address] | [address] | | | | | [phone] | | | +--------+ + + + [...] + + +---------+ + + | Evening [place] | Take 1,000 mg by | | [...] Inhale 1 puff into | 60 | 11 | 01/04/20 | | | (FLOVENT DISKUS) 100 | the lungs 2 times | Inhaler | | 17 | 7 | | MCG/BLIST diskus | daily. | | | | | | inhalerIndications: | | | | | | | Sarcoidosis, Chronic | | | | | | | cough | | | | | | + [...] [place] | | | | | | [address] | | | | | | | | +--------+ + + + + | 08/15/ | Office | Pulmonology | Landon Denton, | | | 2019 | Visit | | MD [address] | | | | | | [place] | | | | | | [address] | | | | | | | | +--------+ + + + + documented as of this encounter Procedures + +--------+ + + + | Procedure Name | Priori | Date/Time | Associated Diagnosis | Comments | | | ty | | | | + +--------+ + + + | CT CHEST WO CONTRAST | Routin | 01/03/2017 | Sarcoidosis (HCC) | Results for this | | | e | 10:07 AM | Chronic cough | procedure are in the | | | | PDT | | results section. | + +--------+ + + + documented in this encounter Results CT Chest wo Contrast (01/03/2017 10:07 AM PDT) + + | Specimen | + + | | + + + + + | Narrative | Performed At | + + + | CT CHEST WO CONTRAST 01/03/2017 10:02 AM HISTORY: Follow up | [facility] | | pulmonary nodular densities and fibrosis. Worse cough. | [facility] | | COMPARISON: 02/20/2014 PROTOCOL: Axial images of the chest were | [facility] | | obtained. Coronal and sagittal reformations were acquired. | - IMAGING | | FINDINGS: LUNGS: Scattered areas of traction bronchiectasis and | | | peribronchial wall thickening are reidentified involving both lungs, | | | significantly worsened. Developing peripheral predominant fibrotic | | | changes are seen in the lung bases. Multiple pulmonary nodules and | | | areas of nodular pleural and interlobular septal thickening are once | | | again identified scattered throughout both lungs. The largest and | | | most nodular confluent areas are described as follows on series 4: -8 | | | mm soft tissue nodule in the right lung apex on image 24, unchanged. | | | -14 mm area of interlobular septal thickening versus a nodule in the | | | right upper lobe on image 39, worsened. -Diffuse bilateral perihilar | | | nodular thickening, worsened. -9 mm pleural-based soft tissue nodule | | | in the right lower lobe on image 58, unchanged. -8 mm area of | | | nodular septal thickening in the left lower lobe, unchanged (image | | | 53). HEART: The heart is of normal size. VASCULATURE: Aorta and | | | pulmonary arteries are normal in size and without acute abnormality | | | on non-contrast CT. Atherosclerotic calcifications are present. LYMPH | | | NODES: Numerous enlarged mediastinal and hilar lymph nodes are once | | | again seen with central calcification. Prominent retroperitoneal | | | lymph nodes are identified. MEDIASTINUM: Trachea and esophagus are | | | normal. Neck base is normal. ABDOMEN: The upper abdomen demonstrates | | | no acute findings. Small to moderate sliding-type hiatal hernia. | | | Gallbladder is surgically absent. SOFT TISSUES: Chest wall structures | | | are normal. BONES: There are no acute osseous abnormalities. | | | Degenerative changes are seen scattered throughout the thoracic | | | spine. IMPRESSION - Interval worsened traction bronchiectasis, | | | areas of parenchymal scarring, developing peripheral predominant | | | fibrotic changes, and extensive areas of interlobular soft | | | tissue/nodular thickening in the setting of extensive middle and | | | posterior mediastinal lymphadenopathy with central calcification. | | | Constellation of findings is most compatible with long-standing | | | sarcoidosis with subsequent fibrosis. Etiologies such as lymphangitic | | | carcinomatosis are unable to be entirely excluded but thought less | | | likely given chronic long-standing nature. Small to moderate | | | sliding-type hiatal hernia. Dictated and Signed by: Alirio | | | MD Sophie Electronically signed: 01/03/2017 11:42 AM | | + + + + + | Procedure Note | + + | Cosme, Rad Results In - 01/03/2017 11:[address] CHEST WO CONTRAST 01/03/2017 10:02 AM | | | | HISTORY: Follow up pulmonary nodular densities and fibrosis. Worse cough. | | | | COMPARISON: 02/20/2014 | | | | PROTOCOL: Axial images of the chest were obtained. Coronal and sagittal | | reformations were acquired. | | | | FINDINGS: | | | | LUNGS: Scattered areas of traction bronchiectasis and peribronchial wall | | thickening are reidentified involving both lungs, significantly worsened. | | Developing peripheral predominant fibrotic changes are seen in the lung bases. | | Multiple pulmonary nodules and areas of nodular pleural and interlobular septal | | thickening are once again identified scattered throughout both lungs. The | | largest and most nodular confluent areas are described as follows on series 4: | | -8 mm soft tissue nodule in the right lung apex on image 24, unchanged. | | -14 mm area of interlobular septal thickening versus a nodule in the right upper | | lobe on image 39, worsened. | | -Diffuse bilateral perihilar nodular thickening, worsened. | | -9 mm pleural-based soft tissue nodule in the right lower lobe on image 58, | | unchanged. | | -8 mm area of nodular septal thickening in the left lower lobe, unchanged (image | | 53). | | HEART: The heart is of normal size. | | VASCULATURE: Aorta and pulmonary arteries are normal in size and without acute | | abnormality on non-contrast CT. Atherosclerotic calcifications are present. | | LYMPH NODES: Numerous enlarged mediastinal and hilar lymph nodes are once again | | seen with central calcification. Prominent retroperitoneal lymph nodes are | | identified. | | MEDIASTINUM: Trachea and esophagus are normal. Neck base is normal. | | ABDOMEN: The upper abdomen demonstrates no acute findings. Small to moderate | | sliding-type hiatal hernia. Gallbladder is surgically absent. | | SOFT TISSUES: Chest wall structures are normal. | | BONES: There are no acute osseous abnormalities. Degenerative changes are seen | | scattered throughout the thoracic spine. | | | | IMPRESSION - | | Interval worsened traction bronchiectasis, areas of parenchymal scarring, | | developing peripheral predominant fibrotic changes, and extensive areas of | | interlobular soft tissue/nodular thickening in the setting of extensive middle | | and posterior mediastinal lymphadenopathy with central calcification. | | | | Constellation of findings is most compatible with long-standing sarcoidosis with | | subsequent fibrosis. Etiologies such as lymphangitic carcinomatosis are unable | | to be entirely excluded but thought less likely given chronic long-standing | | nature. | | | | Small to moderate sliding-type hiatal hernia. | | | | Dictated and Signed by: Alirio Barrios MD | | Electronically signed: 01/03/2017 11:42 AM | + + + + + + + | Performing | Address | City/State/Zipcode | Phone Number | | Organization | | | | + + + + + | [facility] | [address] | [place] | [phone] | | [facility] | | [address] | | | - IMAGING | | | | + + + + + documented in this encounter Visit Diagnoses + + | Diagnosis | + + | Sarcoidosis | + + | Chronic cough Cough | + + documented in this encounter"
--- OUTSIDE RECORDS SUMMARY | ~2019-07-31 | XMS | Encounter Summary ---
Demographics + + + | Address | [address] | | | [place] [address] | + + + | Home Phone | | + + + | Preferred Language | Unknown | + + + | Marital Status | | + + + | Holiness Affiliation | Unknown | + + + | Race | Unknown | + + + | Ethnic Group | Unknown | + + + Author + + + | Author | [facility] | | | and [place] | + + + | Organization | [facility] | | | and [...] [place] | | | | | [address] | | + + + + + | Haylie Rg | ECON | [address] [facility] | | | | | [place] | | + + + + + Care Team Providers + +------+ + | Care Cotton Grader Name | Role | Phone | + +------+ + | Blayne Herrera DO | PCP | | + +------+ + Reason for Visit + + + | Reason | Comments | + + + | Medication Question | | + + + Encounter Details +--------+ + + + + | Date | Type | Department | Care Team | Description | +--------+ + + + + | 11/10/ | Telephone | [facility] | Landon Denton, | Medication Question | | 2015 | | PULMONARY [address] | MD [address] | | | | | [place], | [place] | | | | | [place] [address] | [address] | | | | | [phone] | | | +--------+ + + + [...] [place] | | | | | | [address] | | | | | | | | +--------+ + + + + | 08/15/ | Office | Pulmonology | Landon Denton, | | | 2019 | Visit | | [address] | | | | | | [place] | | | | | | [address] | | | | | | | | +--------+ + + + + documented as of this encounter Visit Diagnoses Not on filedocumented in this encounter"
--- OUTSIDE RECORDS SUMMARY | ~2019-07-31 | XMS | Encounter Summary ---
Demographics + + + | Address | [address] | | | [place] [address] | + + + | Home Phone [...] Author | [facility] | | | and [place] | + + + | Organization | [facility] | | | and [...] [place] | | | | | [address] | | + + + + + | Haylie Rg | ECON | [address] [facility] | | | | | [place] | | + + + + + Care Team Providers + +------+ + | Care Carpet Winder Name | Role | Phone | + +------+ + | Blayne Herrera DO | PCP | | + +------+ + Reason for Visit + + + | Reason | Comments | + + + | Shortness of Breath | | + + + Encounter Details +--------+---------+ + + + | Date | Type | Department | Care Team | Description | +--------+---------+ + + + | 08/22/ | Office | [facility] | Landon Denton, | Sarcoidosis (HCC) | | 2012 | Visit | PULMONARY [address] | MD [address] | (Primary Dx) | | | | [place], | [place] | | | | | [place] [address] | [address] | | | | | [phone] | | | +--------+---------+ + + + [...] + + + | Blood Pressure | 120/70 | 08/22/2012 1:07 PM | | | | | PST | | + + + + + | Pulse | 78 | 08/22/2012 1:07 PM | | | | | PST | | + + + + + | Temperature | - | - | | + + + + + | Respiratory Rate | - | - | | + + + + + | Oxygen Saturation | 100% | 08/22/2012 1:07 PM | | | | | PST | | + + + + + | Inhaled Oxygen | - | - | | | Concentration | | | | + + + + + | Weight | 77.7 kg (171 lb 4.8 | 08/22/2012 1:07 PM | | | | oz) | PST | | + + + + + | Height | 154.9 cm (5' 0.98") | 08/22/2012 1:07 PM | | | | | PST | | + + + + + | Body Mass Index | 32.38 | 08/22/2012 1:07 PM | | | | | PST | | + + + + + documented in this encounter Patient Instructions Patient Instructions Landon Denton MD - 08/22/2012 1:29 PM PSTWe will call you with t he results of the NELSON level and establish a plan. documented in this encounter Progress Notes Landon Denton MD - 08/22/2012 1:12 PM PSTFormatting of this note might be different f rom the original. Pulmonary Follow Up HPI AnneMinna Shelby is a 67 y.o. female patient of Blayne Herrera here today for follow u p of worsening SOB. It has been 3 weeks since our last clinic appointment. At their last visit, we planned to review her recent CT scan from May 2012. Since the last visit she feels like their symp toms are stable. They have have not had any acute illnesses. They are currently No meds f or sarcoid. Currently they are able to walk 2 miles at their own pace on level ground. They are exercis ing regularly 2-3 days/weeks walking in the pool. They are not enrolled in cardiac/pulmonary rehabilitation or other physical therapy. She does cough chronically in morning, and does not produce mucous. They have not had hemop tysis. She has not been evaluated for nocturnal oxygen and does not use it. She does not had symptoms of heartburn or reflux. They have not had symptoms of nasal conge stion, runny nose or post nasal drip. No history of palpitations. Maribel has experienced substernal chest pain several times over last few weeks. The pain is described as usually exertional and has occurred with activity such as climbing stairs or carrying objects. The pain resolves with rest. Past Medical History Past Medical History Diagnosis Date Lymphedema Shoulder fracture Sarcoid Pulmonary nodules No change in follow up imaging last here 2010 Allergies: No Known Allergies Medications: Current outpatient prescriptions:multivitamin (THERAGRAN) per tablet, 1 tablet by mouth logan ly, Disp: , Rfl: ; Wall-3 Fatty Acids (OMEGA 3 PO), CPDR; 3 capsules by mouth twice daily, Disp: , Rfl: Review of Systems Constitutional: Denies fever, chills, sweats, fatigue/weakness, and unexpected weight bray ge. Sleep: Denies trouble sleeping, excessive snoring, and daytime sleepiness. Eyes: Denies vision change, and eye irritation. ENT: Denies earache, tinnitus, decreased hearing, nosebleeds, sore throat, and hoarseness. Resp: See HPI. CV: Denies neck/jaw pain with exertion, palpitations, lightheadedness, syncope, dyspnea on exertion, orthopnea, PND, peripheral edema, and claudication. GI: Denies trouble swallowing, nausea, vomiting, abdominal pain, diarrhea, constipation,m jayro, and hematochezia. Neurologic: Denies frequent headaches, seizures, tremors, numbness or tingling in hands or feet, vertigo, and fall or difficulty walking in past 6 months. Allergy Denies urticaria, allergic rash, hay fever. Objective BP 120/70 | Pulse 78 | Ht 1.549 m (5' 0.98") | Wt 77.701 kg (171 lb 4.8 oz) | BMI 32.38 kg/ m2 | SpO2 100% Appearance: Alert, cooperative, no [...] Data: Chest CT scan was done on 08/05/11 and 06/08/12 and was reviewed and interpreted in clinic to[facility]ise [facility]. It shows the patient has numerous ovary nodules in both lungs. All of the nodular densi ties appear similar in size and number. There is no new fibrotic change. No new pulmonary infiltrates. Partial calcification of several lymph nodes is appreciated. Assessment 1. Worsening dyspnea- Renetta Shelby is a 67-year-old female with a history of biopsy-p roven sarcoidosis. To this point the patient's sarcoid has not to be nodular in nature and not associated with significant interstitial lung disease. Renetta presented earlier this month with a 3 to four-month history of worsening shortness o f breath. Her PFTs revealed normal stable spirometry and a mild stable diffusion abnormalit yBrigida Jackson had a recent CT scan from May 2012. Today the patient's CT scan was reviewed with Maribel present. All of the nodular densities are stable. There is no new interstitial or fibrotic change. Thus it seems relatively unli lincoln that a new pulmonary process or progressive sarcoidosis is the cause of Renetta is worse jose shortness of breath. Today we did discuss performing an NELSON level. If the NELSON level was significantly elevated that would provide support for a diagnosis of worsening sarcoid. If these levels not elevat ed then I suggested to Ms. Shelby that she followup with Dr. Herrera to assure that the cause of her chest pain/shortness of breath is not cardiac in origin. Plan 1. NELSON level today. 2. Renetta will subsequently contacted by the phone. If the NELSON level is elevated we will discuss therapy with prednisone. If not return to Dr. Herrera as described above. 3. If no prednisone routine pulmonary clinic followup will occur in 6 months time. CC: Blayne Herrera [...] | | 2020 | Visit | | [address] | | | | | | [place] | | | | | | [address] | | | | | | | | +--------+ + + + + documented as of this encounter Results Angiotensin I Converting Enzyme (08/22/2012 1:52 PM PST) + + + + + + | Component | Value | Ref Range | Performed | Pathologist | | | | | At | Signature | + + + + + + | Angiotensin | 25Comment: Testing | 4 - 60 U/L | [facility] | | | Converting | Performed: [facility] | | [facility] | | | Enzyme | [facility] | | MEDICAL | | | | Center,[address], | | CENTER - | | | | [place] [address] | | LABORATORY | | | | CLIA: [id number] | | | | + + + + + + + + | Specimen | + + | Blood specimen | | (specimen) | + + + + + | Narrative | Performed At | + + + | | [facility] | | | [facility] | | | [facility] | | | - LABORATORY | + + + + + + + + | Performing | Address | City/State/Zipcode | Phone Number | | Organization | | | | + + + + + | [facility] | [address] | [place] | [phone] | | [facility] | | [address] | | | - LABORATORY | | | | + + + + + | [facility] | [address] | [place] | | | [facility] | | [address] | | | - LABORATORY | | | | + + + + + documented in this encounter Visit Diagnoses + + | Diagnosis | + + | Sarcoidosis - Primary | + + documented in this encounter
--- OUTSIDE RECORDS SUMMARY | ~2019-07-31 | XMS | Encounter Summary ---
Demographics + + + | Address | [address] | | | [place] [address] | + + + | Home Phone | | + + + | Preferred Language | Unknown | + + + | Marital Status | | + + + | Restorationist Affiliation | Unknown | + + + | Race | Unknown | + + + | Ethnic Group | Unknown | + + + Author + + + | Author | [facility] | | | and [place] | + + + | Organization | [facility] | | | and [...] [place] | | | | | [address] | | + + + + + | Haylie Rg | ECON | [address] [facility] | | | | | [place] | | + + + + + Care Team Providers + +------+ + | Care Ceiling Insulation Blower Name | Role | Phone | + [...] | | | | unspecified | [address] | [place] | | | | | Aniya | [place] | [place] [address] | | | | | F/U APPT | Ave | Phone: | | | | | DR GALVAN | [place] | [phone] | | | | | [place] | [place] | Fax: | | | | | 02/20/19 | [address] | [phone] | | | | | | Phone: | | | | | | | [phone] | | | | | | | Fax: | | | | | | | [phone] | | + +--------+ + + + + Encounter Details +--------+---------+ + + + | Date | Type | Department | Care Team | Description | +--------+---------+ + + + | 05/03/ | Office | [facility] | Landon Denton, | Sarcoidosis (HCC) | | 2019 | Visit | PULMONARY [address] | MD [address] | (Primary Dx); | | | | [place], | [place], [place] | Hypoxemia | | | | [place] [address] | [address] | | | | | [phone] | | | +--------+---------+ + + + [...] avoid any side effects. Talk to your consumer loan specialist regarding the use of this medicine in children. Special care may be needed. What side effects may I notice from receiving this medicine? Side effects that you should report to your doctor or health career guidance counselor as soon as p ossible: allergic reactions [...] (report to your doctor or health career guidance counselor if they continue or are bothersome): confusion, [...] ta lk to your doctor or health career guidance counselor. You may need to miss a dose [...] this medicine? Visit your doctor or health career guidance counselor for regular checks on your progress. If [...] have surgery, tell your doctor or health career guidance counselor that you hav e taken this medicine within the last twelve months. Ask your doctor or health career guidance counselor about your diet. You may need to lower the amou nt of salt you eat. This medicine may affect blood sugar levels. If you have diabetes, check with your doctor o r health career guidance counselor before you change your diet or the [...] coughing)., Disp: 1 Inhaler, Rfl: 5 Evening [place] Oil 1000 MG CAPS, Take 1,000 mg by mouth Daily., Disp: , Rfl: Multiple Vitamin TABS, Take 2 tablets by mouth Daily., Disp: , Rfl: [place]-3 Fatty Acids (OMEGA-3 FISH OIL) 1000 MG CAPS, Take 1,000 mg by mouth Daily., Di sp: , Rfl: omeprazole (PRILOSEC) 20 mg capsule, Take 20 mg by mouth every morning (before break st)., Disp: , Rfl: ondansetron (ZOFRAN) 4 mg tablet, , Disp: , Rfl: PEG 7180-QZe-MhSfj-NaCl-NaSulf (PEG 3350/ELECTROLYTES) 240 g SOLR, , Disp: [...] [place] | | | | | | [address] | | | | | | | | +--------+ + + + + documented as of this encounter Visit Diagnoses + + | Diagnosis | + + | Sarcoidosis (HCC) - Primary Sarcoidosis | + + | Hypoxemia | + + documented in this encounter
--- OUTSIDE RECORDS SUMMARY | ~2019-07-31 | XMS | Encounter Summary ---
Demographics + + + | Address | [address] | | | [place] [address] | + + + | Home Phone | | + + + | Preferred Language | Unknown | + + + | Marital Status | | + + + | Rastafarian Affiliation | Unknown | + + + | Race | Unknown | + + + | Ethnic Group | Unknown | + + + Author + + + | Author | [facility] | | | and [place] | + + + | Organization | [facility] | | | and [place] [...] [place] | | | | | [address] | | + + + + + | Haylie Rg | ECON | [address] [facility] | | | | | [place] | | + + + + + Care Team Providers + +------+ + | Care Ball Mill Mixer Name | Role | Phone | + +------+ + | Blayne Herrera DO | PCP | | + +------+ + Encounter Details +--------+ + + + + | Date | Type | Department | Care Team | Description | +--------+ + + + + | 08/01/ | Hospital | [facility] | Conversion | Pain | | 2018 | Encounter | CONVERSION [address]P [address] | Transaction, | | | | | [address] | Provider Unknown | | | | | [place] | [phone] | | | | | [address] | | | | | | [phone] | | | +--------+ + + + [...] + + +---------+ + + | Evening University | Take 1,000 mg by | | [...] [place] | | | | | | [address] | | | | | | | | +--------+ + + + + | 08/15/ | Office | Pulmonology | Landon Denton, | | | 2019 | Visit | | MD [address] | | | | | | [place] | | | | | | [address] | | | | | | | | +--------+ + + + + documented as of this encounter Procedures + +--------+ + + + | Procedure Name | Priori | Date/Time | Associated Diagnosis | Comments | | | ty | | | | + +--------+ + + + | CT CHEST WO CONTRAST | Routin | 08/05/2011 | | Results for this | | | e | 10:15 AM | | procedure are in the | | | | PST | | results section. | + +--------+ + + + documented in this encounter Results CT Chest wo Contrast (08/05/2011 10:15 AM PST) + + | Specimen [...]
--- OUTSIDE RECORDS SUMMARY | ~2019-07-31 | XMS | Encounter Summary ---
Demographics + + + | Address | [address] | | | [place] [address] | + + + | Home Phone [...] Author | [facility] | | | and [place] | + + + | Organization | [facility] | | [...] [place] | | | | | [address] | | + + + + + | Haylie Rg | ECON | [address] [facility] | | | | | [place] | | + + + + + Care Team Providers + +------+ + | Care Stair Builder Name | Role | Phone | + +------+ + | Blayne Herrera PCP | | + +------+ + Encounter Details +--------+ + + + + | Date | Type | Department | Care Team | Description | +--------+ + + + + | 02/18/ | Hospital | [facility] | Landon Denton, | Sarcoidosis (HCC) | | 2014 | Encounter | MED CTR PULMONARY | MD [address] | | | | | FUNCTION [address] | [place], [place] | | | | | [place], | [address] | | | | | [place] [address] | | | | | | [phone] | | | +--------+ + + + [...] + + + +---------+ + + | [place]-3 Fatty | CPDR; 3 capsules by | [...] | 08/15/ | Appointment | Pulmonology | DentonMichaelLandon, | | | 2019 | | | MD [address] | | | | | | [place] | | | | | | [address] | | | | | | | | +--------+ + + + + | 08/15/ | Office | Pulmonology | BertinLandon, | | | 2019 | Visit | | MD [address] | | | | | | [place] | | | | | | [address] | | | | | | | [...] 15:16 [facility] | | | [facility] | | + + + + + [...] Landon Denton MD 02/20/2014 15:16[facility] | | [facility] | | | |Compared to pulmonary function tests from July 2012 the patient's spirometry is essentia lly unchanged. The diffusion capacity has fallen 16%. | | | |Test performed: 02/18/14 | |Electronically signed by: Landon Denton MD 02/20/2014 15:16 | |[facility] | + + documented in this encounter Visit Diagnoses + + | Diagnosis | + + | Sarcoidosis | + + documented in this encounter"
--- OUTSIDE RECORDS SUMMARY | ~2019-07-31 | XMS | Encounter Summary ---
Demographics + + + | Address | [address] | | | [place] [address] | + + + | Home Phone | | + + + | Preferred Language | Unknown | + + + | Marital Status | | + + + | Voodoo Affiliation | Unknown | + + + | Race | Unknown | + + + | Ethnic Group | Unknown | + + + Author + + + | Author | [facility] | | | and [place] | + + + | Organization | [facility] | | | and [place] [...] [place] | | | | | [address] | | + + + + + | Haylie Rg | ECON | [address] [facility] | | | | | [place] | | + + + + + Care Team Providers + +------+ + | Care Alcohol Law Enforcement Agent Name | Role | Phone | + +------+ + | Ama Moreau | PCP | | | [place] | | | + +------+ + Encounter Details +--------+ + + + + | Date | Type | Department | Care Team | Description | +--------+ + + + + | 05/03/ | Hospital | [facility] | Landon Denton, | Sarcoidosis ([facility]); | | 2018 | Encounter | MED CTR PULMONARY | MD [address] | Bronchiectasis | | | | FUNCTION [address] | [place], [place] | without complication | | | | [place], | [address] | ([facility]) | | | | [place] [address] | | | | | | [phone] | | | +--------+ + + + [...] + + +---------+ + + | Evening Immac[place]ata | Take 1,000 mg by | | 0 | | | | Oil 1000 MG CAPS | mouth Daily. | | | | | + + + +---------+ + + | Multiple Vitamin | Take 2 tablets by | | 0 | | | | TABS | mouth Daily. | | | | | + + + +---------+ + + | [place]-3 Fatty | Take 1,000 mg by | [...] + + + +---------+ + + | PEG | | | 0 | 04/24/20 | | | [id number]-JnMzs-NaCl- | | | | 19 | | | NaSulf (PEG | | | | | | | 3350/ELECTROLYTES) | | | | | | | 240 g SOLR | | | | | | + + + +---------+ + + | pseudoePHEDrine | Take 30 mg by mouth | | 2 | 10/02/19 | | | (SUDAFED) 30 mg | every 6 hours as | | | 17 | | | tablet | needed. | | | | | + + + +---------+ + + | ondansetron | | | 0 | 04/24/20 | | | (ZOFRAN) 4 mg tablet | | | | 19 | 9 | + + + +---------+ + + | predniSONE | Take 2 tablets by | 60 | 2 | 05/03/20 | | | (DELTASONE) 10 mg | [...] [place] | | | | | | [address] | | | | | | | | +--------+ + + + + | 08/15/ | Office | Pulmonology | Landon Denton, | | | 2019 | Visit | | MD [address] | | | | | | [place] | | | | | | [address] | | | | | | | [...] | 05/03/2019Electronically signed by: Landon Denton MD, MD | | | 05/03/2019 14:46[facility] | | |corrected for measured hemoglobin. | | | | | |Compared to pulmonary function test performed 10/17/2018 the | | |patient's forced vital capacity has increased 9%. Compared to | | |pulmonary function test performed 04/04/2017 the uncorrected DLCO | | |has decreased 7%. | | | | | |Test performed: 05/03/2019 | | |Electronically signed by: Landon Denton MD, 05/03/2019 | | |14:46 | | |[facility] | | + + + documented in this encounter Visit Diagnoses + + | Diagnosis | + + | Sarcoidosis (HCC) Sarcoidosis | + + | Bronchiectasis without complication (HCC) Bronchiectasis without acute exacerbation | + + documented in this encounter"
--- OUTSIDE RECORDS SUMMARY | ~2019-07-31 | XMS | Encounter Summary ---
Demographics + + + | Address | [address] | | | [place] [address] | + + + | Home Phone [...] Author | [facility] | | | and [place] | + + + | Organization | [facility] | [...] [place] | | | | | [address] | | + + + + + | Haylie Rg | ECON | [address] | | | | | [place] | | + + + + + Care Team Providers + +------+ + | Care Director Machine Name | Role | Phone | + [...] + + | 12/19/ | Office | [facility] | Landon Denton, | Sarcoidosis (HCC) | | 2019 | Visit | PULMONARY [address] | MD [address] | (Primary Dx) | | | | [place], | [place] | | | | | [place] [address] | [id number] | | | | | [phone] | | | +--------+---------+ + + + [...] to take special precautions. Talk to your water resource specialist regarding the use of this medicine in children. While this drug m ay be prescribed for selected conditions, precautions do apply. What side effects may I notice from receiving this medicine? Side effects that you should report to your doctor or health post acute care nurse practitioner as soon as p ossible: allergic reactions [...] attention (report to your doctor or health post acute care nurse practitioner if they continue or are bothersome): dizziness [...] dose, talk with your doctor or health post acute care nurse practitioner. Do not take double o r extra [...] this medicine. Call your doctor or health post acute care nurse practitioner for advice if you get a fever, [...] bleeding. Check with your doctor or health post acute care nurse practitioner if you get an attack of severe [...] an unborn child. Talk to your health post acute care nurse practitioner or pharmacist for more information. Do not breast-feed an i nfant while taking this medicine. NOTE:This sheet is a summary. It may not cover all possible information. If you have questi ons about this medicine, talk to your doctor, pharmacist, or health care provider. Copyright 2019 [employer] documented in this encounter Progress Notes Landon Denton MD - 12/19/2018 10:00 AM PDTFormatting of this note might be different f rom the original. Pulmonary Follow Up 12/19/2018 [facility] Elinor Shelby is a 73 y.o. [...] coughing)., Disp: 1 Inhaler, Rfl: 5 Evening [place] Oil 1000 MG CAPS, Take 1,000 mg by mouth Daily., Disp: , Rfl: FLOVENT DISKUS 100 MCG/BLIST diskus inhaler, INHALE ONE PUFF BY MOUTH TWICE DAILY , Di sp: 1 Inhaler, Rfl: 3 Multiple Vitamin TABS, Take 2 tablets by mouth Daily., Disp: , Rfl: [place]-3 Fatty Acids (OMEGA-3 FISH OIL) 1000 MG [...] | | | | | [place] | | | | | | [address] | | | | | | | | +--------+ + + + + | 08/15/ | Office | Pulmonology | Landon Denton, | | | 2019 | Visit | | [address] | | | | | | [place] | | | | | | [address] | | | | | | | [...] [address] | [place] | [phone] | | [facility] | | [address] | | | - LABORATORY | | | | + + + + + documented in this encounter Visit Diagnoses + + | Diagnosis | + + | Sarcoidosis (HCC) - Primary Sarcoidosis | + + documented in this encounter
--- OUTSIDE RECORDS SUMMARY | ~2019-07-31 | XMS | Encounter Summary ---
Demographics + + + | Address | [address] | | | [place] [address] | + + + | Home Phone [...] Author | [facility] | | | and [place] | + + + | Organization | [facility] | | | and [place] [...] [place] | | | | | [address] | | + + + + + | Haylie Rg | ECON | [address] [facility] | | | | | [place] | | + + + + + Care Team Providers + +------+ + | Care Owner Spa Director Name | Role | Phone | + +------+ + | Blayne Herrera DO | PCP | | + +------+ + Reason for Visit + + + | Reason | Comments | + + + | Sarcoidosis | 6 mo follow up | + + + | Cough | | + + + Encounter Details +--------+---------+ + + + | Date | Type | Department | Care Team | Description | +--------+---------+ + + + | 10/03/ | Office | [facility] | Landon Denton, | Chronic cough | | 2018 | Visit | PULMONARY [address] | [address] | (Primary Dx); | | | | [place], | [place], [place] | Sarcoidosis; | | | | [place] [address] | [address] | Bronchiectasis | | | | [phone] | | without complication | | | | | | ([facility]); Need for | | | | | | pneumococcal vaccine | +--------+---------+ + + + Social History [...] + + + | Blood Pressure | 120/74 | 10/03/2017 9:28 AM | | | | | PST | | + + + + + | Pulse | 84 | 10/03/2017 9:28 AM | | | | | PST | | + + + + + | Temperature | - | - | | + + + + + | Respiratory Rate | - | - | | + + + + + | Oxygen Saturation | 94% | 10/03/2017 9:28 AM | | | | | PST | | + + + + + | Inhaled Oxygen | - | - | | | Concentration | | | | + + + + + | Weight | 75.3 kg (166 lb 0.1 | 10/03/2017 9:28 AM | | | | oz) | PST | | + + + + + | Height | 156.2 cm (5' 1.5") | 10/03/2017 9:28 AM | | | | | PST | | + + + + + | Body Mass Index | 30.86 | 10/03/2017 9:28 AM | | | | | PST | | + + + + + documented in this encounter Patient Instructions Patient Instructions Landon Denton MD - 10/03/2017 10:00 AM PST Pulmonary Sarcoidosis Sarcoidosis is a disease that causes inflammation of the body tissues. This leads to small lumps called granulomas. The disease can affect any organ in the body. But it often starts i n the lungs and lymph nodes. What causes sarcoidosis? It is not known what causes sarcoidosis. It results from a problem with the body s immune system. The main job of the immune system is to help the body fight infection. People of an y age, race, or gender can have it. But it happens most often in people between the ages of 20 and 40. It is also more common in women than in men and in people exposed to gayle or mol dy conditions. How it affects the lungs When you breathe in, you inhale air that is full of oxygen. The oxygen travels from the francisco j gs to the blood. Then it is carried to the rest of the body. In some cases of pulmonary sarc oidosis, the lungs become scarred. This is called pulmonary fibrosis. This scarring can make it hard to take a full breath. The damage can also make it hard for oxygen to pass from the lungs into the blood. Symptoms of pulmonary sarcoidosis Most people have no symptoms at all. If symptoms do occur, they can include dry cough,tig htness in the chest, and tiredness. Wheezing, shortness of breath, skin rashes, joint pain, kidney stones, vision problems, and loss of appetite can also occur. In some cases, pulmonar y sarcoidosis stops getting worse. It may even go away. In other cases, the disease is long- lasting (chronic). Treatment of pulmonary sarcoidosis Many people don t need treatment. The disease may not cause symptoms. And it may go away on its own. But treatment can be done to help relieve symptoms. It can reduce inflammation a nd help prevent damage. Medicines are used to treat the disease. More than one may be used. They may be taken in pill form or by injection. Some common ones are listed below. Prednisone. This is an anti-inflammatory steroid (corticosteroid). It helps prevent or r educe inflammation that can harm lungs. Methotrexate. This medicine is commonly the first one used so that you can cut back on t he dose of prednisone. This helps lower the long-termside effects of the steroid. Azathioprine. This medicine suppresses the immune system. It may be used alone or with p rednisone. It helps reduce lung inflammation. Cyclophosphamide. This is another type ofmedicine that suppresses the immune system. I t may be used with prednisone. You may be given it as a single dose if you have problems wit h prednisone. Other medicines that may be used include anti-TNF medicines such as inflizimab and etanerce pt. Antimalaria medicines such as hydroxychloroquine may help when skin, joints or brain are affected. Note: These medicines can have serious side effects. Talk with your healthcare provider abo ut them. Don't stop taking a medicine unless your provider says it s OK. And tell your [facility] provider or pharmacist about all medicines you use. This includes khza-klj-xrvqsjd m edicines. It also includes herbs or supplements. Date Last Reviewed: 03/31/201619996685-9194 [employer]. [address] [place] [address]. All righ ts reserved. This information is not intended as a substitute for professional medical care. Always follow your healthcare professional's instructions. documented in this encounter Progress Notes Landon Denton MD - 10/03/2017 10:00 AM PSTFormatting of this note might be different f rom the original. Pulmonary Follow Up 10/03/2017 HPI AnneMinna Shelby is a 72 y.o. female patient of Blayne Herrera DO here today for foll ow up of sarcoidosis. It has been 6 months since our last clinic appointment. At their last visit, we switched t he patient back to Flovent from Advair. Since the last visit she feels like their symptoms are stable. They have have not had any recent acute illnesses. They are currently on a regimen of Flovent for their sarcoid. The patient do feel like thi s medication regimen is decreasing their sarcoid related symptoms. Currently they are able to walk 3/4 mile at their own pace on level ground. They are exerci sing regularly. Their exercise consists of exercising at [employer] and stretching for up to one hour. They are not enrolled in cardiac/pulmonary rehabilitation or other physical therapy. She does cough chronically, and does not produce mucous. They have not had hemoptysis since our last clinic appointment. Elinor does not wheeze chronically, and does not have chest tightness. The patient does not note side effects from their sarcoidosis medications. She has not been evaluated for nocturnal oxygen. Elinor does not had symptoms of heartburn or reflux. They have not had symptoms of nasal conges tion, runny nose or post nasal drip. Since her last clinic appointment Ms. James weight has essentially been stable. She is not requiring rescue albuterol. Past Medical History Past Medical History: Diagnosis [...] 0.05 % ointment, Apply sparingly o nce weekly or as directed, Disp: , Rfl: 1 Evening [place] Oil 1000 MG CAPS, Take 1,000 mg by mouth Daily., Disp: , Rfl: FLOVENT DISKUS 100 MCG/BLIST diskus inhaler, INHALE 1 PUFF INTO THE LUNGS 2 TIMES NATHALY Y., Disp: 1 Inhaler, Rfl: 3 omeprazole (PRILOSEC) 20 mg capsule, Take 20 [...] PNEUMOCOCCAL POLYSACCHARIDE 23-VALENT (PPSV23) 08/22/2008 Objective BP 120/74 | Pulse 84 | Ht 1.562 m (5' 1.5") | Wt 75.3 kg (166 lb 0.1 oz) | SpO2 94% | ? No | BMI 30.86 kg/m Appearance: Alert, cooperative, no distress, appears [...] Neurologic: Gait normal Data: None Assessment 1. Cough likely multifactorial including components related to bronchiectasis and sarcoi dosis (fibrosis and endobronchial changes). With the initiation of inhaled corticosteroids the patient's cough improved. This would support an endobronchial component related to her sarcoid. The patient's cough is mildly increased over the last 6 months. If this symptom continues and there was support of worsening fibrosis we will need to reconsider once again treatment with systemic corticosteroids. 2. Sarcoidosis the patient's last pulmonary function tests from March did show some evidence of progression. Speaking against progression was a relatively stable CT scan. Ms. Shelby is up-to-date with respect to her Prevnar and seasonal influenza vaccination s. Repeat pulmonary function tests will be performed in 6 months. 3. Bronchiectasis no evidence of acute exacerbation symptoms. Plan 1. Pneumococcal booster today. 2. Pulmonary clinic follow-up appointment with repeat spirometry, diffusion and walking ox imetry in 6 months time. 3. Patient encouraged to increase regular schedule exercise. CC: Blayne Herrera documented in this encounter [...] [place] | | | | | | [phone] | | | | | | | | +--------+ + + + + | 08/15/ | Office | Pulmonology | Landon Denton, | | 2019 | Visit | | MD [address] | | | | | | [place] | | | | | | [phone] | | | | | | | [...] Landon Denton MD 04/03/2018 | | | 11:02[facility] | | |Diffusion capacity is severely reduced [...] Landon Denton MD 04/03/2018 11:02 | | |[facility] | | + + + documented in this encounter Visit Diagnoses + + | Diagnosis | + + | Chronic cough - Primary Cough | + + | Sarcoidosis | + + | Bronchiectasis without complication (HCC) Bronchiectasis without acute exacerbation | + + | Need for pneumococcal vaccine Need for prophylactic vaccination against streptococcus | | pneumoniae (pneumococcus) | + + documented in this encounter
--- OUTSIDE RECORDS SUMMARY | ~2019-07-31 | XMS | Encounter Summary ---
Demographics + + + | Address | [address] | | | [place] [address] | + + + | Home Phone | | + + + | Preferred Language | Unknown | + + + | Marital Status | | + + + | Voodoo Affiliation | Unknown | + + + | Race | Unknown | + + + | Ethnic Group | Unknown | + + + Author + + + | Author | [facility] | | | and [place] | + + + | Organization | [facility] | [...] [place] | | | | | [address] | | + + + + + | Haylie Rg | ECON | [address] [facility] | | | | | [place] | | + + + + + Care Team Providers + +------+ + | Care Smoking Pipes Cleaner Name | Role | Phone | + [...] | | | | unspecified | PA-C [id number] | [place], | | | | | Procedures | [place] | [place] [address] | | | | | F/U APPT | Ave | Phone: | | | | | DR GALV[address] | [place], | [phone] | | | | | [place] | [place] | Fax: | | | | | 02/20/19 | [address] | [phone] | | | | | | Phone: | | | | | | | [phone] | | | | | | | Fax: | | | | | | | [phone] | | + +--------+ + + + [...] | (Primary Dx); | | | | [place], | [place], [place] | Bronchiectasis | | | | [place] [address] | [address] | without complication | | | | [phone] | | (HCC) | +--------+---------+ + + [...] secretions in your nose and lungs . Ylof-vwj-abgamxp cold medicines will not make the flu [...] for a few days Date Last Reviewed: 07/31/201619992294-0615 [employer]. [address] [place] [address]. All righ ts reserved. This information is [...] coughing)., Disp: 1 Inhaler, Rfl: 5 Evening [place] Oil 1000 MG CAPS, Take 1,000 mg by mouth Daily., Disp: , Rfl: folic acid 1 mg tablet, Take 1 tablet by mouth Daily., Disp: 30 tablet, Rfl: 5 Multiple Vitamin TABS, Take 2 tablets by mouth Daily., Disp: , Rfl: [place]-3 Fatty Acids (OMEGA-3 FISH OIL) 1000 MG [...] [place] | | | | | | [id number] | | | | | | | | +--------+ + + + + | 08/15/ | Office | Pulmonology | Landon Denton, | | | 2020 | Visit | | MD [address] | | | | | | [place] | | | | | | [address] | | | | | | | [...] MD, | | | 05/03/2019 14:46[facility] | | |corrected for measured hemoglobin. [...] | | |14:46 | | |[facility] | | + + + documented in this encounter Visit Diagnoses + + | Diagnosis | + + | Sarcoidosis (HCC) - Primary Sarcoidosis | + + | Bronchiectasis without complication (HCC) Bronchiectasis without acute exacerbation | + + documented in this encounter
--- OUTSIDE RECORDS SUMMARY | ~2019-07-31 | XMS | Encounter Summary ---
Demographics + + + | Address | [address] | | | [place] [address] | + + + | Home Phone | | + + + | Preferred Language | Unknown | + + + | Marital Status | | + + + | Worship Affiliation | Unknown | + + + | Race | White | + + + | Ethnic Group | Not or | + + + Author + + + | Author | [facility] | + + + | Organization | [facility] | + + + | Address | Unknown | + + + | Phone | Unavailable | + + + Support + + +---------+ + | Name | Relationship | Address | Phone | + + +---------+ + | Deniz Shelby | ECON | Unknown | | + + +---------+ + Care Team Providers + +------+ + | Care Shooter Helper Name | Role | Phone | + +------+ + PCP | Unavailable | + +------+ + Encounter Details +--------+ + + + + | Date | Type | Department | Care Team | Description | +--------+ + + + + | 04/19/ | Office | [facility] | Note, [...] as of this encounter Progress Notes Interface, Garment Worker In - 05/11/2006 3:02 AM PDTCLINIC DATE: 04/19/2001 SURGICAL ONCOLOGY CLINIC SUBJECTIVE: Mrs. Shelby is self-referred because of lymphedema of the left arm. This is subsequent to excision of a fibrotic lesion in the axilla which one can indeed see on the preoperative mammogram. This was done in [place] in December 2000. 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 Only then, she had prolonged drainage and ultimately developed 1+ edema of the hand and forearm. With massage or increased activity, the edema would reduce but over time, that has become more permanent. She had a course of Keflex with undetermined results. PHYSICAL EXAMINATION: GENERAL: She is otherwise well on her physical exam including head and neck, chest, breasts, and the lower extremities are normal. PELVIC AND RECTAL: Not done. BREASTS: Her breasts are symmetrical with enlarged B-cup, and there is really no swelling in the axilla which is well healed. EXTREMITIES: On examination of the left arm, there is a slightly greater than 1+ edema of the hand and forearm and less apparent edema in the upper arm. The patient wears a Jobst sleeve and a glove and has semiweekly physiotherapy massage to reduce the edema. She also massages the arm herself for that purpose. She says that the physiotherapy is more effective than it has been in 3 years. IMPRESSION AND PLAN: Most of the visit was taken up with an explanation of the nature of the lymphedema and the best ways to control it (20 minutes). The patient was advised to continue to take dicloxacillin 500 mg 2 times a day for 5 days followed by erythromycin 500 mg 4 times a day for 5 days. She is to continue her massage and elevation as well as compression as she has been doing. She was cautioned about the risk of repeat infection, and the significance of even tiny wounds on her extremity. The patient appeared to have good understanding of lymphedema and its treatment and will want them to comply with our recommendations. She is to return here should she have further difficulties. Cullen Browning M.D. KIERRA / [id number] / [id number] / [id number] / [id number] signed by Interface, Garment Worker In at 05/11/2006 3:02 AM PDTdocume nted in this encounter Plan of Treatment Not on filedocumented as of this encounter Visit Diagnoses Not on filedocumented in this encounter"
--- OUTSIDE RECORDS SUMMARY | ~2019-07-31 | XMS | Encounter Summary ---
Demographics + + + | Address | [address] | | | [place] [address] | + + + | Home Phone [...] + | Author | [facility] | | | and [place] | + + + | Organization | [facility] | | [...] [place] | | | | | [address] | | + + + + + | Haylie Rg | ECON | [address] [facility] | | | | | [place] | | + + + + + Care Team Providers + +------+ + | Care Superintendent Operating Name | Role | Phone | + +------+ + | Blayne Herrera DO | PCP | | + +------+ + Reason for Visit +--------+ + | Reason | Comments | +--------+ + | Other | increased cough | +--------+ + Encounter Details +--------+ + + + + | Date | Type | Department | Care Team | Description | +--------+ + + + + | 03/08/ | Telephone | [facility] | Landon Denton, | Other (increased | | 2016 | | PULMONARY [address] | MD [address] | cough) | | | | [place], | [place], [place] | | | | | [place] [address] | [address] | | | | | [phone] | | | +--------+ + + + [...] [place] | | | | | | [address] | | | | | | | | +--------+ + + + + | 08/15/ | Office | Pulmonology | Landon Denton, | | | 2019 | Visit | | MD [address] | | | | | | [place] | | | | | | [address] | | | | | | | | +--------+ + + + + documented as of this encounter Visit Diagnoses Not on filedocumented in this encounter"
--- OUTSIDE RECORDS SUMMARY | ~2019-07-31 | XMS | Encounter Summary ---
Demographics + + + | Address | [address] | | | [place] [address] | + + + | Home Phone | | + + + | Preferred Language | Unknown | + + + | Marital Status | | + + + | Zoroastrianism Affiliation | Unknown | + + + | Race | Unknown | + + + | Ethnic Group | Unknown | + + + Author + + + | Author | [facility] | | | and [place] | + + + | Organization | [facility] | | | and [place] [...] [place] | | | | | [address] | | + + + + + | Haylie Rg | ECON | [address] [facility] | | | | | [place] | | + + + + + Care Team Providers + +------+ + | Care Copying Machine Mechanic Name | Role | Phone | [...] [address] | Dx) | | | | [place], | [place], [place] | | | | | [place] [address] | [address] | | | | | [phone] | | | +--------+ + + + [...] [place] | | | | | | [address] | | | | | | | | +--------+ + + + + | 08/15/ | Office | Pulmonology | Landon Denton, | | | 2019 | Visit | | [address] | | | | | | [place] | | | | | | [address] | | | | | | | [...] [address] | [place] | [phone] | | [facility] | | [address] | | | - LABORATORY | | [...] + | [facility] | [address] | [place] | [phone] | | [facility] | | [address] | | | - LABORATORY | | | | + + + + + documented in this encounter Visit Diagnoses + + | Diagnosis | + + | Sarcoidosis - Primary | + + documented in this encounter"
--- OUTSIDE RECORDS SUMMARY | ~2019-07-31 | XMS | Encounter Summary ---
Demographics + + + | Address | [address] | | | [place] [address] | + + + | Home Phone [...] Author | [facility] | | | and [place] | + + + | Organization | [facility] | | | and [...] [place] | | | | | [address] | | + + + + + | Haylie Rg | ECON | [address] [facility] | | | | | [place] | | + + + + + Care Team Providers + +------+ + | Care Bone Drier Operator Name | Role | Phone | [...] | | | | unspecified | PA-C 5630 | [place] | | | | | Procedures | [place] | [place] [address] | | | | | F/U APPT | Ave | Phone: | | | | | DR [address] | [place], | [phone] | | | | | [place] | [place] | Fax: | | | | | 02/20/19 | [address] | [phone] | | | | | | Phone: | | | | | | | [phone] | | | | | | | Fax: | | | | | | | [phone] | | + +--------+ + + + + Encounter Details +--------+---------+ + + + | Date | Type | Department | Care Team | Description | +--------+---------+ + + + | 02/20/ | Office | [facility] | Landon Denton, | Sarcoidosis (HCC) | | 2019 | Visit | PULMONARY [address] | MD [address] | | | | | [place], | [place] | | | | | [place] [address] | [address] | | | | | [phone] | | | +--------+---------+ + + + [...] to take special precautions. Talk to your porcelain enameler regarding the use of this medicine in children. While this drug m ay be prescribed for selected conditions, precautions do apply. What side effects may I notice from receiving this medicine? Side effects that you should report to your doctor or health healthcare analyst as soon as p ossible: allergic reactions [...] (report to your doctor or health healthcare analyst if they continue or are bothersome): dizziness [...] dose, talk with your doctor or health healthcare analyst. Do not take double o r extra [...] this medicine. Call your doctor or health healthcare analyst for advice if you get a fever, [...] bleeding. Check with your doctor or health healthcare analyst if you get an attack of severe [...] an unborn child. Talk to your health healthcare analyst or pharmacist for more information. Do not breast-feed an i nfant while taking this medicine. NOTE:This sheet is a summary. It may not cover all possible information. If you have questi ons about this medicine, talk to your doctor, pharmacist, or health care provider. Copyright 2019 [employer] documented in this encounter Progress Notes Landon [...] coughing)., Disp: 1 Inhaler, Rfl: 5 Evening [place] Oil 1000 MG CAPS, Take 1,000 mg by mouth Daily., Disp: , Rfl: folic acid 1 mg tablet, Take 1 tablet by mouth Daily., Disp: 30 tablet, Rfl: 5 methotrexate 2.5 mg tablet, Take 3 tablets by mouth Once a week. Indications: Other No n-Oncology, Sarcoid, Disp: 90 tablet, Rfl: 1 Multiple Vitamin TABS, Take 2 tablets by mouth Daily., Disp: , Rfl: [place]-3 Fatty Acids (OMEGA-3 FISH OIL) 1000 MG [...] described above. However Elinor sorto is at [facility] for developing a bacterial secondary infection [...] [place] | | | | | | [address] | | | | | | | | +--------+ + + + + | 08/15/ | Office | Pulmonology | Landon Denton, | | | 2019 | Visit | | [address] | | | | | | [place] | | | | | | [address] | | | | | | | | +--------+ + + + + documented as of this encounter Visit Diagnoses + + | Diagnosis | + + | Sarcoidosis (HCC) Sarcoidosis | + + documented in this encounter
--- OUTSIDE RECORDS SUMMARY | ~2019-07-31 | XMS | Encounter Summary ---
Demographics + + + | Address | [address] | | | [place] [address] | + + + | Home Phone [...] + + | Author | [facility] | | | and [place] | + + + | Organization | [facility] | | | and [place] [...] [place] | | | | | [address] | | + + + + + | Haylie Rg | ECON | [address] [facility] | | | | | [place] | | + + + + + Care Team Providers + +------+ + | Care Airplane Mechanic Apprentice Name | Role | Phone | + [...] | Sarcoidosis | MD Landon | [address] | | | | | Chronic | [address] | [place], | | | | | cough | [address] | [place] [address] | | | | | Procedures | [place], | Phone: | | | | | CT Chest wo | [place] [address] | [phone] | | | | | Contrast | Phone: | Fax: | | | | | | [phone] | [phone] | | | | | | Fax: | | | | | | | [phone] | | +--------+--------+ + + + + Reason for Visit + + + | Reason | Comments | + + + | Cough | 1 mo follow up | + + + | Sarcoidosis | | + + + Encounter Details +--------+---------+ + + + | Date | Type | Department | Care Team | Description | +--------+---------+ + + + | 12/13/ | Office | [facility] | Landon Denton, | Chronic cough | | 2017 | Visit | PULMONARY [address] | MD [address] | (Primary Dx); | | | | [place], | [place], [place] | Sarcoidosis (HCC); | | | | [place] [address] | [address] | Need for | | | | [phone] | | pneumococcal | | | | | | vaccination | +--------+---------+ + + + Social History [...] + | Blood Pressure | 124/80 | 12/13/2016 9:58 AM | | | | | PDT | | + + + + + | Pulse | 68 | 12/13/2016 9:58 AM | | | | | PDT | | + + + + + | Temperature | - | - | | + + + + + | Respiratory Rate | - | - | | + + + + + | Oxygen Saturation | 96% | 12/13/2016 9:58 AM | | | | | PDT | | + + + + + | Inhaled Oxygen | - | - | | | Concentration | | | | + + + + + | Weight | 76.6 kg (168 lb 12.8 | 12/13/2016 9:58 AM | | | | oz) | PDT | | + + + + + | Height | 157.5 cm (5' 2") | 12/13/2016 9:58 AM | | | | | PDT | | + + + + + | Body Mass Index | 30.87 | 12/13/2016 9:58 AM | | | | | PDT | | + + + + + documented in this encounter Patient Instructions Patient Instructions Landon Denton MD - 12/13/2016 10:46 AM PDT Pulmonary Sarcoidosis Sarcoidosis is a disease that [...] says it s OK. And tell your [facility] provider or pharmacist about all medicines you use. This includes wolj-dtd-rnqheuo m edicines. It also includes herbs or supplements. Date Last Reviewed: 03/31/201619993088-5964 [employer]. [address] [place] [address]. All righ ts reserved. This information is not intended as a substitute for professional medical care. Always follow your healthcare professional's instructions. documented in this encounter Progress Notes Landon Denton MD - 12/13/2016 10:32 AM PDTFormatting of this note might be different f rom the original. Pulmonary Follow Up 12/13/2016 [facility] Elinor Shelby is a 71 y.o. female patient of Blayne Herrera here today for follow up of sarcoidosis. It has been 1 month since our last clinic appointment. At their last visit, we initiated A smanex for presumptive worsening cough related to airway inflammation secondary to sarcoid. Since the last visit she feels like their symptoms are stable. Specifically the patient's Asmanex did not improve the patient's symptoms. They have have not had any recent acute il lnesses. They are currently on a regimen of Asmanex for their sarcoid. The patient do not feel like this medication regimen is decreasing their sarcoid related symptoms. Currently they are able to walk 1 miles at their own pace on level ground. They are exercis ing regularly. Their exercise consists of exercise machines ~3 days per week and walks in [facility]. They are not enrolled in cardiac/pulmonary rehabilitation or other physical therapy. She does cough chronically, and does not produce mucous. They have not had hemoptysis since our last clinic appointment. No change in cough with exercise. She does not wheeze chronically, and does not have chest tightness. She does not note side effects from their sarcoidosis medications. She has not been evaluated for nocturnal oxygen and does not use it. She does not had sympt oms of heartburn or reflux. They have not had symptoms of nasal congestion, runny nose or po st nasal drip. No apparent side effects from Asmanex. No new symptoms such as rash, new arthritis, palpit ations or vision change. Past Medical History Past Medical History Diagnosis [...] nce daily, Disp: , Rfl: 1 Evening [place] Oil 1000 MG CAPS, Take 1,000 mg by mouth Daily., Disp: , Rfl: mometasone (ASMANEX HFA) 200 mcg/puff inhaler, Inhale 1 puff into the lungs 2 times da donnell., Disp: 1 Inhaler, Rfl: 0 omeprazole (PRILOSEC) 20 mg capsule, [...] fever. Objective BP 124/80 mmHg | Pulse 68 | Ht 1.575 m (5' 2") | Wt 76.567 kg (168 lb 12.8 oz) | BMI 30.87 kg/m2 | SpO2 96% | ? No Appearance: [...] supraclavicular nodes normal Neurologic: Gait normal Data: Radiology: CT scan of the chest from 02/20/14 is notable for diffuse fibrotic/interstitial changes with an upper lung zone predominance in the setting of mediastinal and hilar lymphadenopathy. S everal ill defined pulmonary nodular densities are also noted. Chest x-ray from 11/15/16 shows a similar distribution of upper lung zone predominant reticu lar nodular changes thought to be consistent with sarcoid. Assessment 1. Increase cough on 11/15/16 the patient presented for routine follow-up of her sarcoid but noted increased cough symptoms which predated an episode of sinusitis/bronchitis. Julia silver to concerns the patient's increased cough was secondary to her sarcoidosis Ms. Mukherjee er was treated with inhaled corticosteroid Asmanex. Unfortunately this did not change the p atient's cough symptoms. The cough remains in the evening and is not worsened with exercise. Cough is nonproductive . Today we discussed the options of empiric treatment with prednisone versus performing a CT scan of the chest to assess for other etiologies which could be contributing to the patient' s increased cough. Upon reflection Ms. Shelby stated that she hoped to not need additio nal medications and suggested that we performed a CT scan of the chest. 2. Sarcoidosis diagnosed via mediastinoscopy in the past. Most recent treatment with pr ednisone was in early 2015 when she developed increased cough and shortness of breath which was treated with approximate 12 weeks of prednisone and subsequent improvement of her sympto ms. It does not appear that Asmanex has helped the patient's presumptive bronchial inflammation secondary to sarcoid. Asmanex will be discontinued. Total duration was in excess of 30 minutes. The majority time was spent in counseling rela ty to treatment with prednisone or performing a CT scan of the chest. Plan 1. CT scan of the chest without contrast. 2. Pulmonary clinic appointment on the same days patient's chest CT. 3. Discontinue Asmanex. 3. Prevnar 13 today. CC: Blayne Herrera documented in this encounter Plan of Treatment +--------+ + + + + | Date | Type | Specialty | Care Team | Description | +--------+ + + + + | 08/15/ | Appointment | Pulmonology | Landon Denton, | | | 2019 | | | [address] | | | | | | [place] | | | | | | [address] | | | | | | | | +--------+ + + + + | 08/15/ | Office | Pulmonology | Landon Denton, | | | 2019 | Visit | | [address] | | | | | | [place] | | | | | | [address] | | | | | | | | +--------+ + + + + documented as of this encounter Results CT Chest wo Contrast (01/03/2017 10:07 AM PDT) + + | Specimen | + + | | + + + + + | Narrative | Performed At | + + + | CT CHEST WO CONTRAST 01/03/2017 10:02 AM HISTORY: Follow up | [facility] | | pulmonary nodular densities and fibrosis. Worse cough. | [facility] | | COMPARISON: 02/20/2014 PROTOCOL: Axial images [...] + + | [facility] | [address] | [place] | [phone] | | [facility] | | [address] | | | - IMAGING | | | | + + + + + documented in this encounter Visit Diagnoses + + | Diagnosis | + + | Chronic cough - Primary Cough | + + | Sarcoidosis | + + | Need for pneumococcal vaccination Need for prophylactic vaccination against | | streptococcus pneumoniae (pneumococcus) | + + documented in this encounter
--- OUTSIDE RECORDS SUMMARY | ~2019-07-31 | XMS | Encounter Summary ---
Demographics + + + | Address | [address] | | | [place] [address] | + + + | Home Phone [...] Author | [facility] | | | and [place] | + + + | Organization | [facility] | | | and [...] [place] | | | | | [address] | | + + + + + | Haylie Rg | ECON | [address] [facility] | | | | | [place] | | + + + + + Care Team Providers + +------+ + | Care Fisher Eel Name | Role | Phone | + +------+ + | Ama Moreau | PCP | | | MIYA | | | + +------+ + Encounter Details +--------+ + + + + | Date | Type | Department | Care Team | Description | +--------+ + + + + | 10/17/ | Hospital | [facility] | Landon Denton, | Shortness of breath | | 2019 | Encounter | MED CTR XRAY [address] | MD [address] | | | | | [place] | [place] | | | | | [place] [address] | [id number] | | | | | [phone] | | | +--------+ + + + [...] + + +---------+ + + | Evening [place] | Take 1,000 mg by | | [...] [place] | | | | | | [address] | | | | | | | | +--------+ + + + + | 08/15/ | Office | Pulmonology | Landon Denton, | | | 2019 | Visit | | MD [address] | | | | | | [place] | | | | | | [address] | | | | | | | [...]
--- OUTSIDE RECORDS SUMMARY | ~2019-07-31 | XMS | Encounter Summary ---
Demographics + + + | Address | [address] | | | [place] [address] | + + + | Home Phone [...] [place] | | | | | [address] | | + + + + + | Haylie Rg | ECON | [address] [facility] | | | | | [place] | | + + + + + Care Team Providers + +------+ + | Care Physics And Astronomy Professor Name | Role | Phone | [...] Medication Refill | | 2019 | | [facility] | E, DO [address] | | | | | [facility] [address] | [place], [place] | | | | [address] [place], | [address] | | | | | [place] [address] | [phone] | | | | | [phone] | | | +--------+--------+ + + + [...] [place] | | | | | | [address] | | | | | | | | +--------+ + + + + | 08/15/ | Office | Pulmonology | Landon Denton, | | | 2019 | Visit | | MD [address] | | | | | | [place] | | | | | | [address] | | | | | | | | +--------+ + + + + documented as of this encounter Visit Diagnoses Not on filedocumented in this encounter"
--- OUTSIDE RECORDS SUMMARY | ~2019-07-31 | XMS | Encounter Summary ---
Demographics + + + | Address | [address] | | | [place] [address] | + + + | Home Phone | | + + + | Preferred Language | Unknown | + + + | Marital Status | | + + + | Taoist Affiliation | Unknown | + + + | Race | Unknown | + + + | Ethnic Group | Unknown | + + + Author + + + | Author | [facility] | | | and [place] | + + + | Organization | [facility] | | | and [...] [place] | | | | | [address] | | + + + + + | Haylie Rg | ECON | [address] [facility] | | | | | [place] | | + + + + + Care Team Providers + +------+ + | Care Nurse Practitioner Physicians Assistant Name | Role | Phone | + +------+ + | Ama Moreau | PCP | | | [place] | | | + +------+ + Encounter Details +--------+ + + + + | Date | Type | Department | Care Team | Description | +--------+ + + + + | 02/11/ | Orders Only | [facility] | Christine Cline, | Dyspnea on exertion | | 2018 | | PULMONARY [address] | RN | | | | | [place], | | | | | | [place] [address] | | | | | | [phone] | | | +--------+ + + + [...] [place] | | | | | | [address] | | | | | | | | +--------+ + + + + | 08/15/ | Office | Pulmonology | Landon Denton, | | | 2019 | Visit | | [address] | | | | | | [place] | | | | | | [address] | | | | | | | | +--------+ + + + + documented as of this encounter Procedures + +--------+ + + + | Procedure Name | Priori | Date/Time | Associated Diagnosis | Comments | | | ty | | | | + +--------+ + + + | BUN | Routin | 02/20/2019 | Dyspnea on | Results for this | | | e | 9:21 AM | exertion | procedure are in the | | | | PDT | | results section. | + +--------+ + + + | CREATININE | Routin | 02/20/2019 | Dyspnea on | Results for this | | | e | 9:21 AM | exertion | procedure are in the | | | | PDT | | results section. | + +--------+ + + + documented in this encounter Results BUN (02/20/2019 9:21 AM PDT) + +-------+ + + + | Component | Value | Ref Range | Performed | Pathologist | | | | | At | Signature | + +-------+ + + + | BUN | 16 | 9 - 23 mg/dL | [facility] | | | | | [...] [address] | [place] | [phone] | | [facility] | | [address] | | | - LABORATORY | | | | + + + + + Creatinine (02/20/2019 9:21 AM PDT) + + [...] | | | FILTRATION | mL/min/1.73m2 | DAILY | | | PRYDEINIG | RATE,ESTIMATED | | MEDICAL | | | | mL/min/1.65a7Unvm than | | CENTER - | | [...] ST. | [address] | [place], [place] | [phone] | | [facility] | | [address] | | | - LABORATORY | | | | + + + + + documented in this encounter Visit Diagnoses + + | Diagnosis | + + | Dyspnea on exertion Other dyspnea and respiratory abnormality | + + documented in this encounter"
--- OUTSIDE RECORDS SUMMARY | ~2019-07-31 | XMS | Encounter Summary ---
Demographics + + + | Address | [address] | | | [place] [address] | + + + | Home Phone | | + + + | Preferred Language | Unknown | + + + | Marital Status | | + + + | Pentecostal Affiliation | Unknown | + + + | Race | Unknown | + + + | Ethnic Group | Unknown | + + + Author + + + | Author | [facility] | | | and [place] | + + + | Organization | [facility] | | | and [...] [place] | | | | | [address] | | + + + + + | Haylie Rg | ECON | [address] [facility] | | | | | [place] | | + + + + + Care Team Providers + +------+ + | Care Carpenter Assembler Name | Role | Phone | [...] | +--------+ + + + + | 11/16/ | Telephone | [facility] | Landon Denton, | Other (increased | | 2016 | | PULMONARY [address] | MD [address] | cough) | | | | [place], | [place], [place] | | | | | [place] [address] | [address] | | | | | [phone] | | | +--------+ + + + [...] [place] | | | | | | [address] | | | | | | | | +--------+ + + + + | 08/15/ | Office | Pulmonology | Landon Denton, | | | 2019 | Visit | | MD [address] | | | | | | [place] | | | | | | [address] | | | | | | | | +--------+ + + + + documented as of this encounter Visit Diagnoses Not on filedocumented in this encounter"
--- OUTSIDE RECORDS SUMMARY | ~2019-07-31 | XMS | Encounter Summary ---
Demographics + + + | Address | [address] | | | [place] [address] | + + + | Home Phone [...] Author | [facility] | | | and [place] | + + + | Organization | [facility] | | | and [...] [place] | | | | | [address] | | + + + + + | Haylie Rg | ECON | [address] [facility] | | | | | [place] | | + + + + + Care Team Providers + +------+ + | Care Emergency Doctor Name | Role | Phone | + +------+ + | Blayne Herrera DO | PCP | | + +------+ + Reason for Visit +--------+ + | Reason | Comments | +--------+ + | Other | Pulmonary nodules | +--------+ + Encounter Details +--------+---------+ + + + | Date | Type | Department | Care Team | Description | +--------+---------+ + + + | 04/18/ | Office | [facility] | Landon Denton, | Sarcoidosis (HCC) | | 2013 | Visit | PULMONARY [address] | MD [address] | (Primary Dx); | | | | [place], | [place], [place] | Pulmonary nodules; | | | | [place] [address] | [address] | Dyspnea | | | | [phone] | | | +--------+---------+ + + + [...] + + + | Blood Pressure | 118/62 | 04/18/2014 10:46 AM | | | | | PDT | | + + + + + | Pulse | 72 | 04/18/2014 10:46 AM | | | | | PDT | | + + + + + | Temperature | 36.9 C (98.4 F) | 04/18/2014 10:46 AM | | | | | PDT | | + + + + + | Respiratory Rate | 18 | 04/18/2014 10:46 AM | | | | | PDT | | + + + + + | Oxygen Saturation | 94% | 04/18/2014 10:46 AM | | | | | PDT | | + + + + + | Inhaled Oxygen | - | - | | | Concentration | | | | + + + + + | Weight | 75 kg (165 lb 6.4 | 04/18/2014 10:46 AM | | | | oz) | PDT | | + + + + + | Height | 152.4 cm (5') | 04/18/2014 10:46 AM | | | | | PDT | | + + + + + | Body Mass Index | 32.3 | 04/18/2014 10:46 AM | | | | | PDT | | + + + + + documented in this encounter Patient Instructions Patient Instructions Landon Denton MD - 04/18/2014 11:24 AM PDT Patient Education Prednisone Gastro-resistant tablet Prednisone Oral solution Prednisone Oral tablet Prednisone Oral tablet What is this medicine? [...] if you have any of these conditions: [place]'s syndrome diabetes glaucoma heart disease high blood [...] avoid any side effects. Talk to your flamer after lasting regarding the use of this medicine in [...] ta lk to your doctor or health health care social worker. You may need to miss a dose [...] this medicine? Visit your doctor or health health care social worker for regular checks on your progress. If [...] have surgery, tell your doctor or health health care social worker that you hav e taken this medicine within the last twelve months. Ask your doctor or health health care social worker about your diet. You may need to lower the amou nt of salt you eat. This medicine may affect blood sugar levels. If you have diabetes, check with your doctor o r health health care social worker before you change your diet or the dose of your diabetic medicine . What side effects may I notice from receiving this medicine? Side effects that you should report to your doctor or health health care social worker as soon as p ossible: allergic reactions [...] attention (report to your doctor or health health care social worker if they continue or are bothersome): confusion, excitement, restlessness headache nausea, vomiting skin problems, acne, thin and shiny skin trouble sleeping weight gain This list may not describe all possible side effects. Call your doctor for medical advice a bout side effects. You may report side effects to FDA at 1-442-BKD-3244. Where should I keep my medicine? Keep [...] doctor, pharmacist, or health care provider. Copyright 2013 Gold Standard documented in this encounter Progress Notes Landon Denton MD - 04/18/2014 11:08 AM PDTFormatting of this note might be different f rom the original. Pulmonary Follow Up 04/18/2014 HPI Elinor Shelby is a 69 y.o. female patient of Blayne Herrera here today for follow u p of sarcoidosis. It has been 3 weeks since our last clinic appointment. At their last visit, we planned to reform at her electronic images in a comparable form and reviewed the images with radiology. Since the last visit she feels like their symptoms are stable. They have have not had any acute illnesses. Currently they are able to walk 1-2 miles at their own pace on level ground. They are exerc ising regularly. Walking in the pool. They are not enrolled in cardiac/pulmonary rehabilita tion or other physical therapy. She does cough chronically, and does not produce mucous. They have not had hemoptysis. She does not wheeze chronically, and does not have chest tightness. She does not note use sarcoidosis medications. She has not been evaluated for nocturnal oxygen. She does not had symptoms of heartburn or reflux. Uses Prilosec. They have not had symptom s of nasal congestion, runny nose or post nasal drip. The patient denies new rashes or arthralgias. There is no history of chest pain. No eye/v ision changes. Past Medical History Past Medical History Diagnosis Date Lymphedema Shoulder fracture Sarcoid (HCC) Dignosed via mediatinoscopy ~ 2008 Pulmonary nodules No change in follow up imaging last here 2010 Allergies: No Known Allergies Medications: Current outpatient prescriptions:Calcium Carbonate-Vitamin D (CALCIUM-VITAMIN D) 600-200 MG -UNIT CAPS, Take 1 tablet by mouth Daily., Disp: , Rfl: ; Evening [place] OIL, Take 1,000 capsules by mouth Daily., Disp: , Rfl: ; fluticasone (FLONASE) 50 mcg/nasal spray, 1 spray by Nasal route Daily., Disp: , Rfl: ; multivitamin (THERAGRAN) per tablet, 1 tablet by mout h daily, Disp: , Rfl: [place]-3 Fatty Acids (OMEGA 3 PO), CPDR; 3 capsules by mouth twice daily, Disp: , Rfl: ; om eprazole (PRILOSEC) 20 mg capsule, Take 20 mg by mouth every morning (before breakfast)., Di sp: , Rfl: ; predniSONE (DELTASONE) 10 mg tablet, Take 2 tablets by mouth for 14 days, then 1 tablet by mouth daily, Disp: 42 tablet, Rfl: 1 Immunizations: Immunization History Administered Date(s) Administered INFLUENZA, [...] urticaria, allergic rash, hay fever. Objective BP 118/62 | Pulse 72 | Temp 36.9 C (98.4 F) (Temporal) | Resp 18 | Ht 1.524 m (5') | Wt 75.025 kg (165 lb 6.4 oz) | BMI 32.30 kg/m2 | SpO2 94% Appearance: Alert, cooperative, no distress, appears stated [...] supraclavicular nodes normal Neurologic: Gait normal Data: Radiology CT scans of the chest from 06/18/12 and 02/20/14 were reviewed with the patient. Significant mediastinal/hilar lymphadenopathy persists. The patient does appear to have inc reased infiltrative changes involving the left upper lobe and in various locations on the ri ght. Overall changes appear mostly in the left upper lobe. Assessment 1. Sarcoid-Elinor sorto is a 69-year-old female with known pulmonary sarcoidosis. Recently the patient has noted worsening shortness of breath and increased cough. She underwent a cardi ac evaluation related to evaluation chest pain/shortness of breath. Patient was noted to gibson ve an abnormal stress echo but cardiac catheterization showed normal coronary arteries. Elinor sorto went on to have a repeat CT scan the chest. Dr. Jameson and myself felt that there wa s evidence of progressive changes in the patient's pulmonary parenchyma. Given the patient's recent CAT scan and change in her symptoms would appear that worsening of her sarcoid could be the underlying etiology. Today we discussed treatment with a course of prednisone. The patient's response to prednisone will also serve in a diagnostic capaci ty. Total duration the patient's clinic appointment was in excess of 30 minutes. Greater than 50% of time was spent discussing prednisone and potential side effects. Elinor sorto's questions were answered. Patient educational materials were supplied. We also discussed the potential use of a steroid sparing agent like methotrexate if her sym ptoms improve with prednisone but persisted after prednisone is tapered/discontinued. Plan 1. Prednisone 20 mg by mouth every morning with food for the next 14 days followed by 10 m g daily. 2. Pulmonary clinic followup appointment to assess the status of the patient symptoms in 4 weeks' time. CC: Blayne Herrera [...] [place] | | | | | | [address] | | | | | | | | +--------+ + + + + | 08/15/ | Office | Pulmonology | Landon Denton, | | | 2019 | Visit | | MD [address] | | | | | | [place] | | | | | | [id number] | | | | | | | | +--------+ + + + + documented as of this encounter Visit Diagnoses + + | Diagnosis | + + | Sarcoidosis - Primary | + + | Pulmonary nodules Other nonspecific abnormal finding of lung field | + + | Dyspnea Other dyspnea and respiratory abnormality | + + documented in this encounter"
--- OUTSIDE RECORDS SUMMARY | ~2019-07-31 | XMS | Encounter Summary ---
Demographics + + + | Address | [address] | | | [place] [address] | + + + | Home Phone [...] Author | [facility] | | | and [place] | + + + | Organization | [facility] | | | and [...] [place] | | | | | [address] | | + + + + + | Haylie Rg | ECON | [address] [facility] | | | | | [place] | | + + + + + Care Team Providers + +------+ + | Care Clinching Machine Operator Name | Role | Phone | + +------+ + | Blayne Herrera DO | PCP | | + +------+ + Encounter Details +--------+ + + + + | Date | Type | Department | Care Team | Description | +--------+ + + + + | 08/01/ | Hospital | [facility] | Conversion | Pain | | 2018 | Encounter | CONVERSION [address] | Transaction, | | | | | [address] | Provider Unknown | | | | | [place] | [phone] | | | | | [address] | | | | | | [phone] | | | +--------+ + + + [...] + + +---------+ + + | Evening Bor[place] | Take 1,000 mg by | | [...] [place] | | | | | | [address] | | | | | | | | +--------+ + + + + | 08/15/ | Office | Pulmonology | Landon Denton, | | | 2019 | Visit | | MD [address] | | | | | | [place] | | | | | | [address] | | | | | | | [...]
--- OUTSIDE RECORDS SUMMARY | ~2019-07-31 | XMS | Encounter Summary ---
Demographics + + + | Address | [address] | | | [place] [address] | + + + | Home Phone | | + + + | Preferred Language | Unknown | + + + | Marital Status | | + + + | Islam Affiliation | Unknown | + + + | Race | Unknown | + + + | Ethnic Group | Unknown | + + + Author + + + | Author | [facility] | | | and [place] | + + + | Organization | [facility] | | | and [place] [...] [place] | | | | | [address] | | + + + + + | Haylie Rg | ECON | [address] [facility] | | | | | [place] | | + + + + + Care Team Providers + +------+ + | Care General Manager Road Production Name | Role | Phone | + [...] + + | 04/01/ | Telephone | [facility] | Landon Denton, | Appointment | | 2013 | | PULMONARY [address] | MD [address] | | | | | [place], | [place] | | | | | [place] [address] | [address] | | | | | [phone] | | | +--------+ + + + [...] [place] | | | | | | [id number] | | | | | | | [...]
--- OUTSIDE RECORDS SUMMARY | ~2019-07-31 | XMS | Encounter Summary ---
Demographics + + + | Address | [address] | | | [place] [address] | + + + | Home Phone | | + + + | Preferred Language | Unknown | + + + | Marital Status | | + + + | Caodaism Affiliation | Unknown | + + + | Race | Unknown | + + + | Ethnic Group | Unknown | + + + Author + + + | Author | [facility] | | | and [place] | + + + | Organization | [facility] | | | and [...] [place] | | | | | [address] | | + + + + + | Haylie Rg | ECON | [address] [facility] | | | | | [place] | | + + + + + Care Team Providers + +------+ + | Care Molder Fitting Name | Role | Phone | + [...] Description | +--------+--------+ + + + | 04/27/ | Refill | [facility] [place] | Landon Denton, | Medication Refill | | 2017 | | PULMONARY [address] | MD [address] | | | | | [place], | [place] | | | | | [place] [address] | [address] | | | | | [phone] | | | +--------+--------+ + + + [...] [place] | | | | | | [address] | | | | | | | | +--------+ + + + + | 08/15/ | Office | Pulmonology | Landon Denton, | | | 2019 | Visit | | MD [address] | | | | | | [place] | | | | | | [address] | | | | | | | | +--------+ + + + + documented as of this encounter Visit Diagnoses Not on filedocumented in this encounter"
--- OUTSIDE RECORDS SUMMARY | ~2019-07-31 | XMS | Encounter Summary ---
Demographics + + + | Address | [address] | | | [place] [address] | + + + | Home Phone | | + + + | Preferred Language | Unknown | + + + | Marital Status | | + + + | Jain Affiliation | Unknown | + + + | Race | Unknown | + + + | Ethnic Group | Unknown | + + + Author + + + | Author | [facility] | | | and [place] | + + + | Organization | [facility] | | [...] [place] | | | | | [address] | | + + + + + | Haylie Rg | ECON | [address] [facility] | | | | | [place] | | + + + + + Care Team Providers + +------+ + | Care Branch Lending Manager Name | Role | Phone | [address] | | | | | [place], | [place] | | | | | [place] [address] | [address] | | | | | [phone] | | | +--------+--------+ + + + [...] [place] | | | | | | [address] | | | | | | | | +--------+ + + + + | 08/15/ | Office | Pulmonology | Landon Denton, | | | 2019 | Visit | | MD [address] | | | | | | [place] | | | | | | [address] | | | | | | | | +--------+ + + + + documented as of this encounter Visit Diagnoses Not on filedocumented in this encounter"
--- OUTSIDE RECORDS SUMMARY | ~2019-07-31 | XMS | Encounter Summary ---
Demographics + + + | Address | [address] | | | [place] [address] | + + + | Home Phone | | + + + | Preferred Language | Unknown | + + + | Marital Status | | + + + | Judaism Affiliation | Unknown | + + + | Race | Unknown | + + + | Ethnic Group | Unknown | + + + Author + + + | Author | [facility] | | | and [place] | + + + | Organization | [facility] | | | and [place] [...] [place] | | | | | [address] | | + + + + + | Haylie Rg | ECON | [address] [facility] | | | | | [place] | | + + + + + Care Team Providers + +------+ + | Care Sofa Inspector Name | Role | Phone | + +------+ + | Ama Moreau | PCP | | | [place] | | | + +------+ + Encounter Details +--------+ + + + + | Date | Type | Department | Care Team | Description | +--------+ + + + + | 11/23/ | Hospital | [facility] | Landon Denton, | Sarcoidosis (HCC) | | 2019 | Encounter | MED CTR PULMONARY | MD [address] | | | | | [address] | [place], [place] | | | | | [place], | [address] | | | | | [place] [address] | | | | | | [phone] | | | +--------+ + + + [...] + + +---------+ + + | Evening [place] | Take 1,000 mg by | | 0 | | | | Oil 1000 MG CAPS | mouth Daily. | | | | | + + + +---------+ + + | [place]-3 Fatty | Take 1,000 mg by | [...] [place] | | | | | | [address] | | | | | | | | +--------+ + + + + | 08/15/ | Office | Pulmonology | Landon Denton, | | | 2019 | Visit | | MD [address] | | | | | | [place] | | | | | | [address] | | | | | | | [...]
--- OUTSIDE RECORDS SUMMARY | ~2019-07-31 | XMS | Encounter Summary ---
Demographics + + + | Address | [address] | | | [place] [address] | + + + | Home Phone | | + + + | Preferred Language | Unknown | + + + | Marital Status | | + + + | Synagogue Affiliation | Unknown | + + + | Race | Unknown | + + + | Ethnic Group | Unknown | + + + Author + + + | Author | [facility] | | | and [place] | + + + | Organization | [facility] | | | and [...] [place] | | | | | [address] | | + + + + + | Haylie Rg | ECON | [address] [facility] | | | | | [place] | | + + + + + Care Team Providers + +------+ + | Care Clay Miner Name | Role | Phone | + +------+ + | Blayne Herrera PCP | | + +------+ + Encounter Details +--------+ + + + + | Date | Type | Department | Care Team | Description | +--------+ + + + + | 11/09/ | Hospital | [facility] | Landon Denton, | Sarcoidosis (HCC) | | 2016 | Encounter | MED CTR PULMONARY | MD [address] | | | | | FUNCTION [address] | [place], [place] | | | | | [place], | [address] | | | | | [place] [address] | | | | | | [phone] | | | +--------+ + + + [...] + + +---------+ + + | Evening [place] | Take 1,000 mg by | | 0 | | | | Oil 500 MG CAPS | mouth 2 times daily. | | | | 6 | + + + +---------+ + + | predniSONE | Take 2 tablets by | 38 | 1 | 11/10/19 | | | (DELTASONE) 10 mg | mouth for 7 days, | tablet | | 16 | 6 | | tabletIndications: | then take 1.5 | | | | | | Sarcoidosis | tablets by mouth for | | | | | | | 7 days, then take 1 | | | | | | | tablet by mouth | | | | | | | thereafter | | | | | + + + +---------+ + + | PROAIR HFA 108 (90 | Inhale 2 puffs into | | 0 | 09/23/19 | | | BASE) MCG/ACT | the lungs every 4 | | | 15 | 6 | | inhaler | hours as needed. | | | | | + + + +---------+ + + | saccharomyces | Take 250 mg by mouth | | 0 | | | | boulardii | 2 times daily. | | | | 6 | | (FLORASTOR) 250 MG | | | | | | | capsule | | | | | | + [...] [place] | | | | | | [id number] | | | | | | | | +--------+ + + + + | 08/15/ | Office | Pulmonology | Bertin Landon, | | | 2019 | Visit | | MD [address] | | | | | | [place] | | | | | | [address] | | | | | | | | +--------+ + + + + documented as of this encounter Procedures + +--------+ + + + | Procedure Name | Priori | Date/Time | Associated Diagnosis | Comments | | | ty | | | | + +--------+ + + + | PFT PULMONARY | SERENITY | 11/10/2015 | Sarcoidosis (HCC) | Results for this | | FUNCTION TESTING | | 11:51 AM | | procedure are in the | | ORDERS | | PDT | | results section. | + +--------+ + + + | DIAGNOSTIC REPORT - | | 11/10/2015 | | Results for this | | EXTERNAL SCAN | | 12:00 AM | | procedure are in the | | | | PDT | | results section. | + +--------+ + + + documented in this encounter Results PFT PULMONARY FUNCTION TESTING ORDERS Spirometry with bronchodilator?: Yes; Diffusion (DLCO )?: Yes (11/10/2015 11:51 AM PDT) + + + | Narrative | Performed At | + + + | Landon Denton MD 11/10/2015 11:51 PULMONARY FUNCTION | | | TESTING SPIROMETRY: The FVC was 1.89 L or 75 % of predicted. The | | | FEV1 was 1.58 L or 82 % of predicted. FEV1/FVC ratio was 84 %. | | | DIFFUSION CAPACITY: The diffusion capacity was 10.3 mL/mmHg per | | | minute or 49 % of predicted. IMPRESSION: Spirometry is consistent | | | with mild restrictive physiology. Diffusion capacity is moderately | | | reduced and is not corrected for measured hemoglobin. Compared | | | to pulmonary function tests performed in January 2014 the forced vital | | | capacity has fallen 33% and the uncorrected DLCO 11%. Test | | | performed: 11/10/15 Electronically signed by: Venessa Byrd | | 11/10/2015 11:49 [facility] | | + + + DIAGNOSTIC REPORT - EXTERNAL SCAN (11/10/2015 12:00 AM PDT) + + + | Narrative | Performed At | + + + | Ordered by an | | | unspecified provider. | | + + + documented in this encounter Visit Diagnoses + + | Diagnosis | + + | Sarcoidosis | + + documented in this encounter"
--- OUTSIDE RECORDS SUMMARY | ~2019-07-31 | XMS | Encounter Summary ---
Demographics + + + | Address | [address] | | | [place] [address] | + + + | Home Phone [...] + + | Author | [facility] | | | and [place] | + + + | Organization | [facility] | | | and [place] | + + + | Address | Unknown | + + + | Phone | Unavailable | + + + Support + + + + + | Name | Relationship | Address | Phone | + + + + + | Deniz Shelby | ECON | [address] | | | | | [place] | | | | | [address] | | + + + + + | Haylie Rg | ECON | [address] [facility] | | | | | [place] | | + + + + + Care Team Providers + +------+ + | Care Elementary School Librarian Name | Role | Phone | + +------+ + | Blayne Herrera DO | PCP | | + +------+ + Encounter Details +--------+ + + + + | Date | Type | Department | Care Team | Description | +--------+ + + + + | 08/01/ | Hospital | [facility] | Conversion | Pain | | 2018 | Encounter | CONVERSION DEP [address] | Transaction, | | | | | [address] | Provider Unknown | | | | | [address] | [phone] | | | | | [address] | | | | | | [phone] | | | +--------+ + + + [...] + + +---------+ + + | Evening [place] | Take 1,000 mg by | | [...] [place] | | | | | | [address] | | | | | | | | +--------+ + + + + | 08/15/ | Office | Pulmonology | Landon Denton, | | | 2019 | Visit | | MD [address] | | | | | | [place] | | | | | | [address] | | | | | | | [...]
--- OUTSIDE RECORDS SUMMARY | ~2019-07-31 | XMS | Encounter Summary ---
Demographics + + + | Address | [address] | | | [place] [address] | + + + | Home Phone | | + + + | Preferred Language | Unknown | + + + | Marital Status | | + + + | Buddhism Affiliation | Unknown | + + + | Race | Unknown | + + + | Ethnic Group | Unknown | + + + Author + + + | Author | [facility] | | | and [place] | + + + | Organization | [facility] | | [...] [place] | | | | | [address] | | + + + + + | Haylie Rg | ECON | [address] [facility] | | | | | [place] | | + + + + + Care Team Providers + +------+ + | Care Devops Engineer Name | Role | Phone | + +------+ + | Ama Moreau | PCP | | | PAIan | | | + +------+ + Reason for Visit +--------+ + | Reason | Comments | +--------+ + | Cough | 6 mo follow up/PFT | +--------+ + Encounter Details +--------+---------+ + + + | Date | Type | Department | Care Team | Description | +--------+---------+ + + + | 04/03/ | Office | [facility] | Landon Denton, | Chronic cough | | 2018 | Visit | PULMONARY [address] | MD [address] | (Primary Dx); | | | | [place], | [place], [place] | Bronchiectasis | | | | [place] [address] | [address] | without complication | | | | [phone] | | ([facility]); Sarcoidosis | | | | | | ([facility]) | +--------+---------+ + + + Social [...] + + + | Blood Pressure | 130/70 | 04/03/2018 10:24 AM | | | | | PDT | | + + + + + | Pulse | 75 | 04/03/2018 10:24 AM | | | | | PDT | | + + + + + | Temperature | - | - | | + + + + + | Respiratory Rate | - | - | | + + + + + | Oxygen Saturation | 97% | 04/03/2018 10:24 AM | Room Air | | | | PDT | | + + + + + | Inhaled Oxygen | - | - | | | Concentration | | | | + + + + + | Weight | 75.5 kg (166 lb 7.2 | 04/03/2018 10:24 AM | | | | oz) | PDT | | + + + + + | Height | 156.2 cm (5' 1.5") | 04/03/2018 10:24 AM | | | | | PDT | | + + + + + | Body Mass Index | 30.94 | 04/03/2018 10:24 AM | | | | | PDT | | + + + + + documented in this encounter Patient Instructions Patient Instructions Landon Denton MD - 04/03/2018 10:30 AM PDT Pulmonary Sarcoidosis Sarcoidosis is a [...] s OK. And tell your [facility] provider or pharmacist about all medicines you use. This includes [id number] m edicines. It also includes herbs or supplements. Date Last Reviewed: 03/31/201619990854-3617 [facility]. [address] [place] [address]. All righ ts reserved. This information is not intended as a substitute for professional medical care. Always follow your healthcare professional's instructions. documented in this encounter Progress Notes Landon Denton MD - 04/03/2018 10:30 AM PDTFormatting of this note might be different f rom the original. Pulmonary Follow Up 04/03/2018 HPI Elinor Shelby is a 73 y.o. female patient of Ama Church PA-C here today for follow up of sarcoidosis, bronchiectasis and a chronic cough. It has been 6 months since our last clinic appointment. At their last visit, we planned to continued ICS and follow up in 6 months. Since the last visit she feels like their symptoms are stable. They have have not had any recent acute illnesses. They are currently on a regimen of Flovent 100 mcg 1 puff BID for their sarcoid. The patie nt do feel like this medication regimen is decreasing their sarcoid related symptoms. Rarely used Proair. Currently they are able to walk 3/4 mile at their own pace on level ground. They are not ex ercising regularly. Their exercise consists of walking. Minimal time in the pool. They ar e not enrolled in cardiac/pulmonary rehabilitation or other physical therapy. She does cough chronically, and does not produce mucous. The cough is stable per the patien t. They have not had hemoptysis since our [...] nose or post nasal drip. No new health issues. Past Medical History Past Medical History: Diagnosis [...] (or coughing)., Disp: 1 Inhaler, Rfl: 11 Evening [place] Oil 1000 MG CAPS, Take 1,000 mg by mouth Daily., Disp: , Rfl: fluticasone (FLOVENT DISKUS) 100 MCG/BLIST diskus inhaler, Inhale 1 puff into the lung s 2 times daily., Disp: 1 Inhaler, Rfl: 3 omeprazole (PRILOSEC) [...] 04/30/2013, 05/03/2014, 2014 PNEUMOCOCCAL CONJUGATE 13-VALENT (PCV13) 12/13/2016, 10/03/2017 PNEUMOCOCCAL POLYSACCHARIDE 23-VALENT (PPSV23) 08/22/2008 Objective BP 130/70 | Pulse 75 | Ht 1.562 m (5' 1.5") | Wt 75.5 kg (166 lb 7.2 oz) | SpO2 97% Com ment: Room Air | BMI 30.94 kg/m Appearance: Alert, cooperative, no distress, appears [...] Data: Pulmonary function tests were performed on 04/03/18 and were reviewed and interpreted in clin ic today. They show forced vital capacity of 2.15, 88% of predicted with an uncorrected SANDRA O of 9.1, 41% of predicted. Walking oximetry performed 04/03/18. Patient walked approximately 2040 feet over 9.5 minutes . Her O2 saturation began at 96% and reginald at 88%. Assessment 1. Sarcoidosis primarily manifest the cough and exertional dyspnea. Over the last 6 mon ths no significant subjective change in the patient's symptoms. Renetta is using inhaled cor ticosteroids with marginal benefit. Today pulmonary function tests show that the uncorrected DLCO has fallen 13% and the forced vital capacity appears stable. We discussed the discontinuation of inhaled corticosteroids in the reinitiation of predniso ne. The patient was once again educated regarding the fact that prednisone typically does n ot alter the natural history of sarcoid but rather limit symptoms. At this point in time Renetta wishes to continue with our current treatment. 2. Bronchiectasis no apparent exacerbations of the patient's bronchiectasis over the las t 6 months. Renetta is up-to-date with respect to her seasonal influenza vaccination, Prevna r and Pneumovax. 3. Cough chronic. Multifactorial including etiologies of sarcoidosis and bronchiectasis . Plan 1. Continue with Flovent as noted above. 2. High-dose seasonal influenza vaccination is recommended for April 2018. 3. The interval between pulmonary clinic follow-up appointments will remain at 6 months. 4. Repeat spirometry, diffusion and walking oximetry with follow-up. 5. Will reconsider initiation of prednisone if diffusion capacity continues to fall. CC: Ama Church PA-C documented in this encounter Plan of Treatment +--------+ + + + + | Date | Type | Specialty | Care Team | Description | +--------+ + + + + | 08/15/ | Appointment | Pulmonology | Landon Denton, | | 2019 | | | MD [address] | | | | | | [place] | | | | | | [phone] | | | | | | | | +--------+ + + + + | 08/15/ | Office | Pulmonology | Landon Denton, | | 2019 | Visit | | MD [address] | | | | | | [place] | | | | | | [address] | | | | | | | [...] | | | Landon Denton MD 10/17/2018 16:41[facility] | | | [facility] | | | | | |IMPRESSION: Spirometry is consistent with mild restrictive | | |physiology. The forced vital capacity has declined 21% compared | | |to values from 04/03/18. | | | | | |Test performed: 10/17/18 | | |Electronically signed by: Landon Denton MD 10/17/2018 16:41 | | |[facility] | | + + + documented in this encounter Visit Diagnoses + + | Diagnosis | + + | Chronic cough - Primary Cough | + + | Bronchiectasis without complication (HCC) Bronchiectasis without acute exacerbation | + + | Sarcoidosis (HCC) Sarcoidosis | + + documented in this encounter
--- OUTSIDE RECORDS SUMMARY | ~2019-07-31 | XMS | Encounter Summary ---
Demographics + + + | Address | [address] | | | [place] [address] | + + + | Home Phone | | + + + | Preferred Language | Unknown | + + + | Marital Status | | + + + | Synagogue Affiliation | Unknown | + + + | Race | Unknown | + + + | Ethnic Group | Unknown | + + + Author + + + | Author | [facility] | | | and [place] | + + + | Organization | [facility] | | | and [place] | + [...] [place] | | | | | [address] | | + + + + + | Haylie Rg | ECON | [address] [facility] | | | | | [place] | | + + + + + Care Team Providers + +------+ + | Care Building Rental Manager Name | Role | Phone | + +------+ + | Blayne Herrera DO | PCP | | + +------+ + Encounter Details +--------+ + + + + | Date | Type | Department | Care Team | Description | +--------+ + + + + | 08/01/ | Hospital | [facility] | Conversion | Pain | | 2018 | Encounter | CONVERSION DEP [address] | Transaction, | | | | | [address] | Provider Unknown | | | | | [place] | [phone] | | | | | [address] | | | | | | [phone] | | | +--------+ + + + [...] + + +---------+ + + | Evening [place] | Take 1,000 mg by | | [...] [place] | | | | | | [address] | | | | | | | | +--------+ + + + + | 08/15/ | Office | Pulmonology | Landon Denton, | | | 2019 | Visit | | MD [address] | | | | | | [place] | | | | | | [address] | | | | | | | | +--------+ + + + + documented as of this encounter Procedures + +--------+ + + + | Procedure Name | Priori | Date/Time | Associated Diagnosis | Comments | | | ty | | | | + +--------+ + + + | XR CHEST 1 VIEW | Routin | 11/15/2009 | | Results for this | | | e | 11:31 PM | | procedure are in the | | | | PDT | | results section. | + +--------+ + + + documented in this encounter Results XR Chest 1 Vw (11/15/2009 11:31 PM PDT) + + | Specimen | [...]
--- OUTSIDE RECORDS SUMMARY | ~2019-07-31 | XMS | Encounter Summary ---
Demographics + + + | Address | [address] | | | [place] [address] | + + + | Home Phone | | + + + | Preferred Language | Unknown | + + + | Marital Status | | + + + | Episcopal Affiliation | Unknown | + + + | Race | Unknown | + + + | Ethnic Group | Unknown | + + + Author + + + | Author | [facility] | | | and [place] | + + + | Organization | [facility] | | [...] [place] | | | | | [address] | | + + + + + | Haylie Rg | ECON | [address] [facility] | | | | | [place] | | + + + + + Care Team Providers + +------+ + | Care Provider Relations Coordinator Name | Role | Phone | + +------+ + | Ama Moreau | PCP | | | MIYA | | | + +------+ + Encounter Details +--------+ + + + + | Date | Type | Department | Care Team | Description | +--------+ + + + + | 05/03/ | Hospital | [facility] | Landon Denton, | Sarcoidosis ([facility]); | | 2018 | Encounter | MED CTR PULMONARY | MD [address] | Bronchiectasis | | | | FUNCTION [address] | [place], [place] | without complication | | | | [place], | [address] | ([facility]) | | | | [place] [address] | | | | | | [phone] | | | +--------+ + + + [...] + + +---------+ + + | Evening [place] | Take 1,000 mg by | | 0 | | | | Oil 1000 MG CAPS | mouth Daily. | | | | | + + + +---------+ + + | Multiple Vitamin | Take 2 tablets by | | 0 | | | | TABS | mouth Daily. | | | | | + + + +---------+ + + | [place]-3 Fatty | Take 1,000 mg by | [...] | 0 | 04/24/20 | | | [id number] | | | | 19 | | [...] [place] | | | | | | [address] | | | | | | | | +--------+ + + + + | 08/15/ | Office | Pulmonology | Landon Denton, | | | 2019 | Visit | | MD [address] | | | | | | [place] | | | | | | [address] | | | | | | | [...] MD, MD | | | 05/03/2019 14:46[facility] | | |corrected for measured [...] 05/03/2019 | | |14:46 | | |[facility] | | + + + documented in this encounter Visit Diagnoses + + | Diagnosis | + + | Sarcoidosis (HCC) Sarcoidosis | + + | Bronchiectasis without complication (HCC) Bronchiectasis without acute exacerbation | + + documented in this encounter"
--- OUTSIDE RECORDS SUMMARY | ~2019-07-31 | XMS | Encounter Summary ---
Demographics + + + | Address | [address] | | | [place] [address] | + + + | Home Phone | | + + + | Preferred Language | Unknown | + + + | Marital Status | | + + + | Orthodoxy Affiliation | Unknown | + + + | Race | Unknown | + + + | Ethnic Group | Unknown | + + + Author + + + | Author | [facility] | | | and [place] | + + + | Organization | [facility] | | [...] [place] | | | | | [address] | | + + + + + | Haylie Rg | ECON | [address] [facility] | | | | | [place] | | + + + + + Care Team Providers + +------+ + | Care Sprue Knocker Name | Role | Phone | + +------+ + PCP | Unavailable | + +------+ + Encounter Details +--------+ + + + + | Date | Type | Department | Care Team | Description | +--------+ + + + + | 01/15/ | Hospital | [facility] | Landon Denton, | | | 2009 | Encounter | MED CTR GENERIC OP | MD [address] | | | | | CONV DEPT [address] | [place], [place] | | | | | [place], | [address] | | | | | [place] [address] | | | | | | [phone] | | | +--------+ + + + [...] [place] | | | | | | [id number] | | | | | | | | +--------+ + + + + | 08/15/ | Office | Pulmonology | Landon Denton, | | | 2019 | Visit | | MD [address] | | | | | | [place] | | | | | | [address] | | | | | | | | +--------+ + + + + documented as of this encounter Visit Diagnoses Not on filedocumented in this encounter"
--- OUTSIDE RECORDS SUMMARY | ~2019-07-31 | XMS | Encounter Summary ---
Demographics + + + | Address | [address] | | | [place] [address] | + + + | Home Phone [...] + + | Author | [facility] | | | and [place] | + + + | Organization | [facility] | | | and [...] [place] | | | | | [address] | | + + + + + | Haylie Rg | ECON | [address] [facility] | | | | | [place] | | + + + + + Care Team Providers + +------+ + | Care Cloth Doubling Machine Operator Name | Role | Phone [...] + | 11/09/ | Office | [facility] | Landon Denton, | Sarcoidosis (HCC) | | 2016 | Visit | PULMONARY [address] | MD [address] | (Primary Dx); | | | | [place], | [place] | Pulmonary nodules; | | | | [place] [address] | [address] | Internal nasal | | | | [phone] | | lesion | +--------+---------+ + + [...] if you have any of these conditions: N[place]tahwaush's syndrome diabetes glaucoma heart disease high blood [...] avoid any side effects. Talk to your music department chair regarding the use of this medicine in [...] ta lk to your doctor or health assurance services manager health care. You may need to miss a [...] this medicine? Visit your doctor or health assurance services manager health care for regular checks on your progress. [...] have surgery, tell your doctor or health assurance services manager health care that you hav e taken this medicine within the last twelve months. Ask your doctor or health assurance services manager health care about your diet. You may need to lower the amou nt of salt you eat. This medicine may affect blood sugar levels. If you have diabetes, check with your doctor o r health assurance services manager health care before you change your diet or the dose of your diabetic medicine . What side effects may I notice from receiving this medicine? Side effects that you should report to your doctor or health assurance services manager health care as soon as p ossible: allergic [...] attention (report to your doctor or health assurance services manager health care if they continue or are bothersome): confusion, excitement, restlessness headache nausea, vomiting skin problems, acne, thin and shiny skin trouble sleeping weight gain This list may not describe all possible side effects. Call your doctor for medical advice a bout side effects. You may report side effects to FDA at 0-444-DHU-7600. Where should I keep my medicine? Keep [...] ways to make quitting easier, including local [employer] programs, as well as medications. [id number] [employer]. [address] [place] [address]. All righ ts reserved. This information is not intended as a substitute for professional medical care. Always follow your healthcare professional's instructions. documented in this encounter Progress Notes Landon Denton MD - 11/10/2015 10:43 AM PDTFormatting of this note might be different f rom the original. Pulmonary Follow Up 11/10/2015 [facility] AnneMinna [place] is a 70 y.o. female [...] Known Allergies Medications: Current outpatient prescriptions: Evening [place] Oil 500 MG CAPS, Take by mouth [...] changes is noted on the most recent [facility] t x-ray. Pulmonary function tests were [...] [place] | | | | | | [address] | | | | | | | | +--------+ + + + + | 08/15/ | Office | Pulmonology | Landon Denton, | | | 2019 | Visit | | MD [address] | | | | | | [place] | | | | | | [address] | | | | | | | [...] [facility] | | | Enzyme | [facility] | | | | | | [place], [address], | | | | | | [place] [address] | | | | + + + + + + + + | Specimen | + + | Blood specimen | | (specimen) | + + + + + + + | Performing | Address | City/State/Zipcode | Phone Number | | Organization | | | | + + + + + | [facility] | [address] | [place] [address] | [phone] | + + + + + IMAGING [...]
--- OUTSIDE RECORDS SUMMARY | ~2019-07-31 | XMS | Encounter Summary ---
Demographics + + + | Address | [address] | | | [place] [address] | + + + | Home Phone | | + + + | Preferred Language | Unknown | + + + | Marital Status | | + + + | Christian Affiliation | Unknown | + + + | Race | Unknown | + + + | Ethnic Group | Unknown | + + + Author + + + | Author | [facility] | | | and [place] | + + + | Organization | [facility] | [...] [place] | | | | | [address] | | + + + + + | Haylie Rg | ECON | [address] [facility] | | | | | [place] | | + + + + + Care Team Providers + +------+ + | Care Table Cover Folder Name | Role | Phone | + +------+ + | Ama Moreau | PCP | | | PACrisC | | | + +------+ + Reason for Visit +--------+ + | Reason | Comments | +--------+ + | Other | increased cough | +--------+ + Encounter Details +--------+ + + + + | Date | Type | Department | Care Team | Description | +--------+ + + + + | 05/03/ | Telephone | [facility] | Landon Denton, | Other (increased | | 2018 | | PULMONARY [address] | MD [address] | cough) | | | | [place], | [place] | | | | | [place] [address] | [address] | | | | | [phone] | | | +--------+ + + + [...] [place] | | | | | | [address] | | | | | | | | +--------+ + + + + | 08/15/ | Office | Pulmonology | Landon Denton, | | | 2019 | Visit | | MD [address] | | | | | | [place] | | | | | | [address] | | | | | | | | +--------+ + + + + documented as of this encounter Visit Diagnoses Not on filedocumented in this encounter"
--- OUTSIDE RECORDS SUMMARY | ~2019-07-31 | XMS | Encounter Summary ---
Demographics + + + | Address | [address] | | | [place] [address] | + + + | Home Phone | | + + + | Preferred Language | Unknown | + + + | Marital Status | | + + + | Baptist Affiliation | Unknown | + + + | Race | Unknown | + + + | Ethnic Group | Unknown | + + + Author + + + | Author | [facility] | | | and [place] | + + + | Organization | [facility] [...] [place] | | | | | [address] | | + + + + + | Haylie Rg | ECON | [address] [facility] | | | | | [place] | | + + + + + Care Team Providers + +------+ + | Care Commissary Agent Name | Role | Phone | [...] Provider Unknown | | | | | [place] | [phone] | | | | | [address] | | | | | | [phone] | | | +--------+ + + + [...] + + +---------+ + + | Evening Slater | Take 1,000 mg by | | [...] [place] | | | | | | [address] | | | | | | | | +--------+ + + + + | 08/15/ | Office | Pulmonology | Landon Denton, | | | 2019 | Visit | | MD [address] | | | | | | [place] | | | | | | [address] | | | | | | | [...]
--- OUTSIDE RECORDS SUMMARY | ~2019-07-31 | XMS | Encounter Summary ---
Demographics + + + | Address | [address] | | | [place] [address] | + + + | Home Phone [...] Author | [facility] | | | and [place] | + + + | Organization | [facility] | | | [...] [place] | | | | | [address] | | + + + + + | Haylie Rg | ECON | [address] [facility] | | | | | [place] | | + + + + + Care Team Providers + +------+ + | Care Board Writer Name | Role | Phone | + [...] + + | 11/15/ | Office | [facility] | Landon Denton, | Chronic cough | | 2017 | Visit | PULMONARY [address] | [address] | (Primary Dx); | | | | [place], | [place], [place] | Sarcoidosis (HCC); | | | | [place] [address] | [id number] | Pulmonary nodules | | | | [phone] | | | +--------+---------+ + + + [...] on your doctor's advice. Talk to your clinical account executive regarding the use of this medicine in children. While this drug m ay be prescribed for children as young as 4 years of age for selected conditions, precaution s do apply. What side effects may I notice from receiving this medicine? Side effects that you should report to your doctor or health campground caretaker as soon as p ossible: allergic reactions [...] attention (report to your doctor or health campground caretaker if they continue or are bothersome): coughing, [...] this medicine? Visit your doctor or health campground caretaker for regular checks on your progress. Check wi th your health campground caretaker if your symptoms do not improve. If [...] and pressure. She was evaluated by her [facility] care provider and diagnosed with bronchitis/sinusitis and [...] Their exercise consists of "machines at the [employer] and walking". They are not enrolled in [...] nce daily, Disp: , Rfl: 1 Evening [place] Oil 1000 MG CAPS, Take 1,000 mg [...] [place] | | | | | | [address] | | | | | | | | +--------+ + + + + | 08/15/ | Office | Pulmonology | Landon Denton, | | | 2019 | Visit | | MD [address] | | | | | | [place] | | | | | | [address] | | | | | | | [...]
--- OUTSIDE RECORDS SUMMARY | ~2019-07-31 | XMS | Encounter Summary ---
Demographics + + + | Address | [address] | | | [place] [address] | + + + | Home Phone | | + + + | Preferred Language | Unknown | + + + | Marital Status | | + + + | Scientologist Affiliation | Unknown | + + + | Race | Unknown | + + + | Ethnic Group | Unknown | + + + Author + + + | Author | [facility] | | | and [place] | + + + | Organization | [facility] | | [...] [place] | | | | | [address] | | + + + + + | Haylie Rg | ECON | [address] [facility] | | | | | [place] | | + + + + + Care Team Providers + +------+ + | Care Curing Press Maintainer Name | Role | Phone | + [...] | RN | | | | | [place], | | | | | | [place] [address] | | | | | | [phone] | | | +--------+ + + + [...] [place] | | | | | | [address] | | | | | | | | +--------+ + + + + | 08/15/ | Office | Pulmonology | Landon Denton, | | | 2019 | Visit | | [address] | | | | | | [place] | | | | | | [address] | | | | | | | [...] [address] | [place] | [phone] | | [facility] | | [address] | | | - LABORATORY | | [...] | mL/min/1.73m2 | DAILY | | | [place] | RATE,ESTIMATED | | MEDICAL | | | | mL/min/1.73m6Zcjy than | | CENTER - | | [...] ST. | [address] | [place], [place] | [phone] | | [facility] | | [address] | | | - LABORATORY | | | | + + + + + documented in this encounter Visit Diagnoses + + | Diagnosis | + + | Dyspnea on exertion Other dyspnea and respiratory abnormality | + + documented in this encounter"
--- OUTSIDE RECORDS SUMMARY | ~2019-07-31 | XMS | Encounter Summary ---
Demographics + + + | Address | [address] | | | [place] [address] | + + + | Home Phone | | + + + | Preferred Language | Unknown | + + + | Marital Status | | + + + | Scientologist Affiliation | Unknown | + + + | Race | Unknown | + + + | Ethnic Group | Unknown | + + + Author + + + | Author | [facility] | | | and [place] | + + + | Organization | [facility] | [...] [place] | | | | | [address] | | + + + + + | Haylie Rg | ECON | [address] [facility] | | | | | [place] | | + + + + + Care Team Providers + +------+ + | Care Thread Twister Name | Role | Phone | + [...] [address] | | | | | [place], | [place] | | | | | [place] [address] | [address] | | | | | [phone] | | | +--------+--------+ + + + [...] [place] | | | | | | [address] | | | | | | | | +--------+ + + + + | 08/15/ | Office | Pulmonology | Landon Denton, | | | 2019 | Visit | | MD [address] | | | | | | [place] | | | | | | [address] | | | | | | | | +--------+ + + + + documented as of this encounter Visit Diagnoses Not on filedocumented in this encounter"
--- OUTSIDE RECORDS SUMMARY | ~2019-07-31 | XMS | Encounter Summary ---
Demographics + + + | Address | [address] | | | [place] [address] | + + + | Home Phone [...] + | Author | [facility] | | | and [place] | + + + | Organization | [facility] | [...] [place] | | | | | [address] | | + + + + + | Haylie Rg | ECON | [address] [facility] | | | | | [place] | | + + + + + Care Team Providers + +------+ + | Care Marketing Data Specialist Name | Role | Phone | + +------+ + PCP | Unavailable | + +------+ + Encounter Details +--------+ + + + + | Date | Type | Department | Care Team | Description | +--------+ + + + + | 08/05/ | Hospital | [facility] | Landon Denton, | | | 2011 | Encounter | MED CTR XRAY [address] | MD [address] | | | | | [place] | [place], [place] | | | | | [place] [address] | [address] | | | | | [phone] | | | +--------+ + + + [...] [place] | | | | | | [address] | | | | | | | | +--------+ + + + + | 08/15/ | Office | Pulmonology | Landon Denton, | | | 2019 | Visit | | MD [address] | | | | | | [place] | | | | | | [address] | | | | | | | | +--------+ + + + + documented as of this encounter Procedures + +--------+ + + + | Procedure Name | Priori | Date/Time | Associated Diagnosis | Comments | | | ty | | | | + +--------+ + + + | CT CHEST WO CONTRAST | | 08/05/2011 | | Results for this | | | | 11:19 AM | | procedure are in the | | | | PST | | results section. | + +--------+ + + + documented in this encounter Results CT Chest wo Contrast (08/05/2011 11:19 AM PST) + + | Specimen | + + | | + + + + + | Narrative | Performed At | + + + | [facility] Diagnostic Imaging Department | [facility] | | [address], [facility] | [facility] | | CT CHEST WITHOUT CONTRAST: | DIAG IMG | | 08/05/2011 CLINICAL HISTORY: SARCOIDOSIS. COMPARISON: | | | 07/09/2010. TECHNIQUE: Noncontrast imaging is performed | | | through the chest into the upper abdomen. FINDINGS: There | | | are supraclavicular, mediastinal and hilar lymph nodes. Several of | | | the mediastinal lymph nodes and the hilar lymph nodes are partially | | | calcified. These all appear relatively unchanged. No evidence of | | | new adenopathy involvement. There are numerous pulmonary nodules | | | throughout both lungs, some more well defined than others. Several | | | are pleural based. There are small areas of pleural studding | | | along the major fissures bilaterally. All the nodules are very | | | similar in size and mophology. There are no definite new nodules | | | accounting for slight technique differences. There are scattered | | | areas of mild interstitial prominence, also unchanged. The airways | | | are patent. There are para-aortic lymph nodes that do extend to | | | the level of the gastroesophageal junction. There also appears to | | | be jayme hepatic lymphadenopathy that is stable. The spleen is | | | unremarkable. The gallbladder is absent. Osseous structures are | | | unchanged. IMPRESSION: THERE IS RADIOGRAPHIC STABILITY OF | | | THE INTERSTITIAL CHANGES, PARENCHYMAL NODULES AND DIFFUSE | | | LYMPHADENOPATHY, IN KEEPING WITH THE PATIENT'S KNOWN DIAGNOSIS OF | | | SARCOIDOSIS. Dictated Date/Time: 08/05/2011 16:24 Transcribed | | | Date/Time: 08/05/2011 16:52 Information Security Analyst: | | | <Electronically Signed by Elvis Murillo MD> 08/05/11 2142 | | + + + + + | Procedure Note | + + | Cosme, Rad Conversion - 09/06/2013 4:31 PM [facility] | | Diagnostic Imaging Department | | [address] [facility] | | | | | | | | CT CHEST WITHOUT CONTRAST: 08/05/2011 | | | | CLINICAL HISTORY: SARCOIDOSIS. | | | | COMPARISON: 07/09/2010. | | | | TECHNIQUE: Noncontrast imaging is performed through the chest into the upper | | abdomen. | | | | FINDINGS: There are supraclavicular, mediastinal and hilar lymph nodes. | | Several of the mediastinal lymph nodes and the hilar lymph nodes are partially | | calcified. These all appear relatively unchanged. No evidence of new | | adenopathy involvement. There are numerous pulmonary nodules throughout both | | lungs, some more well defined than others. Several are pleural based. There | | are small areas of pleural studding along the major fissures bilaterally. All | | the nodules are very similar in size and mophology. There are no definite new | | nodules accounting for slight technique differences. There are scattered areas | | of mild interstitial prominence, also unchanged. The airways are patent. | | There are para-aortic lymph nodes that do extend to the level of the | | gastroesophageal junction. There also appears to be jayme hepatic | | lymphadenopathy that is stable. The spleen is unremarkable. The gallbladder | | is absent. Osseous structures are unchanged. | | | | IMPRESSION: THERE IS RADIOGRAPHIC STABILITY OF THE INTERSTITIAL CHANGES, | | PARENCHYMAL NODULES AND DIFFUSE LYMPHADENOPATHY, IN KEEPING WITH THE PATIENT'S | | KNOWN DIAGNOSIS OF SARCOIDOSIS. | | | | Dictated Date/Time: 08/05/2011 16:24 | | Transcribed Date/Time: 08/05/2011 16:52 | | Information Security Analyst: JANE | | <Electronically Signed by Elvis Murillo MD> 08/05/112141 | + + + +---------+ + + | Performing | Address | City/State/Zipcode | Phone Number | | Organization | | | | + +---------+ + + | [place] | | | | | [facility] | | | | + +---------+ + + documented in this encounter Visit Diagnoses Not on filedocumented in this encounter"
--- OUTSIDE RECORDS SUMMARY | ~2019-07-31 | XMS | Encounter Summary ---
Demographics + + + | Address | [address] | | | [place] [address] | + + + | Home Phone | | + + + | Preferred Language | Unknown | + + + | Marital Status | | + + + | Methodist Affiliation | Unknown | + + + | Race | Unknown | + + + | Ethnic Group | Unknown | + + + Author + + + | Author | [facility] | | | and [place] | + + + | Organization | [facility] | | | and [...] [place] | | | | | [address] | | + + + + + | Haylie Rg | ECON | [address] [facility] | | | | | [place] | | + + + + + Care Team Providers + +------+ + | Care Cytology Teacher Name | Role | Phone | + +------+ + | Ama Moreau | PCP | | | PAIan | | | + +------+ + Reason for Visit + + + | Reason | Comments | + + + | Pulmonary Disease | 1 mo follow up/PFT | | Appointment | | + + + Encounter Details +--------+---------+ + + + | Date | Type | Department | Care Team | Description | +--------+---------+ + + + | 01/18/ | Office | [facility] [place] | Landon Denton, | Sarcoidosis (HCC) | | 2019 | Visit | PULMONARY [address] | MD [address] | (Primary Dx); | | | | [place], | [place] | Pulmonary nodules; | | | | [place] [address] | [address] | High risk medication | | | | [phone] | | use | +--------+---------+ + + + Social History [...] + | Blood Pressure | 136/86 | 01/18/2019 1:53 PM | | | | | PDT | | + + + + + | Pulse | 85 | 01/18/2019 1:53 PM | | | | | PDT | | + + + + + | Temperature | - | - | | + + + + + | Respiratory Rate | - | - | | + + + + + | Oxygen Saturation | 99% | 01/18/2019 1:53 PM | RA | | | | PDT | | + + + + + | Inhaled Oxygen | - | - | | | Concentration | | | | + + + + + | Weight | 77.9 kg (171 lb 11.8 | 01/18/2019 1:53 PM | | | | oz) | PDT | | + + + + + | Height | 157.5 cm (5' 2") | 01/18/2019 1:53 PM | | | | | PDT | | + + + + + | Body Mass Index | 31.41 | 01/18/2019 1:53 PM | | | | | PDT | | + + + + + documented in this encounter Patient Instructions Patient Instructions Landon Denton MD - 01/18/2019 2:00 PM PDT Methotrexate tablets Brand Names: Rheumatrex, Trexall [...] to take special precautions. Talk to your furnace charging machine operator regarding the use of this medicine in children. While this drug m ay be prescribed for selected conditions, precautions do apply. What side effects may I notice from receiving this medicine? Side effects that you should report to your doctor or health home care manager rn as soon as p ossible: allergic reactions [...] attention (report to your doctor or health home care manager rn if they continue or are bothersome): dizziness [...] dose, talk with your doctor or health home care manager rn. Do not take double o r extra [...] this medicine. Call your doctor or health home care manager rn for advice if you get a fever, [...] bleeding. Check with your doctor or health home care manager rn if you get an attack of severe [...] an unborn child. Talk to your health home care manager rn or pharmacist for more information. Do not breast-feed an i nfant while taking this medicine. NOTE:This sheet is a summary. It may not cover all possible information. If you have questi ons about this medicine, talk to your doctor, pharmacist, or health care provider. Copyright 2019 [employer] documented in this encounter Progress Notes Landon Denton MD - 01/18/2019 2:00 PM PDTFormatting of this note might be different f rom the original. Pulmonary Follow Up 01/18/2019 HPI Anne Christophertae is a 73 y.o. female patient of Ama Moreau PA-C here today for follow up of sarcoidosis. It has been 1 month since our last clinic appointment. At their last visit, we lowered the patient's prednisone to 20 mg a day and initiated therapy with methotrexate/folic acid. Elinor sorto did not noted change in her symptoms with the initiation of methotrexate and the loweri ng of her prednisone.. Since the last visit she feels like their symptoms are stable. They have have not had any recent acute illnesses. They are currently on a regimen of methotrexate dosed at 7.5 mg a week and prednisone dose to 20 mg a day for their sarcoid. The patient do feel like this medication regimen is decre asing their sarcoid related symptoms. Currently they are able to walk 2 blocks at their own pace on level ground. They are exerci sing regularly. Their exercise consists of pool exercises. They are not enrolled in cardia c/pulmonary rehabilitation or other physical therapy. She does not cough chronically, and does not produce mucous. They have not had hemoptysis s tommy our last clinic appointment. Elinor does not wheeze chronically, and does not have chest tightness. The patient does not note side effects from their methotrexate medication. Today Renetta rooney ates that her insomnia has improved. The patient's weight has increased 1 pound and 9 ounce s over the last month. Specifically does not have nausea, insomnia or polyuria. She has not been evaluated for nocturnal oxygen. Elinor does not had symptoms of heartburn or reflux. They have not had symptoms of nasal conges tion, runny nose or post nasal drip. Renetta is not currently using any Pro Air. Past Medical History Past Medical History: Diagnosis [...] coughing)., Disp: 1 Inhaler, Rfl: 5 Evening [place] Oil 1000 MG CAPS, Take 1,000 mg by mouth Daily., Disp: , Rfl: folic acid 1 mg tablet, Take 1 tablet by mouth Daily., Disp: 30 tablet, Rfl: 5 methotrexate 2.5 mg tablet, Take 3 tablets by mouth Once a week. Indications: Other No n-Oncology, Sarcoid, Disp: 90 tablet, Rfl: 1 Multiple Vitamin TABS, Take 2 tablets by mouth Daily., Disp: , Rfl: [place]-3 Fatty Acids (OMEGA-3 FISH OIL) 1000 MG CAPS, Take 1,000 mg by mouth Daily., Di sp: , Rfl: omeprazole (PRILOSEC) 20 mg capsule, Take 20 mg by mouth every morning (before )., Disp: , Rfl: predniSONE (DELTASONE) 10 mg tablet, Take 2 tablets by mouth Daily., Disp: 68 tablet, Rfl: 2 pseudoePHEDrine (SUDAFED) 30 mg tablet, Take 30 mg by mouth every 6 hours as needed., Disp: , Rfl: 2 sulfamethoxazole-trimethoprim (BACTRIM DS) 800-160 mg per tablet, Take 1 tablet by tay th Three times a week., Disp: , Rfl: Immunizations: Immunization History Administered Date(s) Administered INFLUENZA 65 Y OR >, TRIVALENT HIGH-DOSE 05/03/2016, 05/22/2017, 05/14/2018 INFLUENZA PF 18 Y OR >,TRIVALENT RECOMBINANT 05/02/2012, 04/30/2013, 05/03/2014, 2014 INFLUENZA PF TRIVALENT(PED/ADOL/ADULT), PSKT 04/30/2013, 05/03/2014 PNEUMOCOCCAL CONJUGATE 13-VALENT (PCV13) 12/13/2016, 10/03/2017 PNEUMOCOCCAL POLYSACCHARIDE 23-VALENT (PPSV23) 08/22/2008 Objective BP 136/86 | Pulse 85 | Ht 1.575 m (5' 2") | Wt 77.9 kg (171 lb 11.8 oz) | SpO2 99% Comm ent: RA | BMI 31.41 kg/m Appearance: Alert, cooperative, no distress, appears [...] Data: Lab Results Component Value Date WBC 11.3 (H) 01/18/2019 RBC 4.90 01/18/2019 HGB 15.2 01/18/2019 HCT 46.6 01/18/2019 MCV 95.1 01/18/2019 PLT 267 01/18/2019 Lab Results Component Value Date AST 28 01/18/2019 Lab Results Component Value Date ALT 38 01/18/2019 Walking oximetry performed 01/18/2019. The patient walked approximately 1300 feet over 6.5 minutes. O2 saturation began at 98% and nadired at 90%. Assessment 1. Sarcoidosis currently treated with methotrexate dosed at 7.5 mg weekly and prednisone dose to 20 mg a day. Renetta appears to be tolerating a gradual prednisone taper. No apparent toxicity related t o methotrexate. The patient is using folic acid daily. Today we discussed the anticipated ongoing lowering of the patient's prednisone. No adjust ments in the methotrexate will be made today. Ongoing monitoring for evidence of hepatic/dalton ne marrow toxicity is recommended. Once again Renetta was counseled regarding the risk benefits and alternatives to prednisone/ methotrexate. 2. Hypoxemia previously appreciated exertional hypoxemia has resolved. Plan 1. Decrease prednisone to 10 mg daily. 2. Continue methotrexate dose to 7.5 mg a week. 3. Continue with monthly liver function tests and CBC. 4. Pulmonary clinic follow-up appointment in 4 weeks time. CC: Ama Moreau PA-C documented [...] [place] | | | | | | [address] | | | | | | | | +--------+ + + + + | 08/15/ | Office | Pulmonology | Landon Denton, | | | 2019 | Visit | | MD [address] | | | | | | [place] | | | | | | [address] | | | | | | | | +--------+ + + + + documented as of this encounter Visit Diagnoses + + | Diagnosis | + + | Sarcoidosis (HCC) - Primary Sarcoidosis | + + | Pulmonary nodules Other nonspecific abnormal finding of lung field | + + | High risk medication use Encounter for long-term (current) use of other medications | + + documented in this encounter
--- OUTSIDE RECORDS SUMMARY | ~2019-07-31 | XMS | Encounter Summary ---
Demographics + + + | Address | [address] | | | [place] [address] | + + + | Home Phone [...] | Author | [facility] | | | and [place] | + + + | Organization | [facility] | [...] [place] | | | | | [address] | | + + + + + | Haylie Rg | ECON | [address] | | | | | [place] | | + + + + + Care Team Providers + +------+ + | Care General Supervisor Name | Role | Phone | + +------+ + | Blayne Herrera PCP | | + +------+ + Encounter Details +--------+ + + + + | Date | Type | Department | Care Team | Description | +--------+ + + + + | 11/15/ | Hospital | [facility] | Bertin Landon, | Pulmonary nodules | | 2017 | Encounter | MED CTR XRAY [address] | MD [address] | | | | | [place] | [place] | | | | | [place] [address] | [id number] | | | | | [phone] | | | +--------+ + + + [...] + + +---------+ + + | Evening [place] | Take 1,000 mg by | | [...] [place] | | | | | | [address] | | | | | | | | +--------+ + + + + | 08/15/ | Office | Pulmonology | Landon Denton, | | | 2019 | Visit | | [address] | | | | | | [place] | | | | | | [address] | | | | | | | [...] and pulmonary nodules COMPARISON: Chest radiographs | [facility] | | September 2015, chest CT January 2014 FINDINGS: There is thoracic aortic | [facility] | | calcification. A tiny hiatus [...] + | [facility] | [address] | [place] | [phone] | | [facility] | | [address] | | | - IMAGING | | | | + + + + + documented in this encounter Visit Diagnoses + + | Diagnosis | + + | Pulmonary nodules Other nonspecific abnormal finding of lung field | + + documented in this encounter"
--- OUTSIDE RECORDS SUMMARY | ~2019-07-31 | XMS | Encounter Summary ---
Demographics + + + | Address | [address] | | | [place] [address] | + + + | Home Phone [...] | Author | [facility] | | | and [place] | + + + | Organization | [facility] | | | and [place] [...] [place] | | | | | [address] | | + + + + + | Haylie Rg | ECON | [address] [facility] | | | | | [place] | | + + + + + Care Team Providers + +------+ + | Care Curtain Worker Name | Role | Phone | + +------+ + | Ama Moreau | PCP | | | MIYA | | | + +------+ + Encounter Details +--------+ + + + + | Date | Type | Department | Care Team | Description | +--------+ + + + + | 01/14/ | Orders Only | [facility] | Landon Denton, | Sarcoidosis (HCC) | | 2019 | | PULMONARY [address] | MD [address] | (Primary Dx) | | | | [place], | [place], [place] | | | | | [place] [address] | [address] | | | | | [phone] | | | +--------+ + + + [...] [address] | | | | | | [place] | | | | | | [address] | | | | | | | | +--------+ + + + + | 08/15/ | Office | Pulmonology | Bertin Landon, | | | 2019 | Visit | | MD [address] | | | | | | [place] | | | | | | [address] | | | | | | | | +--------+ + + + + documented as of this encounter Results Hepatic Function Panel (01/18/2019 12:47 PM PDT) + +-------+ + + + | Component | Value | Ref Range | Performed | Pathologist | | | | | At | Signature | + +-------+ + + + | Bilirubin | 0.4 | 0.3 - 1.2 mg/dL | [facility] | | | Total | | | [facility] | | [...] ST. | [address] | [place], [place] | [phone] | | [facility] | | [address] | | | - LABORATORY | | [...] | | | | M/uL | ST. DAILY | | | | [...] | Neutrophils | | K/uL | [facility] | | | | | | MEDICAL | | | | | | CENTER - | | | | | | LABORATORY | | + + + + + + | Absolute | 0.96 | 0.60 - 3.20 | [facility] | | | Lymphocytes | | K/uL | DAILY | | | | | | MEDICAL | | | | | | CENTER - | | | | | | LABORATORY | | + + + + + + | Absolute | 0.19 | 0.00 - 1.00 | [facility] | | | Monocytes | | K/uL | DAILY | | | | | [...] | | Basophils | | K/uL | [facility] | [...] | | nRBC | | K/uL | [facility] | [...] [address] | [place] | [phone] | | [facility] | | [address] | | | - LABORATORY | | | | + + + + + documented in this encounter Visit Diagnoses + + | Diagnosis | + + | Sarcoidosis (HCC) - Primary Sarcoidosis | + + documented in this encounter"
--- OUTSIDE RECORDS SUMMARY | ~2019-07-31 | XMS | Encounter Summary ---
Demographics + + + | Address | [address] | | | [place] [address] | + + + | Home Phone [...] + | Author | [facility] | | | and [place] | + + + | Organization | [facility] | [...] [place] | | | | | [address] | | + + + + + | Haylie Rg | ECON | [address] [facility] | | | | | [place] | | + + + + + Care Team Providers + +------+ + | Care Change Advisor Name | Role | Phone | [...] | | | | unspecified | PA-C [address] | [address], | | | | | Procedures | [place] | [place] [address] | | | | | F/U APPT | Ave | Phone: | | | | | DR GALVAN | [place], | [phone] | | | | | [place] | [place] | Fax: | | | | | 02/20/19 | [address] | [phone] | | | | | | Phone: | | | | | | | [phone] | | | | | | | Fax: | | | | | | | [phone] | | + +--------+ + + + [...] | (Primary Dx); | | | | [place], | [place], [place] | Bronchiectasis | | | | [place] [address] | [address] | without complication | | | | [phone] | | (HCC) | +--------+---------+ + + [...] avoid any side effects. Talk to your construction ironworker helper regarding the use of this medicine in children. Special care may be needed. What side effects may I notice from receiving this medicine? Side effects that you should report to your doctor or health career discovery teacher as soon as p ossible: allergic reactions [...] (report to your doctor or health career discovery teacher if they continue or are bothersome): confusion, [...] lk to your doctor or health career discovery teacher. You may need to miss a dose [...] if you have any of these conditions: Upsala's syndrome diabetes glaucoma heart disease high blood [...] medicine? Visit your doctor or health career discovery teacher for regular checks on your progress. If [...] surgery, tell your doctor or health career discovery teacher that you hav e taken this medicine within the last twelve months. Ask your doctor or health career discovery teacher about your diet. You may need to lower the amou nt of salt you eat. This medicine may affect blood sugar levels. If you have diabetes, check with your doctor o r health career discovery teacher before you change your diet or the [...] coughing)., Disp: 1 Inhaler, Rfl: 5 Evening [place] Oil 1000 MG CAPS, Take 1,000 mg by mouth Daily., Disp: , Rfl: Multiple Vitamin TABS, Take 2 tablets by mouth Daily., Disp: , Rfl: [place]-3 Fatty Acids (OMEGA-3 FISH OIL) 1000 MG CAPS, Take 1,000 mg by mouth Daily., Di sp: , Rfl: omeprazole (PRILOSEC) 20 mg capsule, Take 20 mg by mouth every morning (before break)., Disp: , Rfl: PEG 1928-JUh-DuClo-NaCl-NaSulf (PEG 3350/ELECTROLYTES) 240 g SOLR, , Disp: [...] | 2019 | Visit | | MD Luwdin BAILEY | | | | | | [place] | | | | | | [phone] | | | | | | | [...]
--- OUTSIDE RECORDS SUMMARY | ~2019-07-31 | XMS | Encounter Summary ---
Demographics + + + | Address | [address] | | | [place] [address] | + + + | Home Phone [...] | Author | [facility] | | | and [place] | + + + | Organization | [facility] | | | and [...] [place] | | | | | [address] | | + + + + + | Haylie Rg | ECON | [address] [facility] | | | | | [place] | | + + + + + Care Team Providers + +------+ + | Care Weekday Babysitter Name | Role | Phone | + [...] | (Primary Dx) | | | | [place], | [place], [place] | | | | | [place] [address] | [address] | | | | | [phone] | | | +--------+ + + + [...] [place] | | | | | | [address] | | | | | | | | +--------+ + + + + | 08/15/ | Office | Pulmonology | Landon Denton, | | | 2019 | Visit | | MD [address] | | | | | | [place], [place] | | | | | | [address] | | | | | | | [...] mL/min/1.73m2 | [facility] | | | [place] | RATE,ESTIMATED | | MEDICAL | | | | mL/min/1.95u4Zamr than | | CENTER - | | [...] [address] | [place] | [phone] | | [facility] | | [address] | | | - LABORATORY | | [...] ST. | [address] | [place], [place] | [phone] | | [facility] | | [address] | | | - LABORATORY | | | | + + + + + documented in this encounter Visit Diagnoses + + | Diagnosis | + + | Dyspnea on exertion - Primary Other dyspnea and respiratory abnormality | + + documented in this encounter"
--- OUTSIDE RECORDS SUMMARY | ~2019-07-31 | XMS | Encounter Summary ---
Demographics + + + | Address | [address] | | | [place] [address] | + + + | Home Phone [...] + | Author | [facility] | | | and [place] | + + + | Organization | [facility] | | [...] [place] | | | | | [address] | | + + + + + | Haylie Rg | ECON | [address] [facility] | | | | | [place] | | + + + + + Care Team Providers + +------+ + | Care Irrigation Equipment Remover Name | Role | Phone | + +------+ + | Blayne Herrera DO | PCP | | + +------+ + Encounter Details +--------+ + + + + | Date | Type | Department | Care Team | Description | +--------+ + + + + | 08/01/ | Hospital | [facility] | Conversion | Pain | | 2018 | Encounter | CONVERSION [address] | Transaction, | | | | | [address] | Provider Unknown | | | | | [place] | [phone] | | | | | [address] | | | | | | [phone] | | | +--------+ + + + [...] + + +---------+ + + | Evening [place] | Take 1,000 mg by | | [...] [place] | | | | | | [address] | | | | | | | | +--------+ + + + + | 08/15/ | Office | Pulmonology | Landon Denton, | | | 2019 | Visit | | MD [address] | | | | | | [place] | | | | | | [address] | | | | | | | [...]
--- OUTSIDE RECORDS SUMMARY | ~2019-07-31 | XMS | Encounter Summary ---
Demographics + + + | Address | [address] | | | [place] [address] | + + + | Home Phone [...] | Author | [facility] | | | and [place] | + + + | Organization | [facility] | [...] [place] | | | | | [address] | | + + + + + | Haylie Rg | ECON | [address] [facility] | | | | | [place] | | + + + + + Care Team Providers + +------+ + | Care Independent Crop Consultant Name | Role | Phone | + [...] | Dx); Pulmonary | | | | [place], | [place], [place] | nodules; Sarcoidosis | | | | [place] [address] | [address] | (HCC); Chest | | | | [phone] | | heaviness | +--------+---------+ + + [...] rom the original. Pulmonary Follow Up 02/18/2014 [facility] Elinor Shelby is a 68 y.o. female [...] by mouth daily, Disp: , Rfl: ; [place]-3 Fatty Acids (OMEGA 3 PO), CPDR; 3 [...] be forwarded to Dr. Munoz and Dr. Herrera. 2. Anticipate clarification regarding Dr. Munoz's plans [...] [place] | | | | | | [address] | | | | | | | | +--------+ + + + + | 08/15/ | Office | Pulmonology | Landon Denton, | | | 2019 | Visit | | [address] | | | | | | [place] | | | | | | [address] | | | | | | | [...]
--- OUTSIDE RECORDS SUMMARY | ~2019-07-31 | XMS | Encounter Summary ---
Demographics + + + | Address | [address] | | | [place] [address] | + + + | Home Phone | | + + + | Preferred Language | Unknown | + + + | Marital Status | | + + + | Muslim Affiliation | Unknown | + + + | Race | Unknown | + + + | Ethnic Group | Unknown | + + + Author + + + | Author | [facility] | | | and [place] | + + + | Organization | [facility] | | | and [place] [...] [place] | | | | | [address] | | + + + + + | Haylie Rg | ECON | [address] [facility] | | | | | [place] | | + + + + + Care Team Providers + +------+ + | Care Irrigator Overhead Name | Role | Phone | + +------+ + | Ama Moreau | PCP | | | PA-C | | | + +------+ + Reason for Visit +--------+ + | Reason | Comments | +--------+ + | Other | cough | +--------+ + Encounter Details +--------+ + + + + | Date | Type | Department | Care Team | Description | +--------+ + + + + | 07/03/ | Telephone | [facility] | Landon Denton, | Other (cough) | | 2017 | | PULMONARY [address] | MD [address] | | | | | [place], | [place], [place] | | | | | [place] [address] | [address] | | | | | [phone] | | | +--------+ + + + [...] [place] | | | | | | [address] | | | | | | | | +--------+ + + + + | 08/15/ | Office | Pulmonology | Landon Denton, | | | 2019 | Visit | | MD [address] | | | | | | [place] | | | | | | [address] | | | | | | | | +--------+ + + + + documented as of this encounter Visit Diagnoses Not on filedocumented in this encounter"
--- OUTSIDE RECORDS SUMMARY | ~2019-07-31 | XMS | Encounter Summary ---
Demographics + + + | Address | [address] | | | [place] [address] | + + + | Home Phone | | + + + | Preferred Language | Unknown | + + + | Marital Status | | + + + | Confucianism Affiliation | Unknown | + + + | Race | Unknown | + + + | Ethnic Group | Unknown | + + + Author + + + | Author | [facility] | | | and [place] | + + + | Organization | [facility] | | | and [place] [...] [place] | | | | | [address] | | + + + + + | Haylie Rg | ECON | [address] | | | | | [place] | | + + + + + Care Team Providers + +------+ + | Care Senior Firmware Engineer Name | Role | Phone | + +------+ + | Ama Moreau | PCP | | | PACrisC | | | + +------+ + Reason for Visit +--------+ + | Reason | Comments | +--------+ + | Other | small red bumps | +--------+ + Encounter Details +--------+ + + + + | Date | Type | Department | Care Team | Description | +--------+ + + + + | 10/30/ | Telephone | [facility] | Landon Denton, | Other (small red | | 2018 | | PULMONARY [address] | MD [address] | bumps) | | | | [place], | [place] | | | | | [place] [address] | [address] | | | | | [phone] | | | +--------+ + + + [...] [place] | | | | | | [address] | | | | | | | | +--------+ + + + + | 08/15/ | Office | Pulmonology | Landon Denton, | | | 2019 | Visit | | MD [address] | | | | | | [place] | | | | | | [address] | | | | | | | | +--------+ + + + + documented as of this encounter Visit Diagnoses Not on filedocumented in this encounter"
--- OUTSIDE RECORDS SUMMARY | ~2019-07-31 | XMS | Encounter Summary ---
Demographics + + + | Address | [address] | | | [place] [address] | + + + | Home Phone | | + + + | Preferred Language | Unknown | + + + | Marital Status | | + + + | Sabianist Affiliation | Unknown | + + + | Race | Unknown | + + + | Ethnic Group | Unknown | + + + Author + + + | Author | [facility] | | | and [place] | + + + | Organization | [facility] | | | and [place] [...] [place] | | | | | [address] | | + + + + + | Haylie Rg | ECON | [address] [facility] | | | | | [place] | | + + + + + Care Team Providers + +------+ + | Care News Production Supervisor Name | Role | Phone | + +------+ + | Blayne Herrera DO | PCP | | + +------+ + Encounter Details +--------+ + + + + | Date | Type | Department | Care Team | Description | +--------+ + + + + | 08/01/ | Hospital | [facility] | Conversion | Pain | | 2018 | Encounter | CONVERSION [address] | Transaction, | | | | | [address] | Provider Unknown | | | | | [place] | [phone] | | | | | [address] | | | | | | [phone] | | | +--------+ + + + [...] + + +---------+ + + | Evening [place] | Take 1,000 mg by | | [...] [place] | | | | | | [address] | | | | | | | | +--------+ + + + + | 08/15/ | Office | Pulmonology | Landon Denton, | | | 2019 | Visit | | MD [address] | | | | | | [place] | | | | | | [address] | | | | | | | | +--------+ + + + + documented as of this encounter Procedures + +--------+ + + + | Procedure Name | Priori | Date/Time | Associated Diagnosis | Comments | | | ty | | | | + +--------+ + + + | CT CHEST W CONTRAST | Routin | 11/18/2009 | | Results for this | | | e | 10:18 AM | | procedure are in the | | | | PDT | | results section. | + +--------+ + + + documented in this encounter Results CT Chest w Contrast (11/18/2009 10:18 AM PDT) + + | Specimen | [...]
--- OUTSIDE RECORDS SUMMARY | ~2019-07-31 | XMS | Encounter Summary ---
Demographics + + + | Address | [address] | | | [place] [address] | + + + | Home Phone | | + + + | Preferred Language | Unknown | + + + | Marital Status | | + + + | Scientology Affiliation | Unknown | + + + | Race | Unknown | + + + | Ethnic Group | Unknown | + + + Author + + + | Author | [facility] | | | and [place] | + + + | Organization | [facility] | | | and [place] [...] [place] | | | | | [address] | | + + + + + | Haylie Rg | ECON | [address] [facility] | | | | | [place] | | + + + + + Care Team Providers + +------+ + | Care Development Mgr Name | Role | Phone | + +------+ + | Blayne Herrera DO | PCP | | + +------+ + Reason for Visit + + + | Reason | Comments | + + + | Follow-up | Sarcoidosis | + + + Encounter Details +--------+---------+ + + + | Date | Type | Department | Care Team | Description | +--------+---------+ + + + | 02/18/ | Office | [facility] | Landon Denton, | Sarcoidosis (HCC) | | 2012 | Visit | PULMONARY [address] | MD [address] | (Primary Dx) | | | | [place], | [place], [place] | | | | | [place] [address] | [address] | | | | | [phone] | | | +--------+---------+ + + + [...] + + + | Blood Pressure | 122/66 | 02/18/2013 10:30 AM | | | | | PDT | | + + + + + | Pulse | 83 | 02/18/2013 10:30 AM | | | | | PDT | | + + + + + | Temperature | - | - | | + + + + + | Respiratory Rate | - | - | | + + + + + | Oxygen Saturation | 96% | 02/18/2013 10:30 AM | | | | | PDT | | + + + + + | Inhaled Oxygen | - | - | | | Concentration | | | | + + + + + | Weight | 78.5 kg (173 lb) | 02/18/2013 10:30 AM | | | | | PDT | | + + + + + | Height | 152.4 cm (5') | 02/18/2013 10:30 AM | | | | | PDT | | + + + + + | Body Mass Index | 33.79 | 02/18/2013 10:30 AM | | | | | PDT | | + + + + + documented in this encounter Patient Instructions Patient Instructions Landon Denton MD - 02/18/2013 10:47 AM PDTFlu shot in the fall. documented in this encounter Progress Notes Landon Denton MD - 02/18/2013 10:35 AM PDTFormatting of this note might be different f rom the original. Pulmonary Follow Up 02/18/2013 HPI Elinor Shelby is a 67 y.o. female patient of Blayne Herrera here today for follow u p of sarcoidosis. It has been 6 months since our last clinic appointment. At their last visit, we ordered an NELSON level. Since the last visit she feels like their symptoms are stable. They have have not had any acute illnesses. Heart evaluation was negative including cardiac cath was negati ve.They are currently on no sarcoid regimen. No rashes or skin changes. Eyes stable. Currently they are able to walk 4-5 miles at their own pace on level ground. They are exerc ising regularly. Indoor pool work 3-4 times per week. Walking up to 5 times per week. They are not enrolled in cardiac/pulmonary rehabilitation or other physical therapy. She does cough chronically, and does not produce mucous. They have not had hemoptysis. She does not wheeze chronically, and does not have chest tightness. She does had symptoms of heartburn or reflux. Resolves with Tums or prn Prilosec. They hav e not had symptoms of nasal congestion, runny nose or post nasal drip. The patient is exercising without issue. There is no history chest pain. Past Medical History Past Medical History Diagnosis Date Lymphedema Shoulder fracture Sarcoid Pulmonary nodules No change in follow up imaging last here 2010 Allergies: No Known Allergies Medications: Current outpatient prescriptions:fluticasone (FLONASE) 50 mcg/nasal spray, 1 spray by Nasal route Daily., Disp: , Rfl: ; multivitamin (THERAGRAN) per tablet, 1 tablet by mouth daily, Disp: , Rfl: ; [place]-3 Fatty Acids (OMEGA 3 PO), CPDR; 3 capsules by mouth twice daily, Di sp: , Rfl: Review of Systems Constitutional: Denies [...] urticaria, allergic rash, hay fever. Objective BP 122/66 | Pulse 83 | Ht 1.524 m (5') | Wt 78.472 kg (173 lb) | BMI 33.79 kg/m2 | SpO2 96% Appearance: Alert, cooperative, no distress, appears [...] nodes normal Neurologic: Gait normal Assessment 1. Sarcoidosis-Ms. Shelby is a 67 year female with a history of biopsy-proven sarcoido sis. At the time her last clinic appointment 6 months ago there was question as to whether her worsening shortness of breath was related to sarcoidosis. The patient's NELSON level was p erformed and was noted to be within normal limits. This made her symptoms related to sarcoi d less likely. Ms. Shelby has reinitiated regular schedule exercise and as noted improvement of her ex ercise tolerance and shortness of breath. There is no evidence of active pulmonary sarcoidosis at this time. The interval between [facility] appointments will be lengthen. Plan 1. Seasonal influenza vaccination fall 2012. 2. Pulmonary clinic followup appointment with repeat pulmonary function tests in 12 months time. CC: Blayne Herrera documented in [...] [place] | | | | | | [address] | | | | | | | | +--------+ + + + + | 08/15/ | Office | Pulmonology | Landon Denton, | | | 2019 | Visit | | [address] | | | | | | [place] | | | | | | [address] | | | | | | | | +--------+ + + + + documented as of this encounter Procedures + +--------+ + + + | Procedure Name | Priori | Date/Time | Associated Diagnosis | Comments | | | ty | | | | + +--------+ + + + | ECG - EXTERNAL SCAN | | 10/16/2012 | | Results for this | | [...] | | Landon Denton MD 02/20/2014 15:16 [facility] | | | [facility] | | + + + + [...] Landon Denton MD 02/20/2014 15:16[facility] | | [facility] | | | |Compared to pulmonary function tests from July 2012 the patient's spirometry is essentia lly unchanged. The diffusion capacity has fallen 16%. | | | |Test performed: 02/18/14 | |Electronically signed by: Landon Denton MD 02/20/2014 15:16 | |[facility] | + + ECG - EXTERNAL SCAN (10/16/2012 12:00 AM PDT) + + + | Narrative | Performed At | + + + | Ordered by an | | | unspecified provider. | | + + + + + | Transcriptions | + + | Mulugeta Mcdonnell - 10/16/2012 12:00 AM PDT | + + documented in this encounter Visit Diagnoses + + | Diagnosis | + + | Sarcoidosis - Primary | + + documented in this encounter"
--- OUTSIDE RECORDS SUMMARY | ~2019-07-31 | XMS | Encounter Summary ---
Demographics + + + | Address | [address] | | | [place] [address] | + + + | Home Phone [...] | Author | [facility] | | | and [place] | + + + | Organization | [facility] | | [...] [place] | | | | | [address] | | + + + + + | Haylie Rg | ECON | [address] [facility] [address] | | | | | [place] | | + + + + + Care Team Providers + +------+ + | Care Wastewater Manager Name | Role | Phone | + +------+ + | Blayne Herrera DO | PCP | | + +------+ + Reason for Visit +--------+ + | Reason | Comments | +--------+ + | Other | check formulary | +--------+ + Encounter Details +--------+ + + + + | Date | Type | Department | Care Team | Description | +--------+ + + + + | 04/04/ | Telephone | [facility] [place] | Landon Denton, | Other (check | | 2016 | | PULMONARY [address] | MD [address] | formulary) | | | | [place], | [place], [place] | | | | | [place] [address] | [id number] | | | | | [phone] | | | +--------+ + + + [...] [place] | | | | | | [address] | | | | | | | | +--------+ + + + + | 08/15/ | Office | Pulmonology | Landon Denton, | | | 2019 | Visit | | [address] | | | | | | [place] | | | | | | [address] | | | | | | | | +--------+ + + + + documented as of this encounter Visit Diagnoses Not on filedocumented in this encounter"
--- OUTSIDE RECORDS SUMMARY | ~2019-07-31 | XMS | Encounter Summary ---
Demographics + + + | Address | [address] | | | [place] [address] | + + + | Home Phone [...] | Author | [facility] | | | and [place] | + + + | Organization | [facility] | [...] [place] | | | | | [address] | | + + + + + | Haylie Rg | ECON | [address] [facility] | | | | | [place] | | + + + + + Care Team Providers + +------+ + | Care Relay Tester Helper Name | Role | Phone | [...] + + | 08/22/ | Office | [facility] | Landon Denton, | Sarcoidosis (HCC) | | 2012 | Visit | PULMONARY [address] | MD [address] | (Primary Dx) | | | | [place], | [place] | | | | | [place] [address] | [address] | | | | | [phone] | | | +--------+---------+ + + + [...] mouth logan ly, Disp: , Rfl: ; [place]-3 Fatty Acids (OMEGA 3 PO), CPDR; 3 [...] [place] | | | | | | [address] | | | | | | | [...] [facility] | | | Enzyme | [facility] | | MEDICAL | | | | Center,[address], | | CENTER - | | | | [place] [address] | | LABORATORY | | | | CLIA: [id number] | | | | + + + + + + + + | Specimen | + + | Blood specimen | | (specimen) | + + + + + | Narrative | Performed At | + + + | | [facility] | | [facility] | | | [facility] | | | - LABORATORY | + + + + + + + + | Performing | Address | City/State/Zipcode | Phone Number | | Organization | | | | + + + + + | [facility] | [address] | [place] | [phone] | | [facility] | | [address] | | | - LABORATORY | | | | + + + + + | [facility] | [address] | [place] | | | [facility] | | [address] | | | - LABORATORY | | | | + + + + + documented in this encounter Visit Diagnoses + + | Diagnosis | + + | Sarcoidosis - Primary | + + documented in this encounter
--- OUTSIDE RECORDS SUMMARY | ~2019-07-31 | XMS | Encounter Summary ---
Demographics + + + | Address | [address] | | | [place] [address] | + + + | Home Phone | | + + + | Preferred Language | Unknown | + + + | Marital Status | | + + + | Jehovah'S Witness Affiliation | Unknown | + + + | Race | Unknown | + + + | Ethnic Group | Unknown | + + + Author + + + | Author | [facility] | | | and [place] | + + + | Organization | [facility] [...] [place] | | | | | [address] | | + + + + + | Haylie Rg | ECON | [address] [facility] | | | | | [place] | | + + + + + Care Team Providers + +------+ + | Care Link Trainer Maintenance Man Name | Role | Phone | + [...] | | | | behavior of | [facility] | [address] | | | | | other | [address] | [place], | | | | | respiratory | [place], | [place] [address] | | | | | organs | [place] [address] | Phone: | | | | | Procedures | Phone: | [phone] | | | | | Office Visit | [phone] | Fax: | | | | | | Fax: | [phone] | | | | | | [phone] | | +--------+--------+ + + + + Encounter Details +--------+---------+ + + + | Date | Type | Department | Care Team | Description | +--------+---------+ + + + | 12/22/ | Office | [facility] | Darien Galvan MD | Nasal vestibulitis | | 2016 | Visit | OTOLARYNGOLOGY [address] | [address] [place] | (Primary Dx) | | | | [address] | [address] | | | | | [place] | [place] [address] | | | | | [address] | [phone] | | | | | [phone] | | | +--------+---------+ + + + [...] MD - 12/23/2015 2:13 PM PDT [facility] OTOLARYNGOLOGY [address] [facility] [address] OFFICE NOTE DARIEN GALVAN MD Patient: ELINOR STACK Admitting: MR #: [id number] LOC: PT TYPE: Adm Date: 12/23/2015 : [...] 14:13:49 Transcribed on 12/24/2015 04:32:22 by job# [id number] Confirmation #: [id number] cc: IVAN RUBI DO [facility] MD - 12/23/2015 2:11 PM PDTSee dictation #[id number] signed by Darien Galvan MD at 12/23/2015 [...] [place] | | | | | | [address] | | | | | | | | +--------+ + + + + | 08/15/ | Office | Pulmonology | Landon Denton, | | | 2019 | Visit | | [address] | | | | | | [place] | | | | | | [address] | | | | | | | | +--------+ + + + + documented as of this encounter Visit Diagnoses + + | Diagnosis | + + | Nasal vestibulitis - Primary Other diseases of nasal cavity and sinuses | + + documented in this encounter
--- OUTSIDE RECORDS SUMMARY | ~2019-07-31 | XMS | Encounter Summary ---
Demographics + + + | Address | [address] | | | [place] [address] | + + + | Home Phone | | + + + | Preferred Language | Unknown | + + + | Marital Status | | + + + | Denominational Affiliation | Unknown | + + + | Race | Unknown | + + + | Ethnic Group | Unknown | + + + Author + + + | Author | [facility] | | | and [place] | + + + | Organization | [facility] [...] [place] | | | | | [address] | | + + + + + | Haylie Rg | ECON | [address] [facility] | | | | | [place] | | + + + + + Care Team Providers + +------+ + | Care Supervisor Cigar Making Hand Name | Role | Phone | + [...] + + | 05/22/ | Office | [facility] | Landon Denton, | Sarcoidosis (HCC) | | 2013 | Visit | PULMONARY [address] | MD [address] | (Primary Dx); | | | | [place], | [place], [place] | Dyspnea | | | | [place] [address] | [address] | | | | | [phone] | | | +--------+---------+ + + + [...] about all medications you use. This includes pedh-bgx-ognlbay medications. It also i ncludes herbs or supplements. [id number] Issac Rothman, [address] [place] [address], [place] [address]. All rights reserve d. This information is [...] mouth Daily., Disp: , Rfl: ; Evening [place] OIL, Take 1,000 capsules by mouth Daily., Disp: , Rfl: ; fluticasone (FLONASE) 50 mcg/nasal spray, 1 spray by Nasal route Daily., Disp: , Rfl: ; multivitamin (THERAGRAN) per tablet, 1 tablet by mout h daily, Disp: , Rfl: [place]-3 Fatty Acids (OMEGA 3 PO), CPDR; 3 [...] with known sarcoidosis. At the time [facility] appointment in mid March the patient [...] [place] | | | | | | [address] | | | | | | | | +--------+ + + + + | 08/15/ | Office | Pulmonology | Landon Denton, | | | 2019 | Visit | | MD [address] | | | | | | [place] | | | | | | [address] | | | | | | | | +--------+ + + + + documented as of this encounter Visit Diagnoses + + | Diagnosis | + + | Sarcoidosis - Primary | + + | Dyspnea Other dyspnea and respiratory abnormality | + + documented in this encounter"
--- OUTSIDE RECORDS SUMMARY | ~2019-07-31 | XMS | Encounter Summary ---
Demographics + + + | Address | [address] | | | [place] [address] | + + + | Home Phone | | + + + | Preferred Language | Unknown | + + + | Marital Status | | + + + | Mandaen Affiliation | Unknown | + + + | Race | Unknown | + + + | Ethnic Group | Unknown | + + + Author + + + | Author | [facility] | | | and [place] | + + + | Organization | [facility] | [...] [place] | | | | | [address] | | + + + + + | Haylie Rg | ECON | [address] [facility] | | | | | [place] | | + + + + + Care Team Providers + +------+ + | Care Finance Analyst Name | Role | Phone | [...] + + | 04/05/ | Telephone | [facility] | Landon Denton, | Medication Question | | 2016 | | PULMONARY [address] | MD [address] | (Flovent Inhaler ) | | | | [place], | [place] | | | | | [place] [address] | [address] | | | | | [phone] | | | +--------+ + + + [...] [place] | | | | | | [address] | | | | | | | | +--------+ + + + + | 08/15/ | Office | Pulmonology | Landon Denton, | | | 2019 | Visit | | MD [address] | | | | | | [place] | | | | | | [address] | | | | | | | | +--------+ + + + + documented as of this encounter Visit Diagnoses Not on filedocumented in this encounter"
--- OUTSIDE RECORDS SUMMARY | ~2019-07-31 | XMS | Encounter Summary ---
Demographics + + + | Address | [address] | | | [place] [address] | + + + | Home Phone | | + + + | Preferred Language | Unknown | + + + | Marital Status | | + + + | Mandaen Affiliation | Unknown | + + + | Race | White | + + + | Ethnic Group | Not or | + + + Author + + + | Author | [facility] | + + + | Organization | [facility] | + + + | Address | Unknown | + + + | Phone | Unavailable | + + + Support + + +---------+ + | Name | Relationship | Address | Phone | + + +---------+ + | Deniz Shelby | ECON | Unknown | | + + +---------+ + Care Team Providers + +------+ + | Care Billiard Table Repairer Name | Role | Phone | + [...] as of this encounter Progress Notes Interface, Hand Packer/Packager In - 05/11/2006 3:02 AM PDTCLINIC DATE: 04/19/2001 SURGICAL ONCOLOGY CLINIC SUBJECTIVE: Mrs. Shelby is self-referred because of lymphedema of the left arm. This is subsequent to excision of a fibrotic lesion in the axilla which one can indeed see on the preoperative mammogram. This was done in [place] in December 2000. The pathology report was [...] further difficulties. Cullen Browning M.D. KIERRA / [id number] / [id number] / [id number] / [id number] signed by Interface, Hand Packer/Packager In at 05/11/2006 3:02 AM PDTdocume nted in this encounter Plan of Treatment Not on filedocumented as of this encounter Visit Diagnoses Not on filedocumented in this encounter"
--- OUTSIDE RECORDS SUMMARY | ~2019-07-31 | XMS | Encounter Summary ---
Demographics + + + | Address | [address] | | | [place] [address] | + + + | Home Phone [...] | [facility] | | | and [place] | + + + | Organization | [facility] | | | and [place] [...] [place] | | | | | [address] | | + + + + + | Haylie Rg | ECON | [address] [facility] | | | | | [place] | | + + + + + Care Team Providers + +------+ + | Care Rug Dyer Helper Name | Role | Phone | [...] + + | 01/18/ | Office | [facility] [place] | Landon Denton, | Sarcoidosis (HCC) | | 2019 | Visit | [address]ULMONARY [address] | MD [address] | (Primary Dx); | | | | [place], | [place] | Pulmonary nodules; | | | | [place] [address] | [address] | High risk medication | | | | [phone] | | use | +--------+---------+ + + [...] to take special precautions. Talk to your application support consultant regarding the use of this medicine in children. While this drug m ay be prescribed for selected conditions, precautions do apply. What side effects may I notice from receiving this medicine? Side effects that you should report to your doctor or health hiv/aids care nurse as soon as p ossible: allergic reactions [...] attention (report to your doctor or health hiv/aids care nurse if they continue or are bothersome): dizziness [...] dose, talk with your doctor or health hiv/aids care nurse. Do not take double o r extra [...] this medicine. Call your doctor or health hiv/aids care nurse for advice if you get a fever, [...] bleeding. Check with your doctor or health hiv/aids care nurse if you get an attack of severe [...] an unborn child. Talk to your health hiv/aids care nurse or pharmacist for more information. Do not [...] coughing)., Disp: 1 Inhaler, Rfl: 5 Evening [place] Oil 1000 MG CAPS, Take 1,000 mg by mouth Daily., Disp: , Rfl: folic acid 1 mg tablet, Take 1 tablet by mouth Daily., Disp: 30 tablet, Rfl: 5 methotrexate 2.5 mg tablet, Take 3 tablets by mouth Once a week. Indications: Other No n-Oncology, Sarcoid, Disp: 90 tablet, Rfl: 1 Multiple Vitamin TABS, Take 2 tablets by mouth Daily., Disp: , Rfl: [place]-3 Fatty Acids (OMEGA-3 FISH OIL) 1000 MG [...] [place] | | | | | | [address] | | | | | | | | +--------+ + + + + | 08/15/ | Office | Pulmonology | Landon Denton, | | | 2019 | Visit | | MD [address] | | | | | | [place] | | | | | | [address] | | | | | | | [...]
--- OUTSIDE RECORDS SUMMARY | ~2019-07-31 | XMS | Encounter Summary ---
Demographics + + + | Address | [address] | | | [place] [address] | + + + | Home Phone [...] Author | [facility] | | | and [place] | + + + | Organization | [facility] [...] [place] | | | | | [address] | | + + + + + | Haylie Rg | ECON | [address] | | | | | [place] | | + + + + + Care Team Providers + +------+ + | Care Stull Hewer Name | Role | Phone | + +------+ + | Blayne Herrera DO | PCP | | + +------+ + Reason for Visit + + + | Reason | Comments | + + + | Sarcoidosis | 3 mo follow up | + + + Encounter Details +--------+---------+ + + + | Date | Type | Department | Care Team | Description | +--------+---------+ + + + | 05/17/ | Office | [facility] | Landon Denton, | Sarcoidosis (HCC) | | 2016 | Visit | PULMONARY [address] | MD [address] | (Primary Dx); | | | | [place], | [place] | Pulmonary nodules | | | | [place] [address] | [address] | | | | | [phone] | | | +--------+---------+ + + + [...] + | Blood Pressure | 124/80 | 05/17/2016 9:40 AM | | | | | PDT | | + + + + + | Pulse | 82 | 05/17/2016 9:40 AM | | | | | PDT | | + + + + + | Temperature | - | - | | + + + + + | Respiratory Rate | - | - | | + + + + + | Oxygen Saturation | 97% | 05/17/2016 9:40 AM | | | | | PDT | | + + + + + | Inhaled Oxygen | - | - | | | Concentration | | | | + + + + + | Weight | 76.2 kg (168 lb 1.6 | 05/17/2016 9:40 AM | | | | oz) | PDT | | + + + + + | Height | 157.5 cm (5' 2") | 05/17/2016 9:40 AM | | | | | PDT | | + + + + + | Body Mass Index | 30.75 | 05/17/2016 9:40 AM | | | | | PDT | | + + + + + documented in this encounter Patient Instructions Patient Instructions Landon Denton MD - 05/17/2016 10:14 AM PDTAlbuterol Pressurized i nhalation, suspension What is this medicine? ALBUTEROL (al BYOO ter ole) is a bronchodilator. It helps open up the airways in your lungs to make it easier to breathe. This medicine is used to treat and to prevent bronchospasm. This medicine may be used for other purposes; ask your health care provider or pharmacist i f you have questions. What should I tell my health care provider before I take this medicine? They need to know if you have any of the following conditions: diabetes heart disease or irregular heartbeat high blood pressure pheochromocytoma seizures thyroid disease an unusual or allergic reaction to albuterol, levalbuterol, sulfites, other medicines, f oods, dyes, or preservatives or trying to get breast-feeding How should I use this medicine? This medicine is for inhalation through the mouth. Follow the directions on your prescripti on label. Take your medicine at regular intervals. Do not use more often than directed. Make sure that you are using your inhaler correctly. Ask you doctor or health care provider if y ou have any questions. Talk to your director quality assurance regarding the use of this medicine in [...] dose, use it as soon as you can. If it is almost time for your next dose, use only that dose. Do not use double or extra doses. What may interact with this medicine? anti-infectives like chloroquine and pentamidine caffeine cisapride diuretics medicines for colds medicines for depression or for emotional or psychotic conditions medicines for weight loss including some herbal products methadone some antibiotics like clarithromycin, erythromycin, levofloxacin, and linezolid some heart medicines steroid hormones like dexamethasone, cortisone, hydrocortisone theophylline thyroid hormones This list may not describe all possible interactions. Give your health care provider a list of all the medicines, herbs, non-prescription drugs, or dietary supplements you use. Also t ell them if you smoke, drink alcohol, or use illegal drugs. Some items may interact with you r medicine. What should I watch for while using this medicine? Tell your doctor or health career guidance counselor if your symptoms do not improve. Do not use ex tra albuterol. If your asthma or bronchitis gets worse while you are using this medicine, ca ll your doctor right away. If your mouth gets dry try chewing sugarless gum or sucking hard candy. Drink water as dire cted. What side effects may I notice from receiving this medicine? Side effects that you should report to your doctor or health career guidance counselor as soon as p ossible: allergic reactions like skin rash, itching or hives, swelling of the face, lips, or tong ue breathing problems chest pain feeling faint or lightheaded, falls high blood pressure irregular heartbeat fever muscle cramps or weakness pain, tingling, numbness in the hands or feet vomiting Side effects that usually do not require medical attention (report to your doctor or health career guidance counselor if they continue or are bothersome): cough difficulty sleeping headache nervousness or trembling stomach upset stuffy or runny nose throat irritation unusual taste This list may not describe all possible side effects. Call your doctor for medical advice a bout side effects. You may report side effects to FDA at 7-879-BYW-9808. Where should I keep my medicine? Keep out of the reach of children. Store at room temperature between 15 and 30 degrees C (59 and 86 degrees F). The contents a re under pressure and may burst when exposed to heat or flame. Do not freeze. This medicine does not work as well if it is too cold. Throw away any unused medicine after the expiration date. Inhalers need to be thrown away after the labeled number of puffs have been used or b y the expiration date; whichever comes first. Ventolin HFA should be thrown away 12 months a fter removing from foil pouch. Check the instructions that come with your medicine. NOTE: This sheet is a summary. It may not cover all possible information. If you have quest ions about this medicine, talk to your doctor, pharmacist, or health care provider. NOTE:This sheet is a summary. It may not cover all possible information. If you have questi ons about this medicine, talk to your doctor, pharmacist, or health care provider. Copyright 2016 Gold Standard documented in this encounter Progress Notes Landon Denton MD - 05/17/2016 10:02 AM PDTFormatting of this note might be different f rom the original. Pulmonary Follow Up 05/17/2016 HPI Elinor Shelby is a 71 y.o. female patient of Blayne Herrera DO here today for follo w up of sarcoidosis. It has been 3 months since our last clinic appointment. At their last visit, we discussed used an ICS but untimately decided not to start. Since the last visit she feels like their s ymptoms are stable. They have have not had any acute illnesses. Currently they are able to walk 1+ miles at their own pace on level ground. They are not ex ercising regularly. They are not enrolled in cardiac/pulmonary rehabilitation or other physi yaakov therapy. She does not cough chronically, and does not produce mucous. In early February 2016 Elinor sorto apparently developed increase cough. She was advised to use h er ProAir inhaler which has significantly helped her symptoms.. The patient is using her Pr oAir inhaler on average once a week. They have not had hemoptysis. She does [...] nce daily, Disp: , Rfl: 1 Evening [place] Oil 1000 MG CAPS, Take 1,000 mg by mouth 2 times daily., Disp: , Rfl: Lactobacillus (PROBIOTIC ACIDOPHILUS) TABS, Take 2 tablets by mouth Daily., Disp: , Rf l: omeprazole (PRILOSEC) 20 mg capsule, Take 20 mg by mouth every morning (before break st)., Disp: , Rfl: PROAIR HFA 108 (90 BASE) MCG/ACT inhaler, Inhale 2 puffs into the lungs every 4 hours as needed., Disp: , Rfl: Immunizations: Immunization History Administered Date(s) Administered INFLUENZA, HIGH DOSE SEASONAL (ADULT) 05/03/2016 INFLUENZA, TRIVALENT PRESERVATIVE FREE (PED/ADOL/ADULT) 05/02/2012, 04/30/2013, [...] fever. Objective BP 124/80 mmHg | Pulse 82 | Ht 1.575 m (5' 2") | Wt 76.25 kg (168 lb 1.6 oz) | BMI 30.74 kg /m2 | SpO2 97% | ? No Appearance: [...] supraclavicular nodes normal Neurologic: Gait normal Data: none Assessment 1. Sarcoidosis diagnosis established via mediastinoscopy. In early 2015 the patient not ed increased cough and shortness of breath. She was treated with approximately 12 weeks of prednisone and her symptoms returned to baseline. Following the patient's last clinic appoi ntment 3 months ago prednisone was discontinued altogether. Approximately a month after stopping prednisone she developed increased cough without short ness of breath. Elinor sorto was prescribed an albuterol inhaler to use. This appears to be con trolling her symptoms. It remains to be seen whether significant airway inflammation (presumptively secondary to s arcoidosis) is present and needs chronic therapy with an agent such as an inhaled corticoste roid. Elinor sorto has received her seasonal influenza vaccination. 2. Pulmonary nodules stability noted radiographically October 2009 through January 2014. The brayden bucio's most recent chest x-ray from September 2015 is likewise stable and primarily is notable for upper lung zone interstitial changes. Follow-up imaging (chest x-ray) will be performed on an annual basis. Plan 1. The interval between clinic clinic follow-up appointments will be lengthen to 6 months. 2. PA/lateral chest x-ray with follow-up. CC: Blayne Herrera documented in this encounter Plan of Treatment +--------+ + + + + | Date | Type | Specialty | Care Team | Description | +--------+ + + + + | 08/15/ | Appointment | Pulmonology | DentonLandon, | | | 2019 | | | MD [address] | | | | | | [place] | | | | | | [address] | | | | | | | | +--------+ + + + + | 08/15/ | Office | Pulmonology | Landon Denton, | | | 2019 | Visit | | MD [address] | | | | | | [place] | | | | | | [address] | | | | | | | | +--------+ + + + + documented as of this encounter Results XR Chest PA and Lateral (11/15/2016 8:10 AM PDT) + + | Specimen | + + | | + + + + + | Narrative | Performed At | + + + | PA AND LATERAL CHEST 11/15/2016 7:55 AM CLINICAL HISTORY: Follow | [facility] | | up of sarcoid and pulmonary nodules COMPARISON: Chest radiographs | [facility] | | September 2015, chest CT January 2014 FINDINGS: There is thoracic aortic | [facility] | | calcification. A tiny hiatus [...] ST. | [address] | [place] | [phone] | | [facility] | | [address] | | | - IMAGING | | | | + + + + + documented in this encounter Visit Diagnoses + + | Diagnosis | + + | Sarcoidosis - Primary | + + | Pulmonary nodules Other nonspecific abnormal finding of lung field | + + documented in this encounter
--- OUTSIDE RECORDS SUMMARY | ~2019-07-31 | XMS | Encounter Summary ---
Demographics + + + | Address | [address] | | | [place] [address] | + + + | Home Phone [...] Team Providers + +------+ + | Care Children'S Service Supervisor Name | Role | Phone | + +------+ + PCP | Unavailable | + +------+ + Encounter Details +--------+ + + + + | Date | Type | Department | Care Team | Description | +--------+ + + + + | 04/19/ | H&P-Transcr | | Physical, History | Hstry & Physical | | 2001 | ibed | | & | | +--------+ + + + + [...] as of this encounter Plan of Treatment Not on filedocumented as of this encounter Visit Diagnoses Not on filedocumented in this encounter"
--- OUTSIDE RECORDS SUMMARY | ~2019-07-31 | XMS | Encounter Summary ---
Demographics + + + | Address | [address] | | | [place] [address] | + + + | Home Phone | | + + + | Preferred Language | Unknown | + + + | Marital Status | | + + + | Latter-Day Affiliation | Unknown | + + + | Race | Unknown | + + + | Ethnic Group | Unknown | + + + Author + + + | Author | [facility] | | | and [place] | + + + | Organization | [facility] | | | and [...] [place] | | | | | [address] | | + + + + + | Haylie Rg | ECON | [address] [facility] | | | | | [place] | | + + + + + Care Team Providers + +------+ + | Care Manager Utilization Review Name | Role | Phone | + [...] + + | 04/04/ | Office | [facility] | Landon Denton, | Sarcoidosis (HCC) | | 2017 | Visit | PULMONARY [address] | MD [address] | (Primary Dx); | | | | [place], | [place] | Chronic cough | | | | [place] [address] | [address] | | | | | [phone] | | | +--------+---------+ + + + [...] spray The nasal spray isnotrecommended for the 3251-8401 flu season. The CDC says this is bec ause the nasal spray did not seem to protect against the flu over the last several flu seaso ns. In the past, it was meant for people ages 2 to 49. Date Last Reviewed: 06/30/201619998135-9922 [employer]. [address] [place] [address], [place] [address]. All righ ts reserved. This information is [...] nce daily, Disp: , Rfl: 1 Evening [place] Oil 1000 MG CAPS, Take 1,000 mg [...] [place] | | | | | | [address] | | | | | | | | +--------+ + + + + | 08/15/ | Office | Pulmonology | DentonLandon, | | | 2019 | Visit | | MD [address] | | | | | | [place] | | | | | | [address] | | | | | | | | +--------+ + + + + documented as of this encounter Visit Diagnoses + + | Diagnosis | + + | Sarcoidosis - Primary | + + | Chronic cough Cough | + + documented in this encounter
--- OUTSIDE RECORDS SUMMARY | ~2019-07-31 | XMS | Encounter Summary ---
Demographics + + + | Address | [address] | | | [place] [address] | + + + | Home Phone | | + + + | Preferred Language | Unknown | + + + | Marital Status | | + + + | Sikhism Affiliation | Unknown | + + + | Race | Unknown | + + + | Ethnic Group | Unknown | + + + Author + + + | Author | [facility] | | | and [place] | + + + | Organization | [facility] | | | and [...] [place] | | | | | [address] | | + + + + + | Haylie Rg | ECON | [address] | | | | | [place] | | + + + + + Care Team Providers + +------+ + | Care Pilot Plant Operator Name | Role | Phone | + +------+ + | Ama Moreau | PCP | | | MI[place] | | | + +------+ + Encounter Details +--------+ + + + + | Date | Type | Department | Care Team | Description | +--------+ + + + + | 03/18/ | Orders Only | [facility] | Landon Denton, | Sarcoidosis (Primary | | 2019 | | PULMONARY [address] | MD [address] | Dx) | | | | [place], | [place], [place] | | | | | [place] [address] | [address] | | | | | [phone] | | | +--------+ + + + [...] [place] | | | | | | [place] | | | | | | [address] | | | | | | | | +--------+ + + + + | 08/15/ | Office | Pulmonology | Landon Denton, | | | 2020 | Visit | | MD [address] | | | | | | [place] | | | | | | [address] | | | | | | | | +--------+ + + + + + +------+--------+ + + | Name | Type | Priori | Associated Diagnoses | Order Schedule | | | | ty | | | + +------+--------+ + + | Hepatic Function | Lab | Routin | Sarcoidosis | monthly for 12 | | Panel | | e | | Occurrences starting | | | | | | 03/18/2019 until | | | | | | 03/18/2020 | + +------+--------+ + + | CBC with | Lab | Routin | Sarcoidosis | monthy for 12 | | Differential | | e | | Occurrences starting | | | | | | 03/18/2019 until | | | | | | 03/18/2020 | + +------+--------+ + + documented as of this encounter Visit Diagnoses + + | Diagnosis | + + | Sarcoidosis - Primary | + + documented in this encounter"
--- OUTSIDE RECORDS SUMMARY | ~2019-07-31 | XMS | Encounter Summary ---
Demographics + + + | Address | [address] | | | [place] [address] | + + + | Home Phone [...] + | Author | [facility] | | | and [place] | + + + | Organization | [facility] | | | and [place] [...] [place] | | | | | [address] | | + + + + + | Haylie Rg | ECON | [address] [facility] | | | | | [place] | | + + + + + Care Team Providers + +------+ + | Care Motorsports Technician Name | Role | Phone | [...] | Sarcoidosis | MD Landon | [place] | | | | | Chronic | [address] | [place], | | | | | cough | [address] | [place] [address] | | | | | Procedures | [place], | Phone: | | | | | CT Chest wo | [place] [address] | [phone] | | | | | Contrast | Phone: | Fax: | | | | | | [phone] | [phone] | | | | | | Fax: | | | | | | | [phone] | | +--------+--------+ + + + + [...] + + | 12/13/ | Office | [facility] | Landon Denton, | Chronic cough | | 2017 | Visit | PULMONARY [address] | MD [address] | (Primary Dx); | | | | [place], | [place], [place] | Sarcoidosis (HCC); | | | | [place] [address] | [address] | Need for | | | | [phone] | | pneumococcal | | | | [...] says it s OK. And tell your [facility] provider or pharmacist about all medicines you use. This includes [id number] m edicines. It also includes herbs or supplements. Date Last Reviewed: 03/31/201619990477-9717 [employer]. [address] [place] [address]. All righ ts reserved. This information is not intended as a substitute for professional medical care. Always follow your healthcare professional's instructions. documented in this encounter Progress Notes Landon Denton MD - 12/13/2016 10:32 AM PDTFormatting of this note might be different f rom the original. Pulmonary Follow Up 12/13/2016 [facility] Elinor Shelby is a 71 y.o. female [...] ~3 days per week and [facility]. They are not enrolled in cardiac/pulmonary rehabilitation [...] nce daily, Disp: , Rfl: 1 Evening [place]pt[place] Oil 1000 MG CAPS, Take 1,000 mg [...] [place] | | | | | | [address] | | | | | | | | +--------+ + + + + | 08/15/ | Office | Pulmonology | Landon Denton, | | | 2019 | Visit | | [address] | | | | | | [place] | | | | | | [address] | | | | | | | [...] nodular densities and fibrosis. Worse cough. | [facility] | | COMPARISON: 02/20/2014 PROTOCOL: Axial images [...] [address] | [place] | [phone] | | [facility] | | [address] | | | - IMAGING | | [...]
--- OUTSIDE RECORDS SUMMARY | ~2019-07-31 | XMS | Encounter Summary ---
Demographics + + + | Address | [address] | | | [place] [address] | + + + | Home Phone | | + + + | Preferred Language | Unknown | + + + | Marital Status | | + + + | Religion Affiliation | Unknown | + + + | Race | Unknown | + + + | Ethnic Group | Unknown | + + + Author + + + | Author | [facility] | | | and [place] | + + + | Organization | [facility] | | | and [place] [...] [place] | | | | | [address] | | + + + + + | Haylie Rg | ECON | [phone] [facility] | | | | | [place] | | + + + + + Care Team Providers + +------+ + | Care Burr Mill Operator Name | Role | Phone | + +------+ + | Ama Moreau | PCP | | | PAIan | | | + +------+ + Reason for Visit + + + | Reason | Comments | + + + | Pulmonary Disease | 2 wk follow up/W OX | | Appointment | | + + + Encounter Details +--------+---------+ + + + | Date | Type | Department | Care Team | Description | +--------+---------+ + + + | 11/23/ | Office | [facility] | Landon Denton, | Bronchiectasis | | 2019 | Visit | PULMONARY [address] | MD [address] | without complication | | | | [place], | [place], [place] | ([facility]) (Primary Dx); | | | | [place] [address] | [id number] | Sarcoidosis ([facility]); | | | | [phone] | | Hypoxemia | +--------+---------+ + + + Social History [...] + + + | Blood Pressure | 130/80 | 11/23/2018 10:25 AM | | | | | PDT | | + + + + + | Pulse | 93 | 11/23/2018 10:25 AM | | | | | PDT | | + + + + + | Temperature | - | - | | + + + + + | Respiratory Rate | - | - | | + + + + + | Oxygen Saturation | 99% | 11/23/2018 10:25 AM | RA | | | | PDT | | + + + + + | Inhaled Oxygen | - | - | | | Concentration | | | | + + + + + | Weight | 75.2 kg (165 lb 12.6 | 11/23/2018 10:25 AM | | | | oz) | PDT | | + + + + + | Height | 157.5 cm (5' 2") | 11/23/2018 10:25 AM | | | | | PDT | | + + + + + | Body Mass Index | 30.32 | 11/23/2018 10:25 AM | | | | | PDT | | + + + + + documented in this encounter Patient Instructions Patient Instructions Landon Denton MD - 11/23/2018 10:30 AM PDT Prednisone tablets Brand Names: Deltasone, [...] avoid any side effects. Talk to your mechanical intern regarding the use of this medicine in children. Special care may be needed. What side effects may I notice from receiving this medicine? Side effects that you should report to your doctor or health residential care facility manager as soon as p ossible: allergic [...] attention (report to your doctor or health residential care facility manager if they continue or are bothersome): confusion, [...] ta lk to your doctor or health residential care facility manager. You may need to miss a dose [...] if you have any of these conditions: [place]'s syndrome diabetes glaucoma heart disease high blood [...] this medicine? Visit your doctor or health residential care facility manager for regular checks on your progress. If [...] have surgery, tell your doctor or health residential care facility manager that you hav e taken this medicine within the last twelve months. Ask your doctor or health residential care facility manager about your diet. You may need to lower the amou nt of salt you eat. This medicine may affect blood sugar levels. If you have diabetes, check with your doctor o r health residential care facility manager before you change your diet or the dose of your diabetic medicine . NOTE:This sheet is a summary. It may not cover all possible information. If you have questi ons about this medicine, talk to your doctor, pharmacist, or health care provider. Copyright 2019 [employer] Methotrexate tablets Brand Names: Rheumatrex, Trexall What [...] to take special precautions. Talk to your mechanical intern regarding the use of this medicine in children. While this drug m ay be prescribed for selected conditions, precautions do apply. What side effects may I notice from receiving this medicine? Side effects that you should report to your doctor or health residential care facility manager as soon as p ossible: allergic [...] attention (report to your doctor or health residential care facility manager if they continue or are bothersome): dizziness [...] dose, talk with your doctor or health residential care facility manager. Do not take double o r extra [...] this medicine. Call your doctor or health residential care facility manager for advice if you get a fever, [...] bleeding. Check with your doctor or health residential care facility manager if you get an attack of severe [...] an unborn child. Talk to your health residential care facility manager or pharmacist for more information. Do not breast-feed an i nfant while taking this medicine. NOTE:This sheet is a summary. It may not cover all possible information. If you have questi ons about this medicine, talk to your doctor, pharmacist, or health care provider. Copyright 2019 [employer] documented in this encounter Progress Notes Landon Denton MD - 11/23/2018 10:30 AM PDTFormatting of this note might be different f rom the original. Pulmonary Follow Up 11/23/2018 [facility] Elinor Shelby is a 73 y.o. female patient of Ama Moreau PA-C here today for follow up of sarcoidosis. It has been 2 weeks since our last clinic appointment. At their last visit, we we continue d prednisone dose to 30 mg a day. Since the last visit she feels like their symptoms are decreasing steadily. They have hav e not had any recent acute illnesses. They are currently on a regimen of prednisone for their sarcoid. The patient do feel like this medication regimen is decreasing their sarcoid related symptoms. Currently they are able to walk 2000+ feet at their own pace on level ground. They are exer cising regularly. Their exercise consists of water walking/exercises for an hour most days. They are not enrolled in cardiac/pulmonary rehabilitation or other physical therapy. She does cough chronically. Cough much better and does not produce mucous. They have not had hemoptysis since our last clinic appointment. Elinor does not wheeze chronically, and does not have chest tightness. The patient does note side effects from their sarcoidosis medications. Specifically does h ave insomnia but no polyuria. She has not been evaluated for nocturnal oxygen. Elinor does not had symptoms of heartburn or reflux. They have not had symptoms of nasal conges tion, runny nose or post nasal drip. Elinor Buitrago is currently not requiring Pro Air. She continues to use her Flovent inhaler twice a day. Past Medical History Past Medical History: Diagnosis [...] coughing)., Disp: 1 Inhaler, Rfl: 5 Evening Holt Oil 1000 MG CAPS, Take 1,000 mg by mouth Daily., Disp: , Rfl: FLOVENT DISKUS 100 MCG/BLIST diskus inhaler, inhale 1 puff into the lungs 2 times davie y., Disp: 1 Inhaler, Rfl: 2 [place]-3 Fatty Acids (OMEGA-3 FISH OIL) 1000 MG [...] PNEUMOCOCCAL POLYSACCHARIDE 23-VALENT (PPSV23) 08/22/2008 Objective BP 130/80 | Pulse 93 | Ht 1.575 m (5' 2") | Wt 75.2 kg (165 lb 12.6 oz) | SpO2 99% Comm ent: RA | BMI 30.32 kg/m Appearance: Alert, cooperative, no distress, appears [...] AST No results found for: ALTEX, ALT Walking oximetry performed 11/23/2018. Patient walked 2000 feet over 6 minutes. Her O2 sat uration began at 98% and nadired at 87%. Assessment 1. Sarcoidosis long-standing history. Based on symptoms, pulmonary function and CT imag ing progression of this patient sarcoidosis seems likely. 4 weeks ago we initiated predniso ne dose to 30 mg a day. Subjective improvement of the patient's shortness of breath is reported. Elinor Buitrago appears t o be tolerating prednisone with minimal side effects. It is reasonable to decrease the patient's prednisone to 25 mg a day. Today we also discussed initiation of methotrexate once her dose is down to 15-20 mg a day. 2. Hypoxemia the amount of activity/the extent of desaturation appears to have improved over the last 2 weeks. Pending further discussion no plans to initiate supplemental oxygen at this time. Plan 1. Decrease prednisone to 25 mg p.o. daily. 2. Continue Bactrim 3 times a week while on prednisone at a dose of greater than/equal to 20 mg a day. 3. Pulmonary clinic follow-up appointment in 4 weeks [...] 2019 | Visit | | [address] | | | | | | [place] | | | | | | [address] | | | | | | | | +--------+ + + + + documented as of this encounter Visit Diagnoses + + | Diagnosis | + + | Bronchiectasis without complication (HCC) - Primary Bronchiectasis without acute | | exacerbation | + + | Sarcoidosis (HCC) Sarcoidosis | + + | Hypoxemia | + + documented in this encounter
--- OUTSIDE RECORDS SUMMARY | ~2019-07-31 | XMS | Encounter Summary ---
Demographics + + + | Address | [address] | | | [place] [address] | + + + | Home Phone [...] Author | [facility] | | | and [place] | + + + | Organization | [facility] | [...] [place] | | | | | [address] | | + + + + + | Haylie Rg | ECON | [address] [facility] | | | | | [place] | | + + + + + Care Team Providers + +------+ + | Care Cash Teller Name | Role | Phone | + +------+ + | Ama Moreau | PCP | | | MIYA | | | + +------+ + Reason for Visit + + + | Reason | Comments | + + + | Follow-up, Office | Difficulty breathing, headache, coughing | | Visit | | + + + Encounter Details +--------+---------+ + + + | Date | Type | Department | Care Team | Description | +--------+---------+ + + + | 10/17/ | Office | [facility] [place] | Landon Denton, | Sarcoidosis ([facility]) | | 2019 | Visit | PULMONARY [address] | MD [address] | (Primary Dx); | | | | [place], | [place], [place] | Bronchiectasis with | | | | [place] [address] | [address] | acute exacerbation | | | | [phone] | | ([facility]); Dyspnea on | | | | | | exertion | +--------+---------+ + + + Social History [...] + + + | Blood Pressure | 132/74 | 10/17/2018 9:17 AM | | | | | PDT | | + + + + + | Pulse | 89 | 10/17/2018 9:17 AM | | | | | PDT | | + + + + + | Temperature | - | - | | + + + + + | Respiratory Rate | 20 | 10/17/2018 9:17 AM | | | | | PDT | | + + + + + | Oxygen Saturation | 93% | 10/17/2018 9:17 AM | RA | | | | PDT | | + + + + + | Inhaled Oxygen | - | - | | | Concentration | | | | + + + + + | Weight | 74.1 kg (163 lb 5.8 | 10/17/2018 9:17 AM | | | | oz) | PDT | | + + + + + | Height | 156.2 cm (5' 1.5") | 10/17/2018 9:17 AM | | | | | PDT | | + + + + + | Body Mass Index | 30.37 | 10/17/2018 9:17 AM | | | | | PDT | | + + + + + documented in this encounter Patient Instructions Patient Instructions Landon Denton MD - 10/17/2018 9:30 AM PDT Levofloxacin tablets Brand Names: Levaquin, Levaquin Leva-Michael What is this medicine? LEVOFLOXACIN (jaylyn YAÑEZ a sin) is a quinolone antibiotic. It is used to treat certain ki nds of bacterial infections. It will not work for colds, flu, or other viral infections. How should I use this medicine? Take this medicine by mouth with a full glass of water. Follow the directions on the prescr iption label. You can take it with or without food. If it upsets your stomach, take it with food. Take your medicine at regular intervals. Do not take your medicine more often than dir ected. Take all of your medicine as directed even if you think you are better. Do not skip d oses or stop your medicine early. Avoid antacids, calcium, iron, and zinc products for 2 hours before and 2 hours after takin g a dose of this medicine. A special MedGuide will be given to you by the pharmacist with each prescription and refill . Be sure to read this information carefully each time. Talk to your curtain feller blindstitch regarding the use of this medicine in children. While this drug m ay be prescribed for children as young as 6 months for selected conditions, precautions do a pply. What side effects may I notice from receiving this medicine? Side effects that you should report to your doctor or health health care assistant as soon as p ossible: allergic reactions like skin rash or hives, swelling of the face, lips, or tongue anxious back pain bloody or watery diarrhea breathing problems chest pain confusion depressed mood fast, irregular heartbeat fever hallucination, loss of contact with reality joint, muscle, or tendon pain or swelling loss of memory muscle weakness pain, tingling, numbness in the hands or feet seizures signs and symptoms of high blood sugar such as dizziness; dry mouth; dry skin; fruity br eath; nausea; stomach pain; increased hunger or thirst; increased urination signs and symptoms of liver injury like dark yellow or brown urine; general ill feeling or flu-like symptoms; light-colored stools; loss of appetite; nausea; right upper belly pain ; unusually weak or tired; yellowing of the eyes or skin signs and symptoms of low blood sugar such as feeling anxious; confusion; dizziness; inc reased hunger; unusually weak or tired; sweating; shakiness; cold; irritable; headache; blur red vision; fast heartbeat; loss of consciousness; pale skin stomach pain suicidal thoughts or other mood changes sunburn unusually weak or tired Side effects that usually do not require medical attention (report to your doctor or health health care assistant if they continue or are bothersome): constipation dry mouth headache nausea, vomiting trouble sleeping What may interact with this medicine? Do not take this medicine with any of the following medications: cisapride dofetilide dronedarone pimozide thioridazine ziprasidone This medicine may also interact with the following medications: antacids control pills certain medicines for diabetes, like glipizide, glyburide, or insulin certain medicines that treat or prevent blood clots like warfarin didanosine buffered tablets or powder multivitamins NSAIDS, medicines for pain and inflammation, like ibuprofen or naproxen other medicines that prolong the QT interval (cause an abnormal heart rhythm) steroid medicines like prednisone or cortisone sucralfate theophylline What if I miss a dose? If you miss a dose, take it as soon as you remember. If it is almost time for your next dos e, take only that dose. Do not take double or extra doses. Where should I keep my medicine? Keep out of the reach of children. Store at room temperature between 15 and 30 degrees C (59 and 86 degrees F). Keep in a [facility] closed container. Throw away any unused medicine after the expiration date. What should I tell my health care provider before I take this medicine? They need to know if you have any of these conditions: bone problems diabetes heart disease high blood pressure history of irregular heartbeat history of low levels of potassium in the blood joint problems kidney disease liver disease myasthenia gravis seizures tendon problems tingling of the fingers or toes, or other nerve disorder an unusual or allergic reaction to levofloxacin, other quinolone antibiotics, foods, dye s, or preservatives or trying to get breast-feeding What should I watch for while using this medicine? Tell your doctor or healthcare professional if your symptoms do not start to get better or if they get worse. Do not treat diarrhea with over the counter products. Contact your doctor if you have diarr hea that lasts more than 2 days or if it is severe and watery. Check with your doctor or health health care assistant if you get an attack of severe diarrhea, nausea and vomiting, or if you sweat a lot. The loss of too much body fluid can make it celestina gerous for you to take this medicine. This medicine may affect blood sugar levels. If you have diabetes, check with your doctor o r health health care assistant before you change your diet or the dose of your diabetic medicine . You may get drowsy or dizzy. Do not drive, use machinery, or do anything that needs mental alertness until you know how this medicine affects you. Do not sit or stand up quickly, darrell cially if you are an older patient. This reduces the risk of dizzy or fainting spells. This medicine can make you more sensitive to the sun. Keep out of the sun. If you cannot av oid being in the sun, wear protective clothing and use a sunscreen. Do not use sun lamps or tanning beds/booths. NOTE:This sheet is a summary. It may not cover all possible information. If you have questi ons about this medicine, talk to your doctor, pharmacist, or health care provider. Copyright 2019 [employer] documented in this encounter Progress Notes Landon Denton MD - 10/17/2018 9:30 AM PDTFormatting of this note might be different f rom the original. Pulmonary Follow Up 10/17/2018 HPI Elinor Shelby is a 73 y.o. female patient of Ama Moreau PA-C here today for follow up of sarcoidosis. It has been over 6 months since our last clinic appointment. At their last visit, we plan for routine follow-up in early September 2018. Due to weather Elinor Covarrubias was unable to keep that ap pointment. The patient contacted our office in April reporting increased cough. It was suggested th at she follow-up with her primary care provider. There is some ambiguity regarding whether this occurred. Approximately 2 months later in early June again Elinor Covarrubias called reporting increased cough now with some shortness of breath. She was evaluated by her primary care brayden bonilla and treated with an antibiotic. Specifics unclear. The patient next called our office on October 15 stating that she was short of breath climbin g 26 steps and that it took her up to 15 minutes to recover. I suggested to the patient avril t she immediately seek medical attention. Elinor Covarrubias chose to wait for follow-up in our office 3 days later. Last night the patient experienced some chest pain. The pain has subsequently resolved. I ntermittent lightheadedness is noted. The patient denies new exposures. She has received i nfluenza vaccination. Since the last visit she feels like their symptoms are increasing steadily. They have hav e had any recent acute illnesses. They are currently on a regimen of Flovent for their sarcoid. The patient do not feel like this medication regimen is decreasing their sarcoid related symptoms. Is also using her pr o-air inhalerElinor Marci several times a day. Currently they are able to walk only 100 feet at their own pace on level ground. They are e xercising regularly. Their exercise consists of activity in a swimming pool. They are not enrolled in cardiac/pulmonary rehabilitation or other physical therapy. She does cough chronically, and does produce mucous. The mucous is white in color. They hav e not had hemoptysis since our last clinic appointment. Elinor wheeze some, and does have chest tightness. Chest pain intermittently noted. Substernal . Heavy like. Vice like. Lasted hours last night. The patient does not note side effects from their sarcoidosis medications. She has not been evaluated for nocturnal oxygen. does not had symptoms of heartburn or reflux. They have not had symptoms of nasal congestio n, runny nose or post nasal drip. Winona chilled and feverish last night. No myalgias. SELLERS with cough. Past Medical History Past Medical History: Diagnosis [...] coughing)., Disp: 1 Inhaler, Rfl: 5 Evening Greenwood Oil 1000 MG CAPS, Take 1,000 mg by mouth Daily., Disp: , Rfl: FLOVENT DISKUS 100 MCG/BLIST diskus inhaler, inhale 1 puff into the lungs 2 times davie y., Disp: 1 Inhaler, Rfl: 2 omeprazole (PRILOSEC) 20 mg capsule, Take 20 [...] PNEUMOCOCCAL POLYSACCHARIDE 23-VALENT (PPSV23) 08/22/2008 Objective BP 132/74 | Pulse 89 | Resp 20 | Ht 1.562 m (5' 1.5") | Wt 74.1 kg (163 lb 5.8 oz) | S pO2 93% Comment: RA | BMI 30.37 kg/m Appearance: Alert, cooperative, no distress, appears stated age Head: Normocephalic, without obvious abnormality, atraumatic Eyes: PERRL, conjunctiva/corneas clear Nose: Nares normal, septum midline, mucosa normal, no drainage or sinus tenderness Throat: Lips, mucosa, and tongue normal; teeth/dentures normal Neck: Supple, symmetrical, no JVD Lungs: No accessory muscle use, breath sounds ar bibasilar crackles, no wheezes or rhonch i. No dullness to percussion. Chest Wall: No tenderness or deformity Heart: Regular rate and rhythm, S1, S2 normal, no murmur, rub or gallop Extremities: Extremities normal, atraumatic, no cyanosis, clubbing. none edema. No joint s welling. Skin: Warm and dry. No rashes. Lymph nodes: Cervical and supraclavicular nodes normal Neurologic: Gait normal Data: Chest x-ray was done on 11/15/16 and 10/17/18 and was reviewed and interpreted in clinic anahi rajan. It shows increased interstitial markings in the upper lung zones bilaterally. Pulmonary function tests were performed on 10/17/18 and were reviewed and interpreted in cli jasmyne today. They show a forced vital capacity of 1.70, 69% of predicted. Exertional oximetry: Performed 10/17/18. Patient walked 700 feet over 4 minutes. Her O2 sa turation nadired at 85%. Heart rate lino to 113 bpm. Oxygen at 2 L/min was needed to maint ain O2 saturation in the low to mid 90 days Assessment 1. Worsening dyspnea etiology unclear. Long-standing history of pulmonary sarcoidosis. Worsening symptoms date back to approximately April. The differential remains broad. In fection, cardiovascular disease or thromboembolic disease are all possibilities. Progressio n of the patient's sarcoid is another possibility. I have suggested to Elinor Covarrubias that we perform blood work to assess for the above-noted diagnos es. Close medical follow-up as needed. The patient was advised to present to the emergency department if her symptoms at all worsen. If the above-noted diagnostic studies are not helpful I would consider placing the patient on prednisone for progression of her sarcoid. There is also potentially a role for a repeat CT scan of the chest. 2. Bronchiectasis with an apparent exacerbation. I have suggested to Elinor Covarrubias that she be treated with a course of Levaquin. 3. Hypoxemia prior history of mild desaturation with exertion (04/03/18 walking 2040 feet over 9.5 minutes the patient desaturated to 88%). However today with walking 700 feet over 4 minutes she desaturated percent. Potential etiologies noted above. We discussed supplemental oxygen but ultimately Elinor Covarrubias hope that with pacing herself she co uld avoid supplemental oxygen at this time. Time will tell if this is possible. Total duration of the patient's clinic appointment was in excess of 40 minutes. Greater th an 50% of the time was spent in counseling related to further evaluation of the patient's sh ortness of breath and treatment of a bronchiectasis exacerbation. Plan 1. Lab work for BNP, CBC, procalcitonin, troponin and d-dimer. 2. Levaquin 750 mg p.o. daily for 7 days. 3. Pulmonary clinic follow-up appointment in 7 days. 4. We will contact Elinor Covarrubias with the above-noted laboratory studies and advice regarding whe ther systemic steroids should be initiated. CC: Ama Moreau PA-C documented in this [...] [place] | | | | | | [address] | | | | | | | | +--------+ + + + + documented as of this encounter Procedures + +--------+ + + + | Procedure Name | Priori | Date/Time | Associated Diagnosis | Comments | | | ty | | | | + +--------+ + + + | PROCALCITONIN, SERUM | Routin | 10/17/2018 | Dyspnea on | Results for this | | | e | 10:15 AM | exertion | procedure are in the | | | | PDT | | results section. | + +--------+ + + + | TROPONIN I | Routin | 10/17/2018 | Dyspnea on | Results for this | | | e | 10:15 AM | exertion | procedure are in the | | | | PDT | | results section. | + +--------+ + + + | D-DIMER | Routin | 10/17/2018 | Dyspnea on | Results for this | | | e | 10:15 AM | exertion | procedure are in the | | | | PDT | | results section. | + +--------+ + + + | CBC WITH | Routin | 10/17/2018 | Dyspnea on | Results for this | | DIFFERENTIAL | e | 10:15 AM | exertion | procedure are in the | | | | PDT | | results section. | + +--------+ + + + | B TYPE NATRIURETIC | Routin | 10/17/2018 | Dyspnea on | Results for this | | PEPTIDE | e | 10:15 AM | exertion | procedure are in the | | | | PDT | | results section. | + +--------+ + + + documented in this encounter Results Troponin I (10/17/2018 10:15 AM PDT) + +-------+ + + + | Component | Value | Ref Range | Performed | Pathologist | | | | | At | Signature | + +-------+ + + + | Troponin I | <0.00 | <0.06 ng/mL | [facility] | | | | | [...] | + + + + + | [facility] | [address] | [place] | [phone] | | [facility] | | [address] | | | - LABORATORY | | | | + + + + + D-Dimer (10/17/2018 10:15 AM PDT) + + + + + + | Component | Value | Ref Range | Performed | Pathologist | | | | | At | Signature | + + + + + + | D-Dimer | 0.98 (H)Comment: This | <=0.50 ug/ml | [facility] | | | Quantitativ | quantitative D-Dimer | | [facility] | | | e | assay has been evaluated | | MEDICAL | | | | for screening for | | CENTER - | | | | venous thrombotic | | LABORATORY | | | | disease, and may be | | | | | | useful in ruling out, | | | | | | but not ruling in | | | | | | disease. Values less | | | | | | than 0.50 ug/mL FEU | | | | | | (Fibrinogen Equivalent | | | | | | Units) have a negative | | | | | | predictive value of | | | | | | approximately 95% for | | | | | | ruling out large | | | | | | pulmonary emboli or | | | | | | proximal deep vein | | | | | | thrombosis. Distal DVT | | | | | | are not excluded. An | | | | | | elevated D-dimer can be | | | | | | present in patients with | | | | | | liver disease, | | | | | | , eclampsia, | | | | | | heart disease and some | | | | | | cancers among other | | | | | | conditions. The presence | | | | | | of rheumatoid factor at | | | | | | a level >50 IU/mL may | | | | | | falsely elevate the | | | | | | determined D-dimer | | | | | | levels. | | | | + + + + + + + + | Specimen | + + | Blood | + + + + + + + | Performing | Address | City/State/Zipcode | Phone Number | | Organization | | | | + + + + + | [facility] | [address] | [place] | [phone] | | [facility] | | [address] | | | - LABORATORY | | | | + + + + + Procalcitonin (10/17/2018 10:15 AM PDT) + + + + + + | Component | Value | Ref Range | Performed | Pathologist | | | | | At | Signature | + + + + + + | Procalciton | <0.05 | <=0.50 ng/mL | [facility] | | | in | | | [facility] | | | | | | MEDICAL | | | | | | CENTER - | | | | | | LABORATORY | | + + + + + + | Comment | Comment: < 0.50 | | [facility] | | | | ng/mL:Procalcitonin | | [facility] | | | | levels below 0.50 ng/mL | | MEDICAL | | | | on the first day of | | CENTER - | | | | admission represents a | | LABORATORY | | | | low risk for progression | | | | | | to severe sepsis and/or | | | | | | septic shock, however | | | | | | these do not exclude an | | | | | | infection, because | | | | | | localized infections | | | | | | (without systemic signs) | | | | | | may also be associated | | | | | | with such low levels. | | | | | | > 2.00 | | | | | | ng/mL:Procalcitonin | | | | | | levels above 2.00 ng/mL | | | | | | on the first day of | | | | | | admission represents a | | | | | | high risk for | | | | | | progression to severe | | | | | | sepsis and/or septic | | | | | | shock. If the | | | | | | procalcitonin | | | | | | measurement is performed | | | | | | shortly after the | | | | | | systemic infection | | | | | | process has started | | | | | | (usually less than 6 | | | | | | hours), these values may | | | | | | still be low. As | | | | | | various non-infectious | | | | | | conditions are known to | | | | | | induce procalcitonin as | | | | | | well, procalcitonin | | | | | | levels between 0.50 | | | | | | ng/mL and 2.00 ng/mL | | | | | | should be reviewed | | | | | | carefully to take into | | | | | | account the specific | | | | | | clinical background and | | | | | | condition(s) of the | | | | | | individual patient. | | | | + + + + + + + + | Specimen | + + | Blood | + + + + + + + | Performing | Address | City/State/Zipcode | Phone Number | | Organization | | | | + + + + + | [facility] | [address] | [place] | [phone] | | [facility] | | [address] | | | - LABORATORY | | | | + + + + + CBC with Differential (10/17/2018 10:15 AM PDT) + + + + + + | Component | Value | Ref Range | Performed | Pathologist | | | | | At | Signature | + + + + + + | WBC | 6.8 | 4.0 - 11.0 K/uL | [facility] | | | | | | [facility] | | | | | | MEDICAL | | | | | | CENTER - | | | | | | LABORATORY | | + + + + + + | RBC | 4.54 | 3.70 - 5.20 | [facility] | | | | | M/uL | [facility] | | | | | | MEDICAL | | | | | | CENTER - | | | | | | LABORATORY | | + + + + + + | Hemoglobin | 13.9 | 11.5 - 16.0 | [facility] | | | | | g/dL | [facility] | | | | | | MEDICAL | | | | | | CENTER - | | | | | | LABORATORY | | + + + + + + | Hematocrit | 41.5 | 34.0 - 47.0 % | [facility] | | | | | | [facility] | | | | | | MEDICAL | | | | | | CENTER - | | | | | | LABORATORY | | + + + + + + | MCV | 91.4 | 83.0 - 101.0 fL | [facility] | | | | | | [facility] | | | | | | MEDICAL | | | | | | CENTER - | | | | | | LABORATORY | | + + + + + + | MCH | 30.6 | 28.0 - 35.0 pg | [facility] | | | | | | [facility] | | | | | | MEDICAL | | | | | | CENTER - | | | | | | LABORATORY | | + + + + + + | MCHC | 33.5 | 32.0 - 36.0 | [facility] | | | | | g/dL | [facility] | | | | | | MEDICAL | | | | | | CENTER - | | | | | | LABORATORY | | + + + + + + | RDW-CV | 14.3 | <15.0 % | [facility] | | | | | | [facility] | | | | | | MEDICAL | | | | | | CENTER - | | | | | | LABORATORY | | + + + + + + | RDW-SD | 48.1 (H) | 35.1 - 46.3 fL | [facility] | | | | | | [facility] | | | | | | MEDICAL | | | | | | CENTER - | | | | | | LABORATORY | | + + + + + + | Platelet | 196 | 140 - 440 K/uL | [facility] | | | Count | | | [facility] | | | | | | MEDICAL | | | | | | CENTER - | | | | | | LABORATORY | | + + + + + + | MPV | 8.9 | 6.5 - 12.4 fL | [facility] | | | | | | [facility] | | | | | | MEDICAL | | | | | | CENTER - | | | | | | LABORATORY | | + + + + + + | % | 68.9 | 45.0 - 82.0 % | [facility] | | | Neutrophils | | | [facility] | | | | | | MEDICAL | | | | | | CENTER - | | | | | | LABORATORY | | + + + + + + | % | 12.0 (L) | 20.0 - 45.0 % | [facility] | | | Lymphocytes | | | [facility] | | | | | | MEDICAL | | | | | | CENTER - | | | | | | LABORATORY | | + + + + + + | % Monocytes | 15.7 (H) | 4.0 - 12.0 % | [facility] | | | | | | [facility] | | | | | | MEDICAL | | | | | | CENTER - | | | | | | LABORATORY | | + + + + + + | % | 2.1 | 0.0 - 5.0 % | [facility] [...] + + + | % Immature | 0.4 | 0.0 - 0.4 % | [facility] | | | Granulocyte | | | [facility] | | | s | | | MEDICAL | | | | | | CENTER - | | | | | | LABORATORY | | + + + + + + | Absolute | 4.69 | 1.80 - 8.50 | [facility] | | | Neutrophils | | K/uL | [facility] | | | | | | MEDICAL | | | | | | CENTER - | | | | | | LABORATORY | | + + + + + + | Absolute | 0.82 | 0.60 - 3.20 | [facility] | | | Lymphocytes | | K/uL | [facility] | | | | | | MEDICAL | | | | | | CENTER - | | | | | | LABORATORY | | + + + + + + | Absolute | 1.07 (H) | 0.00 - 1.00 | [facility] | | | Monocytes | | K/uL | [facility] | | | | | | MEDICAL | | | | | | CENTER - | | | | | | LABORATORY | | + + + + + + | Absolute | 0.14 | 0.00 - 0.40 | [facility] | | | Eosinophils | | K/uL | [facility] | | | | | | MEDICAL | | | | | | CENTER - | | | | | | LABORATORY | | + + + + + + | Absolute | 0.06 | 0.00 - 0.10 | [facility] | | | Basophils | | K/uL | [facility] | | | | | | MEDICAL | | | | | | CENTER - | | | | | | LABORATORY | | + + + + + + | Absolute | 0.03 | 0.00 - 0.03 | [facility] | [...] | [facility] | | | | | WBC's | [facility] | | | | [...] | + + + + + | [facility] | [address] | [place] | [phone] | | [facility] | | [address] | | | - LABORATORY | | | | + + + + + B Type Natriuretic Peptide (10/17/2018 10:15 AM PDT) + +-------+ + + + | Component | Value | Ref Range | Performed | Pathologist | | | | | At | Signature | + +-------+ + + + | BNP | 51 | <100 pg/mL | [facility] | | | | | [facility] [...] + | [facility] | [address] | [place], [place] | [phone] | | [facility] | | [address] | | | - LABORATORY | | | | + + + + + documented in this encounter Visit Diagnoses + + | Diagnosis | + + | Sarcoidosis (HCC) - Primary Sarcoidosis | + + | Bronchiectasis with acute exacerbation (HCC) Bronchiectasis with acute exacerbation | + + | Dyspnea on exertion Other dyspnea and respiratory abnormality | + + documented in this encounter
--- OUTSIDE RECORDS SUMMARY | ~2019-07-31 | XMS | Encounter Summary ---
Demographics + + + | Address | [address] | | | [place] [address] | + + + | Home Phone | | + + + | Preferred Language | Unknown | + + + | Marital Status | | + + + | Synagogue Affiliation | Unknown | + + + | Race | Unknown | + + + | Ethnic Group | Unknown | + + + Author + + + | Author | [facility] | | | and [place] | + + + | Organization | [facility] | | | and [...] [place] | | | | | [address] | | + + + + + | Haylie Rg | ECON | [address] [facility] | | | | | [place] | | + + + + + Care Team Providers + +------+ + | Care Upholstery Trimmer Name | Role | Phone | + [...] + + | 10/30/ | Telephone | [facility] | Landon Denton, | Other (small red | | 2018 | | PULMONARY [address] | MD [address] | bumps) | | | | [place], | [place] | | | | | [place] [address] | [address] | | | | | [phone] | | | +--------+ + + + [...] [place] | | | | | | [address] | | | | | | | | +--------+ + + + + | 08/15/ | Office | Pulmonology | Landon Denton, | | | 2019 | Visit | | MD [address]AI[address] | | | | | | [place] | | | | | | [address] | | | | | | | | +--------+ + + + + documented as of this encounter Visit Diagnoses Not on filedocumented in this encounter"
--- OUTSIDE RECORDS SUMMARY | ~2019-07-31 | XMS | Encounter Summary ---
Demographics + + + | Address | [address] | | | [place] [address] | + + + | Home Phone | | + + + | Preferred Language | Unknown | + + + | Marital Status | | + + + | Anglican Affiliation | Unknown | + + + | Race | Unknown | + + + | Ethnic Group | Unknown | + + + Author + + + | Author | [facility] | | | and [place] | + + + | Organization | [facility] | | | and [place] [...] [place] | | | | | [address] | | + + + + + | Haylie Rg | ECON | [address] [facility] | | | | | [place] | | + + + + + Care Team Providers + +------+ + | Care Sheeter Machine Operator Name | Role | Phone [...] + | 08/27/ | Office | [facility] | Landon Denton, | Sarcoidosis (HCC) | | 2015 | Visit | PULMONARY [address] | MD [address] | (Primary Dx) | | | | [place], | [place], [place] | | | | | [place] [address] | [phone] | | | | | [phone] | | | +--------+---------+ + + + [...] to make quitting easier, including local a [employer] programs, as well as medications. [id number] [employer]. [address] [place] [address], [place] [address]. All righ ts reserved. This information is [...] [place] | | | | | | [address] | | | | | | | | +--------+ + + + + | 08/15/ | Office | Pulmonology | Landon Denton, | | | 2019 | Visit | | MD [address]AI[address] | | | | | | [place] | | | | | | [address] | | | | | | | | +--------+ + + + + documented as of this encounter Visit Diagnoses + + | Diagnosis | + + | Sarcoidosis - Primary | + + documented in this encounter"
--- OUTSIDE RECORDS SUMMARY | ~2019-07-31 | XMS | Encounter Summary ---
Demographics + + + | Address | [address] | | | [place] [address] | + + + | Home Phone | | + + + | Preferred Language | Unknown | + + + | Marital Status | | + + + | Pentecostalism Affiliation | Unknown | + + + | Race | White | + + + | Ethnic Group | Not or | + + + Author + + + | Author | [facility] | + + + | Organization | [facility] | + + + | Address | Unknown | + + + | Phone | Unavailable | + + + Support + + +---------+ + | Name | Relationship | Address | Phone | + + +---------+ + | Deniz Shelby | ECON | Unknown | | + + +---------+ + Care Team Providers + +------+ + | Care Ecology Teacher Name | Role | Phone | [...] as of this encounter Progress Notes Interface, Process Stripper In - 05/07/2006 1:11 AM PDTCLINIC DATE: [...] each. Cullen Browning M.D. KIERRA / KARTHIK [id number] / [id number] / [id number] / [id number] signed by Interface, Process Stripper In at 05/07/2006 1:11 AM PDTInterf nu, Process Stripper In - 05/07/2006 1:11 AM PDTCLINIC DATE: [...] M.D. dictating for: Janel Culp / KARTHIK [id number] / [id number] / [id number] / [id number] signed by Interface, Process Stripper In at 05/07/2006 1:11 AM PDTdocume nted in this encounter Plan of Treatment Not on filedocumented as of this encounter Visit Diagnoses Not on filedocumented in this encounter"
--- OUTSIDE RECORDS SUMMARY | ~2019-07-31 | XMS | Encounter Summary ---
Demographics + + + | Address | [address] | | | [place] [address] | + + + | Home Phone | | + + + | Preferred Language | Unknown | + + + | Marital Status | | + + + | Church Affiliation | Unknown | + + + | Race | Unknown | + + + | Ethnic Group | Unknown | + + + Author + + + | Author | [facility] | | | and [place] | + + + | Organization | [facility] [...] [place] | | | | | [address] | | + + + + + | Haylie Rg | ECON | [address] [facility] | | | | | [place] | | + + + + + Care Team Providers + +------+ + | Care Assistant Football Coach Name | Role | Phone | + [...] + + | 01/03/ | Office | [facility] | Landon Denton, | Chronic cough | | 2017 | Visit | PULMONARY [address] | MD [address] | (Primary Dx); | | | | [place], | [place], [place] | Sarcoidosis (HCC); | | | | [place] [address] | [id number] | Pulmonary nodules | | | | [phone] | | | +--------+---------+ + + + [...] you have any questions. Talk to your sprinkler installer regarding the use of this medicine in children. While this drug m ay be prescribed for children for selected conditions, precautions do apply. What side effects may I notice from receiving this medicine? Side effects that you should report to your doctor or health child care lead teacher as soon as p ossible: allergic reactions like skin rash, itching or hives, swelling of the face, lips, or tong ue breathing problems changes in vision flu-like symptoms unusual swelling white patches or sores in the mouth or throat Side effects that usually do not require medical attention (report to your doctor or health child care lead teacher if they continue or are bothersome): coughing, [...] Visit your doctor or health child care lead teacher for regular checks on your progress. Check wi th your health child care lead teacher if your symptoms do not improve. If [...] rom the original. Pulmonary Follow Up 01/03/2017 [facility] AnneMinna Shelby is a 71 y.o. female [...] nce daily, Disp: , Rfl: 1 Evening [place] Oil 1000 MG CAPS, Take 1,000 mg [...] lb 4.8 oz) | SpO2 95% | Lockhart stfeeding? No | BMI 30.23 kg/m Appearance: [...] [place] | | | | | | [address] | | | | | | | | +--------+ + + + + | 08/15/ | Office | Pulmonology | Landon Denton, | | | 2019 | Visit | | [address] | | | | | | [place] | | | | | | [address] | | | | | | | [...] signed by: Landon Denton MD 04/04/2017 11:33M [facility] | [facility] | | |Diffusion capacity is moderately reduced [...] Landon Denton MD 04/04/2017 11:33 | | |[facility] | | + + + documented in this encounter Visit Diagnoses + + | Diagnosis | + + | Chronic cough - Primary Cough | + + | Sarcoidosis | + + | Pulmonary nodules Other nonspecific abnormal finding of lung field | + + documented in this encounter
--- OUTSIDE RECORDS SUMMARY | ~2019-07-31 | XMS | Encounter Summary ---
Demographics + + + | Address | [address] | | | [place] [address] | + + + | Home Phone [...] | [facility] | | | and [place] | + + + | Organization | [facility] | | | and [place] [...] [place] | | | | | [address] | | + + + + + | Haylie Rg | ECON | [address] [facility] | | | | | [place] | | + + + + + Care Team Providers + +------+ + | Care Environmental Engineering Professor Name | Role | Phone | [...] + + | 11/07/ | Office | [facility] | Landon Denton, | Sarcoidosis ([facility]) | | 2019 | Visit | PULMONARY [address] | MD [address] | (Primary Dx); | | | | [place], | [place], [place] | Bronchiectasis | | | | [place] [address] | [address] | without complication | | | | [phone] | | ([facility]); Pulmonary | | | | [...] avoid any side effects. Talk to your sneller hand regarding the use of this medicine in children. Special care may be needed. What side effects may I notice from receiving this medicine? Side effects that you should report to your doctor or health urgent care technician as soon as p ossible: allergic reactions [...] attention (report to your doctor or health urgent care technician if they continue or are bothersome): confusion, [...] ta lk to your doctor or health urgent care technician. You may need to miss a dose [...] this medicine? Visit your doctor or health urgent care technician for regular checks on your progress. If [...] have surgery, tell your doctor or health urgent care technician that you hav e taken this medicine within the last twelve months. Ask your doctor or health urgent care technician about your diet. You may need to lower the amou nt of salt you eat. This medicine may affect blood sugar levels. If you have diabetes, check with your doctor o r health urgent care technician before you change your diet or the [...] coughing)., Disp: 1 Inhaler, Rfl: 5 Evening [place] Oil 1000 MG CAPS, Take 1,000 mg by mouth Daily., Disp: , Rfl: FLOVENT DISKUS 100 MCG/BLIST diskus inhaler, inhale 1 puff into the lungs 2 times davie y., Disp: 1 Inhaler, Rfl: 2 Colona-3 Fatty Acids (OMEGA-3 FISH OIL) 1000 MG [...] [place] | | | | | | [id number] | | | | | | | | +--------+ + + + + | 08/15/ | Office | Pulmonology | Landon Denton, | | 2019 | Visit | | MD [address] | | | | | | [place] | | | | | | [address] | | | | | | | [...]
--- OUTSIDE RECORDS SUMMARY | ~2019-07-31 | XMS | Encounter Summary ---
Demographics + + + | Address | [address] | | | [place] [address] | + + + | Home Phone | | + + + | Preferred Language | Unknown | + + + | Marital Status | | + + + | Nondenominational Affiliation | Unknown | + + + | Race | Unknown | + + + | Ethnic Group | Unknown | + + + Author + + + | Author | [facility] | | | and [place] | + + + | Organization | [facility] | | | and [place] [...] [place] | | | | | [address] | | + + + + + | Haylie Rg | ECON | [address] [facility] | | | | | [place] | | + + + + + Care Team Providers + +------+ + | Care Manager Universal Name | Role | Phone | + +------+ + | Blayne Herrera DO | PCP | | + +------+ + Encounter Details +--------+ + + + + | Date | Type | Department | Care Team | Description | +--------+ + + + + | 08/01/ | Hospital | [facility] GENER[facility] IP | Conversion | Pain | | 2018 | Encounter | CONVERSION DEP [address] | Transaction, | | | | | [address] | Provider Unknown | | | | | [place] | [phone] | | | | | [address] | | | | | | [phone] | | | +--------+ + + + [...] + + +---------+ + + | Evening [place] | Take 1,000 mg by | | [...] [place] | | | | | | [address] | | | | | | | | +--------+ + + + + | 08/15/ | Office | Pulmonology | Landon Denton, | | | 2019 | Visit | | MD [address] | | | | | | [place] | | | | | | [address] | | | | | | | [...]
--- OUTSIDE RECORDS SUMMARY | ~2019-07-31 | XMS | Encounter Summary ---
Demographics + + + | Address | [address] | | | [place] [address] | + + + | Home Phone [...] | Author | [facility] | | | and [place] | + + + | Organization | [facility] | | | [...] [place] | | | | | [address] | | + + + + + | Haylie Rg | ECON | [address] [facility] | | | | | [place] | | + + + + + Care Team Providers + +------+ + | Care Shorthand Teacher Name | Role | Phone | [...] + + | 11/10/ | Telephone | [facility] | Landon Denton, | Medication Question | | 2015 | | PULMONARY [address] | MD [address] | | | | | [place], | [place] | | | | | [place] [address] | [address] | | | | | [phone] | | | +--------+ + + + [...] [place] | | | | | | [address] | | | | | | | | +--------+ + + + + | 08/15/ | Office | Pulmonology | Landon Denton, | | | 2019 | Visit | | MD [address] | | | | | | [place] | | | | | | [address] | | | | | | | | +--------+ + + + + documented as of this encounter Visit Diagnoses Not on filedocumented in this encounter"
--- OUTSIDE RECORDS SUMMARY | ~2019-07-31 | XMS | Clinical Summary ---
Demographics + + + | Address | [address] | | | [place] [address] | + + + | Home Phone | | + + + | Preferred Language | Unknown | + + + | Marital Status | | + + + | Samaritan Affiliation | Unknown | + + + | Race | Unknown | + + + | Ethnic Group | Unknown | + + + Author + + + | Author | [facility] (Historical as [facility] | | | 03-16-19) | + + + | Organization | [facility] (Historical as of | | | 03-16-19) | + + + | Address | Unknown | + + + | Phone | Unavailable | + + + Support + + +---------+ + | Name | Relationship | Address | Phone | + + +---------+ + | Contact,No | ECON | Unknown | | + + +---------+ + Care Team Providers + +------+ + | Care Oil And Gas Exploration Technician Name | Role | Phone | + +------+ + | Alonzo Herrera DO | PP | | + +------+ + Allergies Not on File Current Medications Not on file Active Problems Not [...] on file | | + + + Plan of Treatment Not on file Results Not on filefrom Last 3 Months Insurance + +--------+ +--------+-------+---------+ | Payer | Benefi | Subscriber | Type | Phone | Address | | | t Plan | ID | | | | | | / | | | | | | | Group | | | | | + +--------+ +--------+-------+---------+ | [place] - | [id number] | Medica | | | | | MODA | | re | | | | | | | | | | | | | | | | | | | | | | | | | | | | | | | | | | | | | | | | [place] - | | | | | | | [place] | | | | | + +--------+ +--------+-------+---------+ + +--------+ +--------+ + + | Guarantor Name | Accoun | Relation to | Date | Phone | Billing Address | | | t Type | Patient | of | | | | | | | | | | + +--------+ +--------+ + + | KRISTI STACK | Person | Self [birth year] | Home: | [address] | | | al/Fam | | 1945 | [phone] | [place] [address] | | | donnell | | | [address] | | + +--------+ +--------+ + +"
--- OUTSIDE RECORDS SUMMARY | ~2019-07-31 | XMS | Encounter Summary ---
Demographics + + + | Address | [address] | | | [place] [address] | + + + | Home Phone | | + + + | Preferred Language | Unknown | + + + | Marital Status | | + + + | Yarsanism Affiliation | Unknown | + + + | Race | Unknown | + + + | Ethnic Group | Unknown | + + + Author + + + | Author | [facility] | | | and [place] | + + + | Organization | [facility] | [...] [place] | | | | | [address] | | + + + + + | Haylie Rg | ECON | [address] [facility] | | | | | [place] | | + + + + + Care Team Providers + +------+ + | Care Blister Packing Machine Tender Name | Role | Phone | + +------+ + | Blayne Herrera DO | PCP | | + +------+ + Encounter Details +--------+ + + + + | Date | Type | Department | Care Team | Description | +--------+ + + + + | 08/01/ | Hospital | [facility] GENER[facility] IP | Conversion | Pain | | 2018 | Encounter | CONVERSION DEP [address] | Transaction, | | | | | [address] | Provider Unknown | | | | | [place] | [phone] | | | | | [address] | | | | | | [phone] | | | +--------+ + + + [...] + + +---------+ + + | Evening [place] | Take 1,000 mg by | | [...] [place] | | | | | | [address] | | | | | | | | +--------+ + + + + | 08/15/ | Office | Pulmonology | Landon Denton, | | | 2019 | Visit | | MD [address] | | | | | | [place] | | | | | | [address] | | | | | | | [...]
--- OUTSIDE RECORDS SUMMARY | ~2019-07-31 | XMS | Encounter Summary ---
Demographics + + + | Address | [address] | | | [place] [address] | + + + | Home Phone [...] | Author | [facility] | | | and [place] | + + + | Organization | [facility] [...] [place] | | | | | [address] | | + + + + + | Haylie Rg | ECON | [address] [facility] | | | | | [place] | | + + + + + Care Team Providers + +------+ + | Care Sinter Press Operator Name | Role | Phone [...] | (Primary Dx) | | | | [place], | [place], [place] | | | | | [place] [address] | [address] | | | | | [phone] | | | +--------+ + + + [...] [place] | | | | | | [address] | | | | | | | | +--------+ + + + + | 08/15/ | Office | Pulmonology | Bertin Landon, | | | 2019 | Visit | | MD [address] | | | | | | [place] | | | | | | [address] | | | | | | | [...] ST. | [address] | [place], [place] | [phone] | | [facility] | | [address] | | | - LABORATORY | | [...] [address] | [place] | [phone] | | [facility] | | [address] | | | - LABORATORY | | | | + + + + + documented in this encounter Visit Diagnoses + + | Diagnosis | + + | Sarcoidosis (HCC) - Primary Sarcoidosis | + + documented in this encounter"
--- OUTSIDE RECORDS SUMMARY | ~2019-07-31 | XMS | Encounter Summary ---
Demographics + + + | Address | [address] | | | [place] [address] | + + + | Home Phone [...] | Author | [facility] | | | and [place] | + + + | Organization | [facility] | | | and [place] [...] [place] | | | | | [address] | | + + + + + | Haylie Rg | ECON | [address] [facility] | | | | | [place] | | + + + + + Care Team Providers + +------+ + | Care Docketing Specialist Name | Role | Phone | [...] | (Primary Dx); | | | | [place], | [place], [place] | Sarcoidosis; | | | | [place] [address] | [address] | Bronchiectasis | | | | [phone] | | without complication | | | | | | ([facility]); Need for | | | | | [...] says it s OK. And tell your [facility] provider or pharmacist about all medicines you use. This includes sjrt-[id number]-[id number] m edicines. It also includes herbs or supplements. Date Last Reviewed: 03/31/201619997761-0659 [employer]. [address] [place] [address]. All righ ts reserved. This information is [...] regularly. Their exercise consists of exercising at [employer] Machines and stretching for up to one [...] as directed, Disp: , Rfl: 1 Evening [place] Oil 1000 MG CAPS, Take 1,000 mg [...] [place] | | | | | | [phone] | | | | | | | | +--------+ + + + + | 08/15/ | Office | Pulmonology | Landon Denton, | | 2019 | Visit | | MD [address]AILEY | | | | | | [place] | | | | | | [phone] | | | | | | | [...] [place] MD 04/03/2018 | | | 11:02[facility] | | |Diffusion capacity is [...] Landon Denton MD 04/03/2018 11:02 | | [facility] | | + + + documented in [...]
--- OUTSIDE RECORDS SUMMARY | ~2019-07-31 | XMS | Encounter Summary ---
Demographics + + + | Address | [address] | | | [place] [address] | + + + | Home Phone [...] Author | [facility] | | | and [place] | + + + | Organization | [facility] | | | and [...] [place] | | | | | [address] | | + + + + + | Haylie Rg | ECON | [address] [address] | | | | | [place] | | + + + + + Care Team Providers + +------+ + | Care Head Grease Maker Name | Role | Phone | [...] + | 04/04/ | Telephone | [facility] [place] | Landon Denton, | Other (check | | 2016 | | PULMONARY [address] | MD [address] | formulary) | | | | [place], | [place], [place] | | | | | [place] [address] | [id number] | | | | | [phone] | | | +--------+ + + + [...] [place] | | | | | | [address] | | | | | | | | +--------+ + + + + | 08/15/ | Office | Pulmonology | Landon Denton, | | | 2019 | Visit | | [address] | | | | | | [place] | | | | | | [address] | | | | | | | | +--------+ + + + + documented as of this encounter Visit Diagnoses Not on filedocumented in this encounter"
--- OUTSIDE RECORDS SUMMARY | ~2019-07-31 | XMS | Encounter Summary ---
Demographics + + + | Address | [address] | | | [place] [address] | + + + | Home Phone [...] | [facility] | | | and [place] | + + + | Organization | [facility] | | | and [...] [place] | | | | | [address] | | + + + + + | Haylie Rg | ECON | [address] [facility] | | | | | [place] | | + + + + + Care Team Providers + +------+ + | Care Report Analyst Name | Role | Phone | [...] Provider Unknown | | | | | [place] | [phone] | | | | | [address] | | | | | | [phone] | | | +--------+ + + + [...] + + +---------+ + + | Evening [place] | Take 1,000 mg by | | [...] [place] | | | | | | [address] | | | | | | | | +--------+ + + + + | 08/15/ | Office | Pulmonology | Landon Denton, | | | 2019 | Visit | | MD [address] | | | | | | [place] | | | | | | [address] | | | | | | | [...]
--- OUTSIDE RECORDS SUMMARY | ~2019-07-31 | XMS | Encounter Summary ---
Demographics + + + | Address | [address] | | | [place] [address] | + + + | Home Phone | | + + + | Preferred Language | Unknown | + + + | Marital Status | | + + + | Jehovah'S Witness Affiliation | Unknown | + + + | Race | Unknown | + + + | Ethnic Group | Unknown | + + + Author + + + | Author | [facility] | | | and [place] | + + + | Organization | [facility] | | | and [place] [...] [place] | | | | | [address] | | + + + + + | Haylie Rg | ECON | [address] [facility] | | | | | [place] | | + + + + + Care Team Providers + +------+ + | Care Heating Fixture Tender Name | Role | Phone | [...] + + | 11/23/ | Office | [facility] | Landon Denton, | Bronchiectasis | | 2019 | Visit | PULMONARY [address] | MD [address] | without complication | | | | [place], | [place], [place] | (FORMERLY [facility]) (Primary Dx); | | | | [place] [address] | [address] | Sarcoidosis ([facility]); | | | | [phone] | | Hypoxemia | +--------+---------+ + + [...] avoid any side effects. Talk to your licensed sales producer regarding the use of this medicine in children. Special care may be needed. What side effects may I notice from receiving this medicine? Side effects that you should report to your doctor or health caregivers non medical as soon as p ossible: allergic reactions [...] attention (report to your doctor or health caregivers non medical if they continue or are bothersome): confusion, [...] ta lk to your doctor or health caregivers non medical. You may need to miss a dose [...] if you have any of these conditions: Clovis's syndrome diabetes glaucoma heart disease high blood [...] this medicine? Visit your doctor or health caregivers non medical for regular checks on your progress. If [...] have surgery, tell your doctor or health caregivers non medical that you hav e taken this medicine within the last twelve months. Ask your doctor or health caregivers non medical about your diet. You may need to lower the amou nt of salt you eat. This medicine may affect blood sugar levels. If you have diabetes, check with your doctor o r health caregivers non medical before you change your diet or the [...] to take special precautions. Talk to your licensed sales producer regarding the use of this medicine in children. While this drug m ay be prescribed for selected conditions, precautions do apply. What side effects may I notice from receiving this medicine? Side effects that you should report to your doctor or health caregivers non medical as soon as p ossible: allergic reactions [...] attention (report to your doctor or health caregivers non medical if they continue or are bothersome): dizziness [...] dose, talk with your doctor or health caregivers non medical. Do not take double o r extra [...] this medicine. Call your doctor or health caregivers non medical for advice if you get a fever, [...] bleeding. Check with your doctor or health caregivers non medical if you get an attack of severe [...] an unborn child. Talk to your health caregivers non medical or pharmacist for more information. Do not breast-feed an i nfant while taking this medicine. NOTE:This sheet is a summary. It may not cover all possible information. If you have questi ons about this medicine, talk to your doctor, pharmacist, or health care provider. Copyright 2019 [employer] documented in this encounter Progress Notes Landon Denton MD - 11/23/2018 10:30 AM PDTFormatting of this note might be different f rom the original. Pulmonary Follow Up 11/23/2018 [facility] Elinor Shelby is a 73 y.o. female [...] coughing)., Disp: 1 Inhaler, Rfl: 5 Evening Adell Oil 1000 MG CAPS, Take 1,000 mg by mouth Daily., Disp: , Rfl: FLOVENT DISKUS 100 MCG/BLIST diskus inhaler, inhale 1 puff into the lungs 2 times davie y., Disp: 1 Inhaler, Rfl: 2 [place]-3 Fatty Acids (OMEGA-3 FISH OIL) 1000 MG [...] [place] | | | | | | [address] | | | | | | | [...]
--- OUTSIDE RECORDS SUMMARY | ~2019-07-31 | XMS | Encounter Summary ---
Demographics + + + | Address | [address] | | | [place] [address] | + + + | Home Phone [...] Author | [facility] | | | and [place] | + + + | Organization | [facility] | [...] [place] | | | | | [address] | | + + + + + | Haylie Rg | ECON | [address] [facility] | | | | | [place] | | + + + + + Care Team Providers + +------+ + | Care Pig Farm Manager Name | Role | Phone | [...] + + | 05/17/ | Office | [facility] | Landon Denton, | Sarcoidosis (HCC) | | 2016 | Visit | PULMONARY [address] | MD [address] | (Primary Dx); | | | | [place], | [place] | Pulmonary nodules | | | | [place] [address] | [address] | | | | | [phone] | | | +--------+---------+ + + + [...] ou have any questions. Talk to your fixed wing pilot regarding the use of this medicine in [...] this medicine? Tell your doctor or health animal daycare provider if your symptoms do not improve. Do [...] should report to your doctor or health animal daycare provider as soon as p ossible: allergic reactions [...] attention (report to your doctor or health animal daycare provider if they continue or are bothersome): cough difficulty sleeping headache nervousness or trembling stomach upset stuffy or runny nose throat irritation unusual taste This list may not describe all possible side effects. Call your doctor for medical advice a bout side effects. You may report side effects to FDA at 4-371-MWI-7500. Where should I keep my medicine? Keep [...] nce daily, Disp: , Rfl: 1 Evening Ulm Oil 1000 MG CAPS, Take 1,000 mg [...] [place] | | | | | | [address] | | | | | | | | +--------+ + + + + | 08/15/ | Office | Pulmonology | Landon Denton, | | | 2019 | Visit | | MD [address] | | | | | | [place] | | | | | | [address] | | | | | | | [...] and pulmonary nodules COMPARISON: Chest radiographs | [facility] | | September 2015, chest CT January 2014 FINDINGS: There is thoracic aortic | [facility] | | calcification. A tiny [...] [address] | [place] | [phone] | | [facility] | | [address] | | | - IMAGING | | | | + + + + + documented in this encounter Visit Diagnoses + + | Diagnosis | + + | Sarcoidosis - Primary | + + | Pulmonary nodules Other nonspecific abnormal finding of lung field | + + documented in this encounter
--- OUTSIDE RECORDS SUMMARY | ~2019-07-31 | XMS | Encounter Summary ---
Demographics + + + | Address | [address] | | | [place] [address] | + + + | Home Phone [...] Author | [facility] | | | and [place] | + + + | Organization | [facility] | [...] [place] | | | | | [address] | | + + + + + | Haylie Rg | ECON | [address] [facility] | | | | | [place] | | + + + + + Care Team Providers + +------+ + | Care Director Recreation Center Name | Role | Phone | + +------+ + PCP | Unavailable | + +------+ + Encounter Details +--------+ + + + + | Date | Type | Department | Care Team | Description | +--------+ + + + + | 08/05/ | Hospital | [facility] | Landon Denton, | | | 2011 | Encounter | MED CTR XRAY [address] | MD [address] | | | | | [place] | [place], [place] | | | | | [place] [address] | [address] | | | | | [phone] | | | +--------+ + + + [...] [place] | | | | | | [address] | | | | | | | | +--------+ + + + + | 08/15/ | Office | Pulmonology | Landon Denton, | | | 2019 | Visit | | MD [address] | | | | | | [place] | | | | | | [address] | | | | | | | [...] Performed At | + + + | [facility] Diagnostic Imaging Department | [facility] | | [address], [facility] | [facility] | | CT CHEST WITHOUT CONTRAST: | [...] Transcribed | | | Date/Time: 08/05/2011 16:52 Hardware Press Operator: | | | <Electronically Signed by Elvis Murillo MD> 08/05/11 2142 | | + + + + + | Procedure Note | + + | Cosme, Rad Conversion - 09/06/2013 4:31 PM [facility] | | Diagnostic Imaging Department | | [address] [facility] | | | | | | [...] | Transcribed Date/Time: 08/05/2011 16:52 | | Hardware Press Operator: JANE | | <Electronically Signed by Elvis Murillo MD> 08/05/112141 | + + + +---------+ + + | Performing | Address | City/State/Zipcode | Phone Number | | Organization | | | | + +---------+ + + | [place] | | | | | [facility] | | | | + +---------+ + + documented in this encounter Visit Diagnoses Not on filedocumented in this encounter"
--- OUTSIDE RECORDS SUMMARY | ~2019-07-31 | XMS | Encounter Summary ---
Demographics + + + | Address | [address] | | | [place] [address] | + + + | Home Phone [...] + | Author | [facility] | | | and [place] | + + + | Organization | [facility] | | | and [place] | [...] [place] | | | | | [address] | | + + + + + | Haylie Rg | ECON | [address] [facility] | | | | | [place] | | + + + + + Care Team Providers + +------+ + | Care Finish Painter Name | Role | Phone | + [...] Dyspnea on | MD Landon | [address] | | | | | exertion | [address] | [place], | | | | | Procedures | [address] | [place] [address] | | | | | CT Angiogram | [place], | Phone: | | | | | Pulmonary | [place] [address] | [phone] | | | | | CT Angiogram | Phone: | Fax: | | | | | Chest W | [phone] | [phone] | | | | | Contrast | Fax: | | | | | | | [phone] | | +--------+--------+ + + + + [...] | (Primary Dx) | | | | [place], | [place], [place] | | | | | [place] [address] | [address] | | | | | [phone] | | | +--------+ + + + [...] [place] | | | | | | [address] | | | | | | | | +--------+ + + + + | 08/15/ | Office | Pulmonology | Landon Denton, | | | 2019 | Visit | | MD [address] | | | | | | [place] | | | | | | [address] | | | | | | | [...]
--- OUTSIDE RECORDS SUMMARY | ~2019-07-31 | XMS | Encounter Summary ---
Demographics + + + | Address | [address] | | | [place] [address] | + + + | Home Phone [...] + + | Author | [facility] | | | and [place] | + + + | Organization | [facility] | | | and [...] [place] | | | | | [address] | | + + + + + | Haylie Rg | ECON | [address] [facility] | | | | | [place] | | + + + + + Care Team Providers + +------+ + | Care Critical Care Registered Nurse Name | Role | Phone | + [...] | SR | | | | | [phone] | | | +--------+ + + + [...] [place] | | | | | | [address] | | | | | | | | +--------+ + + + + | 08/15/ | Office | Pulmonology | Landon Denton, | | | 2019 | Visit | | MD [address] | | | | | | [place] | | | | | | [address] | | | | | | | | +--------+ + + + + documented as of this encounter Visit Diagnoses Not on filedocumented in this encounter
--- OUTSIDE RECORDS SUMMARY | ~2019-07-31 | XMS | Encounter Summary ---
Demographics + + + | Address | [address] | | | [place] [address] | + + + | Home Phone [...] Author | [facility] | | | and [place] | + + + | Organization | [facility] | | | [...] [place] | | | | | [address] | | + + + + + | Haylie Rg | ECON | [address] [facility] | | | | | [place] | | + + + + + Care Team Providers + +------+ + | Care Physics Tutor Name | Role | Phone | + [...] | | | | unspecified | PA-C [address] | [place], | | | | | Procedures | [place] | [place] [address] | | | | | F/U APPT | Ave | Phone: | | | | | DR [address] | [place], | [phone] | | | | | [place] | [place] | Fax: | | | | | 02/20/19 | [address] | [phone] | | | | | | Phone: | | | | | | | [phone] | | | | | | | Fax: | | | | | | | [phone] | | + +--------+ + + + + Encounter Details +--------+---------+ + + + | Date | Type | Department | Care Team | Description | +--------+---------+ + + + | 05/24/ | Office | [facility] | Landon Denton, | Sarcoidosis (HCC) | | 2019 | Visit | PULMONARY [address] | MD [address] | (Primary Dx); | | | | [place], | [place], [place] | Hypoxemia; Pulmonary | | | | [place] [address] | [address] | nodules; | | | | [phone] | | Bronchiectasis | | | | [...] information carefully each time. Talk to your gluing pressman regarding the use of this medicine in children. Special care may be needed. What side effects may I notice from receiving this medicine? Side effects that you should report to your doctor or health career services assistant as soon as p ossible: allergic [...] to your doctor or health career services assistant if they continue or are bothersome): [...] medicine? Visit your doctor or health career services assistant for regular checks on your progress. You [...] receiving this medicine, call your doctor or [facility] career services assistant. Do not treat yourself. The medicine may [...] on your doctor's advice. Talk to your gluing pressman regarding the use of this medicine in children. Special care may be needed. What side effects may I notice from receiving this medicine? Side effects that you should report to your doctor or health career services assistant as soon as p ossible: allergic [...] to your doctor or health career services assistant if they continue or are bothersome): diarrhea [...] need a test. Talk to your health career services assistant or pharmacist for more information. You should not receive certain vaccines during your treatment and for a certain time after your treatment with this medication ends. Talk to your health career services assistant for more inf ormation. NOTE:This sheet is [...] coughing)., Disp: 1 Inhaler, Rfl: 5 Evening Draper Oil 1000 MG CAPS, Take 1,000 mg by mouth Daily., Disp: , Rfl: Multiple Vitamin TABS, Take 2 tablets by mouth Daily., Disp: , Rfl: Natalia-3 Fatty Acids (OMEGA-3 FISH OIL) 1000 MG CAPS, Take 1,000 mg by mouth Daily., Di sp: , Rfl: omeprazole (PRILOSEC) 20 mg capsule, Take 20 mg by mouth every morning (before break st)., Disp: , Rfl: ondansetron (ZOFRAN) 4 mg tablet, , Disp: , Rfl: PEG 5942-CLh-CdWpg-NaCl-NaSulf (PEG 3350/ELECTROLYTES) 240 g SOLR, , Disp: [...] Elinor Buitrago returns from visiting family in [facility] in early June 2019. CC: Ama Moreau PA-C documented in this encounter Plan of Treatment +--------+ + + + + | Date | Type | Specialty | Care Team | Description | +--------+ + + + + | 08/15/ | Appointment | Pulmonology | Landon Denton, | | | 2019 | | | MD [address] | | | | | | [place] | | | | | | [address] | | | | | | | | +--------+ + + + + | 08/15/ | Office | Pulmonology | Landon Denton, | | 2019 | Visit | | MD [address] | | | | | | [place] | | | | | | [id number] | | | | | | | [...]
--- OUTSIDE RECORDS SUMMARY | ~2019-07-31 | XMS | Encounter Summary ---
Demographics + + + | Address | [address] | | | [place] [address] | + + + | Home Phone | | + + + | Preferred Language | Unknown | + + + | Marital Status | | + + + | Catholic Affiliation | Unknown | + + + | Race | Unknown | + + + | Ethnic Group | Unknown | + + + Author + + + | Author | [facility] | | | and [place] | + + + | Organization | [facility] | | [...] [place] | | | | | [address] | | + + + + + | Haylie Rg | ECON | [address] [facility] | | | | | [place] | | + + + + + Care Team Providers + +------+ + | Care Dispatcher Clerk Name | Role | Phone | [...] + + | 07/03/ | Telephone | [facility] | Landon Denton, | Other (cough) | | 2017 | | PULMONARY [address] | MD [address] | | | | | [place], | [place], [place] | | | | | [place] [address] | [address] | | | | | [phone] | | | +--------+ + + + [...] [place] | | | | | | [address] | | | | | | | | +--------+ + + + + | 08/15/ | Office | Pulmonology | Landon Denton, | | | 2019 | Visit | | MD [address] | | | | | | [place] | | | | | | [address] | | | | | | | | +--------+ + + + + documented as of this encounter Visit Diagnoses Not on filedocumented in this encounter"
--- OUTSIDE RECORDS SUMMARY | ~2019-07-31 | XMS | Encounter Summary ---
Demographics + + + | Address | [address] | | | [place] [address] | + + + | Home Phone [...] + | Author | [facility] | | | and [place] | + + + | Organization | [facility] | | | and [place] [...] [place] | | | | | [address] | | + + + + + | Haylie Rg | ECON | [address] [facility] | | | | | [place] | | + + + + + Care Team Providers + +------+ + | Care Pelt Grader Name | Role | Phone | [...] [place] | Landon Denton, | Sarcoidosis ([facility]) | | 2019 | Visit | PULMONARY [address] | MD [address] | (Primary Dx); | | | | [place], | [place], [place] | Bronchiectasis with | | | | [place] [address] | [address] | acute exacerbation | | | | [phone] | | ([facility]); Dyspnea on | | | | | [...] information carefully each time. Talk to your loss prevention manager regarding the use of this medicine in children. While this drug m ay be prescribed for children as young as 6 months for selected conditions, precautions do a pply. What side effects may I notice from receiving this medicine? Side effects that you should report to your doctor or health lawn caretaker as soon as p ossible: allergic [...] attention (report to your doctor or health lawn caretaker if they continue or are bothersome): constipation [...] and 86 degrees F). Keep in a [facility] closed container. Throw away any unused medicine [...] watery. Check with your doctor or health lawn caretaker if you get an attack of severe diarrhea, nausea and vomiting, or if you sweat a lot. The loss of too much body fluid can make it celestina gerous for you to take this medicine. This medicine may affect blood sugar levels. If you have diabetes, check with your doctor o r health lawn caretaker before you change your diet or the [...] n, runny nose or post nasal drip. Sheldon chilled and feverish last night. No myalgias. [...] coughing)., Disp: 1 Inhaler, Rfl: 5 Evening Wellpinit Oil 1000 MG CAPS, Take 1,000 mg [...] [place] | | | | | | [address] | | | | | | | [...] + | [address] | [address] | [place] | [phone] | | [facility] | | [address] | | | - LABORATORY | | [...] + | [facility] | [address] | [place] | [phone] | | [facility] | | [address] | | | - LABORATORY | | [...] [address] | [place] | [phone] | | [facility] | | [address] | | | - LABORATORY | | [...] + | [address] | [address] | [place] | [phone] | | [facility] | | [address] | | | - LABORATORY | | [...] + | [facility] | [address] | [place], [place] | [phone] | | [facility] | | [address] | | | - LABORATORY | | [...]
--- OUTSIDE RECORDS SUMMARY | ~2019-07-31 | XMS | Encounter Summary ---
Demographics + + + | Address | [address] | | | [place] [address] | + + + | Home Phone [...] [facility] | | | and [place] | + + + | Organization | [facility] | | [...] [place] | | | | | [address] | | + + + + + | Haylie Rg | ECON | [address] [facility] | | | | | [place] | | + + + + + Care Team Providers + +------+ + | Care Student Services Coordinator Name | Role | Phone | + +------+ + | Blayne Herrera DO | PCP | | + +------+ + Reason for Visit + + + | Reason | Comments | + + + | Follow-up | 2 month/Sarcoidosis | + + + Encounter Details +--------+---------+ + + + | Date | Type | Department | Care Team | Description | +--------+---------+ + + + | 10/22/ | Office | [facility] | Landon Denton, | Sarcoidosis (HCC) | | 2015 | Visit | PULMONARY [address] | MD [address] | (Primary Dx); | | | | [place], | [place] | Pulmonary nodules | | | | [place] [address] | [id number] | | | | | [phone] | | | +--------+---------+ + + + [...] + + + | Blood Pressure | 138/76 | 10/22/2014 12:57 PM | | | | | PDT | | + + + + + | Pulse | 85 | 10/22/2014 12:57 PM | | | | | PDT | | + + + + + | Temperature | 36.7 C (98.1 F) | 10/22/2014 12:57 PM | | | | | PDT | | + + + + + | Respiratory Rate | - | - | | + + + + + | Oxygen Saturation | 95% | 10/22/2014 12:57 PM | on room air | | | | PDT | | + + + + + | Inhaled Oxygen | - | - | | | Concentration | | | | + + + + + | Weight | 75.1 kg (165 lb 8 | 10/22/2014 12:57 PM | | | | oz) | PDT | | + + + + + | Height | 157.5 cm (5' 2") | 10/22/2014 12:57 PM | | | | | PDT | | + + + + + | Body Mass Index | 30.27 | 10/22/2014 12:57 PM | | | | | PDT | | + + + + + documented in this encounter Patient Instructions Patient Instructions Landon Denton MD - 10/22/2014 1:14 PM PDTPlease call if cough wi th exercise persists. Might need an inhaled steroid. Pulmonary Sarcoidosis What Is Sarcoidosis? Sarcoidosis is [...] to make quitting easier, including local a nd Internet programs, as well as medications. [id number] [employer]. [address] [place] [address], [place] [address]. All righ ts reserved. This information is not intended as a substitute for professional medical care. Always follow your healthcare professional's instructions. documented in this encounter Progress Notes Landon Denton MD - 10/22/2014 1:05 PM PDTFormatting of this note might be different f rom the original. Pulmonary Follow Up 10/22/2014 HPI Elinor Shelby is a 69 y.o. female patient of Blayne Herrera D.O. here today for fol low up of sarcoidosis. It has been 2 months since our last clinic appointment. At their last visit, we planned to remain off prednisone if possible. Since the last visit she feels like their symptoms are s table. They have have not had any acute illnesses. The patient continues to note some coughing with vigorous exertion. She is using albuterol as needed. This helped her symptoms to some extent.. Currently they are able to walk 7-8 city blocks at their own pace on level ground. They are exercising somewhat regularly. They are not enrolled in cardiac/pulmonary rehabilitation or other physical therapy. She does cough chronically, and does not produce mucous. They have not had hemoptysis. She does not wheeze chronically, and does not have chest tightness. Using ProAir about two times per day. Using for cough. +/- benefit. She has not been evaluated for nocturnal oxygen. She does not had symptoms of heartburn or reflux. They have not had symptoms of nasal conge stion, runny nose or post nasal drip. No other new medical problems. No rashes or joint aches. Past Medical History Past Medical History Diagnosis Date Lymphedema Shoulder fracture Sarcoid (HCC) Dignosed via mediatinoscopy ~ 2008 Pulmonary nodules No change in follow up imaging last here 2010 Shingles August 2014 Allergies: No Known Allergies Medications: Current outpatient prescriptions:omeprazole (PRILOSEC) 20 mg capsule, Take 20 mg by mouth e very morning (before breakfast)., Disp: , Rfl: , ; PROAIR HFA 108 (90 BASE) MCG/ACT inhaler , Inhale 2 puffs into the lungs every 4 hours as needed., Disp: , Rfl: , ; saccharomyces dalton ulardii (FLORASTOR) 250 MG capsule, Take 250 mg by mouth 2 times daily., Disp: , Rfl: , Immunizations: Immunization History Administered Date(s) Administered PNEUMOCOCCAL [...] urticaria, allergic rash, hay fever. Objective BP 138/76 | Pulse 85 | Temp(Src) 36.7 C (98.1 F) (Temporal) | Ht 1.575 m (5' 2") | Wt 75.07 kg (165 lb 8 oz) | BMI 30.26 kg/m2 | SpO2 95% | ? No Appearance: [...] normal Neurologic: Gait normal Assessment 1. Sarcoidosis stable symptoms off of systemic steroids for approximately 2 months. The patient does note occasional coughing with exertion. It is unclear as to whether these sym ptoms are related to airway inflammation associated with sarcoid or another process (post vi ral). I have suggested to Ms. Shelby that she monitor her symptoms closely. If the cough wit h exercise persists I would consider the initiation of an inhaled corticosteroid. There is no indication for systemic steroids at this time. Plan 1. Pulmonary clinic follow-up appointment in 6 months time. 2. Spirometry and diffusion with follow-up. 3. Patient to contact our office if worsening symptoms potentially consistent with sarcoid were to develop. CC: Blayne Herrera documented in this encounter [...] [place] | | | | | | [address] | | | | | | | | +--------+ + + + + documented as of this encounter Results PFT PULMONARY FUNCTION TESTING [...] | | performed: 11/10/15 Electronically signed by: Landon Denton, | | | 11/10/2015 11:49 [facility] | | + + + documented in this encounter Visit Diagnoses + + | Diagnosis | + + | Sarcoidosis - Primary | + + | Pulmonary nodules Other nonspecific abnormal finding of lung field | + + documented in this encounter
--- OUTSIDE RECORDS SUMMARY | ~2019-07-31 | XMS | Encounter Summary ---
Demographics + + + | Address | [address] | | | [place] [address] | + + + | Home Phone | | + + + | Preferred Language | Unknown | + + + | Marital Status | | + + + | Muslim Affiliation | Unknown | + + + | Race | Unknown | + + + | Ethnic Group | Unknown | + + + Author + + + | Author | [facility] | | | and [place] | + + + | Organization | [facility] | | | and [...] Team Providers + +------+ + | Care Slip Filler Name | Role | Phone | + [...] | Sarcoidosis | MD Landon | [address] | | | | | Chronic | [address] | [place], | | | | | cough | [address] | [place] [address] | | | | | Procedures | [place], | Phone: | | | | | CT Chest wo | [place] [address] | [phone] | | | | | Contrast | Phone: | Fax: | | | | | | [phone] | [phone] | | | | | | Fax: | | | | | | | [phone] | | +--------+--------+ + + + + [...] | Sarcoidosis | MD Landon | [address] | | | | | Chronic | [address] | [place], | | | | | cough | [address] | [place] [address] | | | | | Procedures | [place], | Phone: | | | | | CT Chest wo | [place] [address] | [phone] | | | | | Contrast | Phone: | Fax: | | | | | | [phone] | [phone] | | | | | | Fax: | | | | | | | [phone] | | +--------+--------+ + + + + Encounter Details +--------+ + + + + | Date | Type | Department | Care Team | Description | +--------+ + + + + | 01/03/ | Hospital | [facility] | Landon Denton, | Sarcoidosis (HCC); | | 2017 | Encounter | [facility] [address] | [address] | Chronic cough | | | | [place], | [place], [place] | | | | | [place] [address] | [address] | | | | | [phone] | | | +--------+ + + + [...] + + +---------+ + + | Evening [place] | Take 1,000 mg by | | [...] [place] | | | | | | [address] | | | | | | | | +--------+ + + + + | 08/15/ | Office | Pulmonology | Landon Denton, | | | 2019 | Visit | | MD [address] | | | | | | [place] | | | | | | [address] | | | | | | | [...] nodular densities and fibrosis. Worse cough. | [facility] | | COMPARISON: 02/20/2014 PROTOCOL: [...] [address] | [place] | [phone] | | [facility] | | [address] | | | - IMAGING | | | | + + + + + documented in this encounter Visit Diagnoses + + | Diagnosis | + + | Sarcoidosis | + + | Chronic cough Cough | + + documented in this encounter"
--- OUTSIDE RECORDS SUMMARY | ~2019-07-31 | XMS | Encounter Summary ---
Demographics + + + | Address | [address] | | | [place] [address] | + + + | Home Phone | | + + + | Preferred Language | Unknown | + + + | Marital Status | | + + + | Synagogue Affiliation | Unknown | + + + | Race | Unknown | + + + | Ethnic Group | Unknown | + + + Author + + + | Author | [facility] | | | and [place] | + + + | Organization | [facility] | | | and [...] [place] | | | | | [address] | | + + + + + | Haylie Rg | ECON | [address] [facility] | | | | | [place] | | + + + + + Care Team Providers + +------+ + | Care Cigarette Paper Tester Name | Role | Phone | + +------+ + | Blayne Herrera DO | PCP | | + +------+ + Encounter Details +--------+ + + + + | Date | Type | Department | Care Team | Description | +--------+ + + + + | 08/01/ | Hospital | [facility] | Conversion | Pain | | 2018 | Encounter | CONVERSION [address] | Transaction, | | | | | [address] | Provider Unknown | | | | | [place] | [phone] | | | | | [address] | | | | | | [phone] | | | +--------+ + + + [...] + + +---------+ + + | Evening [place] | Take 1,000 mg by | | [...] [place] | | | | | | [address] | | | | | | | | +--------+ + + + + | 08/15/ | Office | Pulmonology | Landon Denton, | | | 2019 | Visit | | MD [address] | | | | | | [place] | | | | | | [address] | | | | | | | [...]
--- OUTSIDE RECORDS SUMMARY | ~2019-07-31 | XMS | Clinical Summary ---
Demographics + + + | Address | [address] | | | [place] [address] | + + + | Home Phone | | + + + | Preferred Language | Unknown | + + + | Marital Status | | + + + | Anabaptist Affiliation | Unknown | + + + | Race | Unknown | + + + | Ethnic Group | Unknown | + + + Author + + + | Author | [facility] (Historical as of | | | 03-16-19) | + + + | Organization | [facility] (Historical as of | | | 03-16-19) [...] Team Providers + +------+ + | Care First Aid Instructor Name | Role | Phone | + [...] MA - MODA | MA - | [id number] | Medica | | | | | [...] | 1945 | [phone] | [place] [address] | | | [place] | | | 39[address] | | + +--------+ +--------+ + +"
--- OUTSIDE RECORDS SUMMARY | ~2019-07-31 | XMS | Encounter Summary ---
Demographics + + + | Address | [address] | | | [place] [address] | + + + | Home Phone | | + + + | Preferred Language | Unknown | + + + | Marital Status | | + + + | Episcopal Affiliation | Unknown | + + + | Race | Unknown | + + + | Ethnic Group | Unknown | + + + Author + + + | Author | [facility] | | | and [place] | + + + | Organization | [facility] [...] [place] | | | | | [address] | | + + + + + | Haylie Rg | ECON | [address] [facility] | | | | | [place] | | + + + + + Care Team Providers + +------+ + | Care Nightclub Manager Name | Role | Phone | + +------+ + | Ama Moreau | PCP | | | PAIna | | | + +------+ + Reason for Visit + + + | Reason | Comments | + + + | Pulmonary Disease | 1 wk follow up/CT | | Appointment | | + + + Encounter Details +--------+---------+ + + + | Date | Type | Department | Care Team | Description | +--------+---------+ + + + | 10/23/ | Office | [facility] | Landon Denton, | Sarcoidosis ([facility]) | | 2019 | Visit | PULMONARY [address] | MD [address] | (Primary Dx); | | | | [place], | [place], [place] | Bronchiectasis | | | | [place] [address] | [address] | without complication | | | | [phone] | | ([facility]); Pulmonary | | | | | | [...] avoid any side effects. Talk to your logistics supervisor regarding the use of this medicine in children. Special care may be needed. What side effects may I notice from receiving this medicine? Side effects that you should report to your doctor or health medical care manager as soon as p ossible: [...] attention (report to your doctor or health medical care manager if they continue or are [...] ta lk to your doctor or health medical care manager. You may need to miss a [...] this medicine? Visit your doctor or health medical care manager for regular checks on your [...] have surgery, tell your doctor or health medical care manager that you hav e taken this medicine within the last twelve months. Ask your doctor or health medical care manager about your diet. You may need to lower the amou nt of salt you eat. This medicine may affect blood sugar levels. If you have diabetes, check with your doctor o r health medical care manager before you change your diet or [...] coughing)., Disp: 1 Inhaler, Rfl: 5 Evening [place] Oil 1000 MG CAPS, Take 1,000 mg [...] [place] | | | | | | [id number] | | | | | | | [...]
--- OUTSIDE RECORDS SUMMARY | ~2019-07-31 | XMS | Encounter Summary ---
Demographics + + + | Address | [address] | | | [place] [address] | + + + | Home Phone | | + + + | Preferred Language | Unknown | + + + | Marital Status | | + + + | Mandaeism Affiliation | Unknown | + + + | Race | Unknown | + + + | Ethnic Group | Unknown | + + + Author + + + | Author | [facility] | | | and [place] | + + + | Organization | [facility] | | | and [place] [...] [place] | | | | | [address] | | + + + + + | Haylie Rg | ECON | [address] [facility] | | | | | [place] | | + + + + + Care Team Providers + +------+ + | Care Paid Internship Name | Role | Phone | + [...] + + | 10/22/ | Office | [facility] | Landon Denton, | Sarcoidosis (HCC) | | 2015 | Visit | PULMONARY [address] | MD [address] | (Primary Dx); | | | | [place], | [place] | Pulmonary nodules | | | | [place] [address] | [id number] | | | | | [phone] | | | +--------+---------+ + + + [...] nd Internet programs, as well as medications. 4613-8462 [employer]. [address] [place] [address], [place] [address]. All righ ts reserved. This information is [...] [place] | | | | | | [address] | | | | | | | [...] Landon Denton, | | | 11/10/2015 11:49 [facility] | | + + + documented in this encounter Visit Diagnoses + + | Diagnosis | + + | Sarcoidosis - Primary | + + | Pulmonary nodules Other nonspecific abnormal finding of lung field | + + documented in this encounter
--- OUTSIDE RECORDS SUMMARY | ~2019-07-31 | XMS | Clinical Summary ---
Demographics + + + | Address | [address] | | | [place] [address] | + + + | Home Phone [...] | Author | [facility] | | | and [place] | + + + | Organization | [facility] | | [...] [place] | | | | | [address] | | + + + + + | Haylie Rg | ECON | [address] [facility] | | | | | [place] | | + + + + + Care Team Providers + +------+ + | Care Sausage Stringer Name | Role | Phone | + [...] | + + + +---------+------+------+-------+ | Evening [place] | Take 1,000 mg by | | [...] | | + + + +---------+------+------+-------+ | [place]-3 Fatty | Take 1,000 mg by | [...] | 09/2 | | Activ | | [id number] | | | | 5/20 | | [...] complication | | | | | | ([facility]) | +--------+ + + + + | 05/03/ | Office | Pulmonology | Landon Denton, | Sarcoidosis ([facility]) | | 2019 | Visit | | MD | (Primary Dx); | | | | | | Hypoxemia | +--------+ + + + + | 05/03/ | Hospital | Pulmonology | Landon Denton, | Sarcoidosis ([facility]); | | 2018 | Encounter | | MD | Bronchiectasis | | | | | | without complication | | | | | | ([facility]) | +--------+ + + + + [...] [place] | | | | | | [address] | | | | | | | | +--------+ + + + + | 08/15/ | Office | Pulmonology | Landon Denton, | | | 2019 | Visit | | MD [address] | | | | | | [place] | | | | | | [address] | | | | | | | [...] Landon Denton MD, | | | 05/03/2019 14:46[facility] | | |corrected for measured hemoglobin. [...] MD, 05/03/2019 | | |14:46 | | |[facility] | | + + + from Last 3 Months Insurance + +--------+ +--------+-------+---------+--------+ | Payer | Benefi | Subscriber | Effect | Phone | Address | Type | | | t Plan | ID | sanjuana | | | | | | / | | Dates | | | | | | Group | | | | | | + +--------+ +--------+-------+---------+--------+ | [facility] | [facility] | [id number] | 07/31/19 | | | Medica | [...] | 1945 | [phone] | [place] [address] | | | [place] | | | 8 (Home) | | + +--------+ +--------+ + + Advance Directives + + + + + | Type | Date Recorded | Patient | Explanation | | | | [employer]ipe [employer] Tank [employer]ator | | + + + + + | Power of | | | | | Audio Recording Engineer | | | | + + + + + | Advance | 02/18/2014 10:16 | | | | Directive | AM | | | + + + + +
--- OUTSIDE RECORDS SUMMARY | ~2019-07-31 | XMS | Encounter Summary ---
Demographics + + + | Address | [address] | | | [place] [address] | + + + | Home Phone | | + + + | Preferred Language | Unknown | + + + | Marital Status | | + + + | Muslim Affiliation | Unknown | + + + | Race | Unknown | + + + | Ethnic Group | Unknown | + + + Author + + + | Author | [facility] | | | and [place] | + + + | Organization | [facility] | | | and [...] [place] | | | | | [address] | | + + + + + | Haylie Rg | ECON | [address] [facility] | | | | | [place] | | + + + + + Care Team Providers + +------+ + | Care Topper Packer Name | Role | Phone | + [...] | (Primary Dx); | | | | [place], | [place], [place] | Bronchiectasis | | | | [place] [address] | [address] | without complication | | | | [phone] | | ([facility]); Sarcoidosis | | | | | | ([facility]) | +--------+---------+ + + + [...] says it s OK. And tell your [facility] provider or pharmacist about all medicines you use. This includes hpae-vji-hzysjjx m edicines. It also includes herbs or supplements. Date Last Reviewed: 03/31/201619998625-8765 [employer]. [address] [place] [address]. All righ ts reserved. This information is [...] coughing)., Disp: 1 Inhaler, Rfl: 11 Evening [place] Oil 1000 MG CAPS, Take 1,000 mg [...] [place] | | | | | | [id number] | | | | | | | | +--------+ + + + + | 08/15/ | Office | Pulmonology | Landon Denton, | | 2019 | Visit | | MD [address] | | | | | | [place] | | | | | | [address] | | | | | | | [...] | | | Landon Denton MD 10/17/2018 16:41[facility] | | | [facility] | | | | | |IMPRESSION: Spirometry is consistent with mild restrictive | | |physiology. The forced vital capacity has declined 21% compared | | |to values from 04/03/18. | | | | | |Test performed: 10/17/18 | | |Electronically signed by: Landon Denton MD 10/17/2018 16:41 | | |[facility] | | + + + documented in this encounter Visit Diagnoses + + | Diagnosis | + + | Chronic cough - Primary Cough | + + | Bronchiectasis without complication (HCC) Bronchiectasis without acute exacerbation | + + | Sarcoidosis (HCC) Sarcoidosis | + + documented in this encounter
--- OUTSIDE RECORDS SUMMARY | ~2019-07-31 | XMS | Encounter Summary ---
Demographics + + + | Address | [address] | | | [place] [address] | + + + | Home Phone | | + + + | Preferred Language | Unknown | + + + | Marital Status | | + + + | Mormonism Affiliation | Unknown | + + + | Race | Unknown | + + + | Ethnic Group | Unknown | + + + Author + + + | Author | [facility] | | | and [place] | + + + | Organization | [facility] | | | and [place] [...] [place] | | | | | [address] | | + + + + + | Haylie Rg | ECON | [address] [facility] | | | | | [place] | | + + + + + Care Team Providers + +------+ + | Care Computer Security Manager Name | Role | Phone | [...] | | respiratory | [place], | [place] [address] | | | | | organs | [place] [address] | Phone: | | | | | Procedures | Phone: | [phone] | | | | | Office Visit | [phone] | Fax: | | | | | | Fax: | [phone] | | | | | | [phone] | | +--------+--------+ + + + + Encounter Details +--------+---------+ + + + | Date | Type | Department | Care Team | Description | +--------+---------+ + + + | 11/24/ | Office | [facility] | Darien Galvan MD | Nasal vestibulitis | | 2015 | Visit | OTOLARYNGOLOGY [address] | [address] [place] | (Primary Dx) | | | | [address] | [address] [place], | | | | | [place] | [place] [address] | | | | | [address] | [phone] | | | | | [phone] | | | +--------+---------+ + + + [...] MD - 11/25/2015 3:[address] [facility] OTOLARYNGOLOGY [address] [facility] [address] OFFICE NOTE DARIEN GALVAN MD Patient: ELINOR STACK Admitting: MR #: [id number] LOC: PT TYPE: Adm Date: 11/25/2015 : [...] Transcribed on 11/26/2015 08:29:29 by dori job# [id number] Confirmation #: [id number] cc: IVAN RUBI DO [facility], Darien Downey MD - 11/25/2015 3:32 PM PDTSee dictation # [id number] signed by Darien Galvan MD at 11/25/2015 [...] [place] | | | | | | [address] | | | | | | | | +--------+ + + + + documented as of this encounter Visit Diagnoses + + | Diagnosis | + + | Nasal vestibulitis - Primary Other diseases of nasal cavity and sinuses | + + documented in this encounter
--- OUTSIDE RECORDS SUMMARY | ~2019-07-31 | XMS | Encounter Summary ---
Demographics + + + | Address | [address] | | | [place] [address] | + + + | Home Phone [...] | Author | [facility] | | | and [place] | + + + | Organization | [facility] | | | and [place] [...] [place] | | | | | [address] | | + + + + + | Haylie Rg | ECON | [address] [facility] | | | | | [place] | | + + + + + Care Team Providers + +------+ + | Care Computer Science Instructor Name | Role | Phone | + +------+ + | Blayne Herrera DO | PCP | | + +------+ + Encounter Details +--------+ + + + + | Date | Type | Department | Care Team | Description | +--------+ + + + + | 08/01/ | Hospital | [facility] GENER[facility] IP | Conversion | Pain | | 2018 | Encounter | CONVERSION [address] | Transaction, | | | | | [address] | Provider Unknown | | | | | [place] | [phone] | | | | | [address] | | | | | | [phone] | | | +--------+ + + + [...] + + +---------+ + + | Evening [place] | Take 1,000 mg by | | [...] [place] | | | | | | [address] | | | | | | | | +--------+ + + + + | 08/15/ | Office | Pulmonology | Landon Denton, | | | 2019 | Visit | | MD [address] | | | | | | [place] | | | | | | [address] | | | | | | | [...]
--- OUTSIDE RECORDS SUMMARY | ~2019-07-31 | XMS | Encounter Summary ---
Demographics + + + | Address | [address] | | | [place] [address] | + + + | Home Phone [...] | Author | [facility] | | | and [place] | + + + | Organization | [facility] | | [...] [place] | | | | | [address] | | + + + + + | Haylie Rg | ECON | [address] [facility] | | | | | [place] | | + + + + + Care Team Providers + +------+ + | Care Global Coordinator Name | Role | Phone | [...] [address] | Dx) | | | | [place], | [place], [place] | | | | | [place] [address] | [address] | | | | | [phone] | | | +--------+ + + + [...] [place] | | | | | | [address] | | | | | | | | +--------+ + + + + | 08/15/ | Office | Pulmonology | Landon Denton, | | | 2020 | Visit | | MD [address] | | | | | | [place] | | | | | | [address] | | | | | | | [...]
--- OUTSIDE RECORDS SUMMARY | ~2019-07-31 | XMS | Encounter Summary ---
Demographics + + + | Address | [address] | | | [place] [address] | + + + | Home Phone | | + + + | Preferred Language | Unknown | + + + | Marital Status | | + + + | Judaism Affiliation | Unknown | + + + | Race | Unknown | + + + | Ethnic Group | Unknown | + + + Author + + + | Author | [facility] | | | and [place] | + + + | Organization | [facility] | | | and [...] [place] | | | | | [address] | | + + + + + | Haylie Rg | ECON | [address] [facility] | | | | | [place] | | + + + + + Care Team Providers + +------+ + | Care Craft Coordinator Name | Role | Phone | [...] | Dx); Pulmonary | | | | Seth [place], | [place], [place] | nodules; Sarcoid | | | | [place] [address] | [address] | (HCC) | | | | [phone] | | | +--------+---------+ + + + [...] mouth logan ly, Disp: , Rfl: ; [place]-3 Fatty Acids (OMEGA 3 PO), CPDR; 3 [...] Request chest [facility]. 2. Continue with regular schedule exercise. 3. [...]
--- OUTSIDE RECORDS SUMMARY | ~2019-07-31 | XMS | Encounter Summary ---
Demographics + + + | Address | [address] | | | [place] [address] | + + + | Home Phone | | + + + | Preferred Language | Unknown | + + + | Marital Status | | + + + | Protestant Affiliation | Unknown | + + + | Race | Unknown | + + + | Ethnic Group | Unknown | + + + Author + + + | Author | [facility] | | | and [place] | + + + | Organization | [facility] | | | and [...] [place] | | | | | [address] | | + + + + + | Haylie Rg | ECON | [address] [facility] | | | | | [place] | | + + + + + Care Team Providers + +------+ + | Care Cotton Factor Name | Role | Phone | + [...] + + | 03/24/ | Telephone | [facility] | Landon Denton, | Other (follow up | | 2013 | | PULMONARY [address] | MD [address] | tomorrow) | | | | [place], | [place] | | | | | [place] [address] | [address] | | | | | [phone] | | | +--------+ + + + [...] [place] | | | | | | [address] | | | | | | | | +--------+ + + + + | 08/15/ | Office | Pulmonology | Landon Denton, | | 2019 | Visit | | MD [address] | | | | | | [place] | | | | | | [address] | | | | | | | | +--------+ + + + + documented as of this encounter Visit Diagnoses Not on filedocumented in this encounter"
--- OUTSIDE RECORDS SUMMARY | ~2019-07-31 | XMS | Encounter Summary ---
Demographics + + + | Address | [address] | | | [place] [address] | + + + | Home Phone [...] | [facility] | | | and [place] | + + + | Organization | [facility] | [...] [place] | | | | | [address] | | + + + + + | Haylie Rg | ECON | [address] [facility] | | | | | [place] | | + + + + + Care Team Providers + +------+ + | Care Academic Intern Name | Role | Phone | + +------+ + PCP | Unavailable | + +------+ + Encounter Details +--------+ + + + + | Date | Type | Department | Care Team | Description | +--------+ + + + + | 01/15/ | Hospital | [facility] | Landon Denton, | | | 2009 | Encounter | MED CTR GENERIC OP | MD [address] | | | | | CONV DEPT [address] | [place], [place] | | | | | [place], | [address] | | | | | [place] [address] | | | | | | [phone] | | | +--------+ + + + [...] [place] | | | | | | [id number] | | | | | | | | +--------+ + + + + | 08/15/ | Office | Pulmonology | Landon Denton, | | | 2019 | Visit | | MD [address] | | | | | | [place] | | | | | | [address] | | | | | | | | +--------+ + + + + documented as of this encounter Visit Diagnoses Not on filedocumented in this encounter"
--- OUTSIDE RECORDS SUMMARY | ~2019-07-31 | XMS | Encounter Summary ---
Demographics + + + | Address | [address] | | | [place] [address] | + + + | Home Phone | | + + + | Preferred Language | Unknown | + + + | Marital Status | | + + + | Spiritism Affiliation | Unknown | + + + | Race | Unknown | + + + | Ethnic Group | Unknown | + + + Author + + + | Author | [facility] | | | and [place] | + + + | Organization | [facility] | [...] [place] | | | | | [address] | | + + + + + | Haylie Rg | ECON | [address] [facility] | | | | | [place] | | + + + + + Care Team Providers + +------+ + | Care Dye And Chemical Coordinator Name | Role | Phone | [...] [address] | | | | | [place], | [place], [place] | | | | | [place] [address] | [address] | | | | | [phone] | | | +--------+--------+ + + + [...] [place] | | | | | | [address] | | | | | | | | +--------+ + + + + | 08/15/ | Office | Pulmonology | Landon Denton, | | | 2019 | Visit | | MD [address] | | | | | | [place] | | | | | | [address] | | | | | | | | +--------+ + + + + documented as of this encounter Visit Diagnoses Not on filedocumented in this encounter"
--- OUTSIDE RECORDS SUMMARY | ~2019-07-31 | XMS | Encounter Summary ---
Demographics + + + | Address | [address] | | | [place] [address] | + + + | Home Phone | | + + + | Preferred Language | Unknown | + + + | Marital Status | | + + + | Baptist Affiliation | Unknown | + + + | Race | Unknown | + + + | Ethnic Group | Unknown | + + + Author + + + | Author | [facility] | | | and [place] | + + + | Organization | [facility] | [...] [place] | | | | | [address] | | + + + + + | Haylie Rg | ECON | [address] [place] | | | | | [place] | | + + + + + Care Team Providers + +------+ + | Care Wrapper Stemmer Hand Name | Role | Phone | [...] + + | 04/18/ | Office | [facility] | Landon Denton, | Sarcoidosis (HCC) | | 2013 | Visit | PULMONARY [address] | MD [address] | (Primary Dx); | | | | [place], | [place], [place] | Pulmonary nodules; | | | | [place] [address] | [address] | Dyspnea | | | | [phone] | | | +--------+---------+ + + + [...] if you have any of these conditions: [place]'s syndrome diabetes glaucoma heart disease high blood [...] avoid any side effects. Talk to your business systems lead regarding the use of this medicine in [...] ta lk to your doctor or health adult care provider. You may need to miss a dose [...] this medicine? Visit your doctor or health adult care provider for regular checks on your progress. If [...] have surgery, tell your doctor or health adult care provider that you hav e taken this medicine within the last twelve months. Ask your doctor or health adult care provider about your diet. You may need to lower the amou nt of salt you eat. This medicine may affect blood sugar levels. If you have diabetes, check with your doctor o r health adult care provider before you change your diet or the dose of your diabetic medicine . What side effects may I notice from receiving this medicine? Side effects that you should report to your doctor or health adult care provider as soon as p ossible: allergic [...] attention (report to your doctor or health adult care provider if they continue or are bothersome): confusion, excitement, restlessness headache nausea, vomiting skin problems, acne, thin and shiny skin trouble sleeping weight gain This list may not describe all possible side effects. Call your doctor for medical advice a bout side effects. You may report side effects to FDA at 7-928-ZGJ-5225. Where should I keep my medicine? Keep [...] mouth Daily., Disp: , Rfl: ; Evening [place] OIL, Take 1,000 capsules by mouth Daily., Disp: , Rfl: ; fluticasone (FLONASE) 50 mcg/nasal spray, 1 spray by Nasal route Daily., Disp: , Rfl: ; multivitamin (THERAGRAN) per tablet, 1 tablet by mout h daily, Disp: , Rfl: [place]-3 Fatty Acids (OMEGA 3 PO), CPDR; 3 [...] [place] | | | | | | [address] | | | | | | | | +--------+ + + + + | 08/15/ | Office | Pulmonology | Landon Denton, | | | 2019 | Visit | | MD [address] | | | | | | [place] | | | | | | [id number] | | | | | | | [...]
--- OUTSIDE RECORDS SUMMARY | ~2019-07-31 | XMS | Encounter Summary ---
Demographics + + + | Address | [address] | | | [place] [address] | + + + | Home Phone [...] | Author | [facility] | | | and [place] | + + + | Organization | [facility] | | [...] [place] | | | | | [address] | | + + + + + | Haylie Rg | ECON | [address] [facility] | | | | | [place] | | + + + + + Care Team Providers + +------+ + | Care Printed Circuit Boards Stripper Etcher Name | Role | Phone | + +------+ + | Ama Moreau | PCP | | | [place] | | | + +------+ + Encounter Details +--------+ + + + + | Date | Type | Department | Care Team | Description | +--------+ + + + + | 04/03/ | Hospital | [facility] | Denton Landon, | Sarcoidosis | | 2018 | Encounter | MED CTR PULMONARY | MD [address] | | | | | FUNCTION [address] | [place], [place] | | | | | [place], | [address] | | | | | [place] [address] | | | | | | [phone] | | | +--------+ + + + [...] + + +---------+ + + | Evening [place] | Take 1,000 mg by | | [...] [place] | | | | | | [address] | | | | | | | | +--------+ + + + + | 08/15/ | Office | Pulmonology | Landon Denton, | | | 2019 | Visit | | [address] | | | | | | [place] | | | | | | [address] | | | | | | | [...] Landon Denton MD 04/03/2018 | | | 11:02[facility] | | |Diffusion capacity is severely [...] Landon Denton MD 04/03/2018 11:02 | | |[facility] | | + + + documented in this encounter Visit Diagnoses + + | Diagnosis | + + | Sarcoidosis | + + documented in this encounter"
--- OUTSIDE RECORDS SUMMARY | ~2019-07-31 | XMS | Encounter Summary ---
Demographics + + + | Address | [address] | | | [place] [address] | + + + | Home Phone | | + + + | Preferred Language | Unknown | + + + | Marital Status | | + + + | Pentecostal Affiliation | Unknown | + + + | Race | Unknown | + + + | Ethnic Group | Unknown | + + + Author + + + | Author | [facility] | | | and [place] | + + + | Organization | [facility] [...] [place] | | | | | [address] | | + + + + + | Haylie Rg | ECON | [address] [facility] | | | | | [place] | | + + + + + Care Team Providers + +------+ + | Care Training And Development Professional Name | Role | Phone | [...] | +--------+ + + + + | 10/15/ | Telephone | [facility] | Landon Denton, | Other (cough) | | 2019 | | PULMONARY [address] | MD [address] | | | | | [place], | [place], [place] | | | | | [place] [address] | [address] | | | | | [phone] | | | +--------+ + + + [...] | 08/15/ | Appointment | Pulmonology | Lanodn Denton, | | | 2019 | | | MD [address] | | | | | | [place] | | | | | | [address] | | | | | | | | +--------+ + + + + | 08/15/ | Office | Pulmonology | Landon Denton, | | | 2019 | Visit | | MD [address] | | | | | | [place] | | | | | | [address] | | | | | | | [...] | + + | Shortness of breath - Primary | + + documented in this encounter"
--- OUTSIDE RECORDS SUMMARY | ~2019-07-31 | XMS | Clinical Summary ---
Demographics + + + | Address | [address] | | | [place] [address] | + + + | Home Phone | | + + + | Preferred Language | Unknown | + + + | Marital Status | | + + + | Uatsdin Affiliation | Unknown | + + + [...] Team Providers + +------+ + | Care Inside Sales Director Name | Role | Phone | + +------+ + PCP | Unavailable | + +------+ + Source Comments TELMA is fully live on both [facility] and [facility] InPatient.[facility] Allergies Not on File Medications Not on [...]
--- OUTSIDE RECORDS SUMMARY | ~2019-07-31 | XMS | Encounter Summary ---
Demographics + + + | Address | [address] | | | [place] [address] | + + + | Home Phone | | + + + | Preferred Language | Unknown | + + + | Marital Status | | + + + | Spiritism Affiliation | Unknown | + + + | Race | Unknown | + + + | Ethnic Group | Unknown | + + + Author + + + | Author | [facility] | | | and [place] | + + + | Organization | [facility] | | | and [place] [...] [place] | | | | | [address] | | + + + + + | Haylie Rg | ECON | [address] [facility] | | | | | [place] | | + + + + + Care Team Providers + +------+ + | Care Construction Ironworker Name | Role | Phone | + [...] + + | 10/15/ | Telephone | [facility] | Landon Denton, | Other (cough) | | 2019 | | PULMONARY [address] | MD [address] | | | | | [place], | [place], [place] | | | | | [place] [address] | [address] | | | | | [phone] | | | +--------+ + + + [...] [place] | | | | | | [address] | | | | | | | | +--------+ + + + + | 08/15/ | Office | Pulmonology | Landon Denton, | | | 2019 | Visit | | MD [address] | | | | | | [place] | | | | | | [address] | | | | | | | [...]
--- OUTSIDE RECORDS SUMMARY | ~2019-07-31 | XMS | Encounter Summary ---
Demographics + + + | Address | [address] | | | [place] [address] | + + + | Home Phone [...] Author | [facility] | | | and [place] | + + + | Organization | [facility] | | | and [place] | [...] [place] | | | | | [address] | | + + + + + | Haylie Rg | ECON | [address] [facility] | | | | | [place] | | + + + + + Care Team Providers + +------+ + | Care Application Operations Engineer Name | Role | Phone | [...] Description | +--------+--------+ + + + | 08/07/ | Refill | [facility] | Landon Denton, | Medication Refill | | 2017 | | PULMONARY [address] | MD [address] | | | | | [place], | [place] | | | | | [place] [address] | [address] | | | | | [phone] | | | +--------+--------+ + + + [...] [place] | | | | | | [address] | | | | | | | | +--------+ + + + + | 08/15/ | Office | Pulmonology | Landon Denton, | | | 2019 | Visit | | MD [address] | | | | | | [place] | | | | | | [address] | | | | | | | | +--------+ + + + + documented as of this encounter Visit Diagnoses Not on filedocumented in this encounter"
--- OUTSIDE RECORDS SUMMARY | ~2019-07-31 | XMS | Encounter Summary ---
Demographics + + + | Address | [address] | | | [place] [address] | + + + | Home Phone [...] + | Author | [facility] | | | and [place] | + + + | Organization | [facility] | [...] [place] | | | | | [address] | | + + + + + | Haylie Rg | ECON | [address] [facility] | | | | | [place] | | + + + + + Care Team Providers + +------+ + | Care Petroleum Terminal Plant Operator Name | Role | Phone [...] + + | 02/18/ | Office | [facility] | Landon Denton, | Sarcoidosis (HCC) | | 2012 | Visit | PULMONARY [address] | MD [address] | (Primary Dx) | | | | [place], | [place], [place] | | | | | [place] [address] | [address] | | | | | [phone] | | | +--------+---------+ + + + [...] by mouth daily, Disp: , Rfl: ; [place]-3 Fatty Acids (OMEGA 3 PO), CPDR; 3 [...] sarcoidosis at this time. The interval between [facility] appointments will be lengthen. Plan [...] [place] | | | | | | [address] | | | | | | | | +--------+ + + + + | 08/15/ | Office | Pulmonology | Landon Denton, | | | 2019 | Visit | | [address] | | | | | | [place] | | | | | | [address] | | | | | | | [...] | | Landon Denton MD 02/20/2014 15:16 [facility] | | | [facility] | | + + + + [...] Landon Denton MD 02/20/2014 15:16[facility] | | [facility] | | | |Compared to pulmonary function tests from July 2012 the patient's spirometry is essentia lly unchanged. The diffusion capacity has fallen 16%. | | | |Test performed: 02/18/14 | |Electronically signed by: Landon Denton MD 02/20/2014 15:16 | |[facility] | + + ECG - EXTERNAL SCAN [...]
--- OUTSIDE RECORDS SUMMARY | ~2019-07-31 | XMS | Encounter Summary ---
Demographics + + + | Address | [address] | | | [place] [address] | + + + | Home Phone [...] [facility] | | | and [place] | + + + | Organization | [facility] | | | and [place] [...] [place] | | | | | [address] | | + + + + + | Haylie Rg | ECON | [address] | | | | | [place] | | + + + + + Care Team Providers + +------+ + | Care Mold Filler Name | Role | Phone | [...] + + | 03/08/ | Telephone | [facility] | Landon Denton, | Other (increased | | 2016 | | PULMONARY [address] | MD [address] | cough) | | | | [place], | [place], [place] | | | | | [place] [address] | [address] | | | | | [phone] | | | +--------+ + + + [...] [place] | | | | | | [address] | | | | | | | | +--------+ + + + + | 08/15/ | Office | Pulmonology | Landon Denton, | | | 2019 | Visit | | MD [address] | | | | | | [place] | | | | | | [address] | | | | | | | | +--------+ + + + + documented as of this encounter Visit Diagnoses Not on filedocumented in this encounter"
--- OUTSIDE RECORDS SUMMARY | ~2019-07-31 | XMS | Encounter Summary ---
Demographics + + + | Address | [address] | | | [place] [address] | + + + | Home Phone [...] | [facility] | | | and [place] | + + + | Organization | [facility] | | | and [...] [place] | | | | | [address] | | + + + + + | Haylie Rg | ECON | [address] [facility] | | | | | [place] | | + + + + + Care Team Providers + +------+ + | Care Electronic Game Developer Name | Role | Phone | + +------+ + | Blayne Herrera PCP | | + +------+ + Encounter Details +--------+ + + + + | Date | Type | Department | Care Team | Description | +--------+ + + + + | 11/09/ | Hospital | [facility] | Landon Denton, | Sarcoidosis (HCC) | | 2016 | Encounter | MED CTR PULMONARY | MD [address] | | | | | [address] | [place], [place] | | | | | [place], | [address] | | | | | [place] [address] | | | | | | [phone] | | | +--------+ + + + [...] + + +---------+ + + | Evening [place] | Take 1,000 mg by | | [...] [place] | | | | | | [address] | | | | | | | | +--------+ + + + + | 08/15/ | Office | Pulmonology | Bertin Landon, | | | 2019 | Visit | | MD [address] | | | | | | [place] | | | | | | [address] | | | | | | | [...] by: Venessa Byrd | | 11/10/2015 11:49 [facility] | | + + + DIAGNOSTIC REPORT [...]
--- OUTSIDE RECORDS SUMMARY | ~2019-07-31 | XMS | Encounter Summary ---
Demographics + + + | Address | [address] | | | [place] [address] | + + + | Home Phone [...] Author | [facility] | | | and [place] | + + + | Organization | [facility] | | | [...] [place] | | | | | [address] | | + + + + + | Haylie Rg | ECON | [address] [facility] | | | | | [place] | | + + + + + Care Team Providers + +------+ + | Care Firearms Instructor Name | Role | Phone | [...] + + | 11/16/ | Telephone | [facility] | Landon Denton, | Other (increased | | 2016 | | PULMONARY [address] | MD [address] | cough) | | | | [place], | [place], [place] | | | | | [place] [address] | [address] | | | | | [phone] | | | +--------+ + + + [...] [place] | | | | | | [address] | | | | | | | | +--------+ + + + + | 08/15/ | Office | Pulmonology | Landon Denton, | | | 2019 | Visit | | MD [address] | | | | | | [place] | | | | | | [address] | | | | | | | | +--------+ + + + + documented as of this encounter Visit Diagnoses Not on filedocumented in this encounter"
--- OUTSIDE RECORDS SUMMARY | ~2019-07-31 | XMS | Encounter Summary ---
Demographics + + + | Address | [address] | | | [place] [address] | + + + | Home Phone [...] | [facility] | | | and [place] | + + + | Organization | [facility] | [...] [place] | | | | | [address] | | + + + + + | Haylie Rg | ECON | [address] [facility] | | | | | [place] | | + + + + + Care Team Providers + +------+ + | Care Winery Cellar Hand Name | Role | Phone | [...] | Medication Refill | | | | [place], | [place] | | | | | [place] [address] | [address] | | | | | [phone] | | | +--------+--------+ + + + [...] [place] | | | | | | [id number] | | | | | | | | +--------+ + + + + | 08/15/ | Office | Pulmonology | Landon Denton, | | | 2019 | Visit | | MD [address] | | | | | | [place] | | | | | | [address] | | | | | | | | +--------+ + + + + documented as of this encounter Visit Diagnoses Not on filedocumented in this encounter"
--- OUTSIDE RECORDS SUMMARY | ~2019-07-31 | XMS | Encounter Summary ---
Demographics + + + | Address | [address] | | | [place] [address] | + + + | Home Phone [...] | Located Within [facility] | | | and [place] | + + + | Organization | Located Within [facility] | | | and [place] [...] [place] | | | | | [address] | | + + + + + | Haylie Rg | ECON | [address] [facility] [address] | | | | | [place] | | + + + + + Care Team Providers + +------+ + | Care Citrus Fruit Colorer Name | Role | Phone | + [...] | | | | unspecified | PA-C [address] | [place] | | | | | Procedures | [place] | [place] [id number] | | | | | F/U APPT | Ave | Phone: | | | | | DR GALVAN | [place], | [phone] | | | | | [place] | [place] | Fax: | | | | | 02/20/19 | [address] | [phone] | | | | | | Phone: | | | | | | | [phone] | | | | | | | Fax: | | | | | | | [phone] | | + +--------+ + + + + Encounter Details +--------+---------+ + + + | Date | Type | Department | Care Team | Description | +--------+---------+ + + + | 03/20/ | Office | [facility] | Landon Denton, | Sarcoidosis (HCC) | | 2019 | Visit | PULMONARY [address] | MD [address] | (Primary Dx); | | | | [place], | [place], [place] | Bronchiectasis | | | | [place] [address] | [address] | without complication | | | | [phone] | | (HCC) | +--------+---------+ + + [...] to take special precautions. Talk to your manager house regarding the use of this medicine in children. While this drug m ay be prescribed for selected conditions, precautions do apply. What side effects may I notice from receiving this medicine? Side effects that you should report to your doctor or health healthcare liaison as soon as p ossible: allergic reactions [...] (report to your doctor or health healthcare liaison if they continue or are bothersome): dizziness [...] talk with your doctor or health healthcare liaison. Do not take double o r extra [...] medicine. Call your doctor or health healthcare liaison for advice if you get a fever, [...] Check with your doctor or health healthcare liaison if you get an attack of severe [...] unborn child. Talk to your health healthcare liaison or pharmacist for more information. Do not [...] coughing)., Disp: 1 Inhaler, Rfl: 5 Evening [place] Oil 1000 MG CAPS, Take 1,000 mg by mouth Daily., Disp: , Rfl: folic acid 1 mg tablet, Take 1 tablet by mouth Daily., Disp: 30 tablet, Rfl: 5 methotrexate 2.5 mg tablet, Take 4 tablets by mouth Once a week. Indications: Other No n-Oncology, Sarcoid, Disp: 16 tablet, Rfl: 2 Multiple Vitamin TABS, Take 2 tablets by mouth Daily., Disp: , Rfl: [place]-3 Fatty Acids (OMEGA-3 FISH OIL) 1000 MG [...] [place] | | | | | | [address] | | | | | | | | +--------+ + + + + | 08/15/ | Office | Pulmonology | Landon Denton, | | | 2019 | Visit | | [address] | | | | | | [place] | | | | | | [address] | | | | | | | | +--------+ + + + + documented as of this encounter Visit Diagnoses + + | Diagnosis | + + | Sarcoidosis (HCC) - Primary Sarcoidosis | + + | Bronchiectasis without complication (HCC) Bronchiectasis without acute exacerbation | + + documented in this encounter
--- OUTSIDE RECORDS SUMMARY | ~2019-07-31 | XMS | Encounter Summary ---
Demographics + + + | Address | [address] | | | [place] [address] | + + + | Home Phone [...] + | Author | [facility] | | | and [place] | + + + | Organization | [facility] | | | and [...] [place] | | | | | [address] | | + + + + + | Haylie Rg | ECON | [address] [address] | | | | | [place] | | + + + + + Care Team Providers + +------+ + | Care Job Placement Officer Name | Role | Phone | + +------+ + | Ama Moreau | PCP | | | [place] | | | + +------+ + Encounter Details +--------+ + + + + | Date | Type | Department | Care Team | Description | +--------+ + + + + | 01/18/ | Hospital | [facility] | Landon Denton, | Sarcoidosis (HCC) | | 2019 | Encounter | MED CTR PULMONARY | MD [address] | | | | | FUNCTION [address] | [place], [place] | | | | | [place], | [address] | | | | | [place] [address] | | | | | | [phone] | | | +--------+ + + + [...] + + +---------+ + + | Evening [place] | Take 1,000 mg by | | 0 | | | | Oil 1000 MG CAPS | mouth Daily. | | | | | + + + +---------+ + + | Multiple Vitamin | Take 2 tablets by | | 0 | | | | TABS | mouth Daily. | | | | | + + + +---------+ + + | [place]-3 Fatty | Take 1,000 mg by | [...] [place] | | | | | | [address] | | | | | | | | +--------+ + + + + | 08/15/ | Office | Pulmonology | Landon Denton, | | | 2019 | Visit | | MD [address] | | | | | | [place] | | | | | | [address] | | | | | | | [...] + | [address] | [address] | [place] | [phone] | | [facility] | | [address] | | | - LABORATORY | | [...] | Immature | | K/uL | [facility] | | | Granulocyte | | | [...] [address] | [place] | [phone] | | [facility] | | [address] | | | - LABORATORY | | | | + + + + + documented in this encounter Visit Diagnoses + + | Diagnosis | + + | Sarcoidosis (HCC) Sarcoidosis | + + documented in this encounter"
--- OUTSIDE RECORDS SUMMARY | ~2019-07-31 | XMS | Encounter Summary ---
Demographics + + + | Address | [address] | | | [place] [address] | + + + | Home Phone [...] + | Author | [facility] | | | and [place] | + + + | Organization | [facility] | | | and [place] | + + + | Address | Unknown | + + + | Phone | Unavailable | + + + Support + + + + + | Name | Relationship | Address | Phone | + + + + + | eDniz Shelby | ECON | [address] | | | | | [place] | | | | | [address] | | + + + + + | Haylie Rg | ECON | [address] [facility] | | | | | [place] | | + + + + + Care Team Providers + +------+ + | Care Peer Financial Counselor Name | Role | Phone | + +------+ + | Blayne Herrera DO | PCP | | + +------+ + Reason for Visit + + + | Reason | Comments | + + + | Records Request | | + + + Encounter Details +--------+ + + + + | Date | Type | Department | Care Team | Description | +--------+ + + + + | 08/06/ | Telephone | [facility] [place] | Landon Denton, | Records Request | | 2012 | | PULMONARY [address] | MD [address] | | | | | [place], | [place], [place] | | | | | [place] [address] | [address] | | | | | [phone] | | | +--------+ + + + [...] [place] | | | | | | [address] | | | | | | | | +--------+ + + + + | 08/15/ | Office | Pulmonology | Landon Denton, | | 2019 | Visit | | MD [address] | | | | | | [place] | | | | | | [address] | | | | | | | | +--------+ + + + + documented as of this encounter Visit Diagnoses Not on filedocumented in this encounter"
--- OUTSIDE RECORDS SUMMARY | ~2019-07-31 | XMS | Encounter Summary ---
Demographics + + + | Address | [address] | | | [place] [address] | + + + | Home Phone [...] | Author | [facility] | | | and [place] | + + + | Organization | [facility] | | | and [...] [place] | | | | | [address] | | + + + + + | Haylie Rg | ECON | [address] [facility] | | | | | [place] | | + + + + + Care Team Providers + +------+ + | Care Welfare Officer Name | Role | Phone | [...] [address] | | | | | [place], | [place] | | | | | [place] [address] | [address] | | | | | [phone] | | | +--------+--------+ + + + [...] [place] | | | | | | [address] | | | | | | | | +--------+ + + + + | 08/15/ | Office | Pulmonology | Landon Denton, | | | 2019 | Visit | | MD [address] | | | | | | [place] | | | | | | [address] | | | | | | | | +--------+ + + + + documented as of this encounter Visit Diagnoses Not on filedocumented in this encounter"
--- OUTSIDE RECORDS SUMMARY | ~2019-07-31 | XMS | Encounter Summary ---
Demographics + + + | Address | [address] | | | [place] [address] | + + + | Home Phone | | + + + | Preferred Language | Unknown | + + + | Marital Status | | + + + | Gnosticist Affiliation | Unknown | + + + | Race | Unknown | + + + | Ethnic Group | Unknown | + + + Author + + + | Author | [facility] | | | and [place] | + + + | Organization | [facility] | | [...] [place] | | | | | [address] | | + + + + + | Haylie Rg | ECON | [address] [facility] | | | | | [place] | | + + + + + Care Team Providers + +------+ + | Care Systems Spec Name | Role | Phone | + [...] + + | 05/03/ | Telephone | [facility] | Landon Denton, | Other (increased | | 2018 | | PULMONARY [address] | MD [address] | cough) | | | | [place], | [place] | | | | | [place] [address] | [address] | | | | | [phone] | | | +--------+ + + + [...] [place] | | | | | | [address] | | | | | | | | +--------+ + + + + | 08/15/ | Office | Pulmonology | Landon Denton, | | | 2019 | Visit | | MD [address] | | | | | | [place] | | | | | | [address] | | | | | | | | +--------+ + + + + documented as of this encounter Visit Diagnoses Not on filedocumented in this encounter"
--- OUTSIDE RECORDS SUMMARY | ~2019-07-31 | XMS | Encounter Summary ---
Demographics + + + | Address | [address] | | | [place] [address] | + + + | Home Phone | | + + + | Preferred Language | Unknown | + + + | Marital Status | | + + + | Mosque Affiliation | Unknown | + + + [...] Team Providers + +------+ + | Care Detention Deputy Name | Role | Phone | + [...]
--- OUTSIDE RECORDS SUMMARY | ~2019-07-31 | XMS | Encounter Summary ---
Demographics + + + | Address | [address] | | | [place] [address] | + + + | Home Phone [...] Author | [facility] | | | and [place] | + + + | Organization | [facility] | [...] [place] | | | | | [address] | | + + + + + | Haylie Rg | ECON | [address] [facility] | | | | | [place] | | + + + + + Care Team Providers + +------+ + | Care Weld Fitter Name | Role | Phone | + [...] Dyspnea on | MD Landon | [address] [place] | | | | | exertion | [address] | [place], | | | | | Procedures | [address] | [place] [address] | | | | | CT Angiogram | [place], | Phone: | | | | | Pulmonary | [place] [address] | [phone] | | | | | CT Angiogram | Phone: | Fax: | | | | | Chest W | [phone] | [phone] | | | | | Contrast | Fax: | | | | | | | [phone] | | +--------+--------+ + + + + [...] + + | 10/23/ | Hospital | [facility] | Landon Denton, | Dyspnea on exertion | | 2019 | Encounter | MED CTR [address] | MD [address] | | | | | [place], | [place], [place] | | | | | [place] [address] | [address] | | | | | [phone] | | | +--------+ + + + [...] + + +---------+ + + | Evening [place] | Take 1,000 mg by | [...] [place] | | | | | | [address] | | | | | | | | +--------+ + + + + | 08/15/ | Office | Pulmonology | Landon Denton, | | | 2019 | Visit | | MD [address] | | | | | | [place] | | | | | | [address] | | | | | | | [...]
--- OUTSIDE RECORDS SUMMARY | ~2019-07-31 | XMS | Encounter Summary ---
Demographics + + + | Address | [address] | | | [place] [address] | + + + | Home Phone | | + + + | Preferred Language | Unknown | + + + | Marital Status | | + + + | Synagogue Affiliation | Unknown | + + + | Race | Unknown | + + + | Ethnic Group | Unknown | + + + Author + + + | Author | [facility] | | | and [place] | + + + | Organization | [facility] | | | and [place] [...] [place] | | | | | [address] | | + + + + + | Haylie Rg | ECON | [address] [facility] | | | | | [place] | | + + + + + Care Team Providers + +------+ + | Care Telecommunications Line Installer Name | Role | Phone | + +------+ + | Blayne Herrera DO | PCP | | + +------+ + Encounter Details +--------+ + + + + | Date | Type | Department | Care Team | Description | +--------+ + + + + | 08/01/ | Hospital | [facility] | Conversion | Pain | | 2018 | Encounter | CONVERSION [address] | Transaction, | | | | | [address] | Provider Unknown | | | | | [place] | [phone] | | | | | [address] | | | | | | [phone] | | | +--------+ + + + [...] + + +---------+ + + | Evening [place] | Take 1,000 mg by | | [...] [place] | | | | | | [address] | | | | | | | | +--------+ + + + + | 08/15/ | Office | Pulmonology | Landon Denton, | | | 2019 | Visit | | MD [address] | | | | | | [place] | | | | | | [address] | | | | | | | [...]
--- OUTSIDE RECORDS SUMMARY | ~2019-07-31 | XMS | Encounter Summary ---
Demographics + + + | Address | [address] | | | [place] [address] | + + + | Home Phone [...] + | Author | [facility] | | | and [place] | + + + | Organization | [facility] | [...] [place] | | | | | [address] | | + + + + + | Haylie Rg | ECON | [address] [facility] | | | | | [place] | | + + + + + Care Team Providers + +------+ + | Care Thread Cutter Tender Name | Role | Phone | + +------+ + | Ama Moreau | PCP | | | [place] | | | + +------+ + Encounter Details +--------+ + + + + | Date | Type | Department | Care Team | Description | +--------+ + + + + | 10/17/ | Hospital | [facility] | Landon Denton, | Sarcoidosis (HCC) | | 2019 | Encounter | MED CTR PULMONARY | MD [address] | | | | | [address] | [place], [place] | | | | | [place], | [address] | | | | | [place] [address] | | | | | | [phone] | | | +--------+ + + + [...] + + +---------+ + + | Evening [place] | Take 1,000 mg by | | [...] [place] | | | | | | [address] | | | | | | | | +--------+ + + + + | 08/15/ | Office | Pulmonology | Landon Denton, | | | 2019 | Visit | | MD [address] | | | | | | [place] | | | | | | [address] | | | | | | | [...] | | | Landon Denton MD 10/17/2018 16:41[facility] | | | | | |IMPRESSION: Spirometry is consistent with mild restrictive | | |physiology. The forced vital capacity has declined 21% compared | | |to values from 04/03/18. | | | | | |Test performed: 10/17/18 | | |Electronically signed by: Landon Denton MD 10/17/2018 16:41 | | |[facility] | | + + + documented in this encounter Visit Diagnoses + + | Diagnosis | + + | Sarcoidosis (HCC) Sarcoidosis | + + documented in this encounter"
--- OUTSIDE RECORDS SUMMARY | ~2019-07-31 | XMS | Encounter Summary ---
Demographics + + + | Address | [address] | | | [place] [address] | + + + | Home Phone | | + + + | Preferred Language | Unknown | + + + | Marital Status | | + + + | Church Affiliation | Unknown | + + + | Race | Unknown | + + + | Ethnic Group | Unknown | + + + Author + + + | Author | [facility] | | | and [place] | + + + | Organization | [facility] | | [...] [place] | | | | | [address] | | + + + + + | Haylie Rg | ECON | [address] [facility] | | | | | [place] | | + + + + + Care Team Providers + +------+ + | Care Compliance Analyst Name | Role | Phone | [...] + + | 08/06/ | Telephone | [facility] [place] | Landon Denton, | Records Request | | 2012 | | PULMONARY [address] | MD [address] | | | | | [place], | [place], [place] | | | | | [place] [address] | [address] | | | | | [phone] | | | +--------+ + + + [...] [place] | | | | | | [address] | | | | | | | | +--------+ + + + + | 08/15/ | Office | Pulmonology | Landon Denton, | | 2019 | Visit | | MD [address] | | | | | | [place] | | | | | | [address] | | | | | | | | +--------+ + + + + documented as of this encounter Visit Diagnoses Not on filedocumented in this encounter"
[~2019-07-31 09:46] MED LIST: MULTI VITAMIN1 EACH PO; OMEGA 3 1,0001 EACH PO
[2019-07-31] MEDS ORDERED: PEPTO-BISM262 MG/15 PO (10:04)
[2019-07-31] MEDS ORDERED: PREDNISONE20 MG PO (10:05)
[2019-07-31] MEDS ORDERED: ZOFRAN4 MG PO (13:04)
--- NOTE | 2019-07-31 14:24 | EKG ---
[facility] [address] [facility] [place], [place] [address] Signed Normal sinus rhythm Left axis deviation Abnormal ECG No previous ECGs available Confirmed by NORA MON MD ([id number]) on 07/31/2019 2:23:52 PM Electronically Signed By: NORA MON MD 07/31/19 1424 PATIENT NAME: KRISTI STACK Electrocardiogram DATE OF : 41 PHYSICIAN: NORA MON MD REPORT #: [id number] REPORT IS CONFIDENTIAL AND NOT TO BE RELEASED WITHOUT AUTHORIZATION
== END 2019-07-31 13:10 | disposition home or self-care (01) ==
LOC: ED 09:46
DX: K52.9 Noninfective gastroenteritis and colitis, unspecified (principal); K21.9 Gastro-esophageal reflux disease without esophagitis; Z79.899 Other long term (current) drug therapy; Z79.52 Long term (current) use of systemic steroids
CPT/HCPCS: 80053; 81001; 83690; 84484; 85025; 93005; 93010; 96361; 96374; 99284-25; J2405; J7030

== ENCOUNTER 2021-04-29 14:47 | Emergency (ER) | payer MEDICARE, OTHER ==
[~2021-04-29] VITALS: Ht 160 cm; Wt 64.4 kg
[~2021-04-29 14:47] MED LIST changes: +OMEPRAZOLE20 MG PO; +PEPTO-BISM262 MG/15 PO; +PREDNISONE20 MG PO; +ZOFRAN4 MG PO
[2021-04-29] MEDS ORDERED: LATANOPROST2.5 ML OPTH (18:25)
[2021-04-29] MEDS ORDERED: NITROFURANTOIN100 M1 PO (18:25)
[2021-04-29] MEDS ORDERED: LISINOPRIL5 MG PO (18:26)
[2021-04-29] MEDS ORDERED: METRONIDAZOLE45 G1 TOP (18:27)
[2021-04-29] MEDS ORDERED: SILDENAFIL20 MG PO (18:27)
[2021-04-29] MEDS ORDERED: PREDNISONE10 MG PO (18:28)
[2021-04-29] MEDS ORDERED: FLUTICASONE PRO16 GM NAS (18:29)
[2021-04-29] MEDS ORDERED: ONDANSETRON ODT4 MG PO (19:14)
--- NOTE | 2021-04-30 07:16 | EKG ---
[facility] [address] [place] [address] Signed Normal sinus rhythm Minimal voltage criteria for LVH, may be normal variant Borderline ECG When compared with ECG of 31-JUL-2019 10:17, Inverted T waves have replaced nonspecific T wave abnormality in Inferior leads Confirmed by SRINIVASAN TAYLOR MD ([id number]) on 04/30/2021 7:16:41 AM Electronically Signed By: SRINIVASAN TAYLOR MD 04/30/21 0716 PATIENT NAME: KRISTI STACK ANNE Electrocardiogram DATE OF : 41 PHYSICIAN: SRINIVASAN TAYLOR MD REPORT #: [id number] REPORT IS CONFIDENTIAL AND NOT TO BE RELEASED WITHOUT AUTHORIZATION
== END 2021-04-29 19:44 | disposition home or self-care (01) ==
LOC: ED 14:47
DX: R11.2 Nausea with vomiting, unspecified (principal); R19.7 Diarrhea, unspecified; D86.0 Sarcoidosis of lung; K21.9 Gastro-esophageal reflux disease without esophagitis; Z79.899 Other long term (current) drug therapy
CPT/HCPCS: 80053; 81001; 83690; 85025; 93005; 93010; 96374; 99284-25; J2405; J7030

== ENCOUNTER 2022-04-30 07:06 | Emergency (ER) | payer MEDICARE, OTHER ==
[~2022-04-30] VITALS: Ht 160 cm; Wt 49.4 kg
[~2022-04-30 07:06] MED LIST changes: +FLUTICASONE PRO16 GM NAS; +LISINOPRIL5 MG PO; +METRONIDAZOLE45 G1 TOP; +NITROFURANTOIN100 M1 PO; +ONDANSETRON ODT4 MG PO; +PREDNISONE10 MG PO; +SILDENAFIL20 MG PO; +XALATAN2.5 ML OU
[2022-04-30] MEDS ORDERED: OFEV100 MG PO (08:07)
[2022-04-30] MEDS ORDERED: TYVASO1.74 MG/2. INH (08:07)
[2022-04-30] MEDS ORDERED: OMEPRAZOLE20 MG PO (08:08)
[2022-04-30] MEDS ORDERED: MYCOPHENOLATE500 MG PO (08:09)
--- NOTE | 2022-04-30 14:29 | EKG ---
[facility] [address] [facility] [place] [address] Signed Sinus rhythm with premature atrial complexes Left axis deviation Abnormal ECG When compared with ECG of 29-APR-2021 17:40, premature atrial complexes are now present Confirmed by NORA MON MD ([id number]) on 04/30/2022 2:29:39 PM Electronically Signed By: NORA MON MD 04/30/22 1429 PATIENT NAME: KRISTI STACK Electrocardiogram DATE OF : 41 PHYSICIAN: NORA MON MD REPORT #: [id number] REPORT IS CONFIDENTIAL AND NOT TO BE RELEASED WITHOUT AUTHORIZATION
[2022-04-30] MEDS ORDERED: VENTOLIN HFA18 GM INH (18:07)
== END 2022-04-30 18:40 | disposition home or self-care (01) ==
LOC: ED 07:06
DX: D86.9 Sarcoidosis, unspecified (principal); J98.2 Interstitial emphysema; Z20.822 Contact with and (suspected) exposure to COVID-19
CPT/HCPCS: 36415; 71045; 71260; 80053; 83735; 83880; 84484; 85025; 87502; 93005; 93010; 94640; 99285-25; C9803; J2405; Q9967; U0003

== ENCOUNTER 2022-05-10 09:00 | Inpatient (IN) | payer MEDICARE, OTHER ==
[~2022-05-10] VITALS: Ht 160 cm; Wt 47.2 kg
[~2022-05-10 09:00] MED LIST changes: +MYCOPHENOLATE500 MG PO; +OFEV100 MG PO; +TYVASO1.74 MG/2. INH; +VENTOLIN HFA18 GM INH
--- NOTE | 2022-05-10 14:30 | NUR ---
PT ARRIVES TO CCU VIA STRETCHER FROM ED. PT ALERT HOWEVER NOT ORIENTED AND REPEATING QUESTIONS/STATEMENTS. ACCOMPANIED BY LONG TIME FRIEND MISAEL. PT ON 6L VIA NC UPON ARRIVAL, SP02 STABLE IN HIGH 90'S HOWEVER PT FEELS SOB. SWITCHED TO OXYMASK - IMPROVED WORK OF BREATHING WITH THIS. ORAL TEMP 99.9, PT WARM TO TOUCH. NEURO EXAM DIFFICULT TO ASSESS RT PT INABILITY TO FOLLOW DIRECTIONS/CONFUSION. CONFIMATION WITH ED RN THAT THIS WAS SAME FINDINGS PRIOR TO HEAD CT COMPLETED EARLIER TODAY. RIGHT SIDE DEFICIT MORE PRONOUNCED WITH NEGLECT/THINKS SHE IS MOVING ARM BUT IS NOT. ISABEL CATH INSERTED WITHOUT DIFFICULTY - 550 IMMEDIATLEY OUT. PT REPORTS PAIN IN HEAD - STATES THIS HAS BEEN OCCURING FOR SEVERAL DAYS AT HOME. SECOND IV LINE SECURED, IVF STARTED. FRIEND REPORTS POOR NUTRITION STATING SHE "LITERALLY NEVER EATS". RESUSITATION ORDERS ADDRESSED WITH MISAEL - STATES SHE KNOWS PT DOES NOT WANT TO BE RESUSITATED HOWEVER OLD POST FORM ON HOME FRIDGE STATES OTHERWISE. UPDATED ON NEURO FINDINGS.
--- NOTE | 2022-05-10 15:18 | NUR ---
PRN TYLENOL ADMINISTERED FOR HEADACHE - PT ABLE TO SWALLOW WITHOUT DIFFICULTY. PT REMAINS FORGETFUL BUT DOES UNDERSTAND WHY SHE IS TAKING TYLENOL. FRIEND REMAINS AT BEDSIDE.
--- NOTE | 2022-05-10 16:29 | NUR ---
DAUGHTER ARRIVES TO VISIT MOTHER. ED CALLED FOR EKG REPORT TO BE TUBED OVER FOR COMPARISON TO CURRENT RHYTHEM.
--- NOTE | 2022-05-10 17:00 | NUR ---
RN IN ROOM TO ASSIST PT WITH REPOSISTIONING. PT STATES SHE FEELS PREASURE BEHIND EYES, COLD WASH CLOTH APPLIED WITH RELIEF. PT REMIANS CONFUSED AND UNORIENTED BUT PLESANT.
--- NOTE | 2022-05-10 17:22 | NUR ---
MD IN FAMILY ROOM TO UPDATE DAUGHTER AND FRIEND ON STATUS AND RESUS WISHES.
--- NOTE | 2022-05-10 18:26 | NUR ---
RN ROUNDING ON PT - PT RESTING IN BED WITH HOB ELEVATED, WAKES EASILY WITH TOUCH, REMAINS DISORIENTED. BP IMPROVING. REMAINS AFEBRILE. SP02 99% ON 6L OXIMASK, RR 27 - WORK OF BREATHING IMPROVED. URINE OUTPUT ADEQUATE. SIPS OF WATER PROVIDED TO PT WITH FULL ASSIST, SWALLOWS WITHOUT DIFFICULTY.
--- NOTE | 2022-05-10 20:00 | NUR ---
IN TO CHECK ON PT, DO ASSESSMENT. PT REPOSITIONED UP IN BED. RR 28, MILDLY LABORED, SPO2 99% ON 6L/OXYMASK. HR 80'S. LUNGS HAVE CRACKLES IN LEFT AND RIGHT BASE. PT DENIES PAIN. MAAME IS DRIANING CLEAR YELLOW URINE. DAUGHTER IN ROOM, PLAN OF CARE DISCUSSED WITH HER AND PT. DAUGHTER HAS ALSO JUST BROUGHT IN POLST FORM THAT HER FATHER HAS SIGNED, PLACED IN CHART.
--- NOTE | 2022-05-10 20:53 | NUR ---
IN FOR IV ALARM. SPO2 WAS 99% SO OXYGEN TURNED DOWN TO 4L/OXYMASK.
--- NOTE | 2022-05-10 21:24 | NUR ---
IN TO GIVE PT SIPS OF WATER, TOLERATED WATER WITH NO DIFFICULTIES. C/O HEADACHE, PRN TYLENOL GIVEN. KEPT SAYING SHE COULDNT BREATHE, REMOVED OXYMASK AND PLACED NASAL CANNULA ON AT 6L, SPO2 STILL 99%. RR NOW 22. PT REPORTS FEELING MUCH BETER WITH NASAL CANNULA VS. OXYMASK.
--- NOTE | 2022-05-10 21:54 | EKG ---
[facility] [address] [facility] [facility] [place] [address] Signed Sinus tachycardia with premature atrial complexes Otherwise normal ECG No previous ECGs available Confirmed by SRINIVASAN TAYLOR MD ([id number]) on 05/10/2022 9:54:43 PM Electronically Signed By: SRINIVASAN TAYLOR MD 05/10/222153 PATIENT NAME: KRISTI STACK Electrocardiogram DATE OF : 41 PHYSICIAN: SRINIVASAN TAYLOR MD REPORT #: [id number] REPORT IS CONFIDENTIAL AND NOT TO BE RELEASED WITHOUT AUTHORIZATION
--- NOTE | 2022-05-10 23:15 | NUR ---
PT REPOSITIONED AND FRESH GOWN APPLIED. PT IS AWAKE BUT SLIGHTLY CONFUSED, COOPERATIVE AND INTERACTIVE. IS SAYING THINGS LIKE "I FEEL FUNNY, IM IN A FOG". IS ABLE TO STATE THAT SHE IS IN A [facility] IN [facility]. C/O RIGHT SIDED TINGLING TO HAND.
--- NOTE | 2022-05-11 01:29 | NUR ---
PT STARTED MOANING AND TOSSING AND TURNING IN BED, SAYING ONE WORD AT A TIME "PAIN", "PEE". "HURT". TRIED TROUBLESHOOTING ISABEL CATHETER TO SEE IF THERE WAS SOMETHING THAT WOULD BE CAUSING HER PAIN, NO PROBLEMS NOTED, EVENTUALLY BALLOON WAS DEFLATED TO SEE IF THAT WOULD PROVIDE RELIEF, AND CATHETER REMOVED. PT CONTINUED THE SAME-WRITHING AND MOANING, UNABLE TO ANSWER QUESTIONS CLEARLY BUT CONTINUES TO SAY "HURT" AND "PAIN". THIS WAS ALL OVER APPROX A 20 MINUTE PERIOD, TOO EARLY FOR TYLNEOL. DR TAYLOR CALLED AND UPDATED ON PTS CONDITION, RECENT VS AND PTS RECENT C/O RIGHT HAND NUMBNESS. ORDER GIVEN FOR 1MG IV MORPHINE FOR PAIN. MORPHINE GIVEN, PT SEEMS TO BE CALMING SOME, WILL CONTINUE TO MONITOR.
--- NOTE | 2022-05-11 02:17 | NUR ---
PT NOW RESTFUL, HR 60'S, RR 22 AND SPO2 100% ON 4L/NC.
--- NOTE | 2022-05-11 04:19 | NUR ---
PT CONTINUES TO BE RESTFUL, HR 60'S, IN TO DO ASSESSMENT. PT IS RESTING WITH EYES CLOSED, RESP EVEN VERY SLIGHTLY LABORED. AWAKENS FOR ASSESSMENT, STARTS YELLING OUT FOR WATER, SIPS OF WATER GIVEN AND PT SETTLES BACK DOWN. SPO2 WAS 100% ON 4L/NC, O2 TITRATED DOWN TO 3L/NC.
--- NOTE | 2022-05-11 05:47 | NUR ---
PT AWAKENED FOR LAB DRAW, ASKS FOR WATER. MOANING, C/O LEFT EYE HURTING, STATES "HURT, PAIN, ACHY", DIFFICULT TO ASSESS PT AT THIS TIME DUE TO PT NOT ANSWERING QUESTIONS CLEARLY OR FOLLOWING COMMANDS. ATTEMPTED TO ASSESS WHETHER OR NOT PATIENT WAS ABLE TO SEE, ASKED HOW MANY FINGERS WERE BEING HELD UP AND PT JUST RESPONDS WITH REPEATING ONE WORDS- "HURTS" OR "WATER", ASKED PT TO FOCUS ON OBJECTS IN FRONT OF HER FACE AND SHE DOES NOT DO IT. SIPS OF WATER GIVEN, PT STATES "OH THATS BETTER". AFTER LAB DRAW IS COMPLETE PT LIES BACK DOWN WITH EYES CLOSED, APPEARS RESTFUL.
--- NOTE | 2022-05-11 08:00 | NUR ---
RN IN ROOM TO ASSESS PT - PT CALLING OUT TO TURN OFF NOISE WITH EYES CLOSED. PT APPEARS UNCOMFORTABLE, RESTLESS IN BED. EXPRESSIVE APHASIA PRONOUCED CAUSING PT FRUSTRATION. PT REPORTS HEADACHE, COLD CLOTH APPLIED. LUNG SOUNDS COURSE THROUGHOUT AND R BASE RUB. RIGHT SIDE ARM MOVEMENTS LIMITED, UNABLE TO FOLLOW COMMANDS HOWEVER LARD MAKER IS EQUAL SPONTANEOUSLY. ISABEL CATH REMOVED ON NOC SHIFT, NO VOID YET. IV SITE X2 PATENT AND FLUSH WITHOUT DIFFIUCLTY. PT REPOSISTIONED IN BED WITH HEAT PACK AT LOWER BACK FOR COMFORT. DAUGHTER AT BEDSIDE.
--- NOTE | 2022-05-11 10:00 | NUR ---
RN IN ROOM TO ADMINISTER SCHEDULED MEDICATION. PT REMAINS RESTLESS AND MOANING WITHOUT ABILITY TO COMMUNICATE CLEARLY. ORDER RECIEVED FOR IV MORPHINE - 1MG ADMINISTERED. PT REPOSISITIONED IN BED ON SIDE WITH HEAT PACK. DAUGHTER AT BEDSIDE.
--- NOTE | 2022-05-11 11:09 | NUR ---
PT RESTING IN BED - APPEARS COMFORTABLE, RR 30 - SP02 100% ON 3L. DAUGHTER AT BEDSIDE.
--- NOTE | 2022-05-11 11:31 | NUR ---
RN IN ROOM TO ADMINISTER ADDITIONAL MG MORPHINE FOR GENERALIZED PAIN - PUREWIK IN PLACE, 1 INCONTINANT VOID. PT REPOSISTIONED TO SIDE. SIPS OF WATER CONTINUILY OFFERED SIPS OF WATER.
--- NOTE | 2022-05-11 13:12 | NUR ---
PT CALLING OUT VERY LOUD AND DEMANDING WATER - IMPROVED ABILITY TO EXPRESS NEEDS. WATER PROVIDED.
--- NOTE | 2022-05-11 13:51 | NUR ---
THIS ENTRY LEVEL BUYER AT BEDSIDE TO ASSIST WITH SIPS OF WATER. PATIENT REPOSITIONED IN BED, PUREWICK STILL IN PLACE. PATIENT C/O PAIN AND PRESSURE IN HER HEAD WITH ACTIVITY. PATIENT NOT ORIENTED BUT REDIRECTABLE. RN AT BEDSIDE. FAMILY IN ROOM AT THIS TIME.
--- NOTE | 2022-05-11 13:55 | NUR ---
RN IN ROOM TO HELP MACHINE SET UP OPERATOR REPOSISTION PT AND ADMINISTER 1MG MORPHINE FOR GENERALIZED PAIN AND SOB. PT RESPONDS VERY CLEARLY TO SONS UPON ARRIVAL. PT EMOTIONAL AND STATES CLEARLY THAT SHE WISHES TO PASS "PEACEFULLY AND QUICKLY" - CHILDREN AT BEDSIDE STATE UNDERSTANDING AND REASSURES PT.
--- NOTE | 2022-05-11 14:41 | NUR ---
PATIENT CONFUSED UNABLE TO ANSWER QUESTIONS. CALLED [facility] [phone]. PATIENT LIVES WITH HIM. HE IS MAIN CAREGIVER. THEY HAVE ADULT KIDS. PATIENT IS W/C BOUND. HAS BEEN ABLE TO STAND/TRANSFER WITH FULL ASSIST. HAS OXYGEN CPAP NEBULIZER THROUGH [facility]. BATHROOM HAS WALK-IN SHOWER GRAB BARS. NO STAIRS IN HOME. NO FINANCIAL CONCERNS FOR COST OF MEDS/FOOD/UTILITIES. HE STATES DR GOODWIN IN [place] HAS TOLD THEM THERE IS NOT MUCH MORE TO DO FOR HER DISEASE PROCESS. HE STATES HE IS HAVING TROUBLE CARING FOR HER LATELY AND INTENDS FOR HER TO GO TO ASSISTED LIVING OR ASSISTED. DOES NOT HAVE PREFERENCES OF A FACILITY. DISCUSSED WITH CAN SUPPLY THEM WITH A LIST AND ANSWER QUESTIONS. ENCOURAGED HIM TO TALK WITH FAMILY. DISCUSSED THEY CAN GO VISIT ANY THEY ARE INTERESTED IN AND THE FACILITY CAN ANSWER COST QUESTIONS. DISCUSSED SNF RULES AND COST. DISCUSSED SHE MIGHT NOT MEET SNF DUE TO END STAGE DISEASE AND ILLNESS. DISCUSSED COVID AND THAT SHE WILL NOT BE ABLE TO ENTER FACILITY WHILE STILL IN INFECTIOUS STAGE, THAT SHE MIGHT NEED TO DISCHARGE HOME FIRST. DISCUSSED THAT SOME FACILITIES HAVE WAIT LISTS. DISCUSSED MEDICAID HELP BASED ON FINANCIAL SITUATION. DISCUSSED WE CAN PROVIDE HIM WITH LIST OF ASSISTED LIVING IN [place]. HE IS NOT INTERESTED IN PLACES OUT OF TOWN. QUESTIONS ANSWERED. TELEPHONE SERVICE REPRESENTATIVE WILL LEAVE LIST OF FACILITIES IN ROOM FOR FAMILY.
--- NOTE | 2022-05-11 15:30 | NUR ---
RN IN ROOM TO REPOSISTION PT AND ADMINISTER PAIN MEDICATION. ONE INC CHUX CHANGED, BARRIER CREAM APPLIED TO CIRILO AREA. PT CONTINUES TO COMPLAIN OF LIGHT AND SOUND SENSITIVITY AN DIZZINESS WITH MOVEMENT. FAMILY AT BEDSIDE.
--- NOTE | 2022-05-11 17:28 | NUR ---
RN IN ROOM TO ADMINISTER IV MORPHINE FOR GENERALIZED PAIN AND HEADACHE. PT REPOSISTIONED. INC TIMES 1. FAMILY REMAINS AT BEDSIDE.
--- NOTE | 2022-05-11 18:30 | NUR ---
RN IN ROOM TO REPOSITION PT AND CHANGE ATTENDS. PT GETS DIZZY WITH MOVEMENT OF REPOSISTIONING BUT RECOVERS AFTER REST. SHE WAS ABLE TO FOLLOW COMMAND WITH MOVEMENT OF RIGHT ARM - ORIENTATION IMPROVING. FAMILY AT BEDSIDE. SIPS OF WATER PROVIDED AND CHAP STICK, SWALLOWS WITHOUT DIFFICULTY.
--- NOTE | 2022-05-11 19:30 | NUR ---
REPORT RECEIVED FORM LUTHER MARCANO. PT AWAKE IN BED, CALLING OUT FOR WATER. WILL GO IN AND GIVE PT SIPS OF WATER.
--- NOTE | 2022-05-11 20:19 | NUR ---
PT HAS BEEN CALLING OUT FREQUENTLY FOR WATER, IN MULTIPLE TIMES SINCE START OF SHIFT TO GIVE PT SIPS OF WATER. ASSESSMENT DONE. PT CAN STATE HER NAME AND DATE OF , STATES SHE IS IN THE HOSPITAL. DOES HAVE TROUBLE WITH EXPRESSING HERSELF, GETTING SENTENCES OUT BUT SHOWS IMPROVEMENT FROM LAST NIGHT. DR TAYLOR ROUNDED ON UNIT, UPDATE GIVEN, ALSO HAD DISCUSSION WITH DAUGHTER AND SONS REGARDING PLAN OF CARE.
--- NOTE | 2022-05-11 21:38 | NUR ---
PT INC URINE, ATTENDS CHANGED, CIRILO CARE DONE AND PT REPOSITIONED UP IN BED. PT C/O HEADACHE, 2MG IV MORPHINE GIVEN.
--- NOTE | 2022-05-11 23:13 | NUR ---
PT INC URINE, ATTENDS CHANGED AND SIPS OF WATER GIVEN.
--- NOTE | 2022-05-12 05:15 | NUR ---
LAB IN TO DRAW, PT AWAKENS EASILY, GOES BACK TO SLEEP.
--- NOTE | 2022-05-12 06:38 | NUR ---
IN TO CHECK PTS BLOOD SUGAR AFTER SEEING AM LABS, GLUCOSE 69 PER LAB AND 66 PER GLUCOMETER. PT AWAKENS EASILY, ASKED WHY SHE WAS GETTING HER BLOOD SUGAR CHECKED, EXPLAINED LOW BLOOD SUGAR. ASKED PT IS SHE WOULD DRINK SOME JUICE AND SHE STATES "NO, I DON'T WANT ANYTHING TO MAKE THIS TAKE LONGER. THIS IS TAKING TOO LONG, I WANT TO GO NOW." DR TAYLOR NOTIFIED, ORDER TO SWITCH IVF TO D5LR. SON IN ROOM TALKING WITH PT.
--- NOTE | 2022-05-12 07:25 | NUR ---
REPORT RECEIVED, CARE OF PT ASSUMED AT THIS TIME. PT RESTING N BED, SON AT BEDSIDE. CALL LIGHT WITHIN REACH. WILL CONTINUE TO MONITOR.
--- NOTE | 2022-05-12 08:36 | NUR ---
ASSESSMENT AND MEDICATION ADMINISTRATION COMPLETED. PT ALERT AND ORIENTED. DENIES PAIN AT THIS TIME. RATING CLERK EQUAL IN BILATERAL HANDS. PULSES STRONG IN ALL EXTREMITIES. TRACE EDEMA IN BILATERAL LOWER LEGS. IV FLUIDS INFUSING. MEDICATION GIVEN. PT STATES " WHEN IS THIS OVER. I WANT IT TO END NOW" SON AT BEDSIDE. PLAN OF CARE FOR DAY ESTABLISHED. CALL LIGHT WITHIN REACH. WILL CONTINUE TO MONITOR.
--- NOTE | 2022-05-12 09:14 | NUR ---
VITALS AND I&OS CHARTED. FRESH WATER PROVIDED. SON IN ROOM. CALL LIGHT IN EASY REACH
--- NOTE | 2022-05-12 09:30 | NUR ---
PT HAD LARGE INCONTINENT VOID. BED BATH AND PERICARE PROVIDED. PT TURNED ON TO LEFT SIDE WHEN REPOSITIONED IN BED. MULTIPLE FAMILY REMAIN AT PT BEDSIDE.
--- NOTE | 2022-05-12 10:45 | NUR ---
PER AM MEETING PATIENT WISHING TO MOVE TO COMFORT MEASURES AT THIS TIME. FAMILY IN AGREEMENT AND AT BEDSIDE.
--- NOTE | 2022-05-12 10:57 | NUR ---
MED REC COMPLETE
--- NOTE | 2022-05-12 12:07 | NUR ---
INCONTINENT CARE PROVIDED AND PT REPOSITIONED IN BED. PT NOW FLOATING WITH PILLOWS UNDER BOTH HIPS. PT'S SPO2 DECREASED INTO THE 80S, RR UP INTO THE 30S AN DPT BECOMES VISIBLY SHORT OF BREATH WITH ACTIVITY IN THE BED. PT NOW RESTING COMFORTABLY ON 3L NC. FAMILY BACK AT BEDSIDE. TANK BUILDER PROVIDING ORAL CARE AT THIS TIME. CALL LIGHT WITHIN REACH. WILL CONTINUE TO MONITOR.
--- NOTE | 2022-05-12 12:14 | NUR ---
PATIENT WAS INCONTINENT OF URINE. CHUK AND BRIEF CHANGED. PATIENT REPOSTITIONED- HIPS FLOATED ON PILLOWS. CALL LIGHT IN EASY REACH
--- NOTE | 2022-05-12 12:36 | NUR ---
PT REPORTING EYE PAIN. WARM PACK APPLIED TO EYES AT THIS TIME. WILL CONTINUE TO MONITOR.
--- NOTE | 2022-05-12 13:24 | NUR ---
PT GIVEN PRN TYLENOL FOR HEADACHE. PT REPORTS FEELIGN DIZZY AND TIRED. DISCUSSED NUTRTION WITHPT. PT AGREEABLE TO DRINKING AN ENSURE. PT PREMEDICATED WITH ZOFRAN TO PREVENT NAUSEA. DAUGHTER REMAINS AT BEDSIDE.
--- NOTE | 2022-05-12 14:00 | NUR ---
INCONTINENT CARE PROVIDED AND PT REPOSITIONED ON TO LEFT SIDE. PT REPORT HEADACHE IS GONE. PT ABLE TO DRINK HALF OF ENSURE MILK SHAKE. PT NOW RESTING WITH IV FLUIDS INFUSING. CALL LIGHT WITHIN REACH. WILL CONTINUE TO MONITOR.
--- NOTE | 2022-05-12 14:35 | NUR ---
PATIENT WAS INCONTINENT OF URINE. PATIENT REPOSITIONED ONTO RIGHT SIDE. PILLW SUPPORTING AND BETWEEN KNEES. FAMILY IN ROOM WELL. PATIENT SIPPING ON MILKSHAKE FROM KITCHEN.
--- NOTE | 2022-05-12 16:02 | NUR ---
NO CHANGES TO PT ASSESSMENT. DAUGHTER AT BEDSIDE. PT DENIES PAIN OR DISCOMFORT. CALL LIGHT WITHIN REACH. WILL CONTINUE TO MONITOR.
--- NOTE | 2022-05-12 18:09 | NUR ---
PT REPOSITIONED AND INCONTINENT CARE PROVIDED. IV FLUIDS INFUSING. FAMILY UPDATED ON PT'S STATUS CHANGE TO A MEDICAL FLOOR PT. CHIEF CRUISER DC'D AT THIS TIME. PT REMAINS ON 4 L NC. CALL LIGHT WITHIN REACH. AND FAMILY AT BEDSIDE. DENIES ANY NEEDS AT THIS TIME.
--- NOTE | 2022-05-13 08:35 | NUR ---
MEDICATION ADMINISTRATION AND ASSESSMENT COMPLETED. PT ALERT AND ORIENTED, ANSWERING ALL QUESTIONS APPROPRIATELY. PT DENIES PAIN. EQUAL STRENGTH IN BOTH UPPER EXTERMITIES. PT CONTINUES TO REPORT DIPLOPIA AND INABILITY TO SEE IN CERTAIN VISUAL GENAO. LUNGS SOUND DIM IN BILATERAL BASES. PT ON 4 L AT REST, 6 L WITH ACTIVITY. PT UP IN CHAIR EATING BREAKFAST. SON AT BEDSIDE. CALL LIGHT WITHIN REACH. WILL CONTINUE TO MONITOR.
--- NOTE | 2022-05-13 08:44 | NUR ---
DR TAYLOR IN ROOM FOR PT ASSESSMENT AT THIS TIME.
--- NOTE | 2022-05-13 12:00 | NUR ---
ASSESSMENT COMPLETED. PT UP TO BSC TO VOID. SUPPLEMENTAL OXYGEN INCREASED TO 8 L FOR ACTIVITY. ONE PERSON ASSIST REQUIRED. WELL TOLERATED BY PT. PT NOW SITTING UP IN CHAIR EATING LUNCH. CALL LIGHT WITHIN REACH. WILL CONTINUE TO MONITOR.
--- NOTE | 2022-05-13 12:09 | NUR ---
PATIENT SITTING UP IN RECLINER FOR LUNCH. PATIENT REQUESTED BLT AND IS TOLERATING IT FINE. VITALS AND I&OS CHARTED. CALL LIGHT AND PERSONAL ITEMS IN EASY REACH
--- NOTE | 2022-05-13 14:00 | NUR ---
PT RESTING IN CHAIR WATCHING IPAD. SO ON RECLINER IN ROOM NEXT TO PT. PT AND FAMILY DENY ANY NEEDS AT THIS TIME.
--- NOTE | 2022-05-13 15:36 | NUR ---
NURSING REPORTS PATIENT IS DOING MUCH BETTER TODAY. HER APPETITE HAS IMPROVED AND SHE IS WANTING TO EAT. SHE IS ON A SOFT AND BITE SIZED DIET. ENSURE IS AVAILABLE FOR A SNACK IF DESIRED. WILL CONTINUE TO BE AVAILABLE FOR ANY NUTRITION INTERVENTION IF NEEDED.
--- NOTE | 2022-05-13 15:45 | NUR ---
HAD MEETING WITH PATIENTS DAUGHTER AND SON REAGRDING POSSIBLE PLACEMENT OPTIONS FOR THE PATIET. PLACEMENT OPTION SHEET GIVEN, DISCUSSED THE DIFFERENCE IN SNF VS T[facility] THE PAYMENT NEEDS FOR EACH TYPE OF FACILITY. ADVISED THAT WILL HAVE PATIENT EVALUATED BY PT TO DETERMINE IF PLACEMENT IS NEEDED BASED ON HER FUNCTIONAL LEVEL. DISCUSSED THAT SEVERAL OF THE AREAS SNF AND INTERMEDIATE FACILITIES ARE CURRENTLY FULL AND IT IS BEST TO GET ON A WAITING LISIT IF THE FAMILY FEELS THAT PLACEMENT WILL BE A NEED IN THE FUTURE. PATIENT DAUGHTER AND SON WOULD LIKE THE OPPORTUNITY TO DISCUSS OPTION FURTHER WITH THE PATIENT, HER SPOUSE AND OTHER SON. ADVISED CASE MANAGEMENT WILL FOLLOW UP WITH PATIENT ON MONDAY.
--- NOTE | 2022-05-13 16:15 | NUR ---
ASSESSMENT COMPLETED. ASSISTED PT UP TO BATHROOM WITH ONE PERSON ASSIST TO VOID AND BACK INTO CHAIR PER PT REQUEST. PT DOES HAVE COARSE LUNGS SOUNDS IN BILATERAL LOWER LUNG BASES. RESPIRATIONS LABORED WITH ACTIVITY BUT NORMALIZES WITH REST. PT NOW WATCHING IPAD WITH DAUGHTER AT BEDSIDE. CALL LIGHT WITHIN REACH. WILL CONTINUE TO MONITOR.
--- NOTE | 2022-05-13 17:14 | NUR ---
PT'S DAUGHTER TO BRING PT DINNER. PT NOW DRINKING ENSURE. CALL LIGHT AND PERSONAL BELONGINGS WITHIN REACH. WILL CONTINUE TO MONITOR.
--- NOTE | 2022-05-13 19:33 | NUR ---
PATIENT SITTING UP IN CHAIR EATING NIGERIAN FOOD. ALERT AND ORIENTED X4. FAMILY AT BEDSIDE. DENIES PAIN. CALL LIGHT IN REACH, CAN MAKE NEEDS KNOWN.
--- NOTE | 2022-05-13 20:37 | NUR ---
PATIENT UP TO BEDSIDE COMMODE WITH SBA. VOIDED THEN AMBULATED TO BED. SOB WITH EXERTION. RESTING IN BED COMFORTABLY. FAMILY AT BEDSIDE.
--- NOTE | 2022-05-13 23:10 | NUR ---
PATIENT REPORTS NPT BEING ABLE TO SLEEP. WARM BLANKETS AND SLEEPY TIME TEA PROVIDED.
--- NOTE | 2022-05-14 01:15 | NUR ---
pt called nurses station to report that she had incont of urine in her incont briefs. This rn assisted pt to change briefs, she declined interest in getting up to commode, pt cont. to report difficulty sleeping tonight. will update primary rn reilly
--- NOTE | 2022-05-14 02:17 | NUR ---
PATIENT STATES THAT SHE CANNOT SLEEP. DR MON NOTIFIED. NEW ORDERS RECEIVED.
--- NOTE | 2022-05-14 06:33 | NUR ---
PATIENT RESTING IN BED WITH EYES CLOSED. RESPIRATIONS EVEN AND UNLABORED. CALL LIGHT IN REACH AND CAN MAKE NEEDS KNOWN.
--- NOTE | 2022-05-14 07:30 | NUR ---
PATIENT SHIFT REPORT RECIEVED FROM FIELD MAP TECHNICIAN RN. PATIENT RESTING IN BED ON 4L NC. RASCH IN TO SEE PATIENT AND DISCUSS PLAN OF CARE. PATIENT CONTINUES A MEDSURGE PATIENT AT THIS TIME. WILL CONTINUE TO CLOSELY MONITOR.
--- NOTE | 2022-05-14 08:00 | NUR ---
THIS RN IN TO ASSIST PATIENT UP TO THE CAMMODE. PATIENT TOLERATED WELL. PATIENT NOW UP RESTING IN THE CHAIR. ASSESSMENT COMPLETED. PATIENTS BREATH SOUNDS CLEAR THROUGHOUT EXCEPT LLL HAS FINE CRACKLES. PATIENT HAS A WEAK COUGH. PATIENT ON 5L NC D/T EXERTION WITH MOVEMNET. PATIENT ON 6L OXYGEN NC AT HOME BASELINE. BOWEL TONES ACTIVE. WARM WASHCLOTH PROVIDED FOR PATIENT TO WASH HER FACE. BRUSHED PATIENTS HAIR. PATIENT NOW EAATING BREAKFAST. CALL LIGHT SITTING NEXT TO PATIENT AND PATIENT WATCHING TV. WILL CONTINUE TO CLOSELY MONITOR.
--- NOTE | 2022-05-14 10:00 | NUR ---
PATIENTS FAMILY IN AT THE BEDSIDE. PATIENT WAS NOT IMPRESSED WITH THE BREAKFAST PROVIDED THIS AM. THIS RN ORDERED A PROTIEN MILKSHAKE FOR PATIENT BECAUSE PATIENT REFUSED TO DRINK AN ENSURE D/T THEM BEING "TO SWEET". EDUCATED ON NUTRITION. PATIENT UP RESTING IN THE CHAIR VISITING WITH FAMILY. WILL CONTINUE TO CLOSELY MONITOR.
--- NOTE | 2022-05-14 12:21 | NUR ---
THIS RN IN TO BRING PATIENT HER LUNCH. PATIENT SITTING IN THE CHAIR VISITING WITH FAMILY. NO OTHER NEEDS RIGHT NOW. SPOKE WITH PATIENTS SON. THEY ARE SET TO TOUR FACILITIES ON MONDAY FOR THEIR MOM TO MOVE TO. WILL CONTINUE TO CLOSELY MONITOR.
--- NOTE | 2022-05-14 14:30 | NUR ---
THIS RN IN TO ASSIST PATIENT UP TO THE CAMMODE PATIENT DOES GET SOB WITH EXERTION. PATIENT NOW BACK RESTING IN THE CHAIR. PATIENTS COCCYX IS RED BUT BLANCHABLE. APPLIED AN ALYVN PAD AND PILLOW ON IN PATIENTS CHAIR FOR COMFORT. PATIENT CALL LIGHT IN REACH. WILL CONTINUE TO CLOSELY MONITOR.
--- NOTE | 2022-05-14 16:00 | NUR ---
MD MON IN THE UNIT AND UPDATED ON PATIENTS CARE. UPDATED ON PATIENTS SOB WITH EXERTION AND VISION CHANGES SINCE ADMISSION. SEE NEW ORDERS. NO OTHER NEEDS AT THIS TIME. WILL CONTINUE TO CLOSELY MONITOR.
--- NOTE | 2022-05-14 17:19 | NUR ---
PATIENTS DAUGHTER AT THE BEDSIDE. FAMILY WILL BRING IN PATIENTS HOME MEDICATIONS. PATIENT RESTING UP IN THE CHAIR VISITING. WILL CONTINUE TO CLOSELY MONITOR.
--- NOTE | 2022-05-14 17:56 | NUR ---
THIS RN IN TO ASSIST PATIENT. PATIENT RESTING IN THE CHAIR WITH FAMILY AT THE BEDSIDE. VITALS DONE. DINNER PROVIDED. PATIENTS FAMILY ARE GOING TO GO GET HER SOME CLAM CHOWDER. PATIENT IS SO HAPPY TO HAVE AN APPETITE AGAIN. PATIENT HAS NOT HAD AN APPETITE FOR YEARS. NO OTHER NEEDS AT THIS TIME. WILL CONTINUE TO CLOSELY MONITOR.
--- NOTE | 2022-05-14 21:34 | NUR ---
HS MEDS AND ASSESSMENT COMPLETE WELL MELATONIN AND TYLENOL FOR GENERALIZED PAIN 01/07. SHE VERBALIZED "I REALLY WANT TO GET SOME SLEEP" NO NEW CONCERNS THIS HS ON ASSESSMENT
--- NOTE | 2022-05-14 21:55 | NUR ---
telephone report received from [facility] rn ivan. questions answered, awaiting pt's arrival to [facility].
--- NOTE | 2022-05-14 22:08 | NUR ---
called pt home phone to notify family sergio son answered, of pt transfering to room 115 at this time, direct number for m/s unit and that her nurse there would be eva casper.
--- NOTE | 2022-05-14 23:20 | NUR ---
pt ARRIVED TO [facility] AT APPROX [id number] OVER FROM CCU BY PINO YOUNG. THIS RN ROUNDED ON pt AT THIS TIME, pt RESTING IN BED WITH EYES CLOSED. RR EVEN AND UNLABORED, BED ALARM REMAINS ON FOR SAFETY. 4LNC IN PLACE W/ HUMIDIFICATION, TITRATED TO 3.5LNC. CPOX IN PLACE D/T COVID DIAGNOSIS. NO DISTRESS NOTED, WILL CONTINUE TO MONITOR. CALL LIGHT IN REACH.
--- NOTE | 2022-05-14 23:55 | NUR ---
call light answered, pt provided with assistance with turing on tv per pt request. pt boosted in bed and bed alarm remains on for safety. pt remains on cpox, on 3.5-4lnc. pt a/o to self, place, situations at this time and following commands wnl. tv remote and call light in reach, spo2 low to mid 90's at this time.
--- NOTE | 2022-05-15 02:46 | NUR ---
rounded on pt, pt awake and resting in bed. 4.5lnc remains in place, pt deneis sob at this time. assessment complete, lung sounds clear and slightly diminished in lower lobes. cpox in place, spo2 97%. no additional needs, no acute changes to assessment. call light in reach, bed alarm on for safety.
--- NOTE | 2022-05-15 06:41 | NUR ---
ROUNDED ON pt, pt AWAKE AND RESTING IN BED. BED ALARM ON FOR SAFETY AND CALL LIGHT IN REACH. pt REMAINS ON 4.5LNC, CPOX IN PLACE. SPO2 UPPER 90'S. NO ADDITIONAL NEEDS, CALL LIGHT IN REACH.
--- NOTE | 2022-05-15 08:07 | NUR ---
PT RESTING EYES CLOSED AT SHIFT REPORT, LEFT UNDISTURBED. AWAKE AND TALKATIVE AT THIS TIME. NEEDED ITEMS IN REACH, DENIES DISCOMFORTS OR WANTS OF.
--- NOTE | 2022-05-15 11:15 | NUR ---
R/T NOTIFIED OF PT HOME MED RESP DEVICE, THEY ASSISTED HER WITH THIS WELL SCHEDULED NEB. PT HAS BEEN TALKATIVE ALL SHIFT, AND IS ESPECIALLY TALKATIVE AT THIS TIME. SATS ARE 87% ON 4L02. 02 TURNED UP TO 5 PT ENCOURAGED TO PURSE LIP BREATH AND RELAX. SATS RECOVER QUICKLY DESPITE CONTINUED CHATTER. PT REPEATS THAT SHE DIDN'T SLEEP LAST NIGHT AND STATES SHE WILL TRY TO NAP NOW. SHE HAS AN AUDIO BOOK, CALL LIGHT, LIQUIDS, AND NEEDED ITEMS IN REACH.
--- NOTE | 2022-05-15 13:15 | NUR ---
PT UP TO THE TOILET GETS VERY SOB SATS DOWN TO 81% 02 UP TO 6LPM PT RESTING IN BED RECOVERS QUICKLY. R/T CALLED TO ROOM EARLIER FOR C/O SOB, CP, AND HEADACHE. LIKELY HAVEING SIDE EFFECTS FROM HOME RESP DEVICE GIVEN A SHORT TIME EARLIER PER R/T.
--- NOTE | 2022-05-15 15:22 | NUR ---
PT RESTING IN BED AWAKE DENIES NEEDS OF OR DISCOMFORTS
--- NOTE | 2022-05-15 22:41 | NUR ---
Patient reports she cannot sleep. Admin melatonin 3mg po at this time. Helped patient reposition for optimal lung expansion in bed. Patient remains on 4.5L oxygen per nc, sp02 99%. Encouraged patient to call if she has needs. Personal supplies and call light within reach.
--- NOTE | 2022-05-15 23:15 | NUR ---
WENT IN TO THE ROOM PER PRIMARY RN PATIENT WANTING PILLOW UNDER HER KNEES. PATIENT STATED "ITS HARD TO BREATH". CHECKED PATIENT'S O2 SAT ITS IN 95-98. RAISED THE HEAD OF THE BED. PATIENT STATED "I FEEL A LOT BETTER". ICE WATER REFRESHED. BED ALARM ON FOR SAFETY.
--- NOTE | 2022-05-16 02:02 | NUR ---
Patient up to bedside commode to void. Pt states she cannot fall asleep tonight. Patient reports melatonin use at home, she is unsure of exact dose. Tylenol 500mg po admin at this time for comfort/generalized pain. Repositioned patient in bed. Warm blanket provided. Call light within reach.
--- NOTE | 2022-05-16 05:36 | NUR ---
Patient resting in bed, eyes closed, respirations non labored. Patient is on 4.5L oxygen per nc, sp02 99%. No notable distress at this time. Personal supplies and call light within reach.
--- NOTE | 2022-05-16 07:40 | NUR ---
PT RESTING EYES CLOSED AT TIME OF SHIFT REPORT, LEFT UNDISTURBED. SHE IS AWAKE AND TALKATIVE AT THIS TIME STATES SHE AGAIN DIDN'T SLEEP WELL LAST NIGHT. UP TO BSC THEN TO CHAIR FOR MORNING MEAL. CALL LIGHT IN HAND
--- NOTE | 2022-05-16 09:41 | NUR ---
pt sitting up in chair. i&o and vs charted call light within reach.
--- NOTE | 2022-05-16 10:18 | NUR ---
PT UP TO BSC 02 ON 6L NC SATS DROP TO LOW 80'S HE ELEVATES. ENCOURAGED PT TO STOP ACTIVITY DEEP BREATHS. C/O PLUGGED NOSE OXY MASK APPLIED PT RECOVERS SHORTLY AFTER SATS LOW 90'S. RESP EDUCADTION PROVIDED PT VERBALIZES UNDERSTANDING.
--- NOTE | 2022-05-16 12:13 | NUR ---
PT CONTINUES UP IN THE CHAIR VISITING ACTIVELY WITH GUEST. NOON MEAL SERVED. FRESH H20 TO CHAIRSIDE. CALL LIGHT IN REACH PT DENIES NEEDS OF
--- NOTE | 2022-05-16 14:09 | NUR ---
PT TOLERATES 100% OF NOON MEAL. UP TO BSC THEN TO CHAIR, VERY SOB. REMINDED TO BREATH IN THROUGH HER NOSE PURSE LIPPED. PT RECOVERS AFTER A TIME AT REST
--- NOTE | 2022-05-16 15:39 | NUR ---
PT SITTING IN THE CHAIR WATCHING TV APPEARS MORE RELAXED THAN SHE HAS. NOT TALKING TALKING TALKING. CONVERSES APPROPRIATELY. DENIES DISCOMFORTS OR NEEDS. FRESH H20 TO CHAIRSIDE CALL LIGHT IN REACH
--- NOTE | 2022-05-16 18:32 | NUR ---
pt visiting actively with guests x2. fresh h20 to chairside breakfast ordered. denies other needs of
--- NOTE | 2022-05-16 22:17 | NUR ---
2144 UPON ENTERING ROOM PATIENT BREATHING LABORED, USING ACCESSORY MUSCLES. PATIENT HAD BEEN TAKING OFF OXYGEN TO TRY CLEAR NASAL PASSAGEWAYS, APPEARED RESTLESS AND ANXIOUS STATING " I JUST FEEL LIKE WHEN I CALL, I KNOW ITS NOT A LONG TIME, BUT IT FEELS LIKE GETTING SOMEONE IN HERE TO HELP ME TAKES TOO LONG" PATIENT VERBALIZING ANXIOUS FEELING. NOTED OXYGEN SATURATION 100% AT 7L ON NC, ASKED PATIETN WHEN THIS WAS TURNED UP AND SHE GUESSES PROBABLY AROUND THE TIME OF DINNER WHEN GETTING UP TO THE RECLINER. CALL TO RT TO ASSESS PATIENT BREATHING AND NASAL CONGESTION. 2214 RT ASSESSED PATIENT, TITRATED TO 4L. PATIENT USING NASAL SPRAY AT BEDSIDE AND REPORTS INEFFECTIVE. RT VERBALIZED THE ONLY INTERVENTION WOULD BE TO INIATE VAPOTHERM AND WOULD NEED TO DISCUSS WITH PHYSICIAN. AT THIS TIME PATIENT CONTINUING ON 4L NC, PROVIDED REASSURANCE. PATIENT NOW BREATHING MORE REGULAR TAKING SLOW CONTROLLED BREATHS AND APPEARS CALM. OXYGEN SATURATION 94% ON 4L. PLAN TO ADMINISTER MEDICATIONS, AND THEN RECHECK BLOOD PRESSURE SINCE FIRST READING ELEVATED SECONDARY TO ANXIOUSNESS. PATIENT WAS ALSO PLACED ON A BED VALENCIA IN THE RECLINER, AND LIFTING UP HER HIPS APPEARED TO TAKE ALL HER RESERVE, PATIENT RECOVERS FROM SOB AFTER ABOUT 10 MINUTES. HOWEVER PATIENT CELEBRATING, STATING " I COULDN'T DO THIS YESTERDAY, I MUST BE GETTING BETTER" PROVIDED REASSURANCE WITH CURRENT POC. FULL BODY ASSESMENT DONE. LUNG SOUNDS SOUND COURSE WITH RHONCHI THROUGHOUT, AUSCULATING AIR MOVEMENT AT LEAST THROUGH THE UPPER LOBES, LOWER LOBES DIMINISHED.
--- NOTE | 2022-05-17 02:05 | NUR ---
CALL LIGHT ANSWERED. PATIENT ASSISTED IN USING BED VALENCIA. CIRILO WIPE DONE. CHANGED GOWN AND WHITE CHUX. PATIENT VOIDED EXTRA LARGE UNMEASURED. PATIENT'S O2 SAT WAS 95-98% IN 4LNC. DENIES FURTHER CARE OR NEEDS AT THIS TIME.
--- NOTE | 2022-05-17 03:36 | NUR ---
PATIENT CALLED FOR TYLENOL COMPLAINING OF PAIN WITH INSPIRATION, APPEARS ANDIOUS WITH SOB. REPOSITIONED PATIENT BOOSTING UP IN BED, CALL TO RT WHO INITIATED ALBUTEROL BREATHING TX. ADMINISTERED TYLENOL PO PER SEP. PATIENT RATES PAIN 4/10 ON PAIN SCALE AND STATES " I HAVE NEVER HAD THIS KIND OF PAIN BEFORE". PATIENT ALSO VERBALIZES HAS BEEN ABLE TO GET SOME SLEEP THIS NIGHT.
--- NOTE | 2022-05-17 04:48 | NUR ---
PATIENT REPORTS SUBSTERNAL CHEST PAIN CONSTANT AND NOT RELIEVING, PAIN ALSO MOVES ACROSS THE BACK INTO THE SHOULDER BLADES BILATERALLY. THE PAIN COINCIDES WITH A HEAVINESS ON THE CHEST, THE BREATHING TREATMENT AND PO TYLENOL HAVE NOT BEEN EFFECTIVE IN RESOLVING SYMPTOMS. PAIN SHARP 4/10 ON PAIN SCALE AND WORSENING. VS COLLECTED, DR. MON NOTIFIED VIA TELPHONE. NEW ORDERS FOR STAT EKG AND THEN TO CALL BACK WITH FINDINGS.
--- NOTE | 2022-05-17 04:53 | NUR ---
TELEPHONE CALL TO DR. MON NOTIFYING OF EKG RESULTS. NEW ORDER TO ADMINISTER 1 TAB NORCO Q4HR PRN. ADMINISTERED MEDICATION, UPDATED AND PROVIDED REASURANCE TO PATIENT. PATIENT HAD MEDIUM SOFT BOWEL MOVEMENT ON BED VALENCIA, SOB APPEARS TO HAVE IMPROVED RR 24, TITRATED OXYGEN DOWN TO 4L, AFTER HAVING OXGYEN INCREASED FOR ACTIVITY OF BOWEL MOVEMENTS. OXYGEN SATURATION 94% 4L NC. PROVIDED SNACK TO EAT WITH PO PAIN MEDICATION. CALL LIGHT WITHIN REACH.
--- NOTE | 2022-05-17 04:55 | NUR ---
PATIENT USED THE BED VALENCIA. PATIENT HAD A MEDIUM SOFT BM. GARBAGE PICKED UP.
--- NOTE | 2022-05-17 05:06 | NUR ---
PATIENT REPORTS PAIN IN CHEST HAS DECREASED TO A DULL ACHE, CONTINUES TO FILL PRESSURE ON CHEST AND SHARP PAIN UNDER SHOULDER BLADES. PROVIDED PATIENT WITH HEAT PACK FOR BACK. PATIENT APPEARS CALM, EATING SNACK. ENCOURAGED PATIENT TO REST HEAD BACK, FOCUS ON BREATHING. LIGHTS DIM. INSTRUCTED TO CALL IF SYMPTOMS BEGIN TO WORSEN. PROVIDED EDUCATION ON SYMPTOMS OF NORCO, ANSWERED QUESTIONS AND CONCERNS.
--- NOTE | 2022-05-17 07:02 | NUR ---
PATIENT CALLED TO USE THE BEDPAN. PATIENT VOIDED LARGE QUANTITY UNMEASURED ON THE BED VALENCIA. CHANGED CHUX. NO OTHER NEEDS AT THIS TIME.
--- NOTE | 2022-05-17 07:46 | NUR ---
pt in respiratory isolation. O2 in place, slight SOB with exertion noted, 0700 scheduled med given, denies c/o pain. will came back with meals and rest of meds in about 1- 1.5 hour. RT in room doing tx. pt aware alert and oriented. pleasant and coop. call light and fresh fluids t hands reach
--- NOTE | 2022-05-17 09:30 | NUR ---
Pt was discussed in AM [address] Jovel. Unclear of a dc plan as family have not decided on a plan per last documentation.
--- NOTE | 2022-05-17 09:47 | NUR ---
Pt using bedpan, had semi liquid bm, increased sob, taachy and increased respiration with exertion, pulse up to 116, was on O2 4LNC prior to, and O2 increased to 6L when turned and repositined, desatted to 82% and resp up to 28 with exertion, CPOX#[address] on O2L. recuperated after a few minutes. see vitals flow sheet. calmer now, HOB elevated for meals, 2 SL patent, dressing to buttocks areas removed as it got soilded, redness of coccyx area noted, blancheable. will replace. pleasant and cooperative, call light at handsa reach. Cont on resp isolation per covid+.chronic O2 at home, lungs coarse at bases
--- NOTE | 2022-05-17 09:50 | NUR ---
Spoke with pt and her daughter. Pt and daughter both stating they would like a SNF for pt to increase strength and then placement to an [facility] or home depending on how pt does. Discussed with pt and daughter, I will contact SNFS in the area. [facility] would like [facility]. Discussed there may be an issues as pt has tested + for covid and I will need to check on the policy for each SNF. We also discussed if pt cannot be placed into a SNF she may need to go to an [facility] with HH for PT. I will let Dr. Jovel know of pts requests as he has documented pt is dischargable from a medical stand point.
--- NOTE | 2022-05-17 09:55 | NUR ---
dwaine held at her request
--- NOTE | 2022-05-17 10:30 | NUR ---
STILL EATING SLOWLY, TOLERATING WELL. CALL LIGHT AND FLUIDS AT HANDS REACH, FAMILY IN ROOM, CM WAS IN THERE TALKING TO PT AND FAMILY.
--- NOTE | 2022-05-17 11:57 | NUR ---
Chart faxed to [facility], [facility], and [facility]. I spoke with their admissions people and all say pt will need to be at least 8-10 days out from covid test. Let them know I faxed chart with face sheet, H&P, progress notes x 3 days, med list, covid test, covid vac assessment, and PT notes.
--- NOTE | 2022-05-17 13:00 | NUR ---
Spoke with Andra from [facility]. They do not feel pt is appropriate for their facility. Answered questions pt is a DNR/DNI, pt does require PT and would be skillable. They will cont. to review the chart as they have not completed. Per their DNS, they feel pt would be more appropriate for dc to home with HH. Let them know, this is not what PT is recommending. They will review chart and let me know tomorrow.
--- NOTE | 2022-05-17 14:32 | NUR ---
pt up to bsc, O2 increaed to 6LNC, sats 98% on 6L, voided large amunts of cloudy urine and had a liquid bm. back to bed, Increased SOB with exertion, back to bed 1PA. O2 back to 4L sats 94-97% once she recuperates,
--- NOTE | 2022-05-17 16:14 | NUR ---
Pt up in chair, O2 4LNC, eyes closed, no s/sx distress, resting peacefully. worked with PT earlier, tolerated Dr Med mcintosh in room assessing pt earlier, will dc' cpox when pt awake
--- NOTE | 2022-05-17 16:28 | NUR ---
Dr Jovel updated.
--- NOTE | 2022-05-17 17:45 | NUR ---
Up to bsc, on 4LNC, sats 94-96%, resp 18 prior to. voided, backa to chair, sats 92% pulse 121 and resp 30when getting up, reassured, calmed down, back t chair, tolerated well, sats 90-92% on 4L, O2 was not increased this time, p10 and resp 22 after a minutes, tolerate very well. CPOX tele#7 dc'd, 2 SL dc'd as per md, not patent. family in room.
--- NOTE | 2022-05-17 17:47 | NUR ---
Chart faxed to Gene at [facility]. Spoke with office staff, their rules for covid are 10 post + test for admission as long as pt has been vaccinated. Chart faxed and I will follow up with their admissions person, Milton, tomorrow am. Daughter updated to where chart has been faxed and my conversation with [facility].
--- NOTE | 2022-05-17 19:25 | NUR ---
PATIENT HAS BEEN UP IN HER CHAIR VISITING WITH FAMILY.
--- NOTE | 2022-05-17 19:45 | NUR ---
RECEIVED REPORT FROM DAY SHIFT RN. PATIENT IS RESTING IN RECLINER. FAMILY PRESENT IN ROOM. NO NEEDS NOTED. CALL LIGHT IN REACH.
--- NOTE | 2022-05-17 20:45 | NUR ---
SBA FROM CHAIR TO BEDSIDE COMMODE TO BED. RT KUSUM CAME TO GIVE PATIENT'S NEB TREATMENT. V/S AND I&O'S TAKEN AND CHARTED.
--- NOTE | 2022-05-17 20:55 | NUR ---
PATIENT ASSESMENT COMPLETED. PATIENTS VITALS TAKEN AND RECORDED. INTAKE AND OUTPUT RECORDED. OM MEDS PER ORDER. PATIENT GIVEN PRN TYLENOL PER REQUEST. PATIENT REMAINS ON 4L VIA NC. PATIENT ASSISTED TO WAS FACE AND BRUSH TEETH. PATIENT DENIES ANY SOB AT REST. PATIENT GIVEN PRN SLEEP AID PER REQUEST AND ORDER. PATIENT DENIES ANY FURTHER NEEDS. CALL LIGHT IN REACH.
--- NOTE | 2022-05-17 23:02 | NUR ---
SBA TO BEDSIDE COMMODE. PATIENT'S O2 ON 5L NC IS IN 93-94%. PATIENT IS BACK IN BED. ICE WATER REFILLED. BED SIDE TABLE AND CALL LIGHT WITH IN REACH.
--- NOTE | 2022-05-18 00:12 | NUR ---
PATIENT REQUESTED PAIN MEDICATION FOR 1/10 PAIN IN HER BACK. PRN PAIN MEDICATION GIVEN PER ORDER. WARM PACK PROVIDED. TEA PROVIDED PER REQUEST.. PATIENT DENIES ANY FURTHER NEEDS. CALL LIGHT IN REACH.
--- NOTE | 2022-05-18 01:56 | NUR ---
PATIENT IS RESTING IN BED WITH EYES CLSOED, RR 18. CALL LIGHT IN REACH.
--- NOTE | 2022-05-18 03:15 | NUR ---
PATIENT IS RESTING IN BED WITH EYES CLOSED, RR 16. CALL LIGHT IN REACH. PATIENT REMAINS ON 4L VIA NC.
--- NOTE | 2022-05-18 05:59 | NUR ---
PATIENT TITRATED TO 6L VIA NC. PATIENT ASSISTED TO [facility] 1[facility]. PATIENT HAS INCREASED RR AND HR WITH ACTIVITY. PATIENT ABLE TO VOID. PATIENT IS BACK IN BED RESTING. PATIENTS VITALS TAKEN AND RECORDED. PATIENTS AM MEDS GIVEN PER ORDER. PATIENT DENIES ANY PAIN. PATIENTS OXYGEN TITRATED DOWN TO 4L VIA NC AFTER REST. PATIENT PROVIDED WITH FRESH ICE WATER. NO FURTHER NEEDS NOTED. CALL LIGHT IN REACH.
--- NOTE | 2022-05-18 09:38 | NUR ---
up to bsc, hyperventiklates and becomes very anxious, sats 92% 4L NC, pulse goes up to 120-130, resp 26-32
--- NOTE | 2022-05-18 10:15 | NUR ---
PT IN BED, O2 4LNC, PLACED IN BEDPAN, C/O UPPER FRONTAL CHEST ACROSS PAIN, HYPERVENTILATING, REASSURED, VIS WNL, TACHEIPNEIC WHEN ANXIOUS, REASSURED, CALMED DOWN, COOP WITH ASSESSMENT, LUNGS CELAR BILAT, ABD SOFT, IRVIN COLORED AREA BUTTOCKS ALLEVYN TO AREA. HAS VOIDED, USING BEDPAN, TOLERATING LIQUIDS WELL, NO EMESIS. NO IV SITES
--- NOTE | 2022-05-18 10:25 | NUR ---
REceived text from Adrienne at [facility] they will accept pt for Monday. Followed by text stating they can take this pt tomorrow. Attempted to notify family, they are not in the room.
--- NOTE | 2022-05-18 10:30 | NUR ---
Received text they will not be able to take pt until Monday. Called Adrienne and I will speak with family and see what time they can transport. Pt either needs to arrive at 1pm or 11AM. They would prefer the morning. Pt notified and is very happy with this placement. 1100 Spoke with family and they will transport this pt. on Monday.
--- NOTE | 2022-05-18 10:53 | NUR ---
IN CHAIR, LEGS ELEVATED, O2 4LNC, NO DISTRESS, TCM TALKING TO FAMILY ABOUT POSSIBLE TRANSFER IN AM TO [facility]
--- NOTE | 2022-05-18 11:56 | NUR ---
KNOCKED ON HER DOOR THAN WENT IN CHANGED HER BED LINENS. SHE ALSO BRUSHED HER TEETH AND WASHED HER FACE. SHE IS ALSO VISITING HER FAMILY. SHE IS UP IN HER CHAIR.
--- NOTE | 2022-05-18 12:31 | NUR ---
up in chair, O2 4Lnc, c/o generalized pain, medicated
--- NOTE | 2022-05-18 13:44 | NUR ---
Up in chair, awake, no further c/o pain, comfortable,O2 4LNC legs elevated, continues on droplet/respiratory isolation precautions.
[2022-05-18] MEDS ORDERED: IPRAT-ALBUT 0.5-3 ML INH (16:27)
[2022-05-18] MEDS ORDERED: TRAZODONE HCL50 MG PO (16:28)
[2022-05-18] MEDS ORDERED: ACETAMINOPHEN500 MG PO (16:28)
[2022-05-18] MEDS ORDERED: STIMULANT LAXA1 EACH PO (16:30)
--- NOTE | 2022-05-18 17:00 | NUR ---
Attempted to confirm time of transport and daughter is not here. Pt will send her a text, I also let pt know I will follow up with daughter tomorrow since she is not leaving until Fri.
--- NOTE | 2022-05-18 17:34 | NUR ---
Pt continues on droplet/Respiratory isolation precautions, on 4LNC, chronic use at 6L at home, Had been tolerating O2 $LNC when up to bsc/chair transfers. except later in shift, O2 increaed to 6L due to increased anxiety/panic attack and hyperventilation, sats WNL, pulse increased to 120-130's, resp 20-32 and recuperates very easily, reassured easily and frequently. No IV site. 1pa, voiding QS, has had bm's. Was medicated twice per generalized pain and upper across chest pain/ easily comofrtable after much reassureance, . Tolerating diet and fluids well, no emesis, Family visiting very frequently this shift. Pt was up in chair several times, tolerated well. Pleasant, alert and oriented. uses call light
--- NOTE | 2022-05-18 17:52 | NUR ---
Orders, Pasrr, med list, PT/OT notes faxed to Adrienne at [facility] [place].
--- NOTE | 2022-05-18 18:56 | NUR ---
c/o generalized pain, medicated with tylenol
--- NOTE | 2022-05-18 22:00 | NUR ---
PATIENT RESTING BACK IN BED, FAMILY VISITED, PATIENT APPEARS TIRED, BREATHING IS TACHYPNEIC, RR 32, O2 SAT 90% ON 4L NC. INCREASED TO 5 LITERS PER PATIENT REQUEST THEN PROVIDED PATIENT REASSURANCE AND ENCOURAGED PATIENT TO STOP TALKING AND CLEAR MIND. PATIENT APPEARED CALMER AFTER 4 MINUTES OF QUIETNESS, TITRATED BACK TO 4L, PROVIDED WARM BLANKET. FULL BODY ASSESSMENT DONE, ADMINISTERED HS MEDICATIONS. PATIENT ABLE TO USE IS AT BEDSIDE FLOAT WAFER TO 1200. FRESH ICE WATER AND ENSURE WITH ICE CREAM PROVIDED. PATIENT VOIDING WELL, AND APPEARS TO OVERALL BE TOLERATING ACTIVITY WELL. PRN TRAZADONE ADMINISTERED PER SEP FOR SLEEP.
--- NOTE | 2022-05-19 00:30 | NUR ---
CALL LIGHT ANSWERED, pt AWAKE AND RESTING IN BED. pt SOMEWHAT ANXIOUS AND COULDN'T REMEMBER IF SHE RECEIVED SLEEPING MEDICATION, DISCUSSED WITH pt EVENING MEDS SHE RECEIVED. QUESTIONS ANSWERED, pt THEN STATES, "OKAY, I WILL CLOSE MY EYES THEN AND TRY AND GET SOME SLEEP". pt RELAXED AND DENEIS NEEDS OR CONCERNS. CALL LIGHT IN REACH.
--- NOTE | 2022-05-19 03:01 | NUR ---
call light answered, pt reports 2.5/10 pain. prn tylenol given, see emar as well as prn melatonin for inability to sleep. spo2 97% on 4lnc. sleepy time tea and warm compress to neck. no additional needs, call light in reach.
--- NOTE | 2022-05-19 06:00 | NUR ---
IN TO ASSIST PT WITH BED VALENCIA, INCONT OF BM, PT FINISHED ON THE BED VALENCIA, CLEANED UP, NO FURTHER NEEDS AT THIS TIME
--- NOTE | 2022-05-19 06:05 | NUR ---
PATIENT APPEARED TO SLEEP FAIRLY WELL THROUGHOUT NIGHT, WAKING UP THIS MORNING WITH CHRONIC NECK PAIN REQUESTING HEAT COMPRESS AND PAIN MEDICATION. PATIENT APPEARS TO BE CALM. OXYGEN AT 4L NC, 02 SATURATION 93-95%, RECOVERY FROM ACTIVITY APPEARS TO ONLY LAST 1-2 MINUTES. PATIENT ATTEMPTING CALMING TECHNIQUES TO SLOW BREATHING.
--- NOTE | 2022-05-19 06:32 | NUR ---
pt called, responded to call light. pt thought they had made a mess in bed and was very worried. checked pt and nothing in breif or on bed. got pt new breif and repositioned pt to be comfortable. call light within reach no further tasks at this time
--- NOTE | 2022-05-19 07:30 | NUR ---
recieved shift report. director of digital technology in room assisting pt at this time.
--- NOTE | 2022-05-19 08:27 | NUR ---
MORNING ASSESSMENT COMPLETE. PT LYING IN BED AWAKE. O2 4L NC PER BASELINE. CLEAR DIM BILAT UPPER LOBES, CRACKLES IN BILAT BASES. PT INSTRUCTED ON COUGH AND DEEP BREATHE. PT DENIES PAIN AT THIS TIME. HAS COMPLAINTS OF DIARRHEA. PT DENIES FURTHER NEEDS AT THIS TIME. CALL LIGHT IN REACH
--- NOTE | 2022-05-19 09:33 | NUR ---
PT SITTING UP IN BED, BREAKFAST AT BEDSIDE. DENIES NEEDS AT THIS TIME. CALL LIGHT IN REACH.
--- NOTE | 2022-05-19 10:15 | NUR ---
PT SITTING UP IN BED WATCHING TV. CALL LIGHT IN REACH
[2022-05-19] MEDS ORDERED: TRAZODONE HCL50 MG PO (12:42)
--- NOTE | 2022-05-19 13:00 | NUR ---
in to adminster imodium. pt sitting in bed. pt is requsting tylenol to keep pain away. pt reports she has back pain regulary. tylenol adminstered. denies further needs. call light in reach.
--- NOTE | 2022-05-19 14:42 | NUR ---
PT LAYING IN BED WATCHING TV. DENIES FURTHER NEEDS. CALL LIGHT WITHIN REACH.
--- NOTE | 2022-05-19 15:30 | NUR ---
AFTERNOON ASSESSMENT COMPLETE. PT STATED SHE FELT SHE HAD A BM. THIS RN AND STUDENT RN IN ROOM TO CHANGE PT. PT CLEANED UP. DRESSING ON COCCYX STILL INTACT. PT SPO2 96% ON 4 L NC. PT LUNG SOUNDS DIMINISHED BILAT IN LOWER BASES. SUBCUTANEOUS EMPHYSEMA PALPATED ALONG RIGHT UPPER CHEST AND LOWER NECK. MD PREVIOUSLY AWARE.
--- NOTE | 2022-05-19 19:31 | NUR ---
Pt on resp isolation precautions. O2 4LNC, sob with exertion. subcutenous crepitus auscultated by touch above breastbone frontal side bilat, upper L clavicle and upper back shoulder bone area. edema and crepitus below eye, neck and jaw area, this area tender to touch. Was incontinent of urine, changed, allevyn to buttocks area, redness, lotion applied. cooperative. Was very anxious due to incontinence, reassured, calmed down. hob elevated to comfort
--- NOTE | 2022-05-19 21:19 | NUR ---
On 4LNC, tolerated turning well, sats WNL, tachy at times with exertion. lungs with crackles t/o. crepitus no changes from earlier, R sided facial edema, no changes. no IV sites, warm pads to front chest, back and ab. helped with turning and repositining. took Melatonin nad Trazadone per insomnia c/o. Tylenol per front upper chest, back upper chest and abd. tolerating liquids well. uses call light, looking forward to being dc in am to Rehab facility
--- NOTE | 2022-05-19 22:56 | NUR ---
resting, on O2, no distress, eyes closed. call light at hands reach
--- NOTE | 2022-05-20 00:46 | NUR ---
Pt using O2 4LNC, resting,eyes closed, no distress, call light and fluids at hands reach
--- NOTE | 2022-05-20 01:36 | NUR ---
Pt used her call light. was incontinent of urine, skin care, lotion to walter area and clean attends. helped with repositioning, not as much sob with exertion noted. On 4LNC, pulse went up only to 107, resp 28, sats stay same. Crepitus no changes from earlier assessment. decreaed edema to r upper facial area, mid R face jaw, neck, no changes turned, warm pads removed, c/o back being wet, back was dry, cleansed with moist towel and dried. tolerated well, call light at hands reach. cont on respiratory precautions.
--- NOTE | 2022-05-20 04:02 | NUR ---
Pt continues on Airborne/Respiratory precautions, on 4LNC, chronic at home 6LNC. pt has improved, minor SOB with exertion noted earlier on shift, no desatting on 4L, pulse tachy with exertion at 107 but not higher, resp 18-26 recuperated very easily, gets nebs, lungs diminished and crackles at begining of shift. clear and dim at second assessment. R lateral face/jaw/neck area edematous tender, decreased edema. subcutaneous emphyzema crapitus no changes from earlier assessment crepitus present upper chest horizontal to breasts and R axillary area to upper back to upper shoulder blade bony area Incontinent of urine and bowel, skin care, clean attends allevyn to coccyx area nursing judgement, area reddened. Uses call light, tolerating fluids and diet, no emesis, Was medicated with Tylenol per r facial/chest,back and abd pain, warm pad given earlier, helpful. alert and oriented, Pt is to be dc today to [facility] for further rehab conditioning. 1PA,uses call light Requires much encouragement and praises when anxious, calm this shift
--- NOTE | 2022-05-20 07:45 | NUR ---
CREPITUS FELT FROM BILAT MIDCHEST, NECK, UPPER BACK, CHEEKS, AND UNDER RIGHT EYE.
--- NOTE | 2022-05-20 09:46 | NUR ---
PT LAYING IN BED. CALL LIGHT WITHIN REACH.
--- NOTE | 2022-05-20 10:15 | NUR ---
IN ROOM TO ASSESS PT BOTTOM AND CHANGE ALLEVYN DRESSING. PT WAS PREOXYGENATED ON 6L NC PRIOR TO MOVEMENT. TURNING PT O2 LEVELS WENT TO 88% ON 6L. AFTER DEEP BREATHING PT WAS ABLE TO INCREASE O2 LEVEL TO 96% ON 6L NC. PT TITRATED TO 4.5 L. O2 MAINTAINED ABOVE 93%. REDDNESS NOTED ON BOTTOM, SKIN BARRIER APPLIED. NEW ALLEVYN APPLIED. CALL LIGHT WITHIN REACH.
--- NOTE | 2022-05-20 11:41 | NUR ---
PT IN BED AND DRESSED READY FOR DISCHARGE. PT FAMILY AT BEDSIDE. CALL LIGHT WITHIN REACH.
--- NOTE | 2022-05-20 12:07 | NUR ---
PT IN BED EATING LUNCH. EXPLAINED DISCHARGE PACKET GIVEN TO PATIENT AND FAMILY. ALL QUESTIONS ANSWERED. CALL LIGHT WITHIN REACH.
--- NOTE | 2022-05-20 12:45 | NUR ---
UPON DISCHARGE PT SAT ON BEDSIDE AT 6L NC. SPO2 93%. PT ABLE TO STAND 1 PERSON PIVOT TO THE WHEELCHAIR WITHOUT DIFFICULTY. WHEELED PT OUT WITH FAMILY ON 6L AND ASSISTED PT INTO THE CAR. PT WAS ABLE TO TOLERATE GETTING INTO THE CAR WITHOUT DIFFICULTY.
--- NOTE | 2022-05-20 13:00 | NUR ---
CALLED [facility]ERRARO, GAVE REPORT TO SIMRAN. INFORMED PT JUST LEFT FACILITY WITH FAMILY. ALL QUESTIONS ANSWERED.
== END 2022-05-20 12:45 | DRG 177 ==
LOC: ED 09:00 → CCU 13:47 → MS 13:47
PROVIDERS: ADMIT Internal Medicine; ATTEND Internal Medicine
PROC: 3E0333Z Introduction of Anti-inflammatory into Peripheral Vein, Percutaneous Approach (ICD-10-PCS; principal; 2022-05-10)
PROC: XW033E5 Introduction of Remdesivir Anti-infective into Peripheral Vein, Percutaneous Approach, New Technology Group 5 (ICD-10-PCS; 2022-05-10)
PROC: 8E0ZXY6 Isolation (ICD-10-PCS; 2022-05-10)
PROC: XW033H6 Introduction of Other New Technology Monoclonal Antibody into Peripheral Vein, Percutaneous Approach, New Technology Group 6 (ICD-10-PCS; 2022-05-10)
DX: U07.1 COVID-19 (principal); J12.82 Pneumonia due to coronavirus disease 2019; J96.21 Acute and chronic respiratory failure with hypoxia; J93.83 Other pneumothorax; E87.1 Hypo-osmolality and hyponatremia; Z68.1 Body mass index [BMI] 19.9 or less, adult; J84.10 Pulmonary fibrosis, unspecified; G47.09 Other insomnia; T38.0X5A Adverse effect of glucocorticoids and synthetic analogues, initial encounter; Z66 Do not resuscitate; I27.20 Pulmonary hypertension, unspecified; D86.0 Sarcoidosis of lung; K21.9 Gastro-esophageal reflux disease without esophagitis; K44.9 Diaphragmatic hernia without obstruction or gangrene; R62.7 Adult failure to thrive; Z90.49 Acquired absence of other specified parts of digestive tract; Z90.710 Acquired absence of both cervix and uterus; Z79.51 Long term (current) use of inhaled steroids; Z79.899 Other long term (current) drug therapy; Z79.811 Long term (current) use of aromatase inhibitors; Z79.52 Long term (current) use of systemic steroids
CPT/HCPCS: 36415; 36600; 51701; 70450; 71045; 80048; 80053; 81001; 82803; 83735; 84100; 85025; 87502; 93005; 93010; 94640; 94760; 94762; 97110; 97116; 97161; 97165; 97530; 97535; 99285-25; A9270; C9113; C9803; J0248; J1100; J1650; J1885; J2060; J2270; J2405; J3475; J7030; J7050; J7121; J7512; J8540; U0003